=== PATIENT | female | born 1955 | race Two or more races ===

== ENCOUNTER 2024-02-08 07:48 | Inpatient (IN) | payer MEDICAID, SELFPAY ==
[2024-02-08] VITALS (13 sets, daily range): BP systolic 137–157; BP diastolic 61–99; PULSE 68–77; RESP 16–84; TEMP 36.1–37.1; O2SAT 87–100; BMI 24.7
--- NOTE | 2024-02-08 08:18 | EKG_ITS ---
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
--- NOTE | 2024-02-08 08:18 | XR_ITS ---
Examination: AP chest single view Technique one AP portable semiupright chest single view Exam date and time: February 08, 2024 0854 hrs. Comparison 11/06/2023 Indications: SOB chest pain beginning today Findings: Moderate CHF Mild enlargement cardiac contour Prominent vascular congestion Layered right pleural fluid Bilateral subsegmental atelectasis Suspicious for pneumonia left base retrocardiac Prominent osteopenia Impression: Moderate CHF Suspicious for pneumonia left base retrocardiac
--- NOTE | 2024-02-08 08:20 | PC.NURSE ---
Patient to er via ems from [facility] with c/o sob, retaining fluid for 1 week, gained 17 lbs in the last week, swelling to concepción. ankles, started lasix yest, currently patient resp. even and slightly labored at 25bpm, patient denies pain, patient slightly confused thinks she is at [facility], reoriented patient to person place and time, patient states she is breathing better after administration of medication en route by ems. Dr. Son at bedside, new orders received, call light within reach
--- NOTE | 2024-02-08 08:36 | PD.EDSOB ---
ED SOB =RME/HPI General Chief Complaint: Shortness of Breath/Dyspnea Stated Complaint: SOB Time Seen by Provider: 02/08/24 08:07 Arrival date/time: 02/08/24 07:48 RME / HPI RME / HPI Narrative: DR. SON MAIN ED EVALUATION: 68 year old female with past medical history significant for chronic kidney disease, diabetes, and oxygen dependent presents to the Emergency Department [facility] from [facility] with complaint of shortness of breath. Symptoms are moderate. Patient states that she has been retaining fluid and gained 17 pounds in the last week. She has swelling to bilateral ankles and started lasix yesterday. Related Data Home Medications ?Medication ?Instructions ?Recorded ?Confirmed gabapentin 600 mg tablet 600 mg PO TID #0 tabs 09/28/15 12/30/22 (Neurontin) glipizide 10 mg tablet 10 mg PO DAILY #0 tabs 09/28/15 12/30/22 atorvastatin 10 mg tablet 10 mg PO DAILY 08/21/21 12/30/22 sitagliptin phosphate 100 mg 100 mg PO DAILY 08/21/21 12/30/22 tablet (Januvia) Previous Rx's ?Medication ?Instructions ?Recorded albuterol sulfate 90 mcg/actuation 1 inh inhalation QID PRN shortness 12/30/22 aerosol inhaler of breath or wheezing #8.5 grams Allergies Allergy/AdvReac Type Severity Reaction Status Date / Time No Known Allergies Allergy Unverified 08/25/23 14:50 Review of Systems Review of Systems Systems Reviewed: All systems reviewed, normal except as documented Narrative Review of Systems: GEN: No fever, no chills, no weight loss EYES: No discharge, no visual changes, no pain HEENT: No ear pain, no congestion, no sore throat PULM: + shortness of breath, no cough, no congestion CV: No chest pain, no dyspnea on exertion, no palpitations GI: No nausea, no vomiting, no diarrhea, no pain, no constipation : No frequency, no urgency and no dysuria MUSC/SKEL: No joint pain, no back pain SKIN: No rash PSYCH: No hallucinations, no depression HEME/LYMPH: No easy bleeding or bruising tendencies NEURO: No weakness, no headache Past Medical History Past Medical History NEUROLOGIC: Negative Neurological Disorders CARDIAC: Positive Hypercholesterolemia and Hypertension; Negative Cardiac Disorders or Congestive Heart Failure RESPIRATORY: Negative Chronic Obstructive Pulmonary Disease (COPD) GENITOURINARY: Positive Genitourinary Disorders and Renal Disease REPRODUCTIVE: Negative Pelvic Inflammatory Disease MUSCULOSKELETAL: Positive Musculoskeletal Disorders ENDOCRINE: Positive Endocrine Disorders and Diabetes Mellitus Type 2; Negative Diabetes Mellitus Type 1 OTHER HISTORY: Negative Autoimmune Disease Family History FAMILY HISTORY: Positive Family Respiratory Disorders and Family Cancer; Negative Family Psychiatric Problems, Family Cardiac Disorders, Family Gastrointestinal Problems, Family Surgery or Family Anesthesia Reaction Surgical History SURGICAL: Positive Abdominal Surgery and Tubal Ligation Social History SMOKING STATUS: Never smoker ED Exam Narrative Physical exam: GENERAL APPEARANCE: alert and oriented x 4, well-developed, well-nourished VITALS: All vitals were reviewed and the pulse ox is 100% on 5 L/min via a nasal cannula. HEENT: Normocephalic, atraumatic; pupils equal, round, reactive to light; EOMI; mucous membranes pink, moist; oropharynx clear NECK: Supple LUNGS: CTABL; no wheezes, no rales, no rhonchi HEART: Regular rate, regular rhythm; normal S1, S2; no murmurs ABDOMEN: non distended; normal BS; soft, no tenderness, no guarding, no rebound; no masses, no organomegaly, no hernia BACK: no CVA tenderness EXTREMITIES: atraumatic; she has swelling to bilateral ankles NEUROLOGIC: awake; alert and oriented x4; cranial nerves II-XII grossly intact; no focal sensory or motor deficits PSYCHIATRIC: appropriate mood and affect SKIN: warm, dry, normal color; no rashes Course Quality Measures none Orders Category Date Time Status Admit to Inpatient Status Routine Admission 02/08/24 15:17 Active Patient Condition Routine Admission 02/08/24 15:17 Ordered Activity as Tolerated Routine Care 02/08/24 15:18 Ordered Bedside COVID-19 Antigen Test NOW Care 02/08/24 08:18 Active Bedside Influenza A&B Antigen Test NOW Care 02/08/24 08:18 Completed 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 NOW Care 02/08/24 08:18 Active 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 And 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 Q4H START 00 Care 02/08/24 08:19 Completed Continuous Pulse Oximetry NOW Care 02/08/24 15:17 Active EKG (ED ONLY) *Do not use* NOW Care 02/08/24 08:18 Completed Fluid restriction QDAY Care 02/08/24 15:17 Active Intake and Output QSHIFT Care 02/08/24 15:30 Ordered Notify provider NEEDED Care 02/08/24 15:17 Active Obtain weight daily Care 02/08/24 15:18 Active Occult Blood,Stool (Nursing) NOW Care 02/08/24 09:56 Active Sequential Compression Device QSHIFT Care 02/08/24 15:17 Active Strict Intake and Output Routine Care 02/08/24 15:18 Ordered Diet Cardiac Diet 02/08/[address] head/brain wo con Stat Exams 02/08/24 11:57 Completed EKG (ED Only) Stat Exams 02/08/24 08:18 Draft XR chest 1V portable Stat Exams 02/08/24 08:18 Completed B-Type Natriuretic Peptide Stat Lab 02/08/24 08:34 Completed Blood Culture (Lab) Stat Lab 02/08/24 08:34 Received CBC AM DRAW Lab 02/09/24 05:00 Ordered CBC AM DRAW Lab 02/10/24 05:00 Ordered CBC AM DRAW Lab 02/11/24 05:00 Ordered CBC Stat Lab 02/08/24 08:34 Completed Comprehensive Metabolic Panel AM DRAW Lab 02/09/24 05:00 Ordered Comprehensive Metabolic Panel AM DRAW Lab 02/10/24 05:00 Ordered Comprehensive Metabolic Panel AM DRAW Lab 02/11/24 05:00 Ordered Comprehensive Metabolic Panel Stat Lab 02/08/24 08:34 Completed Folate Stat Lab 02/08/24 08:34 Received Lactate (Lactic Acid) Stat Lab 02/08/24 08:34 Completed Lipase Stat Lab 02/08/24 08:34 Completed Magnesium AM DRAW Lab 02/09/24 05:00 Ordered Magnesium AM DRAW Lab 02/10/24 05:00 Ordered Magnesium AM DRAW Lab 02/11/24 05:00 Ordered Magnesium Stat Lab 02/08/24 08:34 Completed Occult Blood, Stool (LAB) Stat Lab 02/08/24 11:50 Completed Partial Thromboplastin Time Stat Lab 02/08/24 08:34 Completed Phosphorous AM DRAW Lab 02/09/24 05:00 Ordered Phosphorous AM DRAW Lab 02/10/24 05:00 Ordered Phosphorous AM DRAW Lab 02/11/24 05:00 Ordered Procalcitonin Stat Lab 02/08/24 08:34 Completed Prothrombin Time with INR Stat Lab 02/08/24 08:34 Completed Troponin I AM DRAW Lab 02/09/24 05:00 Ordered Troponin I Stat Lab 02/08/24 08:34 Completed Troponin I Stat Lab 02/08/24 11:54 Completed Urinalysis Stat Lab 02/08/24 09:37 Completed Urine Culture Stat Lab 02/08/24 09:37 Received Vitamin B12 Stat Lab 02/08/24 08:34 Received Acetaminophen Tab [Tylenol Tab] Med 02/08/24 15:17 Active 650 mg PO Q6H PRN Acetaminophen Tab [Tylenol Tab] Med 02/08/24 15:17 Active 650 mg PO Q6H PRN Calcium Gluconate 10% Inj Med 02/08/24 09:53 Discontinued 1 gm IV X1 ONE Furosemide Inj [Lasix Inj] Med 02/08/24 18:00 Active 40 mg IVP BIDD Furosemide [Lasix Inj] Med 02/08/24 12:09 Discontinued 20 mg IVP X1 ONE Ondansetron Inj [Zofran Inj] Med 02/08/24 15:17 Active 4 mg IV Q6H PRN cefTRIAXone [Rocephin] 1,000 mg Med 02/08/24 13:12 Discontinued Sodium Chloride 0.9% (P) [Ns 0.9% (P)] 50 ml IV X1 cefTRIAXone/D5w 1gm IV premix [Rocephin/D5w 1gm IV Med 02/09/24 09:00 Active premix] 50 ml IV QDAY Code Status Routine Oth 02/08/24 15:17 Ordered Oxygen Delivery DAILY RT 02/08/24 15:18 Active Oxygen Delivery NOW RT 02/08/24 08:19 Active Vital Signs Vital signs: Vital Signs Temperature 98.3 F 02/08/24 07:50 Pulse Rate 77 02/08/24 07:50 Respiratory Rate 17 02/08/24 07:50 Blood Pressure 143/77 H 02/08/24 07:50 Pulse Oximetry (%) 95 02/08/24 07:50 Oxygen Delivery Method Nasal Cannula 02/08/24 07:50 Oxygen Flow Rate 6 02/08/24 07:50 Shortness of Breath / Dyspnea MDM Narrative MDM Narrative:: Andree Zarate am scribing for and in the presence of Dr. Son. Patient data External records reviewed:: [facility] previous records (Reviewed last admission discharge dated 11/09/23, patient admitted for the following: Chest pain.) Clinical information provided by:: patient and EMS Social determinants that could affect healthcare access:: housing ([facility]) Patient has the following chronic illnesses:: chronic kidney disease, diabetes, and oxygen dependent How is presenting disease/condition affected by chronic disease/condition?: exacerbated by Evaluation data The following diagnostics were reviewed and interpreted by me:: lab results, radiology exam(s) and EKG tracing(s) (sinus rhythm, rate 72, QTc 423) Lab and/or radiology exams considered but not ordered:: none Interpretation Summary: Procedure(s): CT head/brain wo con Accession Number(s): [id number] cc: Keshia Daniels MD; Cm Brown MD; Andria Son MD~ Examination: CT brain head without contrast. 2-D sagittal coronal reconstructions Date and time of exam:February 08, 2024 1210 hrs. Indications: Onset altered mental status today CTDI: vol (mGy):49.2 DLP: (mGycm):961 Technique: Multiple CT axial sections of the brain have been obtained, 5 mm slice thickness. Contrast has not been administered. 2-D sagittal, coronal reconstructions have been obtained Low dose protocols were performed. One or more of the following dose reduction techniques were used; automated exposure control, adjustment of the mA and/or KV according to patient size, use of iterative reconstruction technique. Findings: No significant ventricular enlargement. Axial image 30 demonstrate subtle low density in the left brainstem, pontine level, 15 mm Intra-axial or extra-axial hemorrhage density is not seen. No mass effect or midline shift Basal cisterns are not remarkable. Fourth ventricle is midline. Cranial vault intact. Impression: Negative for acute hemorrhage, mass effect or midline shift Suspicious for nonhemorrhagic brainstem infarct, age indeterminate, axial image 30, clinical correlation advised Consider brain MRI follow-up, stroke protocol Dictated By: Cm Brown MD Procedure(s): XR chest 1V portable Accession Number(s): [id number] cc: Cm Brown MD; Andria Son MD~ Examination: AP chest single view Technique one AP portable semiupright chest single view Exam date and time: February 08, 2024 0854 hrs. Comparison 11/06/2023 Indications: SOB chest pain beginning today Findings: Moderate CHF Mild enlargement cardiac contour Prominent vascular congestion Layered right pleural fluid Bilateral subsegmental atelectasis Suspicious for pneumonia left base retrocardiac Prominent osteopenia Impression: Moderate CHF Suspicious for pneumonia left base retrocardiac Dictated By: Cm Brown MD Medications / Prescriptions Medications or Prescriptions considered but not ordered:: none Medication administrations:: Medication Administration History Acetaminophen (Acetaminophen 325 Mg Tablet) 650 mg PO Q6H PRN PRN Reason: Fever >101.5 Stop: 03/09/24 15:16 Acetaminophen (Acetaminophen 325 Mg Tablet) 650 mg PO Q6H PRN PRN Reason: PAIN SCALE 1-3 (mild Stop: 03/09/24 15:16 Furosemide (Furosemide Inj 10 Mg/Ml 4ml Vial) 40 mg IVP BIDD [facility] Stop: 03/09/24 17:59 Ceftriaxone Sodium/Dextrose (Rocephin/D5w 1gm Iv Premix) 50 mls @ 100 mls/hr IV QDAY [facility] Stop: 02/16/24 08:59 Ondansetron HCl (Ondansetron Inj 2 Mg/Ml Inj 2 Ml) 4 mg IV Q6H PRN; Protocol PRN Reason: NAUSEA OR VOMITING Stop: 03/09/24 15:16 Discontinued Medications Calcium Gluconate (Calcium Gluconate 10% Inj 1 Gm/10 Ml Vial) 1 gm IV X1 ONE Stop: 02/08/24 09:54 Last Admin: 02/08/24 10:50 Dose: 1 gm Documented By: MANUELITO Furosemide (Furosemide Inj 10 Mg/Ml Vial 2 Ml) 20 mg IVP X1 ONE Stop: 02/08/24 12:10 Last Admin: 02/08/24 13:18 Dose: 20 mg Documented By: MANUELITO Ceftriaxone Sodium 1,000 mg/ (Sodium Chloride) 50 mls @ 100 mls/hr IV X1 ONE Stop: 02/08/24 13:41 Last Infusion: 02/08/24 13:54 Dose: Infused Documented By: Admin: 02/08/24 13:18 Dose: 100 mls/hr Documented By: MANUELITO see above Consultations Consultation(s) initiated? (list below): Yes Consultation #1 (Physician, Specialty, Details): Discussed test HPI, PMHx, lab, radiology results and/or management with hospitalist. Will admit for further evaluation and management. Accepts patient for admission. Time: 15:00 Diagnosis Shortness of Breath Differential Diagnosis: congestive heart failure, community acquired pneumonia and pulmonary embolism Most likely diagnosis given after review of the tests above:: CHF exacerbation UTI Hypoxia AMS Anemia Admission Indicated Admission indicated?: indicated Admission Request Was there a request for admission?: Yes Admission Attestation Admission request attestation: Discussed case with [] from Hospitalist service regarding admission. Discussed patients ED course, exam findings, labs, and radiology results. The Hospitalist [agrees,declines] to accept the patient for admission. Disposition Plan Disposition Plan: Admit Discharge Plan Plan Patient Disposition: Admit Acute Care w/in Hospital Prescriptions/Referrals Prescriptions/Med Rec: No Action gabapentin [Neurontin] 600 MG tablet 600 mg PO TID Qty: 0 glipizide 10 MG tablet 10 mg PO DAILY Qty: 0 atorvastatin 10 mg tablet 10 mg PO DAILY Januvia 100 mg tablet 100 mg PO DAILY albuterol sulfate 90 mcg/actuation HFA aerosol inhaler 1 inh inhalation QID PRN (Reason: shortness of breath or wheezing) Qty: 8.5 0RF Referrals: Keshia Daniels MD [Primary Care Provider] - In 1 week Problem List Clinical Impression: CHF exacerbation, UTI (urinary tract infection), Hypoxia, Altered mental state, Anemia Patient/Caregiver Discharge Instructions Print Language: Luxembourgish Stand Alone Forms: [facility]a Award Info., Patient Portal Info Letter
[2024-02-08 08:43] LABS: Lactate (Lactic Acid) 0.3 mMol/L (0.4-2.0)
[2024-02-08 09:10] LABS: Basophils # (Auto) 0.1 Thou/mm3 (0.0-0.2); Basophils % (Auto) 1 % (0-2.5); Eosinophils # (Auto) 0.2 Thou/mm3 (0.0-0.5); Eosinophils % (Auto) 3 % (0-10); Hematocrit 24.1 % (36.0-46.0); Immature Granulocytes % (Auto) 2 % (0-0); Immature Granulocytes Auto 0.09 Thou/mm3 (0.00-0.00); Lymphocytes # (Auto) 1.2 Thou/mm3 (1.0-4.8); Lymphocytes % (Auto) 22 % (10-50); Mean Corpuscular HGB Conc 31.1 g/dl (31.0-37.0); Mean Corpuscular Hemoglobin 32.3 pg (25.0-35.0); Mean Corpuscular Volume 104 fL (80-100); Monocytes # (Auto) 0.5 Thou/mm3 (0.0-0.8); Monocytes % (Auto) 9 % (0-12); Neutrophils # (Auto) 3.3 Thou/mm3 (1.8-7.7); Neutrophils % (Auto) 63 % (37-80); Nucleated Red Blood Cell % 0 /100 WBC (0); Platelet Count 247 Thou/mm3 (140-440); RDW Standard Deviation 57.2 fL (36.4-46.3); Red Blood Count 2.32 Miln/mm3 (4.00-5.20); White Blood Count 5.2 Thou/mm3 (3.6-11.0)
[2024-02-08 09:11] LABS: B-Type Natriuretic Peptide 1715 pg/mL (0-100)
[2024-02-08 09:12] LABS: Hemoglobin 7.5 g/dL (12.0-16.0)
[2024-02-08 09:23] LABS: Alanine Aminotransferase 8 U/L (10-49); Albumin, Serum 3.3 gm/dL (3.4-4.8); Albumin/Globulin Ratio 0.9 (1.2-2.2); Alkaline Phosphatase 184 U/L (46-116); Anion Gap 6 (7-16); Aspartate Amino Transferase < 10 U/L (0-34); BUN/Creatinine Ratio 30 Ratio (12-20); Bilirubin,Total 0.3 mg/dL (0.3-1.2); Blood Urea Nitrogen 74 mg/dL (9-23); Calcium 8.3 mg/dL (8.3-10.6); Calcium (Corrected) 8.9 mg/dL (8.5-10.1); Carbon Dioxide 23.7 mMol/L (20.0-31.0); Chloride 106 mMol/L (98-107); Creatinine (Component) 2.5 mg/dL (0.6-1.3); Estimated Creatinine Clearance 18.8 mL/min (>60); Globulin 3.8 gm/dL (2.3-3.5); Glucose 95 mg/dL (74-106); Lipase 29 U/L (12-53); Osmolality,Calculated 293 (275-295); Potassium 5.8 mMol/L (3.4-5.1); Procalcitonin 0.19 ng/ml (0.0-0.49); Sodium 136 mMol/L (136-145); Total Protein 7.1 gm/dL (5.7-8.2); eGFR 21 See Note
[2024-02-08 09:24] LABS: Troponin I 0.062 ng/mL (0.0-0.045)
[2024-02-08 09:57] LABS: Collection Type, Urine Clean Catch
[2024-02-08 09:58] LABS: INR 1.1 (0.9-1.3); Partial Thromboplastin Time 32.2 Seconds (22.0-36.0); Prothrombin Time 12.2 Seconds (9.0-12.2)
[2024-02-08 10:17] LABS: Bacteria,Urine 4+; Bilirubin,Urine Negative (Negative); Blood,Urine Negative (Negative); Color,Urine Yellow (Lt Yel-Yel); Glucose, Urine Negative (Negative); Ketones,Urine Negative (Negative); Leukocyte Esterase,Urine Positive (Negative); Nitrite,Urine Negative (Negative); Protein,Urine 3+ (Neg - Trace); RBC,Urine 4 /hpf (0-3); Specific Gravity,Urine 1.016 (1.001-1.035); Squamous Epithelial Cell,Urine 1 /hpf (0-5); Urobilinogen,Urine Negative mg/dL (0.0-1.0); WBC,Urine 127 /hpf (0-5)
[2024-02-08 10:18] LABS: Clarity,Urine Hazy (Clear/Hazy)
[2024-02-08] MEDS: CALCIUM GLUCONATE 10% INJ 1 GM/10 ML VIAL IV (10:50)
--- NOTE | 2024-02-08 11:57 | XR_ITS ---
Examination: CT brain head without contrast. 2-D sagittal coronal reconstructions Date and time of exam:February 08, 2024 1210 hrs. Indications: Onset altered mental status today CTDI: vol (mGy):49.2 DLP: (mGycm):961 Technique: Multiple CT axial sections of the brain have been obtained, 5 mm slice thickness. Contrast has not been administered. 2-D sagittal, coronal reconstructions have been obtained Low dose protocols were performed. One or more of the following dose reduction techniques were used; automated exposure control, adjustment of the mA and/or KV according to patient size, use of iterative reconstruction technique. Findings: No significant ventricular enlargement. Axial image 30 demonstrate subtle low density in the left brainstem, pontine level, 15 mm Intra-axial or extra-axial hemorrhage density is not seen. No mass effect or midline shift Basal cisterns are not remarkable. Fourth ventricle is midline. Cranial vault intact. Impression: Negative for acute hemorrhage, mass effect or midline shift Suspicious for nonhemorrhagic brainstem infarct, age indeterminate, axial image 30, clinical correlation advised Consider brain MRI follow-up, stroke protocol
[2024-02-08 12:23] LABS: OBS Performed By vasqk2; OBS QC OK? Yes; Occult Blood, Stool Negative (Negative)
[2024-02-08 12:25] LABS: Troponin I 0.062 ng/mL (0.0-0.045)
[2024-02-08] MEDS: cefTRIAXone 1,000 MG in SODIUM CHLORIDE 0.9% (P) 50 ML 100 MG IV (13:18)
[2024-02-08] MEDS: FUROSEMIDE INJ 10 MG/ML VIAL 2 ML 20 MG IVP (13:18)
--- NOTE | 2024-02-08 13:43 | PC.NURSE ---
Patient c/o pain to her concepción. buttocks, patient turned to her left side in POC, call light within reach.
--- NOTE | 2024-02-08 15:24 | ESHP_ITS ---
<Statement entered by Cristi Lucia MD - 02/09/24 06:17> I attest that I was physically present for the evaluation, physical examination, lab and imaging review of the patient with the residents. I discussed the case with the residents and agree with the findings and plans of care as documented above. Patient is a 68 years old female with PMH of HFrEF 35-40% on 2L home O2, CKD, HTN, DM2, hypothyroidism who presents from SNF with complaints of increased shortness of breath, increased leg swelling, and dysuria. She was initially started on 6L oxygen via nasal cannula in the ED and received 20mg IV lasix. Also noted to have acute on chronic kidney injury, hyperkalemia and UTI. Patient will be admitted for management of acute on chronic respiratory failure secondary to CHF exacerbation. Started on diuretics, kayexalate, IV antibiotics, fluid and salt restriction, supplemental oxygen. Cristi Lucia MD <Statement entered by Patricia Cox MD - 02/08/24 16:41> I discussed with and supervised my co-resident involved in the care of this patient. I agree with most of the assessment and plan as documented above. Betty Oliveira is a 68 year female with PMH of HFrEF 35-40% (Oct 2023, on 2L home O2), CKD, HTN, DM2, hypothyroidism who presents from SNF for shortness of breath and increased leg swelling, and dysuria. Patient denies any headache, fever, chills, nausea, or vomiting, chest pain, no other acute complaints. She got lasix in the ER and oxygen requirements improved from 6L to 2L. Labs show hyperkalemia, troponin leak, IBRAHIMA, and elevated BNP. UA also suggestive of UTI. Will admit patient for acute hypoxic respiratory failure secondary to acute CHF exacerbation. Echo was done on previous admission, unclear if patient followed up with inorganic chemistry professor outpatient. Will give lasix, monitor I&O with fluid restriction, daily weights. Patient will likely need to start on GDMT. Will also give antibiotics for her UTI. Will recheck TSH levels as well as she had elevated TSH on previous admission. Patricia Cox MD PGY-3 Documentation for date of: 02/08/24 HPI History of Present Illness History of present illness: Patient is a 68-year-old female with past medical history of HFrEF 35 to 40%, CKD off dialysis since 06/30, HTN, DM, hypothyroidism presented to the emergency department from [facility] for altered mentation and increased oxygen requirements. Patient states that she feels that her feet are swollen and she is short of breath. Patient states that she has multiple admissions previously for similar symptoms to both [facility] and [facility]. Patient denies any recent fever, productive sputum, chest pain or chest pressure, sensorineural changes, falls or loss of conscious. Patient attest to mild burning on urination for the past couple days. Per ED provider patient appeared to be confused on initial presentation. Initial blood pressure, heart rate, respiratory rate were normal in the emergency department. Afebrile on presentation. Patient usually is on 2 L home oxygen, however per ED provider they needed to place her on 6 L nasal cannula to saturate at 99%. CT head obtained in the emergency department negative. CBC significant for hemoglobin of 7.5 from 9.7 in November 2023. Bedside Hemoccult negative. CMP significant for BUN 74, creatinine 2.5. Potassium of 5.8-given Kayexalate in ED. Troponin 0.062, BNP 17.5. Pro-Josue 0.19. EKG shows sinus rhythm. Chest x-ray shows prominent vascular congestion, moderate CHF, as well as suspicion for PNA left base, retrocardiac. Patient given 20 Lasix in the emergency department. Urinalysis shows 3+ protein, leukoesterase positive, urine WBC 127, urine bacteria 4+. Physical exam in emergency department significant for slightly diminished lung sounds bilaterally, left> right. 2+ edema noted on lower extremities bilaterally. Patient is alert and oriented x 4 at time of exam in the emergency department Patient will be admitted for acute hypoxic respiratory failure secondary to CHF exacerbation, acute on chronic kidney injury and urinary tract infection. Exam Vital Signs Temp Pulse Resp BP Pulse Ox O2 Del Method O2 Flow Rate 97.7 F 72 17 142/67 H 100 Nasal Cannula 5 02/08/24 14:02/08/24 14:02/08/24 14:02/08/24 14:02/08/24 14:02/08/24 14:02/08/24 14:00 Narrative Exam GENERAL: NAD, NC/AT, responsive/cooperative. 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 Eyes open, symmetrical, & clear CARDIO: No chest pain on palpation. Heart RRR, no obvious murmurs PULM: Significant for slightly diminished lung sounds bilaterally, left> right. GI: Abdomen soft, nondistended, no pain on palpation. BSx4 SKIN/MSK/EXT: No wounds/rashes/amputations, no pain on palpation. Pedal pulses present B/L 2+ pitting edema noticed on bilateral lower extremities Results: Labs 02/08/24 08:34 02/08/24 08:34 Labs: Short CBC 02/08/24 Range/Units 08:34 WBC 5.2 (3.6-11.0) Thou/mm3 Hgb 7.5 L (12.0-16.0) g/dL Hct 24.1 L (36.0-46.0) % Plt Count 247 (140-440) Thou/mm3 BMP 02/08/24 08:34 Sodium 136 Potassium 5.8 H Chloride 106 Carbon Dioxide 23.7 BUN 74 H Creatinine 2.5 H Glucose 95 Calcium 8.3 Cardiac Enzymes 02/08/24 02/08/24 Range/Units 08:34 11:54 Troponin I 0.062 H* 0.062 H* (0.0-0.045) ng/mL Liver Function 02/08/24 Range/Units 08:34 Total Bilirubin 0.3 (0.3-1.2) mg/dL AST < 10 (0-34) U/L ALT 8 L (10-49) U/L Alkaline Phosphatase 184 H (46-116) U/L Albumin 3.3 L (3.4-4.8) gm/dL Urine 02/08/24 Range/Units 09:37 Urine Color Yellow (Lt Yel-Yel) Urine Clarity Hazy (Clear/Hazy) Urine pH 6.0 (5.0-7.0) Ur Specific [place] 1.016 (1.001-1.035) Urine Protein 3+ A (Neg - Trace) Urine Glucose (UA) Negative (Negative) Quality Measures Quality Measures VTE prophylaxis Advance care planning discussed with:: patient Medications Home Medications and Allergies Home Medications ?Medication ?Instructions ?Recorded ?Confirmed ?Type gabapentin 600 mg tablet 600 mg PO TID #0 tabs 09/28/15 12/30/22 History (Neurontin) glipizide 10 mg tablet 10 mg PO DAILY #0 tabs 09/28/15 12/30/22 History atorvastatin 10 mg tablet 10 mg PO DAILY 08/21/21 12/30/22 History sitagliptin phosphate 100 mg 100 mg PO DAILY 08/21/21 12/30/22 History tablet (Januvia) Allergies Allergy/AdvReac Type Severity Reaction Status Date / Time No Known Allergies Allergy Unverified 08/25/23 14:50 Visit Medications Acetaminophen (Acetaminophen 325 Mg Tablet) 650 mg PO Q6H PRN PRN Reason: Fever >101.5 Stop: 03/09/24 15:16 Acetaminophen (Acetaminophen 325 Mg Tablet) 650 mg PO Q6H PRN PRN Reason: PAIN SCALE 1-3 (mild Stop: 03/09/24 15:16 Ondansetron HCl (Ondansetron Inj 2 Mg/Ml Inj 2 Ml) 4 mg IV Q6H PRN; Protocol PRN Reason: NAUSEA OR VOMITING Stop: 03/09/24 15:16 Discontinued Medications Calcium Gluconate (Calcium Gluconate 10% Inj 1 Gm/10 Ml Vial) 1 gm IV X1 ONE Stop: 02/08/24 09:54 Last Admin: 02/08/24 10:50 Dose: 1 gm Furosemide (Furosemide Inj 10 Mg/Ml Vial 2 Ml) 20 mg IVP X1 ONE Stop: 02/08/24 12:10 Last Admin: 02/08/24 13:18 Dose: 20 mg Ceftriaxone Sodium 1,000 mg/ (Sodium Chloride) 50 mls @ 100 mls/hr IV X1 ONE Stop: 02/08/24 13:41 Last Infusion: 02/08/24 13:54 Dose: Infused Assessment & Plan Plan Patient is a 68-year-old female with past medical history of HFrEF 35 to 40%, CKD off dialysis since 06/30, HTN, DM, hypothyroidism presented to the emergency department from [facility] for altered mentation and increased oxygen requirements. Admitted for acute hypoxic respiratory failure secondary to CHF exacerbation, IBRAHIMA, UTI. #Acute hypoxic respiratory failure secondary to CHF exacerbation # Heart failure with reduced ejection fraction Patient has a history of HFrEF with echo performed in 11/06/23 showing global hypokinesis with ejection fraction as needed 35 to 40%. Patient presented with shortness of breath and increased oxygen demand from her home 2 L nasal cannula. Troponin elevated at 0.062, EKG sinus rhythm. Patient denies any chest pain/chest pressure. BNP 1715 Chest x-ray shows pulmonary vascular congestion, moderate CHF -Oxygen therapy to achieve saturations above 92% -Lasix 40 twice daily -Fluid restrict 1500 mL/day -Cardiac diet, salt restriction #IBRAHIMA in the setting of CKD #Hyperkalemia Patient's baseline creatinine is to be 1.6 per previous records, upon presentation 2.5 GFR 29 on previous admissions, now 21 Patient was previously on dialysis however was taken off on 06/30 due to improvement in function. Potassium 5.8 on initial labs in emergency department -Kayexalate 15 given -Continue to monitor labs -Gentle diuresis #Urinary tract infection Patient attests to multiple days of burning on urination Urinalysis shows 3+ protein, leukoesterase positive, urine WBC 127, urine bacteria 4+. Rocephin given in the emergency department -Rocephin 1 g daily -Urine culture sent, pending # Low Hemoglobin Patient's hemoglobin is 7.5 on initial labs, from 9.7 on 11/30. Patient denies any tiredness/weakness. Bedside Hemoccult test is negative. MCV elevated -Continue to reassess CBC -Ordered folate and B12 levels, will reassess #Diabetes Patient has history of diabetes Patient does not appear to be insulin-dependent at home -Sliding scale insulin initiated, will adjust accordingly #HTN Patient has a history of hypertension -Holding home nifedipine in the setting of leg swelling. Will reassess after Lasix dose. # Hypothyroidism Patient has a history of hypothyroidism Restarting patient's home levothyroxine #AMS- resolved Per ED provider patient presented with altered mentation. On exam in the emergency department patient was alert and oriented x 4. Diet: Cardiac diet GI: Patient is on cardiac diet DVT: SCDs Jacobo: None Lines: Peripheral Dispo:Tele Med Rec: Pending Code:Full Hospitalization for observation, work-up, & management of acute hypoxic respiratory failure, IBRAHIMA, urinary tract infection Patient was seen, plan was discussed with attending Dr. Rea Mora, DO, PGY1
[2024-02-08 16:32] LABS: Folate > 24.00 ng/mL (>5.38); Vitamin B12 994 pg/mL (211-911)
--- NOTE | 2024-02-08 18:24 | PC.NURSE ---
1814 PATIENT WHINING AND STATES HER RT LEG IS VERY PAINFUL. DR CASTLE CALLED AND INFORMED OF HER COMPLAINT AND PAIN LEVEL. ONLY HAS TYLENOL FOR PAIN LEVEL OF 1-3. STATED WILL ORDER HER SOMETHING MORE
--- NOTE | 2024-02-08 18:28 | PC.NURSE ---
UNABLE TO COMPLETE ADMISSION QUESTIONS. PATIENT IS VERY DISTRAUT, WHINING. ASKED HER IF SHE COULD CALM DOWN AND ANSWER QUESTIONS. YELLED BACK IM IN PAIN. ASKED HER WHERE THE PAIN IS AND SHE ANSWERED YOU KNOW WHERE IT IS. INFORMED TRISTA I CAN NOT HELP HER IF SHE DOES NOT ANSWER MY QUESTION. BECAME QUIET AND REFUSED TO ANSWER ANY FURTHER QUESTIONS. STATED IM GOING HOME. A DAUGHTER WALKED IN BUT SHE IS NOT FAMILIAR WITH HER HEALTH HISTORY. INFORMED TRISTA I WOULD RETURN WITH PAIN MED.
[2024-02-08] MEDS: oxyCODONE/APAP 5/325 TABLET 1 TAB PO (18:35)
[2024-02-08] MEDS: FUROSEMIDE INJ 10 MG/ML 4ML VIAL 40 MG IVP (18:39)
[2024-02-08] MEDS: SOD POLYSTYRENE SULFON SUSP 15 GM/60 ML BTL PO (18:40)
[2024-02-08] MEDS: ATORVASTATIN CALCIUM 10 MG TABLET PO (20:35)
[2024-02-08] MEDS: GABAPENTIN 300 MG CAPSULE PO (20:59)
[2024-02-08 21:43] LABS: Basophils % (Auto) 1 % (0-2.5); Eosinophils # (Auto) 0.1 Thou/mm3 (0.0-0.5); Eosinophils % (Auto) 3 % (0-10); Hematocrit 25.3 % (36.0-46.0); Immature Granulocytes % (Auto) 2 % (0-0); Lymphocytes % (Auto) 20 % (10-50); Mean Corpuscular HGB Conc 31.2 g/dl (31.0-37.0); Mean Corpuscular Volume 102 fL (80-100); Monocytes # (Auto) 0.3 Thou/mm3 (0.0-0.8); Monocytes % (Auto) 7 % (0-12); Neutrophils # (Auto) 3.5 Thou/mm3 (1.8-7.7); Neutrophils % (Auto) 69 % (37-80); Nucleated Red Blood Cell % 0 /100 WBC (0); Platelet Count 264 Thou/mm3 (140-440); RDW Standard Deviation 56.9 fL (36.4-46.3); Red Blood Count 2.47 Miln/mm3 (4.00-5.20); White Blood Count 5.1 Thou/mm3 (3.6-11.0)
[2024-02-08 21:49] LABS: Hemoglobin 7.9 g/dL (12.0-16.0)
[2024-02-08 23:47] LABS: Alanine Aminotransferase < 7 U/L (10-49); Albumin, Serum 3.5 gm/dL (3.4-4.8); Albumin/Globulin Ratio 0.9 (1.2-2.2); Alkaline Phosphatase 203 U/L (46-116); Anion Gap 9 (7-16); Aspartate Amino Transferase 11 U/L (0-34); BUN/Creatinine Ratio 30 Ratio (12-20); Bilirubin,Total 0.3 mg/dL (0.3-1.2); Blood Urea Nitrogen 72 mg/dL (9-23); Calcium 8.9 mg/dL (8.3-10.6); Calcium (Corrected) 9.3 mg/dL (8.5-10.1); Carbon Dioxide 22.4 mMol/L (20.0-31.0); Chloride 105 mMol/L (98-107); Creatinine (Component) 2.4 mg/dL (0.6-1.3); Estimated Creatinine Clearance 19.6 mL/min (>60); Glucose 108 mg/dL (74-106); Osmolality,Calculated 294 (275-295); Potassium 5.4 mMol/L (3.4-5.1); Sodium 136 mMol/L (136-145); Total Protein 7.5 gm/dL (5.7-8.2); eGFR 22 See Note
[2024-02-09] VITALS (13 sets, daily range): BP systolic 125–162; BP diastolic 63–81; PULSE 63–79; RESP 10–20; TEMP 36.2–36.5; O2SAT 92–97
[2024-02-09] MEDS: LEVOTHYROXINE SODIUM 25 MCG TABLET 50 MCG PO (05:37)
[2024-02-09] MEDS: GABAPENTIN 300 MG CAPSULE PO ×3 (05:37→21:30)
[2024-02-09] MEDS: FUROSEMIDE INJ 10 MG/ML 4ML VIAL 40 MG IVP ×2 (05:37→17:09)
[2024-02-09 06:11] LABS: Basophils % (Auto) 1 % (0-2.5); Eosinophils # (Auto) 0.2 Thou/mm3 (0.0-0.5); Eosinophils % (Auto) 4 % (0-10); Hematocrit 24.3 % (36.0-46.0); Immature Granulocytes % (Auto) 2 % (0-0); Immature Granulocytes Auto 0.08 Thou/mm3 (0.00-0.00); Lymphocytes # (Auto) 1.4 Thou/mm3 (1.0-4.8); Lymphocytes % (Auto) 27 % (10-50); Mean Corpuscular HGB Conc 31.3 g/dl (31.0-37.0); Mean Corpuscular Hemoglobin 32.3 pg (25.0-35.0); Mean Corpuscular Volume 103 fL (80-100); Monocytes # (Auto) 0.5 Thou/mm3 (0.0-0.8); Monocytes % (Auto) 10 % (0-12); Neutrophils % (Auto) 58 % (37-80); Nucleated Red Blood Cell % 0 /100 WBC (0); Platelet Count 259 Thou/mm3 (140-440); RDW Standard Deviation 56.5 fL (36.4-46.3); Red Blood Count 2.35 Miln/mm3 (4.00-5.20); White Blood Count 5.2 Thou/mm3 (3.6-11.0)
[2024-02-09 06:29] LABS: Hemoglobin 7.6 g/dL (12.0-16.0)
[2024-02-09 07:01] LABS: Alanine Aminotransferase 8 U/L (10-49); Albumin/Globulin Ratio 0.8 (1.2-2.2); Alkaline Phosphatase 188 U/L (46-116); Anion Gap 7 (7-16); Aspartate Amino Transferase 13 U/L (0-34); BUN/Creatinine Ratio 30 Ratio (12-20); Bilirubin,Total 0.3 mg/dL (0.3-1.2); Blood Urea Nitrogen 73 mg/dL (9-23); Calcium 9.4 mg/dL (8.3-10.6); Calcium (Corrected) 10.2 mg/dL (8.5-10.1); Carbon Dioxide 25.8 mMol/L (20.0-31.0); Chloride 106 mMol/L (98-107); Creatinine (Component) 2.4 mg/dL (0.6-1.3); Estimated Creatinine Clearance 20.8 mL/min (>60); Globulin 3.7 gm/dL (2.3-3.5); Glucose 74 mg/dL (74-106); Magnesium 2.1 mg/dL (1.6-2.6); Osmolality,Calculated 298 (275-295); Potassium 5.2 mMol/L (3.4-5.1); Sodium 139 mMol/L (136-145); Thyroid Stimulating Hormone 9.98 uIU/mL (0.55-4.78); Total Protein 6.7 gm/dL (5.7-8.2); eGFR 22 See Note
[2024-02-09 07:19] LABS: Glucose Estimated Average 169 mg/dL (80-131); Hemoglobin A1C 7.5 % Hgb (4.8-6.0)
[2024-02-09 07:31] LABS: Troponin I 0.063 ng/mL (0.0-0.045)
[2024-02-09 08:11] LABS: Free T4 (Free Thyroxine) 1.02 ng/dL (0.89-1.76)
[2024-02-09] MEDS: hydrALAZINE HCL 25 MG TABLET PO ×3 (08:55→21:30)
[2024-02-09] MEDS: cefTRIAXone/D5w 1gm IV premix 50 ML IV (08:56)
--- NOTE | 2024-02-09 11:23 | XR_ITS ---
Examination:Right hip AP, lateral, AP pelvis 3 views Technique: Hip AP lateral, AP pelvis, 3 views Exam date and time:February 08, 1999 2539 hours INDICATIONS: Injury to the right hip today, right hip pain. FINDINGS: Severe osteopenia No right hip fracture or dislocation Left hip bones of the pelvis intact IMPRESSION: No acute right hip fracture If pain persists, recommend CT scan right hip pelvis without contrast follow-up.
--- NOTE | 2024-02-09 11:33 | PC.SS ---
Patient is alert/oriented. Sammarinese speaking only. Patient is a short term resident at [facility]. Patient's daughter, Cari, provided a brief history of patient. She states she is the main point of contact. She is also the contact at SNF. Patient recently discharged to facility on 01/16/24. Daughter confirmed that patient will return to facility once stable. Patient admitted for acute hypoxic resp failure. Patient will need gurney transport once ready for discharge.
--- NOTE | 2024-02-09 12:10 | ESPR_ITS ---
<Statement entered by Mars Ramey MD - 02/09/24 14:01> Patient seen and assessed at bedside this morning. Patient states breathing is much better, but reports that staff was rough when moving bed. Reports right hip pain, but x-ray shows no signs of fractures or dislocations. Nephrology consulted as patient continues to have decreased GFR and creatinine elevated. Patient does not recall name of hat conditioner she sees in [place], daughter in room does not recall hat conditioner name as well. Urine cultures show gram- negative rods, will continue with ceftriaxone for now. Case discussed with team. Mars Ramey MD PGY3 Documentation for date of: 02/09/24 Subjective Subjective Interval history: 02/08: No acute events overnight. Patient appears to be on home oxygen at 2 L. Prelim urine grows gram-negative rods. Patient's leg swelling appears to have gone down. Slightly hypertensive at 152/69 this a.m. Patient's phosphate and potassium appear to be increasing. Patient appears extremely sad on exam, crying. Patient states that yesterday while transporting from the ED to the floors she states that the staff were mean, and were rough with her when they moved her to the bed. Complains of right hip pain while tearful. Otherwise states that her shortness of breath has resolved. Mild pain on palpation of right hip. Obtained right hip x-ray which shows no acute fracture. Starting Coreg 6.25 BID towards guideline directed medical therapy. Holding FATIMAH/ARB, spironolactone given laboratory values and apparent IBRAHIMA. Patient does not remember her hat conditioner in [place]'s name, consulting nephrology Dr Mcclendon for further recommendations. Exam Vital Signs Temp Pulse Resp BP Pulse Ox O2 Del Method O2 Flow Rate 97.2 F 75 18 146/77 H 92 L Room Air 2 02/09/24 12:00 02/09/24 12:00 02/09/24 12:02/09/24 12:02/09/24 12:02/09/24 12:02/09/24 08:00 Narrative Exam GENERAL: NAD, NC/AT, responsive/cooperative. 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 Eyes open, symmetrical, & clear CARDIO: No chest pain on palpation. Heart RRR, no obvious murmurs PULM: CTAB, no R/R/R one xam GI: Abdomen soft, nondistended, no pain on palpation. BSx4 SKIN/MSK/EXT: No wounds/rashes/amputations, no pain on palpation. Pedal pulses present B/L. No pitting edema noted on exam Objective Labs 02/09/24 05:14 02/09/24 05:14 Labs: Laboratory Results - last 24 hr 02/08/24 02/08/24 02/08/24 08:34 11:50 11:54 WBC RBC Hgb Hct MCV MCH MCHC RDW Std Deviation Plt Count Neut % (Auto) Lymph % (Auto) Mason % (Auto) Eos % (Auto) Baso % (Auto) Neut # (Auto) Lymph # (Auto) Mason # (Auto) Eos # (Auto) Baso # (Auto) Immature Gran # (Auto) Absolute Nucleated RBC Immature Gran % Nucleated RBC % Sodium Potassium Chloride Carbon Dioxide Anion Gap BUN Creatinine Estim Creat Clear Calc eGFR BUN/Creatinine Ratio Glucose Estimated Ave Glu mg/dL Hemoglobin A1c Calculated Osmolality Calcium Corrected Calcium Phosphorus Magnesium Total Bilirubin AST ALT Alkaline Phosphatase Troponin I 0.062 H* Total Protein Albumin Globulin Albumin/Globulin Ratio Vitamin B12 994 H Folate > 24.00 TSH Free T4 Stool Occult Blood Negative 02/08/24 02/09/24 20:55 05:14 WBC 5.1 5.2 RBC 2.47 L 2.35 L Hgb 7.9 L 7.6 L Hct 25.3 L 24.3 L MCV 102 H 103 H MCH 32.0 32.3 MCHC 31.2 31.3 RDW Std Deviation 56.9 H 56.5 H Plt Count 264 259 Neut % (Auto) 69 58 Lymph % (Auto) 20 27 Mason % (Auto) 7 10 Eos % (Auto) 3 4 Baso % (Auto) 1 1 Neut # (Auto) 3.5 3.0 Lymph # (Auto) 1.0 1.4 Mason # (Auto) 0.3 0.5 Eos # (Auto) 0.1 0.2 Baso # (Auto) 0.0 0.0 Immature Gran # (Auto) 0.10 H 0.08 H Absolute Nucleated RBC 0.00 0.00 Immature Gran % 2 H 2 H Nucleated RBC % 0 0 Sodium 136 139 Potassium 5.4 H 5.2 H Chloride 105 106 Carbon Dioxide 22.4 25.8 Anion Gap 9 7 BUN 72 H 73 H Creatinine 2.4 H 2.4 H Estim Creat Clear Calc 19.6 L 20.8 L eGFR 22 L 22 L BUN/Creatinine Ratio 30 H 30 H Glucose [address] Glu mg/dL 169 H Hemoglobin A1c 7.5 H Calculated Osmolality 294 298 H Calcium 8.9 9.4 Corrected Calcium 9.3 10.2 H Phosphorus 7.0 H Magnesium 2.1 Total Bilirubin 0.3 0.3 AST 11 13 ALT < 7 L 8 L Alkaline Phosphatase 203 H 188 H Troponin I 0.063 H* Total Protein 7.5 6.7 Albumin 3.5 3.0 L D Globulin 4.0 H 3.7 H Albumin/Globulin Ratio 0.9 L 0.8 L Vitamin B12 Folate TSH 9.98 H Free T4 1.02 Stool Occult Blood Quality Measures Quality Measures VTE prophylaxis Advance care planning discussed with:: patient and child Assessment & Plan Assessment Current Active Medications: Generic Name Dose Route Start Last Admin Trade Name Freq PRN Reason Stop Dose Admin Acetaminophen 650 mg 02/08/24 15:17 Acetaminophen 325 Mg Tablet PO 03/09/24 15:16 Q6H PRN Fever >101.5 Acetaminophen 650 mg 02/08/24 15:17 Acetaminophen 325 Mg Tablet PO 03/09/24 15:16 Q6H PRN PAIN SCALE 1-3 (mild Aspirin 81 mg 02/10/24 09:00 Aspirin Ec 81 Mg Tabec PO 03/11/24 08:59 QDAY LUCI Atorvastatin Calcium 20 mg 02/09/24 21:00 Atorvastatin Calcium 10 Mg Tablet PO 03/10/24 20:59 HS [facility] Benzonatate 100 mg 02/09/24 09:43 Benzonatate 100 Mg Capsule PO 03/10/24 09:42 Q8HR PRN Cough Protocol Carvedilol 6.25 mg 02/09/24 21:00 Carvedilol 3.125 Mg Tablet PO 03/10/24 20:59 BID LUCI Dextrose 25 ml 02/08/24 16:17 Dextrose 50%-Water Inj 50 Ml Syringe IV 03/09/24 16:16 Q15MIN PRN BG 50-70 responsive npo pt Dextrose 50 ml 02/08/24 16:17 Dextrose 50%-Water Inj 50 Ml Syringe IV 03/09/24 16:16 Q15MIN PRN BG <50 OR BG <70 & pt unresponsive Furosemide 40 mg 02/08/24 18:00 02/09/24 05:37 Furosemide Inj 10 Mg/Ml 4ml Vial IVP 03/09/24 17:59 40 mg BIDD LUCI Administration Gabapentin 300 mg 02/08/24 22:00 02/09/24 05:37 Gabapentin 300 Mg Capsule PO 03/09/24 21:59 300 mg TID LUCI Administration Hydralazine HCl 25 mg 02/09/24 07:45 02/09/24 08:55 Hydralazine Hcl 25 Mg Tablet PO 03/10/24 07:44 25 mg TID LUCI Administration Ceftriaxone Sodium/Dextrose 50 mls @ 100 mls/hr 02/09/24 09:00 02/09/24 08:56 Rocephin/D5w 1gm Iv Premix IV 02/16/24 08:59 100 mls/hr QDAY LUCI Administration Insulin Human Lispro 0 unit 02/08/24 17:00 02/09/24 07:33 Insulin Lispro (Admelog) 1 Unit/0.01 Ml Unit SC 03/09/24 16:59 Not Given AC [facility] Protocol Levothyroxine Sodium 50 mcg 02/09/24 06:00 02/09/24 05:37 Levothyroxine Sodium 25 Mcg Tablet PO 03/10/24 05:59 50 mcg ACBR LUCI Administration Melatonin 3 mg 02/08/24 16:04 Melatonin 3 Mg Tablet PO 03/09/24 20:59 HS PRN insomnia Ondansetron HCl 4 mg 02/08/24 15:17 Ondansetron Inj 2 Mg/Ml Inj 2 Ml IV 03/09/24 15:16 Q6H PRN NAUSEA OR VOMITING Protocol Oxycodone/Acetaminophen 1 tab 02/08/24 18:25 02/08/24 18:35 Oxycodone/Apap 5/325 Tablet PO 02/13/24 18:24 1 tab Q6HR PRN Administration Pain 4-10 Sennosides 1 tab 02/08/24 16:04 Senna Tablet PO 03/10/24 08:59 QDAY PRN constipation Protocol Vitamin B Complex/Vit C/Folic Acid 1 tab 02/10/24 09:00 Vit B12/Vit C/Fa (Nephrovite) Tablet PO 03/11/24 08:59 QDAY LUCI Plan Patient is a 68-year-old female with past medical history of HFrEF 35 to 40%, CKD off dialysis since 06/30, HTN, DM, hypothyroidism presented [facility] for [facility] mentation and increased oxygen requirements. Admitted for acute hypoxic respiratory failure secondary to CHF exacerbation, IBRAHIMA, UTI. #IBRAHIMA in the setting of CKD #Hyperkalemia Patient's baseline creatinine is to be 1.6 per previous records, upon presentation 2.5 GFR 29 on previous admissions, now 21 Patient was previously on dialysis however was taken off on 06/30 due to improvement in function. Potassium 5.8 on initial labs in emergency department 12: potassium and phosphate persistently high -Consulted Dr. Mcclendon nephrology, appreciate recommendations -Continue to monitor labs -Gentle diuresis #Urinary tract infection Patient attests to multiple days of burning on urination Urinalysis shows 3+ protein, leukoesterase positive, urine WBC 127, urine bacteria 4+. Rocephin given in the emergency department Preliminiary urine culture grew gram negative rods -Rocephin 1 g daily -Urine culture sent, pending #Acute hypoxic respiratory failure secondary to CHF exacerbation # Heart failure with reduced ejection fraction Patient has a history of HFrEF with echo performed in 11/06/23 showing global hypokinesis with ejection fraction as needed 35 to 40%. Patient presented with shortness of breath and increased oxygen demand from her home 2 L nasal cannula. Troponin elevated at 0.062, EKG sinus rhythm. Patient denies any chest pain/chest pressure. BNP 1715 Chest x-ray shows pulmonary vascular congestion, moderate CHF 1/2: patient appears to be at her baseline Oxygen requirements, denies of any shortness of breath -Oxygen therapy to achieve saturations above 92% -Lasix 40 twice daily -Fluid restrict 1500 mL/day -Cardiac diet, salt restriction -Initiating Coreg 6.25 BID as tolerated. Will work towards GDMT as patient can tolerate. # Low Hemoglobin Patient's hemoglobin is 7.5 on initial labs, from 9.7 on 11/30. Patient denies any tiredness/weakness. Bedside Hemoccult test is negative. MCV elevated 1/2: Hgb appears stable on repeat labs -Continue to reassess CBC -Ordered folate and B12 levels, will reassess #Diabetes Patient has history of diabetes Patient does not appear to be insulin-dependent at home -Sliding scale insulin initiated, will adjust accordingly #HTN Patient has a history of hypertension -Holding home nifedipine in the setting of leg swelling. Will reassess after Lasix dose. # Hypothyroidism Patient has a history of hypothyroidism Restarting patient's home levothyroxine #AMS- resolved Per ED provider patient presented with altered mentation. On exam in the emergency department patient was alert and oriented x 4. Diet: Cardiac diet GI: Patient is on cardiac diet DVT: SCDs Jacobo: None Lines: Peripheral Dispo:Tele Med Rec: Pending Code:Full Hospitalization for observation, work-up, & management of acute hypoxic respiratory failure, IBRAHIMA, urinary tract infection Patient was seen, plan was discussed with attending Dr. Rea Mora DO, PGY1 Attending Provider Attestation/Addendum I attest that I was physically present for the evaluation, physical examination, lab and imaging review of the patient with the residents. I discussed the case with the residents and agree with the findings and plans of care as documented above. At bedside today, patient appears tearful complaining of pain around her right hip and right lower flank. Stated that she started having the pain while getting transferred yesterday. Obtained a hip x-ray, which is negative. Her potassium level has improved compared to yesterday but still slightly high at 5.2, BUN/creatinine is 2.4, also noted to have elevated phosphate of 7.0. Hemoglobin continues to be low at 7.6. Patient used to be on dialysis earlier which was discontinued because of improved kidney function. Given worsening of kidney function, electrolyte imbalance, hyperphosphatemia, chronic anemia we will obtain nephrology consult for further evaluation on need of dialysis. Patient currently on baseline oxygen of 2 L/min. Cristi Lucia MD
[2024-02-09] MEDS: INSULIN LISPRO (AdmeLOG) 1 UNIT/0.01 ML UNIT SC (17:09)
[2024-02-09] MEDS: oxyCODONE/APAP 5/325 TABLET 1 TAB PO (19:56)
--- NOTE | 2024-02-09 19:56 | PD.NEPHCONS ---
History of Present Illness Data of Consult Consult date: 02/09/24 Requesting Physician: Cristi Lucia MD Primary Care Provider: Keshia Daniels MD Consult Narrative Reason for consult: IBRAHIMA on CKD History of present illness: Ms. Oliveira is a 68-year-old female with past medical history of HFrEF 35 to 40%, CKD off dialysis since 06/30, anxiety, hypertension, diabetes, diabetic neuropathy hypothyroidism presented to the emergency department from [facility] for altered mentation and increased oxygen requirements. Her family is at the bedside. Patient stated that she had been having significant swelling in the legs and shortness of breath ongoing for the last few days. She had multiple admissions at [facility] and was seen by a import/export clerk there and had a short. Of dialysis and came off dialysis in June 2023. He does have some residual CKD. Do not recall the import/export clerk name. 02/09/2024 Patient currently seen in telemetry. Shortness of breath and swelling in the feet are much better after she was given Lasix in the emergency department. Patient denies any recent fever, productive sputum, chest pain or chest pressure, sensorineural changes, falls or loss of conscious. Complaining of significant pain in the right leg. In the emergency department--hemoglobin 7.5, Hemoccult negative. BUN 74, creatinine 2.5, potassium 5.8, troponin 0.062, Pro-Josue 0.16. EKG showed sinus rhythm. Chest x-ray showed fluid overload and questionable pneumonia. Urinalysis shows UTI. Patient admitted to Telemetry for acute hypoxic respiratory failure secondary to CHF exacerbation, acute on chronic kidney injury and urinary tract infection. Started on antibiotics, diuretics. Nephrology consultation requested for acute on chronic renal insufficiency. cc:: cc: Cristi Lucia MD Review of Systems Review of Systems Narrative Review of Systems: CONSTITUTIONAL: Patient denies any fever, chills. Complaining of fatigue HEENT: Denies any visual disturbances or hearing problems. CARDIOVASCULAR: Patient denies any chest pain complaining of complaining of shortness of breath, swelling in the lower extremities. PULMONARY: Patient shortness of breath GASTROINTESTINAL: Patient denies any abdominal pain, constipation, nausea, vomiting, diarrhea. GENITOURINARY: Did complain of dysuria on admission SKIN: Denies any rash. MUSCULOSKELETAL: Does have gait imbalance NEUROLOGICAL: Denies any neurological problems of strokes, seizures or confusion. Denies any memory problems. Has neuropathy from diabetes Admits anxiety Past Medical History Past Medical History NEUROLOGIC: Negative Neurological Disorders CARDIAC: Positive Hypercholesterolemia and Hypertension; Negative Cardiac Disorders or Congestive Heart Failure RESPIRATORY: Negative Chronic Obstructive Pulmonary Disease (COPD) GENITOURINARY: Positive Genitourinary Disorders and Renal Disease REPRODUCTIVE: Negative Pelvic Inflammatory Disease MUSCULOSKELETAL: Positive Musculoskeletal Disorders ENDOCRINE: Positive Endocrine Disorders and Diabetes Mellitus Type 2; Negative Diabetes Mellitus Type 1 OTHER HISTORY: Negative Autoimmune Disease Family History FAMILY HISTORY: Positive Family Respiratory Disorders and Family Cancer; Negative Family Psychiatric Problems, Family Cardiac Disorders, Family Gastrointestinal Problems, Family Surgery or Family Anesthesia Reaction Surgical History SURGICAL: Positive Abdominal Surgery and Tubal Ligation Social History SMOKING STATUS: Never smoker Meds Home Medications and Allergies Home Medications ?Medication ?Instructions ?Recorded ?Confirmed ?Type gabapentin 600 mg tablet 600 mg PO TID #0 tabs 09/28/15 02/09/24 History (Neurontin) atorvastatin 10 mg tablet 20 mg PO HS 08/21/21 02/09/24 History acetaminophen 500 mg tablet 500 mg PO Q6H PRN Pain (Scale 02/09/24 02/09/24 History Score 1-3) aspirin 81 mg tablet 81 mg PO QDAY 02/09/24 02/09/24 History benzonatate 200 mg capsule 100 mg PO Q8HR PRN Cough 02/09/24 02/09/24 History bisacodyl 10 mg rectal suppository 10 mg NJ PRN PRN Constipation 02/09/24 02/09/24 History (Dulcolax (bisacodyl)) buspirone 10 mg tablet 10 mg PO BID 02/09/24 02/09/24 History carvedilol 6.25 mg tablet 6.25 mg PO BID 02/09/24 02/09/24 History furosemide 20 mg tablet (Lasix) 20 mg PO QDAY 02/09/24 02/09/24 History hydralazine 25 mg tablet 25 mg PO TID 02/09/24 02/09/24 History ipratropium 0.5 mg-albuterol 3 mg 3 ml inhalation Q4H PRN Shortness 02/09/24 02/09/24 History (2.5 mg base)/3 mL nebulization Of Breath Or Wheezing soln isosorbide mononitrate 60 mg 60 mg PO DAILY 02/09/24 02/09/24 History tablet,extended release 24 hr linagliptin 5 mg tablet (Tradjenta) 5 mg PO QDAY 02/09/24 02/09/24 History lorazepam 0.5 mg tablet (Ativan) 0.5 mg PO Q6HR PRN Anxiety 02/09/24 02/09/24 History nitroglycerin 0.4 mg sublingual 0.4 mg buccal [id number] PRN Chest 02/09/24 02/09/24 History tablet Pain ondansetron 4 mg disintegrating 4 mg PO Q6H PRN Nausea And Vomiting 02/09/24 02/09/24 History tablet oxycodone 5 mg/5 mL oral solution 5 mg PO Q4H PRN Pain (Scale Score 02/09/24 02/09/24 History 7-10) pantoprazole 40 mg tablet,delayed 40 mg PO QDAY 02/09/24 02/09/24 History release (Protonix) sodium zirconium cyclosilicate 10 10 g PO QDAY 02/09/24 02/09/24 History gram oral powder packet (Lokelma) vitamin B complex-vitamin C-folic 1 tab PO QDAY 02/09/24 02/09/24 History acid 0.8 mg tablet (Nephro-Hema) Allergies Allergy/AdvReac Type Severity Reaction Status Date / Time No Known Allergies Allergy Unverified 08/25/23 14:50 Exam Vital Signs Temp Pulse Resp BP Pulse Ox O2 Del Method O2 Flow Rate 36.4 C 77 20 161/77 H 94 L Nasal Cannula 2 02/09/24 16:00 02/09/24 17:09 02/09/24 16:00 02/09/24 17:09 02/09/24 16:00 02/09/24 16:02/09/24 16:00 Narrative Exam GENERAL APPEARANCE: Patient seems to be comfortable, adequately hydrated and nourished. HEENT: EOMI, PERRLA NECK: Neck supple, no JVD or bruit CARDIOVASCULAR: Heart regular, no murmurs LUNGS/CHEST: Fine crackles at the bases ABDOMEN: Soft, nontender, nondistended. No masses. Normal bowel sounds. EXTREMITIES: Marked improvement in edema SKIN: Skin exam normal without any rashes MUSCULOSKELETAL: Complaining of pain in the right lower extremity NEUROLOGICAL : No neurological deficits Results Labs 02/10/24 04:23 02/10/24 04:23 Labs: Short CBC 02/08/24 02/09/24 Range/Units 20:55 05:14 WBC 5.1 5.2 (3.6-11.0) Thou/mm3 Hgb 7.9 L 7.6 L (12.0-16.0) g/dL Hct 25.3 L 24.3 L (36.0-46.0) % Plt Count 264 259 (140-440) Thou/mm3 BMP 02/08/24 02/09/24 20:55 05:14 Sodium 136 139 Potassium 5.4 H 5.2 H Chloride 105 106 Carbon Dioxide 22.4 25.8 BUN 72 H 73 H Creatinine 2.4 H 2.4 H Glucose 108 H 74 Calcium 8.9 9.4 Cardiac Enzymes 02/09/24 Range/Units 05:14 Troponin I 0.063 H* (0.0-0.045) ng/mL Liver Function 02/08/24 02/09/24 Range/Units 20:55 05:14 Total Bilirubin 0.3 0.3 (0.3-1.2) mg/dL AST 11 13 (0-34) U/L ALT < 7 L 8 L (10-49) U/L Alkaline Phosphatase 203 H 188 H (46-116) U/L Albumin 3.5 3.0 L D (3.4-4.8) gm/dL Assessment & Plan Assessment and plan (1) IBRAHIMA (acute kidney injury): Status: Acute Assessment and plan: Acute on chronic renal insufficiency secondary to prerenal azotemia. Patient presented with CHF exacerbation. Agree with the diuretics. Will monitor renal function closely. Suspect underlying CKD from diabetic nephropathy. Urinalysis shows 3+ protein. Check urine protein/creatinine, renal ultrasound. Noted potassium was high-Kayexalate was given. (2) CHF exacerbation: Status: Acute Assessment and plan: Continue with diuretics. Ejection fraction 35 to 40%. Under cardiology. (3) Pneumonia: Status: Acute Assessment and plan: On Zosyn (4) UTI (urinary tract infection): Status: Acute Assessment and plan: Urine cultures positive for E. coli. On Zosyn (5) Anemia: Status: Acute Assessment and plan: Add iron, Procrit. Suspect anemia from chronic renal insufficiency. (6) Hypertension: Status: Acute Assessment and plan: Continue with home blood pressure medications (7) Diabetes: Status: Acute Assessment and plan: Accu-Cheks, sliding scale, consistent carb low diet. Complicated with nephropathy, neuropathy. Patient has diabetes for more than 13 years. (8) Acute hyperkalemia: Status: Acute Assessment and plan: Did receive 1 dose of Kayexalate. Noted patient has been taking Lokelma at home. Additional Assessment & Plan Additional Plan: Thank you Terrell for allowing me to participate in the care of Mr. Oliveira.
[2024-02-09] MEDS: ATORVASTATIN CALCIUM 10 MG TABLET 20 MG PO (21:29)
[2024-02-09] MEDS: carVEDILOL 3.125 MG TABLET 6.25 MG PO (21:30)
[2024-02-09] MEDS: BusPIRone HCL 5 MG TABLET 10 MG PO (21:33)
[2024-02-09] MEDS: LORazepam 0.5 MG TABLET PO (21:33)
[2024-02-10] VITALS (11 sets, daily range): BP systolic 106–159; BP diastolic 57–91; PULSE 53–73; RESP 12–19; TEMP 36.1–36.7; O2SAT 95–99; BMI 25.8
[2024-02-10] MEDS: GABAPENTIN 300 MG CAPSULE PO ×2 (04:59→14:19)
[2024-02-10] MEDS: LEVOTHYROXINE SODIUM 25 MCG TABLET 50 MCG PO (05:00)
[2024-02-10] MEDS: FUROSEMIDE INJ 10 MG/ML 4ML VIAL 40 MG IVP (05:01)
[2024-02-10] MEDS: hydrALAZINE HCL 25 MG TABLET PO ×2 (05:02→14:19)
[2024-02-10 05:21] LABS: Basophils # (Auto) 0.1 Thou/mm3 (0.0-0.2); Basophils % (Auto) 1 % (0-2.5); Eosinophils # (Auto) 0.2 Thou/mm3 (0.0-0.5); Eosinophils % (Auto) 4 % (0-10); Hematocrit 24.3 % (36.0-46.0); Immature Granulocytes % (Auto) 1 % (0-0); Immature Granulocytes Auto 0.08 Thou/mm3 (0.00-0.00); Lymphocytes # (Auto) 1.2 Thou/mm3 (1.0-4.8); Lymphocytes % (Auto) 20 % (10-50); Mean Corpuscular HGB Conc 31.7 g/dl (31.0-37.0); Mean Corpuscular Hemoglobin 32.4 pg (25.0-35.0); Mean Corpuscular Volume 102 fL (80-100); Monocytes # (Auto) 0.5 Thou/mm3 (0.0-0.8); Monocytes % (Auto) 8 % (0-12); Neutrophils # (Auto) 3.7 Thou/mm3 (1.8-7.7); Neutrophils % (Auto) 66 % (37-80); Nucleated Red Blood Cell % 0 /100 WBC (0); Platelet Count 211 Thou/mm3 (140-440); Red Blood Count 2.38 Miln/mm3 (4.00-5.20); White Blood Count 5.7 Thou/mm3 (3.6-11.0)
[2024-02-10 05:25] LABS: Hemoglobin 7.7 g/dL (12.0-16.0)
[2024-02-10 06:14] LABS: Alanine Aminotransferase < 7 U/L (10-49); Albumin, Serum 3.2 gm/dL (3.4-4.8); Albumin/Globulin Ratio 0.8 (1.2-2.2); Alkaline Phosphatase 174 U/L (46-116); Anion Gap 7 (7-16); Aspartate Amino Transferase 12 U/L (0-34); BUN/Creatinine Ratio 30 Ratio (12-20); Bilirubin,Total 0.2 mg/dL (0.3-1.2); Blood Urea Nitrogen 66 mg/dL (9-23); Calcium 8.3 mg/dL (8.3-10.6); Calcium (Corrected) 8.9 mg/dL (8.5-10.1); Carbon Dioxide 25.7 mMol/L (20.0-31.0); Chloride 104 mMol/L (98-107); Creatinine (Component) 2.2 mg/dL (0.6-1.3); Estimated Creatinine Clearance 21.8 mL/min (>60); Globulin 3.9 gm/dL (2.3-3.5); Glucose 147 mg/dL (74-106); Magnesium 1.8 mg/dL (1.6-2.6); Osmolality,Calculated 295 (275-295); Phosphorous 6.9 mg/dL (2.4-5.1); Potassium 5.1 mMol/L (3.4-5.1); Sodium 137 mMol/L (136-145); Total Protein 7.1 gm/dL (5.7-8.2); eGFR 24 See Note
[2024-02-10 06:23] LABS: Troponin I 0.062 ng/mL (0.0-0.045)
[2024-02-10] MEDS: INSULIN LISPRO (AdmeLOG) 1 UNIT/0.01 ML UNIT SC ×2 (07:45→11:37)
[2024-02-10] MEDS: Magnesium Sulfate 1 gm Ivpb 1 GM/100 ML BAG IV (08:04)
[2024-02-10] MEDS: PIPER/TAZO 3.375 GM 50 ML IV (08:04)
--- NOTE | 2024-02-10 08:07 | XR_ITS ---
Examination: Retroperitoneal ultrasound, complete Technique: Multiple high resolution grayscale images of the retroperitoneum obtained, including kidneys and bladder. Exam date and time:February 10, 2024 0855 hours INDICATIONS: Acute renal insufficiency on laboratory examination today. FINDINGS: Right kidney 10.4 x 5.2 x 6.70 renal cortex 1.8 cm Left kidney 10.4 x 5.5 x 5.7 cm cortex 1.6 cm Upper pole 3 cm left renal cyst Mild bilateral renal parenchymal scar formation No hydronephrosis No bladder mass Bladder wall is thickened up to 11 mm Bladder prevoid volume 680 cc, unable to void IMPRESSION: Bilateral renal cortical thinning Mild bilateral renal parenchymal scar formation Urinary bladder wall is thickened up to 11 mm, differential would include cystitis
[2024-02-10] MEDS: SEVELAMER CARBONATE 800 MG TABLET PO ×2 (08:08→11:59)
[2024-02-10] MEDS: ASPIRIN EC 81 MG TABEC PO (08:08)
[2024-02-10] MEDS: carVEDILOL 3.125 MG TABLET 6.25 MG PO (08:08)
[2024-02-10] MEDS: VIT B12/Vit C/FA (Nephrovite) TABLET 1 TAB PO (08:08)
[2024-02-10] MEDS: BusPIRone HCL 5 MG TABLET 10 MG PO (08:08)
[2024-02-10] MEDS: hydrOXYzine HCL 25 MG TABLET PO (08:34)
[2024-02-10 08:54] LABS: Parathyroid Hormone Intact 98.1 pg/ml (18.5-88.0)
[2024-02-10 09:46] LABS: Cardiac Risk Estimate 1.6 RATIO (3.7-5.6); Cholesterol 105 mg/dL (132-200); HDL Cholesterol 66 mg/dL (40-60); LDL Cholesterol,Calculated 28 mg/dL (0-130); Triglycerides 54 mg/dL (30-150); Uric Acid 9.7 mg/dL (3.1-7.8)
[2024-02-10] MEDS: ferumoxytoL (NON-ESRD) 510 MG in SODIUM CHLORIDE 0.9% 100 ML 234 MG IV (10:09)
--- NOTE | 2024-02-10 10:38 | PC.SS ---
Addendum entered by Mariaa Presley 02/10/24 14:42: SS follow up note; SS was contacted by [facility] with new ETA for 1600. SS updated patients nurse Salvatore as well as Daughter Cari and Sheyla from [facility]. Addendum entered by Mariaa Presley 02/10/24 12:25: SS follow up note; SS contacted Estephania and updated her with ETA Addendum entered by Mariaa Presley 02/10/24 11:56: SS follow up note; SS set up transportation with [facility] for 3PM. SS updated patient's nurse. Addendum entered by Mariaa Presley 02/10/24 11:14: SS follow up note; SS set up transportation with [facility], Reference # [id number]. SS met with patient's daughter Cari and patient at bedside and informed them that patient will discharge back to [facility]. SS also updated patient's nurse Salvatore. Addendum entered by Mariaa Presley 02/10/24 11:00: SS follow up note; SS contacted Sheyla from [facility] in regards to patient's discharge orders. Sheyla requesting Clinicals to be sent. Sheyla reported her DON would like to review clinicals first and would like to review if patient is stable. SS send requested clinicals via [facility]. Original Note: SS followed up with Eloina Vizcaino and spoke to Will and she reported patient is able to discharge back to [facility] and does not need authorization to go back to [facility] since patient was on a bed hold. SS attempted to contact Estephania from [facility] however SS was unable to leave . SS contacted [facility] and they informed SS that Estephania was in a meeting. SS will follow up with Estephania again to inform her that patient has Discharge orders.
[2024-02-10] MEDS: EPOETIN ALFA-EPBX INJ 10,000 UNIT/ML VIAL (ESRD) 10000 UNIT SC (10:50)
--- NOTE | 2024-02-10 11:06 | PD.RESPRO ---
Documentation for date of: 02/10/24 Subjective Subjective Interval history: Betty Oliveira is a 68-year-old female with past medical history of CKD (off dialysis since 06/30), HFrEF (EF 35 to 40%), hypertension, diabetes, diabetic neuropathy, hypothyroidism, and anxiety who presented from [facility] for AMS and increased O2 requirements. Patient endorses significant swelling in lower extremities and shortness of breath for last few days. Noted to have multiple admissions at [facility] where she was seen by blankmaker there and had a short course of dialysis there but came off of dialysis in June 2023. Does have some residual CKD. Nephrology consulted for acute on chronic renal insufficiency. In ED, labs significant for hemoglobin 7.5, Hemoccult negative, BUN 74, creatinine 2.5, potassium 5.8, troponin 0.06, Pro-Josue 0.16. EKG showed NSR. CXR showed fluid overload and questionable pneumonia. Urinalysis positive for UTI. Patient admitted to telemetry for AHRF secondary to CHF exacerbation and acute on chronic kidney injury and UTI, for which nephrology was consulted. 02/08: Patient seen in telemetry. Shortness of breath and swelling in feet are improved compared to prior after she was given Lasix in ED. Denies fever, productive sputum, chest pain/pressure, sense of neurochanges, falls or loss of consciousness. Complains of significant pain in right leg. 02/09: Patient seen in telemetry with daughter at bedside. Lower extremity edema continued to be improved with IV Lasix. Denies fever, chills, chest discomfort, abdominal pain. However, still endorses pain in right lower extremity. Exam Vital Signs Temp Pulse Resp BP Pulse Ox O2 Del Method O2 Flow Rate 97.0 F 73 19 139/70 H 97 Nasal Cannula 2 02/10/24 08:00 02/10/24 08:08 02/10/24 08:00 02/10/24 08:08 02/10/24 08:00 02/10/24 08:00 02/10/24 08:00 Narrative Exam General: AOx3, no acute distress, able to speak full sentences HEENT: NC/AT, mucous membranes moist, bilateral sclera anicteric Cardiovascular: regular rate and rhythm, S1/S2 present, no murmurs appreciated Pulmonary: clear to auscultation bilaterally Abdominal: soft, non-tender, non-distended, no rebound/guarding, normal bowel sounds present Musculoskeletal: lower extremity edema improved Skin: warm and dry, intact, no rashes Neuro: CN II-XII intact, no focal deficits Objective Labs 02/10/24 04:23 02/10/24 04:23 Labs: Laboratory Results - last 24 hr 02/10/24 04:23 WBC 5.7 RBC 2.38 L Hgb 7.7 L Hct 24.3 L MCV 102 H MCH 32.4 MCHC 31.7 RDW Std Deviation 56.0 H Plt Count 211 D Neut % (Auto) 66 Lymph % (Auto) 20 Elbert % (Auto) 8 Eos % (Auto) 4 Baso % (Auto) 1 Neut # (Auto) 3.7 Lymph # (Auto) 1.2 Elbert # (Auto) 0.5 Eos # (Auto) 0.2 Baso # (Auto) 0.1 Immature Gran # (Auto) 0.08 H Absolute Nucleated RBC 0.00 Immature Gran % 1 H Nucleated RBC % 0 Sodium 137 Potassium 5.1 Chloride 104 Carbon Dioxide 25.7 Anion Gap 7 BUN 66 H Creatinine 2.2 H Estim Creat Clear Calc 21.8 L eGFR 24 L BUN/Creatinine Ratio 30 H Glucose 147 H D Calculated Osmolality 295 Uric Acid 9.7 H Calcium 8.3 Corrected Calcium 8.9 Phosphorus 6.9 H Magnesium 1.8 Total Bilirubin 0.2 L AST 12 ALT < 7 L Alkaline Phosphatase 174 H Troponin I 0.062 H* Total Protein 7.1 Albumin 3.2 L Globulin 3.9 H Albumin/Globulin Ratio 0.8 L Triglycerides 54 Cholesterol 105 L LDL Cholesterol, Calc 28 HDL Cholesterol 66 H Cholesterol/HDL Ratio 1.6 L PTH Intact 98.1 H Quality Measures Quality Measures VTE prophylaxis Advance care planning discussed with:: patient and child Assessment & Plan Assessment Current Active Medications: Generic Name Dose Route Start Last Admin Trade Name Freq PRN Reason Stop Dose Admin Acetaminophen 650 mg 02/08/24 15:17 Acetaminophen 325 Mg Tablet PO 03/09/24 15:16 Q6H PRN Fever >101.5 Acetaminophen 650 mg 02/08/24 15:17 Acetaminophen 325 Mg Tablet PO 03/09/24 15:16 Q6H PRN PAIN SCALE 1-3 (mild Aspirin 81 mg 02/10/24 09:00 02/10/24 08:08 Aspirin Ec 81 Mg Tabec PO 03/11/24 08:59 81 mg QDAY LUCI Administration Atorvastatin Calcium 20 mg 02/09/24 21:00 02/09/24 21:29 Atorvastatin Calcium 10 Mg Tablet PO 03/10/24 20:59 20 mg HS LUCI Administration Benzonatate 100 mg 02/09/24 09:43 Benzonatate 100 Mg Capsule PO 03/10/24 09:42 Q8HR PRN Cough Protocol Buspirone HCl 10 mg 02/09/24 21:15 02/10/24 08:08 Buspirone Hcl 5 Mg Tablet PO 03/10/24 21:14 10 mg BID LUCI Administration Carvedilol 6.25 mg 02/09/24 21:00 02/10/24 08:08 Carvedilol 3.125 Mg Tablet PO 03/10/24 20:59 6.25 mg BID LUCI Administration Cyclobenzaprine HCl 5 mg 02/10/24 08:05 Cyclobenzaprine 5 Mg Tablet PO 03/11/24 08:59 BID PRN leg pain Dextrose 25 ml 02/08/24 16:17 Dextrose 50%-Water Inj 50 Ml Syringe IV 03/09/24 16:16 Q15MIN PRN BG 50-70 responsive npo pt Dextrose 50 ml 02/08/24 16:17 Dextrose 50%-Water Inj 50 Ml Syringe IV 03/09/24 16:16 Q15MIN PRN BG <50 OR BG <70 & pt unresponsive Furosemide 40 mg 02/10/24 09:00 02/10/24 08:20 Furosemide Inj 10 Mg/Ml 4ml Vial IVP 03/11/24 08:59 Not Given DAILY LUCI Gabapentin 300 mg 02/08/24 22:00 02/10/24 04:59 Gabapentin 300 Mg Capsule PO 03/09/24 21:59 300 mg TID LUCI Administration Hydralazine HCl 25 mg 02/09/24 07:45 02/10/24 05:02 Hydralazine Hcl 25 Mg Tablet PO 03/10/24 07:44 25 mg TID LUCI Administration Piperacillin/Tazobactam/Dextrose 50 mls @ 12.5 mls/hr 02/10/24 07:19 02/10/24 08:04 Zosyn IV 02/17/24 07:18 12.5 mls/hr Q12HR LUCI Administration Insulin Human Lispro 0 unit 01/01/25 17:00 02/10/24 07:45 Insulin Lispro (Admelog) 1 Unit/0.01 Ml Unit SC 03/09/24 16:59 1 unit AC LUCI Administration Protocol Levothyroxine Sodium 50 mcg 02/09/24 06:00 02/10/24 05:00 Levothyroxine Sodium 25 Mcg Tablet PO 03/10/24 05:59 50 mcg ACBR LUCI Administration Melatonin 3 mg 02/08/24 16:04 Melatonin 3 Mg Tablet PO 03/09/24 20:59 HS PRN insomnia Nitroglycerin 0.4 mg 02/09/24 21:08 Nitroglycerin 0.4 Mg Subl Btl #25 SL 03/10/24 21:07 PRN PRN Chest Pain Nystatin 0 gm 02/10/24 09:00 02/10/24 10:15 Nystatin Cr 30 Gm Tube TOP 03/11/24 08:59 Not Given BID LUCI Ondansetron HCl 4 mg 02/08/24 15:17 Ondansetron Inj 2 Mg/Ml Inj 2 Ml IV 03/09/24 15:16 Q6H PRN NAUSEA OR VOMITING Protocol Oxycodone/Acetaminophen 1 tab 02/08/24 18:25 02/09/24 19:56 Oxycodone/Apap 5/325 Tablet PO 02/13/24 18:24 1 tab Q6HR PRN Administration Pain 4-10 Sennosides 1 tab 02/08/24 16:04 Senna Tablet PO 03/10/24 08:59 QDAY PRN constipation Protocol Sevelamer Carbonate 800 mg 02/10/24 08:00 02/10/24 08:08 Sevelamer Carbonate 800 Mg Tablet PO 03/11/24 07:59 800 mg TIDWM LUCI Administration Vitamin B Complex/Vit C/Folic Acid 1 tab 02/10/24 09:00 02/10/24 08:08 Vit B12/Vit C/Fa (Nephrovite) Tablet PO 03/11/24 08:59 1 tab QDAY LUCI Administration Plan Betty Oliveira is a 68-year-old female with past medical history of CKD (off dialysis since 06/30), HFrEF (EF 35 to 40%), hypertension, diabetes, diabetic neuropathy, hypothyroidism, and anxiety who presented from [place] for AMS and increased O2 requirements. Patient endorses significant swelling in lower extremities and shortness of breath for last few days. Noted to have multiple admissions at [facility] where she was seen by blankmaker there and had a short course of dialysis there but came off of dialysis in June 2023. Does have some residual CKD. Nephrology consulted for acute on chronic renal insufficiency. #Acute on chronic kidney injury Labs consistent with prerenal azotemia. Presented with CHF exacerbation, agree with diuretics. Suspect underlying CKD from diabetic nephropathy. Renal ultrasound shows bilateral renal cortical thinning and parenchymal scar formation ? Follow-up urine protein/creatinine ? Continue with diuretics #Macrocytic anemia Anemia likely secondary to chronic renal insufficiency ? Retacrit and Feraheme x 02/09 #Hyperkalemia Received 1 dose of Kayexalate, noted patient has home Lokelma #Hyperphosphatemia ? Continue sevelamer #Acute CHF exacerbation Under cardiology, EF 35 to 40% ? Continue diuretics as above #Pneumonia #Urinary tract infection #Hypertension #Diabetes ? Continue management per primary team ----- Plan discussed with attending physician Dr. Danelle Raymond MD PGY-1 Internal Medicine Attending Provider Attestation/Addendum Patient seen and examined with resident physician Dr. Izaguirre. Note reviewed, agree with findings and recommendations.
--- NOTE | 2024-02-10 15:34 | ESDS_ITS ---
<Statement entered by Cristi Lucia MD - 02/11/24 07:21> I attest that I was physically present for the evaluation, physical examination, lab and imaging review of the patient with the residents. I discussed the case with the residents and agree with the findings and plans of care as documented above. At bedside today, patient appears comfortable and does not have any complaints. Continues to be on 2 L/min oxygen which is her baseline at home. Kidney function started improving with diuretics, nephrology on board, recommended medical management with phosphate binder. Urine culture grew ESBL E. coli, added fosfomycin 3 g x 1. Patient deemed stable for discharge, recommended follow-up with PCP, cardiology and nephrology in 1 to 2 weeks following discharge. Advised to have a discussion with PCP regarding goal-directed medical therapy for CHF. Cristi Lucia MD <Statement entered by Russell Robertson MD - 02/10/24 16:00> I saw and examined the patient, and I agree with current management stated by Dr Harpreet MD,PGY1. Plan of care was discussed with the attending physician and resident physician. Disclaimer: Despite multiple revisions, due to the dictation software being used, the document bellow may not be free of grammatical errors including phonetic/typographic errors. However, this does not deter from our commitment to providing health care in the patient's best interest in mind. Dr. Nico MD, PGY 2 Planned Discharge Date 02/10/24 DS: Providers Provider Date of admission: 02/08/24 15:17 Primary care physician: Keshia Daniesl MD Admitting Provider: Cristino Mora Attending Provider on Admission: Cristi Lucia MD Consults: 02/09/24 10:52 Consult to Nephrology Urgent Comment: Hx of CKD off dialysis since 06/30 Consulting Provider: Lety Mcclendon 02/10/24 09:15 Referral Physical Therapy Stat Comment: Physician Instructions: Attending Provider on DC: Dr. Lucia Discharging Provider: Harpreet Mora D.O. DS: Diagnosis Problem List Completed Was Problem List Reviewed/Reconciled?: Yes Hospital Course Hospital Course Hospital course: Betty Oliveira is a 68-year-old female with past medical history of CKD (off dialysis since 06/30), HFrEF (EF 35 to 40%), hypertension, diabetes, diabetic neuropathy, hypothyroidism, and anxiety who presented from [facility] for AMS and increased O2 requirements. Patient endorses significant swelling in lower extremities and shortness of breath for last few days. Noted to have multiple admissions at [facility] where she was seen by precision structural metal fitter there and had a short course of dialysis there but came off of dialysis in June 2023. Does have some residual CKD. Nephrology consulted for acute on chronic renal insufficiency. In ED, labs significant for hemoglobin 7.5, Hemoccult negative, BUN 74, creatinine 2.5, potassium 5.8, troponin 0.06, Pro-Josue 0.16. EKG showed NSR. CXR showed fluid overload and questionable pneumonia. Urinalysis positive for UTI. Patient admitted to telemetry for AHRF secondary to CHF exacerbation and acute on chronic kidney injury and UTI, for which nephrology was consulted. Over the course of patient's hospital stay patient was treated appropriately with diuresis. Patient returned to her baseline O2 requirements. Patient complained of right hip pain which occurred during transport to inpatient, x-ray negative. Pain resolved over hospital course. Hyperkalemia noted on labs, treated with Kayexalate. Urine culture grew ESBL which was treated with 1 dose of fosfomycin. Hyperphosphatemia noted, treated with home sevelamer. Patient upon discharge is stable, denies any shortness of breath, chest pain, chest pressure, abdominal pain, recent fevers. Patient will be discharged back to [facility]. Patient is amenable to discharge. Patient advised to follow- up with primary care physician within 1 week upon discharge. Patient advised to follow-up with precision structural metal fitter for management of chronic kidney disease. Patient advised to follow-up with supervisor feed house for heart failure with reduced ejection fraction. Patient will likely need to work towards guideline directed medical therapy as her blood pressure and renal function allow. Can be followed outpatient. Status at Discharge Cognitive/behavioral status at discharge: Patient appears stable at time of discharge Time Spent with Patient Time attestation: Total time spent providing and/or coordinating discharge services: Exam Vital Signs Temp Pulse Resp BP Pulse Ox O2 Del Method O2 Flow Rate 97.0 F 62 15 109/61 99 Nasal Cannula 3 02/10/24 12:00 02/10/24 14:19 02/10/24 12:02/10/24 14:19 02/10/24 12:00 02/10/24 12:00 02/10/24 12:00 Narrative Exam General: AOx3, no acute distress, able to speak full sentences HEENT: NC/AT, mucous membranes moist, bilateral sclera anicteric Cardiovascular: regular rate and rhythm, S1/S2 present, no murmurs appreciated Pulmonary: clear to auscultation bilaterally Abdominal: soft, non-tender, non-distended, no rebound/guarding, normal bowel sounds present Musculoskeletal: lower extremity edema improved Skin: warm and dry, intact, no rashes Neuro: CN II-XII intact, no focal deficits Discharge Plan Plan Patient Disposition: Xfer [facility] Fac (SNF) Patient condition on transfer: Stable Care Plan Goals: Please continue your home medications Please take fosfomycin 3g one packet for your UTI Please take levothyroxine 50 mcg capsule Please continue to take your home lasix 20 mg PO Qday Please follow up with your Primary Care Provider within 1 week of discharge Please follow up with your precision structural metal fitter regarding your ongoing care for your chronic kidney disease If your symptoms worsen or persist, please return to the emergency department If you don't have a primary care physician, please follow up with the [facility]: [address] [address] Prescriptions/Referrals Prescriptions/Med Rec: New atorvastatin 10 mg Tablet 20 mg PO HS 30 Days Qty: 60 0RF levothyroxine 50 mcg capsule 50 mcg PO ACBR 30 Days Qty: 30 0RF fosfomycin tromethamine 3 gram packet 1 packet PO QDAY Qty: 1 0RF Continued gabapentin [Neurontin] 600 MG tablet 600 mg PO TID Qty: 0 ipratropium-albuterol 0.5 mg-3 mg(2.5 mg base)/3 mL Solution For Nebulization 3 ml INHALATION Q4H PRN (Reason: Shortness Of Breath Or Wheezing) benzonatate 200 mg Capsule 100 mg PO Q8HR PRN (Reason: Cough) hydralazine 25 mg Tablet 25 mg PO TID Rx Instructions: Hold for SBP<100 or HR<60 isosorbide mononitrate 60 mg Tablet Extended Release 24 Hr 60 mg PO DAILY pantoprazole [Protonix] 40 mg Tablet,Delayed Release (Dr/Ec) 40 mg PO QDAY nitroglycerin 0.4 mg Tablet, Sublingual 0.4 mg buccal [id number] PRN (Reason: Chest Pain) Nephro-Hema 0.8 mg Tablet 1 tab PO QDAY furosemide [Lasix] 20 mg Tablet 20 mg PO QDAY Tradjenta 5 mg Tablet 5 mg PO QDAY Lokelma 10 gram Powder In Packet 10 g PO QDAY carvedilol 6.25 mg Tablet 6.25 mg PO BID Rx Instructions: must administer with a meal/food; Hold for SBP<100 or HR<60 acetaminophen 500 mg Tablet 500 mg PO Q6H PRN (Reason: Pain (Scale Score 1-3)) lorazepam [Ativan] 0.5 mg Tablet 0.5 mg PO Q6HR PRN (Reason: Anxiety) bisacodyl [Dulcolax (bisacodyl)] 10 mg Suppository 10 mg [place] PRN PRN (Reason: Constipation) buspirone 10 mg Tablet 10 mg PO BID aspirin 81 mg Tablet 81 mg PO QDAY oxycodone 5 mg/5 mL Solution 5 mg PO Q4H PRN (Reason: Pain (Scale Score 7-10)) ondansetron 4 mg Tablet,Disintegrating 4 mg PO Q6H PRN (Reason: Nausea And Vomiting) Discontinued atorvastatin 10 mg tablet 20 mg PO HS Referrals: Keshia Daniels MD [Primary Care Provider] - Patient/Caregiver Discharge Instructions Education Materials: Urinary Tract Infections in Women, Kidney Disease Calcium Phosphorus, CKD Dc, Heart Failure Print Language: Azeri Stand Alone Forms: [facility]a Award Info., Patient Portal Info Letter Discharge Order Discharge Orders: Discharge (Routine); Ordered 02/10/24 Ordered By: Russell Robertson Quality Discharge Quality Measures VTE prophylaxis
== END 2024-02-10 15:56 | disposition skilled nursing facility (03) | DRG 194 ==
LOC: SERX 14:24 → SERHOLD 16:20 → S2NX 17:55
PROVIDERS: Internal Medicine; Student in an Organized Health Care Education/Training Program; Emergency Provider Emergency Medicine; PCP Hospitalist; Visit Provider Student in an Organized Health Care Education/Training Program
DX: I13.0 Hypertensive heart and chronic kidney disease with heart failure and stage 1 through stage 4 chronic kidney disease, or unspecified chronic kidney disease (principal); J96.21 Acute and chronic respiratory failure with hypoxia; I50.23 Acute on chronic systolic (congestive) heart failure; N18.9 Chronic kidney disease, unspecified; E11.22 Type 2 diabetes mellitus with diabetic chronic kidney disease; N17.9 Acute kidney failure, unspecified; N39.0 Urinary tract infection, site not specified; E87.5 Hyperkalemia; E03.9 Hypothyroidism, unspecified; B96.20 Unspecified Escherichia coli [E. coli] as the cause of diseases classified elsewhere; D53.9 Nutritional anemia, unspecified; E11.40 Type 2 diabetes mellitus with diabetic neuropathy, unspecified; E83.39 Other disorders of phosphorus metabolism; J18.9 Pneumonia, unspecified organism; E78.00 Pure hypercholesterolemia, unspecified; F41.9 Anxiety disorder, unspecified; M25.551 Pain in right hip; Z16.12 Extended spectrum beta lactamase (ESBL) resistance; Z99.81 Dependence on supplemental oxygen; Z79.899 Other long term (current) drug therapy; Z79.890 Hormone replacement therapy; Z79.82 Long term (current) use of aspirin; Z79.84 Long term (current) use of oral hypoglycemic drugs
CPT/HCPCS: 36415; 70450; 71045; 73502; 76770; 80053; 80061; 81001; 82270; 82570; 82607; 82746; 83036; 83605; 83690; 83735; 83880; 83970; 84100; 84145; 84156; 84439; 84443; 84484; 84550; 85025; 85610; 85730; 87040; 87077; 87081; 87086; 87186; 87400; 87811; 93005; 96365; 96375; 96376; 97162; 99285; J0612; J0696; J1815; J1940; J2543; J3475; J7050; Q0138; Q5105; A9270

== ENCOUNTER 2024-02-29 15:40 | Inpatient (IN) | payer MEDICAID, SELFPAY ==
[2024-02-29] VITALS (8 sets, daily range): BP systolic 148–165; BP diastolic 65–75; PULSE 63–67; RESP 16–25; TEMP 36.8–37.2; O2SAT 97–99; BMI 27.4
--- NOTE | 2024-02-29 16:06 | EKG_ITS ---
[facility] Test Date: 2024-02-29 Pat Name: MARK KIM Department: Room: - Gender: Female Discharge Coordinator: : 1955 Requested By: Clark Thomas (RASHMI) Order Number: [id number] Reading MD: Clark Thomas (BUTCHERETTE) Measurements Intervals [place] Rate: 62 P: 22 [place]: 161 QRS: -16 QRSD: 94 T: 0 QT: 204 QTc: 207 Interpretive Statements SINUS RHYTHM POSSIBLE ANTERIOR MYOCARDIAL INFARCTION , PROBABLY OLD [30 ms Q WAVE IN V3/V4, OR R < 0.2 mV IN V4] Compared to ECG 02/08/2024 08:37:27 Myocardial infarct finding now present T-wave abnormality no longer present /store/S0/[id number]/ecg/[id number].pdf
--- NOTE | 2024-02-29 16:06 | XR_ITS ---
Examination: PA lateral chest 2 views TECHNIQUE: Upright PA lateral chest 2 views Exam date and time: February 29, 2024 1648 hours Comparison February 08, 2024 INDICATIONS: Shortness of breath beginning 2 days ago FINDINGS: Significant heart failure Mild enlargement cardiac contour Prominent vascular congestion with perihilar basilar edema Large bilateral pleural effusions IMPRESSION: Significant heart failure Consider superimposed bilateral pneumonia
--- NOTE | 2024-02-29 16:07 | PD.EDRME ---
Rapid Medical Screening Exam RME Arrival date/time: 02/29/24 15:40 68-year-old female oxygen dependent presents emergency department today with complaints of shortness of breath and fluid retention Chief Complaint: Shortness of Breath/Dyspnea Time Seen by Provider: 02/29/24 16:01 Vital signs: Vital Signs Temperature 98.9 F 02/29/24 16:00 Pulse Rate 63 02/29/24 16:00 Respiratory Rate 24 H 02/29/24 16:00 Blood Pressure 160/65 H 02/29/24 16:00 Pulse Oximetry (%) 97 02/29/24 16:00 Oxygen Delivery Method Nasal Cannula 02/29/24 16:00 Oxygen Flow Rate 2.5 02/29/24 16:00
[2024-02-29 16:40] LABS: Basophils % (Auto) 1 % (0-2.5); Eosinophils # (Auto) 0.2 Thou/mm3 (0.0-0.5); Eosinophils % (Auto) 4 % (0-10); Immature Granulocytes % (Auto) 0 % (0-0); Immature Granulocytes Auto 0.02 Thou/mm3 (0.00-0.00); Lymphocytes # (Auto) 1.1 Thou/mm3 (1.0-4.8); Lymphocytes % (Auto) 19 % (10-50); Mean Corpuscular HGB Conc 31.2 g/dl (31.0-37.0); Mean Corpuscular Hemoglobin 32.5 pg (25.0-35.0); Mean Corpuscular Volume 104 fL (80-100); Monocytes # (Auto) 0.4 Thou/mm3 (0.0-0.8); Monocytes % (Auto) 6 % (0-12); Neutrophils # (Auto) 4.2 Thou/mm3 (1.8-7.7); Neutrophils % (Auto) 71 % (37-80); Nucleated Red Blood Cell % 0 /100 WBC (0); Platelet Count 166 Thou/mm3 (140-440); RDW Standard Deviation 64.9 fL (36.4-46.3); White Blood Count 5.9 Thou/mm3 (3.6-11.0)
[2024-02-29 16:54] LABS: INR 1.1 (0.9-1.3); Partial Thromboplastin Time 29.9 Seconds (22.0-36.0); Prothrombin Time 11.9 Seconds (9.0-12.2)
[2024-02-29 17:01] LABS: Hemoglobin 7.8 g/dL (12.0-16.0)
--- NOTE | 2024-02-29 17:03 | PD.EDSOB ---
ED SOB =RME/HPI General Chief Complaint: Shortness of Breath/Dyspnea Stated Complaint: sobx2, anasarca Time Seen by Provider: 02/29/24 16:01 Arrival date/time: 02/29/24 15:40 RME / HPI RME / HPI Narrative: 68-year-old female oxygen dependent presents emergency department today with complaints of shortness of breath and fluid retention. Patient was admitted in this hospital, 3 weeks ago, did not follow-up. Her appliance technician and was advised to come to the emergency room for possible IV diuresis. Patient told me that for the last 2 days she has been having worsening swelling to the bilateral lower extremity, upper extremity abdomen, and worsening shortness of breath. Usually uses oxygen 24/. Patient also complaining of dyspnea on exertion, orthopnea, and nonproductive cough. Denies any chest pain. Denies any abdominal pain. She is taking Lasix 20 mg daily. Related Data Home Medications ?Medication ?Instructions ?Recorded ?Confirmed gabapentin 600 mg tablet 600 mg PO TID #0 tabs 09/28/15 02/09/24 (Neurontin) acetaminophen 500 mg tablet 500 mg PO Q6H PRN Pain (Scale 02/09/24 02/09/24 Score 1-3) aspirin 81 mg tablet 81 mg PO QDAY 02/09/24 02/09/24 benzonatate 200 mg capsule 100 mg PO Q8HR PRN Cough 02/09/24 02/09/24 bisacodyl 10 mg rectal suppository 10 mg [place] PRN PRN Constipation 02/09/24 02/09/24 (Dulcolax (bisacodyl)) buspirone 10 mg tablet 10 mg PO BID 02/09/24 02/09/24 carvedilol 6.25 mg tablet 6.25 mg PO BID 02/09/24 02/09/24 furosemide 20 mg tablet (Lasix) 20 mg PO QDAY 02/09/24 02/09/24 hydralazine 25 mg tablet 25 mg PO TID 02/09/24 02/09/24 ipratropium 0.5 mg-albuterol 3 mg 3 ml inhalation Q4H PRN Shortness 02/09/24 02/09/24 (2.5 mg base)/3 mL nebulization Of Breath Or Wheezing soln isosorbide mononitrate 60 mg 60 mg PO DAILY 02/09/24 02/09/24 tablet,extended release 24 hr linagliptin 5 mg tablet (Tradjenta) 5 mg PO QDAY 02/09/24 02/09/24 lorazepam 0.5 mg tablet (Ativan) 0.5 mg PO Q6HR PRN Anxiety 02/09/24 02/09/24 nitroglycerin 0.4 mg sublingual 0.4 mg buccal [id number] PRN Chest 02/09/24 02/09/24 tablet Pain ondansetron 4 mg disintegrating 4 mg PO Q6H PRN Nausea And Vomiting 02/09/24 02/09/24 tablet oxycodone 5 mg/5 mL oral solution 5 mg PO Q4H PRN Pain (Scale Score 02/09/24 02/09/24 7-10) pantoprazole 40 mg tablet,delayed 40 mg PO QDAY 02/09/24 02/09/24 release (Protonix) sodium zirconium cyclosilicate 10 10 g PO QDAY 02/09/24 02/09/24 gram oral powder packet (Lokelma) vitamin B complex-vitamin C-folic 1 tab PO QDAY 02/09/24 02/09/24 acid 0.8 mg tablet (Nephro-Hema) Previous Rx's ?Medication ?Instructions ?Recorded atorvastatin 10 mg tablet 20 mg (2 x 10 mg) PO HS 30 days 02/10/24 #60 tabs fosfomycin tromethamine 3 gram 1 packet PO QDAY 1 dose #1 ea 02/10/24 oral packet levothyroxine 50 mcg capsule 50 mcg PO ACBR 30 days #30 caps 02/10/24 Allergies Allergy/AdvReac Type Severity Reaction Status Date / Time No Known Allergies Allergy Verified 02/29/24 15:43 Review of Systems Review of Systems Narrative Review of Systems: Review of system reviewed and within normal limits except mentioned in HPI ED Exam Narrative Physical exam: VITAL SIGNS: Reviewed. GENERAL APPEARANCE: Alert and interactive, follows commands, no acute distress, + anasarca HEAD AND FACE: Non-traumatic. Facial swelling ENT: PERRL, pink conjunctivitis, eyelid no trauma, Mucous membrane moist. NECK: Supple, nontender, no nuchal rigidity. CHEST: No tenderness, no crepitus, no paradoxical movement, no retractions. LUNGS: Clear, well ventilated, symmetric, no rales, no wheezing, no ronchi, no stridor, good breath sounds bilaterally. HEART: Regular rate, regular rhythm, no murmur, no gallops. ABDOMEN: Soft, positive bowel sounds, nondistended, no guarding, nontender, no rebound, no masses, edematous abdomen RECTAL: Deferred. GENITAL: Deferred. NEUROLOGICAL: Gross motor function intact sensory function intact, Appropriate for age. MUSCULOSKELETAL: low back nontender, full range of motion. EXTREMITIES: +2 bilateral lower extremity swelling, +2 upper extremity swelling nontender, full range of motion. SKIN: Color pink, dry, no rash, no lacerations, no abrasions, no contusions. LYMPHATICS: Deferred. Course Quality Measures none Orders Category Date Time Status Bedside COVID-19 Antigen Test NOW Care 02/29/24 18:29 Active COVID-19 Screening Questionnaire NOW Care 02/29/24 19:42 Active Photographic Process Screen Maker NOW Care 02/29/24 16:06 Active Decision to Admit X1 Care 02/29/24 19:42 Active EKG (ED ONLY) *Do not use* NOW Care 02/29/24 16:06 Completed Consult to Nephrology Stat Cons 02/29/24 17:09 Ordered EKG (ED Only) Stat Exams 02/29/24 16:06 Draft XR chest 2V Stat Exams 02/29/24 16:06 Completed B-Type Natriuretic Peptide Stat Lab 02/29/24 16:24 Completed CBC Stat Lab 02/29/24 16:24 Completed Comprehensive Metabolic Panel Stat Lab 02/29/24 16:24 Completed Drug Screen,Urine Stat Lab 02/29/24 16:06 Ordered LDH (Lactate Dehydrogenase) Stat Lab 02/29/24 16:24 Completed Lipase Stat Lab 02/29/24 16:24 Completed Magnesium Stat Lab 02/29/24 16:24 Completed Partial Thromboplastin Time Stat Lab 02/29/24 16:24 Completed Prothrombin Time with INR Stat Lab 02/29/24 16:24 Completed Troponin I Stat Lab 02/29/24 16:24 Completed Urinalysis Stat Lab 02/29/24 16:06 Ordered Bumetanide Inj [Bumex Inj] Med 02/29/24 17:09 Discontinued 2 mg IVP X1 ONE Furosemide Inj [Lasix Inj] Med 02/29/24 16:59 Discontinued 40 mg IVP X1 ONE Nitroglycerin Oint 2% [Nitro-paste Oint 2%] Med 02/29/24 16:59 Discontinued 1 inch TOP X1 ONE Vital Signs Vital signs: Vital Signs Temperature 98.9 F 02/29/24 16:00 Pulse Rate 63 02/29/24 16:00 Respiratory Rate 24 H 02/29/24 16:00 Blood Pressure 160/65 H 02/29/24 16:00 Pulse Oximetry (%) 97 02/29/24 16:00 Oxygen Delivery Method Nasal Cannula 02/29/24 16:00 Oxygen Flow Rate 2.5 02/29/24 16:00 Shortness of Breath / Dyspnea MDM Narrative MDM Narrative:: 68-year-old female oxygen dependent presents emergency department today with complaints of shortness of breath and fluid retention. Patient was admitted in this hospital, 3 weeks ago, did not follow-up. Her appliance technician and was advised to come to the emergency room for possible IV diuresis. Patient told me that for the last 2 days she has been having worsening swelling to the bilateral lower extremity, upper extremity abdomen, and worsening shortness of breath. Usually uses oxygen 24/. Patient also complaining of dyspnea on exertion, orthopnea, and nonproductive cough. Denies any chest pain. Denies any abdominal pain. She is taking Lasix 20 mg daily. Patient received IV Bumex 2 mg, and nitroglycerin paste. Patient BNP was noted to be worse than 2 weeks ago. Creatinine is slightly better than 2 weeks ago. Troponin is slightly elevated however slightly better also than 2 weeks ago. Spoke with Dr. Mcclendon , who advised me to asked the hospitalist to admit the patient for IV diuresis. Patient data External records reviewed:: None Clinical information provided by:: patient Social determinants that could affect healthcare access:: none Patient has the following chronic illnesses:: Congestive heart failure, hypertension chronic kidney disease How is presenting disease/condition affected by chronic disease/condition?: exacerbated by Evaluation data The following diagnostics were reviewed and interpreted by me:: lab results, radiology exam(s) and EKG tracing(s) Lab and/or radiology exams considered but not ordered:: None Interpretation Summary: Patient EKG showed sinus rhythm, ventricular rate of 62 bpm, no ST segment elevation or depression noted. Patient's BUN today was noted to be 2156, troponin 0.060 chest x-ray showed Significant heart failure Consider superimposed bilateral pneumonia Medications / Prescriptions Medications or Prescriptions considered but not ordered:: None Medication administrations:: Medication Administration History Discontinued Medications Bumetanide (Bumetanide Inj 0.25 Mg/Ml Vial 4 Ml) 2 mg IVP X1 ONE Stop: 02/29/24 17:10 Last Admin: 02/29/24 18:06 Dose: 2 mg Documented By: TM Furosemide (Furosemide Inj 10 Mg/Ml 4ml Vial) 40 mg IVP X1 ONE Stop: 02/29/24 17:00 Last Admin: 02/29/24 17:55 Dose: Not Given Documented By: TM Non-Admin Reason: Discontinued Nitroglycerin (Nitroglycerin Oint 2% 1 Inch Packet) 1 inch TOP X1 ONE Stop: 02/29/24 17:00 Last Admin: 02/29/24 18:07 Dose: 1 inch Documented By: TM IV Bumex and nitroglycerin paste Consultations Consultation(s) initiated? (list below): Yes Consultation #1 (Physician, Specialty, Details): Dr. Mcclendon , patient's appliance technician, thank you DrChris Diagnosis Shortness of Breath Differential Diagnosis: acute exacerbation of chronic obstructive airways disease, congestive heart failure and community acquired pneumonia Most likely diagnosis given after review of the tests above:: Anasarca, CKD, acute exacerbation congestive heart failure Admission Indicated Admission indicated?: indicated Explain why admission is indicated or not indicated:: Patient is to be admitted for further management Admission Request Was there a request for admission?: Yes Admission Attestation Admission request attestation: Discussed case with [Dr. Agrawal] from Hospitalist service regarding admission. Discussed patients ED course, exam findings, labs, and radiology results. The Hospitalist [agrees,] to accept the patient for admission. Disposition Plan Disposition Plan: Admit Discharge Plan Plan Patient Disposition: Admit Acute Care w/in Hospital Disposition Comment: Stable Prescriptions/Referrals Prescriptions/Med Rec: No Action gabapentin [Neurontin] 600 MG tablet 600 mg PO TID Qty: 0 ipratropium-albuterol 0.5 mg-3 mg(2.5 mg base)/3 mL Solution For Nebulization 3 ml INHALATION Q4H PRN (Reason: Shortness Of Breath Or Wheezing) benzonatate 200 mg Capsule 100 mg PO Q8HR PRN (Reason: Cough) hydralazine 25 mg Tablet 25 mg PO TID Rx Instructions: Hold for SBP<100 or HR<60 isosorbide mononitrate 60 mg Tablet Extended Release 24 Hr 60 mg PO DAILY pantoprazole [Protonix] 40 mg Tablet,Delayed Release (Dr/Ec) 40 mg PO QDAY nitroglycerin 0.4 mg Tablet, Sublingual 0.4 mg buccal [id number] PRN (Reason: Chest Pain) Nephro-Hema 0.8 mg Tablet 1 tab PO QDAY furosemide [Lasix] 20 mg Tablet 20 mg PO QDAY Tradjenta 5 mg Tablet 5 mg PO QDAY Lokelma 10 gram Powder In Packet 10 g PO QDAY carvedilol 6.25 mg Tablet 6.25 mg PO BID Rx Instructions: must administer with a meal/food; Hold for SBP<100 or HR<60 acetaminophen 500 mg Tablet 500 mg PO Q6H PRN (Reason: Pain (Scale Score 1-3)) lorazepam [Ativan] 0.5 mg Tablet 0.5 mg PO Q6HR PRN (Reason: Anxiety) bisacodyl [Dulcolax (bisacodyl)] 10 mg Suppository 10 mg [place] PRN PRN (Reason: Constipation) buspirone 10 mg Tablet 10 mg PO BID aspirin 81 mg Tablet 81 mg PO QDAY oxycodone 5 mg/5 mL Solution 5 mg PO Q4H PRN (Reason: Pain (Scale Score 7-10)) ondansetron 4 mg Tablet,Disintegrating 4 mg PO Q6H PRN (Reason: Nausea And Vomiting) atorvastatin 10 mg Tablet 20 mg PO HS 30 Days Qty: 60 0RF levothyroxine 50 mcg capsule 50 mcg PO ACBR 30 Days Qty: 30 0RF fosfomycin tromethamine 3 gram packet 1 packet PO QDAY Qty: 1 0RF Referrals: Jennifer Bagley PA-C [Primary Care Provider] - In 1 week Problem List Clinical Impression: Anasarca, Acute exacerbation of CHF (congestive heart failure) Patient/Caregiver Discharge Instructions Print Language: Upper Sorbian Stand Alone Forms: [facility]a Award Info., Patient Portal Info Letter
[2024-02-29 17:37] LABS: B-Type Natriuretic Peptide 2156 pg/mL (0-100)
[2024-02-29 17:38] LABS: Alanine Aminotransferase < 7 U/L (10-49); Albumin, Serum 3.1 gm/dL (3.4-4.8); Albumin/Globulin Ratio 0.9 (1.2-2.2); Alkaline Phosphatase 106 U/L (46-116); Anion Gap 6 (7-16); Aspartate Amino Transferase 12 U/L (0-34); BUN/Creatinine Ratio 28 Ratio (12-20); Bilirubin,Total 0.4 mg/dL (0.3-1.2); Blood Urea Nitrogen 45 mg/dL (9-23); Calcium 7.7 mg/dL (8.3-10.6); Calcium (Corrected) 8.4 mg/dL (8.5-10.1); Carbon Dioxide 29.5 mMol/L (20.0-31.0); Chloride 104 mMol/L (98-107); Creatinine (Component) 1.6 mg/dL (0.6-1.3); Estimated Creatinine Clearance 30.9 mL/min (>60); Globulin 3.6 gm/dL (2.3-3.5); Glucose 152 mg/dL (74-106); LDH (Lactate Dehydrogenase) 188 U/L (120-246); Lipase 36 U/L (12-53); Magnesium 1.8 mg/dL (1.6-2.6); Osmolality,Calculated 292 (275-295); Sodium 139 mMol/L (136-145); Total Protein 6.7 gm/dL (5.7-8.2); eGFR 35 See Note
[2024-02-29] MEDS: BUMETANIDE INJ 0.25 MG/ML VIAL 4 ML 2 MG IVP (18:06)
[2024-02-29] MEDS: NITROGLYCERIN OINT 2% 1 INCH PACKET TOP (18:07)
--- NOTE | 2024-02-29 20:54 | PD.RESHP ---
Documentation for date of: 02/29/24 [facility] History of Present Illness Chief complaint: anasarca History of present illness: Patient is [place]an-speaking and poor historian 68-year-old female with past medical history of hypertension, diabetes mellitus, hyperlipidemia, Hypothyroidism, chronic kidney disease off dialysis since 06/30, history of HFrEF, 35 to 45%, history of liver abscess s/p drainage presented to the hospital with chief complaints of generalized swelling since 2 days. Patient reported that she went to Dr. Mcclendon's office for a routine follow-up visit on the day of admission and was referred to the hospital in view of generalized swelling by Dr. Mcclendon. Patient endorsed that she is having generalized swelling and shortness of breath only since 2 days. Endorsed that she is compliant with medications and unsure of the name of the medications. Denies fever, chest pain, cough, palpitations, burning micturition, diarrhea, nausea, vomitings. ED Course: -Initial vitals were Blood pressure of 160/65 mmHg, pulse rate 63/min, respiratory rate 24/min, temperature 98.9 ?F, SpO2 97% with 2.5 L oxygen -Labs significant for Hb 7.8, INR 1.1, BUN 45, creatinine 1.6, troponin 0.06, BNP 2156. EKG showed sinus rhythm. Chest x-ray showed bilateral vascular congestion and bilateral pleural effusion, more on the left side. -In the ED, patient was given 40 Mg of IV Lasix and 2 Mg of IV Bumex. -Patient was admitted for severe anasarca secondary to acute decompensated heart failure, chronic kidney disease likely secondary to cardiorenal syndrome. Past medical history: Hypertension, diabetes mellitus, hyperlipidemia, hypothyroidism, CKD, HFrEF Past surgical history: Patient had a large right subcostal surgical scar, patient unsure of the surgery she underwent-likely cholecystectomy in view of location of the scar Social history: Denies smoking, alcohol, marijuana, other illicit drug abuse. Review of Systems Review of Systems Narrative Review of Systems: Constitutional: No Weight Change, No Fever, No Chills, No Night Sweats, No Fatigue, No Malaise ENT/Mouth: No Hearing Changes, No Ear Pain, No Nasal Congestion, No Sinus Pain, No Hoarseness, No sore throat, No Rhinorrhea, No Swallowing Difficulty Eyes: No Eye Pain, No Swelling, No Redness, No Foreign Body, No Discharge, No Vision Changes Cardiovascular: No Chest Pain, SOB, PND, Dyspnea on Exertion, Orthopnea, Edema, No Palpitations Respiratory: No Cough, No Sputum, No Wheezing, Dyspnea Gastrointestinal: No Nausea, No Vomiting, No Diarrhea, No Constipation, No Pain, No Heartburn, No Anorexia, No Dysphagia, No Hematochezia, No Melena, No Flatulence, No Jaundice Genitourinary: No Dysuria, No Urinary Frequency, No Hematuria, No Urinary Incontinence, No Urgency, No Flank Pain, No Urinary Flow Changes, No Hesitancy Musculoskeletal: No Arthralgias, No Myalgias, No Joint Swelling, No Joint Stiffness, No Back Pain, No Neck Pain, No Injury History Skin: No Skin Lesions, No Pruritis Neuro: No Weakness, No Numbness, No Paresthesias, No Loss of Consciousness, No Syncope, No Dizziness, No Headache, No Coordination Changes, No Recent Falls Past Medical History Past Medical History CARDIAC: Positive Hypercholesterolemia, Congestive Heart Failure, Edema and Hypertension GENITOURINARY: Positive Chronic Kidney Disease Exam Vital Signs Temp Pulse Resp BP Pulse Ox O2 Del Method O2 Flow Rate 98.2 F 64 20 157/65 H 97 Nasal Cannula 3 02/29/24 20:00 02/29/24 20:00 02/29/24 20:00 02/29/24 20:00 02/29/24 20:00 02/29/24 20:00 02/29/24 20:00 Narrative Exam General: Awake. HEENT: Normocephalic, atraumatic, mucous membranes dry and appears pale. Heart: Regular rate and rhythm, no murmurs. Lungs: Bilateral posterior basal fine inspiratory crackles heard. Bilateral decreased breath sounds noted on inframammary and infra axillary area Abdomen: Soft, nondistended, nontender, positive bowel sounds. ?No guarding or rebound tenderness. Neurologic: Alert and oriented x3, no gross neurological deficit, and patient able to move all 4 extremities. Extremities: Bilateral 4+ pitting pedal edema extending up to the abdomen Skin: No rash . Ecchymotic patch noted on left cubital fossa Results: Labs 02/29/24 21:06 02/29/24 16:24 Labs: Short CBC 02/29/24 Range/Units 16:24 WBC 5.9 (3.6-11.0) Thou/mm3 Hgb 7.8 L (12.0-16.0) g/dL Hct 25.0 L (36.0-46.0) % Plt Count 166 D (140-440) Thou/mm3 BMP 02/29/24 16:24 Sodium 139 Potassium 4.0 Chloride 104 Carbon Dioxide 29.5 BUN 45 H Creatinine 1.6 H Glucose 152 H Calcium 7.7 L Cardiac Enzymes 02/29/24 Range/Units 16:24 Troponin I 0.060 H* (0.0-0.045) ng/mL Liver Function 02/29/24 Range/Units 16:24 Total Bilirubin 0.4 (0.3-1.2) mg/dL AST 12 (0-34) U/L ALT < 7 L (10-49) U/L Alkaline Phosphatase 106 (46-116) U/L Albumin 3.1 L (3.4-4.8) gm/dL Quality Measures Quality Measures none Advance care planning discussed with:: patient Medications Home Medications and Allergies Home Medications ?Medication ?Instructions ?Recorded ?Confirmed ?Type gabapentin 600 mg tablet 600 mg PO TID #0 tabs 09/28/15 02/09/24 History (Neurontin) acetaminophen 500 mg tablet 500 mg PO Q6H PRN Pain (Scale 02/09/24 02/09/24 History Score 1-3) aspirin 81 mg tablet 81 mg PO QDAY 02/09/24 02/09/24 History benzonatate 200 mg capsule 100 mg PO Q8HR PRN Cough 02/09/24 02/09/24 History bisacodyl 10 mg rectal suppository 10 mg OH PRN PRN Constipation 02/09/24 02/09/24 History (Dulcolax (bisacodyl)) buspirone 10 mg tablet 10 mg PO BID 02/09/24 02/09/24 History carvedilol 6.25 mg tablet 6.25 mg PO BID 02/09/24 02/09/24 History furosemide 20 mg tablet (Lasix) 20 mg PO QDAY 02/09/24 02/09/24 History hydralazine 25 mg tablet 25 mg PO TID 02/09/24 02/09/24 History ipratropium 0.5 mg-albuterol 3 mg 3 ml inhalation Q4H PRN Shortness 02/09/24 02/09/24 History (2.5 mg base)/3 mL nebulization Of Breath Or Wheezing soln isosorbide mononitrate 60 mg 60 mg PO DAILY 02/09/24 02/09/24 History tablet,extended release 24 hr linagliptin 5 mg tablet (Tradjenta) 5 mg PO QDAY 02/09/24 02/09/24 History lorazepam 0.5 mg tablet (Ativan) 0.5 mg PO Q6HR PRN Anxiety 02/09/24 02/09/24 History nitroglycerin 0.4 mg sublingual 0.4 mg buccal [id number] PRN Chest 02/09/24 02/09/24 History tablet Pain ondansetron 4 mg disintegrating 4 mg PO Q6H PRN Nausea And Vomiting 02/09/24 02/09/24 History tablet oxycodone 5 mg/5 mL oral solution 5 mg PO Q4H PRN Pain (Scale Score 02/09/24 02/09/24 History 7-10) pantoprazole 40 mg tablet,delayed 40 mg PO QDAY 02/09/24 02/09/24 History release (Protonix) sodium zirconium cyclosilicate 10 10 g PO QDAY 02/09/24 02/09/24 History gram oral powder packet (Lokelma) vitamin B complex-vitamin C-folic 1 tab PO QDAY 02/09/24 02/09/24 History acid 0.8 mg tablet (Nephro-Hema) Allergies Allergy/AdvReac Type Severity Reaction Status Date / Time No Known Allergies Allergy Verified 02/29/24 15:43 Visit Medications Acetaminophen (Acetaminophen 325 Mg Tablet) 650 mg PO Q6H PRN PRN Reason: Fever >101.5 Stop: 03/30/24 20:27 Albuterol/Ipratropium (Albuterol/Ipratropium (Duoneb) Rt [place] 3 Ml Nebu) 3 ml INH Q6HRRT PRN PRN Reason: sob or wheeze Stop: 03/31/24 00:59 Heparin Sodium (Porcine) (Heparin Sod Inj 5000 Unit/Ml Vial) 5,000 unit SC Q8HR LUCI Stop: 03/14/24 21:59 Bumetanide 20 mg/ IV (Miscellaneous Supplies) 80 mls @ 4 mls/hr IV .Q20H LUCI Stop: 03/01/24 16:39 Magnesium Hydroxide (Milk Of Magnesia Susp 30 Ml Udc) 30 ml PO QDAY PRN; Protocol PRN Reason: CONSTIPATION Stop: 03/30/24 20:33 Ondansetron HCl (Ondansetron Inj 2 Mg/Ml Inj 2 Ml) 4 mg IV Q6H PRN; Protocol PRN Reason: NAUSEA OR VOMITING Stop: 03/30/24 20:33 Discontinued Medications Bumetanide (Bumetanide Inj 0.25 Mg/Ml Vial 4 Ml) 2 mg IVP X1 ONE Stop: 02/29/24 17:10 Last Admin: 02/29/24 18:06 Dose: 2 mg Furosemide (Furosemide Inj 10 Mg/Ml 4ml Vial) 40 mg IVP X1 ONE Stop: 02/29/24 17:00 Last Admin: 02/29/24 17:55 Dose: Not Given Nitroglycerin (Nitroglycerin Oint 2% 1 Inch Packet) 1 inch TOP X1 ONE Stop: 02/29/24 17:00 Last Admin: 02/29/24 18:07 Dose: 1 inch Assessment & Plan Plan 68-year-old female with past medical history of hypertension, diabetes mellitus, hyperlipidemia, Hypothyroidism, chronic kidney disease off dialysis since 06/30, history of HFrEF, 35 to 45%, history of liver abscess s/p drainage presented to the hospital with chief complaints of generalized swelling since 2 days and admitted for anasarca secondary to acute decompensated heart failure and CKD, likely cardiorenal syndrome # Severe anasarca # Acute decompensated heart failure # CKD, off dialysis since 06/2023 # Underlying anemia -Patient went to see Dr. Mcclendon on the day of admission for regular follow-up visit and found to have severe anasarca following which she was referred to our hospital for further care. -Patient is a poor historian and endorsed that she is having shortness of breath and generalized swelling only since 2 days -Denies any other associated symptoms like fever, cough, chest pain, palpitations, burning micturition, change in urine output -Vitals at the time of admission are blood pressure 160/60 mmHg, pulse rate 63/min, respiratory rate 24/min, temperature 98.9 ?F, SpO2 97% with 2.5 L oxygen -On examination, patient is found to have bilateral 4+ pedal edema extending up to abdomen -Labs showed Hb 7.8, BUN 45, Creatinine 1.6 -EKG showed normal sinus rhythm, chest x-ray showed bilateral vascular congestion with bilateral pleural effusions, more on left side -Received 40 Mg of IV Lasix and 2 mg of Bumex in the ED Plan -Fluid restriction to 1500 mL -Strict input and output -Pure wick catheter is ordered to monitor urine output -Low-sodium diet -Started on Bumex drip at 1 Mg per hour for 20 hours -Dr. Mcclendon is consulted and planning for dialysis -N.p.o. since midnight for dialysis catheter placement -Patient did not have any signs or symptoms of infection, so did not start any antibiotic # HFrEF, EF 35 to 40% -Echo done on 10/2023 showed Normal LV size, wall thicknessW ITH GLOBAL HYPOKINESIS Estimated LV EF 35-40 %. RV is normal in size. RV systolic function is moderately decreased. -Patient is using Lasix 20 Mg p.o. daily and carvedilol 6.25 Mg p.o. twice daily at home -Started on Bumex drip -Planning for hemodialysis in view of anasarca -Recommended to follow-up with frame carver spindle on patient basis for goal-directed management of heart failure # Chronic kidney disease, stage IV # Multifactorial - diabetes, hypertension, cardiorenal syndrome -Patient had history of dialysis and off dialysis since 06/2023 -Patient denies changes in urine output or color -Renal ultrasound on 02/10/2024 showed mild renal cortical thinning Plan -Strict input and output -Started on Bumex drip at 1 Mg per hour, monitor renal functions -Total urine protein random and urine creatinine is ordered # Anemia multifactorial, # Combined nutritional and anemia of chronic kidney disease -Hemoglobin at the time of admission is 7.8, MCV 104 -Iron panel and ferritin is ordered, follow-up with results and replete if needed -B12 is within normal limits on 02/2024 -Resume Nephro-Hema once medication reconciliation is done # Diabetes mellitus -A1c is 7.5 on 02/09/2024 -Patient is using Tradjenta at home -Placed on insulin sliding scale and add Lantus if needed # Hypertension -Blood pressure at the time of admission is 160/65 mmHg -Patient is on furosemide, carvedilol, hydralazine at home -Patient is started on Bumex drip for the anasarca, monitor blood pressures and add medications if needed # Hyperlipidemia -Patient is on atorvastatin 20 Mg p.o. at bedtime at home -Resume medication once medication reconciliation done # Hypothyroidism -TSH is 9.9 and free T4 is within normal limits on 02/09/2024 -Patient is using levothyroxine 50 mcg and resumed the home dose Hospital Maintenance: Dispo: Tele DVT ppx: held in view of catheter placement tomorrow GI ppx: not needed Diet: n.p.o since midnight IV lines: Peripheral Code status: Full code Patient plan of care was discussed with the attending physician, Dr. Isaiah Hollis, PGY1 Attending Provider Attestation/Addendum I have discussed and was present for the essential components of the history, physical examination, diagnosis, and treatment plan with the resident. I agree with the patient's care as documented by the resident and amended herein by me. Eitan Colon DO. Patient seen and evaluated in the ED prior to surgery. In short 62-year-old female with significant past medical history of hypertension, type 2 diabetes hyperlipidemia, hypothyroidism, CKD, HFrEF with a EF of 35% presented to the ED at the request of Dr. Mcclendon for anasarca and subsequent diuresis. In the ED, vital signs stable, patient afebrile, CBC largely unremarkable, BMP significant for creatinine 1.6 which appears to be the patient's baseline or slightly better. Troponins were initially increased however had down trended to 0.060, BNP 2156, chest x-ray demonstrating heart failure pattern and possible bilateral pneumonia, EKG NSR. Patient had recent admission earlier in the month treated for ESBL E. coli at that time. Last echo was in October 2023, EF of 35% with global hypokinesis noted. At this time we will admit the patient for acute decompensated heart failure and fluid overload, patient started on Bumex drip, nephrology consulted, per nephrology, a dialysis catheter was ordered and hemodialysis will need to be established for the patient. Will reconcile and restart home meds as appropriate. Although this document has been carefully reviewed, there may still be some phonetic and other typographical errors. These errors are purely grammatical due to imperfections in the software program and should not be construed in any way to compromise the substance of the patient's medical care during this visit.
[2024-02-29 21:27] LABS: Basophils % (Auto) 0 % (0-2.5); Eosinophils # (Auto) 0.3 Thou/mm3 (0.0-0.5); Eosinophils % (Auto) 5 % (0-10); Hematocrit 25.9 % (36.0-46.0); Immature Granulocytes % (Auto) 0 % (0-0); Immature Granulocytes Auto 0.02 Thou/mm3 (0.00-0.00); Lymphocytes # (Auto) 1.1 Thou/mm3 (1.0-4.8); Lymphocytes % (Auto) 19 % (10-50); Mean Corpuscular HGB Conc 30.5 g/dl (31.0-37.0); Mean Corpuscular Volume 105 fL (80-100); Monocytes # (Auto) 0.4 Thou/mm3 (0.0-0.8); Monocytes % (Auto) 7 % (0-12); Neutrophils # (Auto) 3.8 Thou/mm3 (1.8-7.7); Neutrophils % (Auto) 68 % (37-80); Nucleated Red Blood Cell % 0 /100 WBC (0); Platelet Count 152 Thou/mm3 (140-440); RDW Standard Deviation 64.4 fL (36.4-46.3); Red Blood Count 2.47 Miln/mm3 (4.00-5.20); White Blood Count 5.6 Thou/mm3 (3.6-11.0)
[2024-02-29 21:28] LABS: Hemoglobin 7.9 g/dL (12.0-16.0)
[2024-02-29] MEDS: BUMETANIDE INJ 20 MG in CONTAINER,EMPTY 50 ML 1 BAG 4 MG IV (21:31)
[2024-03-01] VITALS (19 sets, daily range): BP systolic 130–182; BP diastolic 56–73; PULSE 52–66; RESP 14–20; TEMP 36.3–36.8; O2SAT 94–100
[2024-03-01] MEDS: ACETAMINOPHEN 325 MG TABLET 650 MG PO (00:10)
[2024-03-01 00:33] LABS: Hepatitis A Antibody IgM Non Reactive (Non React); Hepatitis B Core Antibody IgM Non Reactive (Non React); Hepatitis B Surface Antigen Non Reactive (Non React); Hepatitis C Antibody Non Reactive (Non React)
--- NOTE | 2024-03-01 01:44 | PC.NURSE ---
Spoke with admitting resident via phone, reported that pt is c/o 8/10 R sided hip pain. She was given the PRN tylenol that is ordered but does not have any other pain med orders. Dr. Machado states she will look at chart and add some pain relief.
[2024-03-01] MEDS: traMADol HCL 50 MG TABLET PO ×2 (02:02→21:00)
[2024-03-01] MEDS: hydrALAZINE HCL 25 MG TABLET PO (05:40)
[2024-03-01] MEDS: LEVOTHYROXINE SODIUM 25 MCG TABLET 50 MCG PO ×2 (05:40)
[2024-03-01 05:58] LABS: Alanine Aminotransferase < 7 U/L (10-49); Albumin, Serum 3.2 gm/dL (3.4-4.8); Albumin/Globulin Ratio 0.9 (1.2-2.2); Alkaline Phosphatase 102 U/L (46-116); Anion Gap 4 (7-16); Aspartate Amino Transferase 12 U/L (0-34); BUN/Creatinine Ratio 26 Ratio (12-20); Bilirubin,Total 0.4 mg/dL (0.3-1.2); Blood Urea Nitrogen 45 mg/dL (9-23); Calcium (Corrected) 8.6 mg/dL (8.5-10.1); Carbon Dioxide 33.8 mMol/L (20.0-31.0); Chloride 104 mMol/L (98-107); Creatinine (Component) 1.7 mg/dL (0.6-1.3); Globulin 3.7 gm/dL (2.3-3.5); Glucose 142 mg/dL (74-106); Magnesium 1.8 mg/dL (1.6-2.6); Osmolality,Calculated 296 (275-295); Potassium 3.9 mMol/L (3.4-5.1); Sodium 142 mMol/L (136-145); Total Protein 6.9 gm/dL (5.7-8.2); eGFR 33 See Note
[2024-03-01 06:08] LABS: Ferritin 261 ng/mL (7.3-270.7); Total Iron Binding Capacity 225 mcg/dL (250-425)
[2024-03-01 06:18] LABS: Iron 56 mcg/dL (50-170); Percent Iron Saturation 24 % (20-55); Unsaturated Iron Binding 169 (225-295)
[2024-03-01 06:26] LABS: Collection Type, Urine Clean Catch
[2024-03-01 07:17] LABS: Amphetamine/Methamp Scrn,U Negative (Negative); Barbiturate Screen,Urine Negative (Negative); Benzodiazepines Screen,Urine Negative (Negative); Benzoylecgonine Screen, Ur Negative (Negative); Fentanyl Screen,Urine Negative (Negative); Opiate Screen,Urine Negative (Negative); THC Screen,Urine Negative (Negative)
[2024-03-01 07:35] LABS: Bacteria,Urine Rare; Bilirubin,Urine Negative (Negative); Blood,Urine Trace (Negative); Clarity,Urine Turbid (Clear/Hazy); Color,Urine Lt-Yellow (Lt Yel-Yel); Glucose, Urine Negative (Negative); Hyaline Casts,Urine < 1 /hpf (0-1); Ketones,Urine Negative (Negative); Leukocyte Esterase,Urine Positive (Negative); Nitrite,Urine Positive (Negative); Protein,Urine 2+ (Neg - Trace); RBC,Urine 12 /hpf (0-3); Squamous Epithelial Cell,Urine 3 /hpf (0-5); Urobilinogen,Urine Negative mg/dL (0.0-1.0); WBC,Urine 139 /hpf (0-5)
[2024-03-01 07:44] LABS: Creatinine,Random Urine 18 mg/dL (30-125); Protein Total, Random Urine 151 mg/dL (1-14)
[2024-03-01] MEDS: carVEDILOL 3.125 MG TABLET 6.25 MG PO ×2 (08:24→20:44)
--- NOTE | 2024-03-01 08:25 | PC.NURSE ---
Pt. here from home to room 5, Nery FATIMA here to take pt. for dialysis cath and pt. states she does not want it, pt. crying stating she does not want dialysis, pt. states they told her they were just going to remove the extra water. Pt. has +1 pitting edema to lower extremities bilateral, Pt. laying in bed with 2L NC O2, pt. tolerating well.
--- NOTE | 2024-03-01 08:35 | PC.NURSE ---
Nery FATIMA here stating she called Dr. Mcclendon to inform her that pt. does not want dialysis cath or dialysis. Nery FATIMA states Dr. Mcclendon has been informed.
--- NOTE | 2024-03-01 08:39 | PC.NURSE ---
[id number] Report received from Ele FATIMA, went to ER to last picker patient for IR tunneled hemodialyis catheter insertion, patient refused procedure at this time, Dr. Mcclendon made aware, procedure cancelled at this time
--- NOTE | 2024-03-01 08:41 | PC.NURSE ---
Pt. has a purple bruise to left lower arm just below elbow.
--- NOTE | 2024-03-01 09:20 | ESCONSULT_ITS ---
HPI Data of Consult Consult date: 03/01/24 Requesting Physician: Ramana Colon DO Admitting Provider: Ramana Colon DO Attending Provider: Ramana Colon DO Primary Care Provider: Jennifer Bagley PA-C Consult Narrative Reason for consult: Juli History of present illness: Informant daughter. Ms. Oliveira is a 68-year-old female patient with past medical history of CKD was previously on dialysis( 2023-came off dialysis), nephrotic syndrome//diabetic nephropathy, hypertension, HFrEF EF of 35 to 45% on October 2023, diabetes mellitus, hyperlipidemia, hypothyroidism, liver abscess status post drainage was referred to the hospital from the computer installation engineer office Dr. Mcclendon when the patient was noticed to be fluid overloaded. Patient was taking 40 of Lasix twice daily at the rehab facility. Patient mentioned that she became swollen recently and has been wheelchair-bound. On questioning patient reported that she believes the main reason is because she was drinking alcohol at that time. Patient reported compliance of her home medications and she expressed her wishes that she does not want dialysis at this time. Upon taking history patient was emotional and she started crying indicating that she does not want dialysis. I spoke with one of her daughters who lives in [facility] and we discussed the other options for the patient to help relieve the symptoms as the patient was noticed to have large pleural effusion bilaterally. She was wondering if he can continue diuresing the patient for the next day to see if there is any improvement and then will consider discussing with the patient the need for dialysis. Initial evaluation blood pressure was 160/65, KS of 63, respiratory rate of 24, temperature of 98.9, saturating 97% on 2 L of oxygen. Her labs showed hemoglobin of 7.8, BUN of 45, creatinine 1.6, BNP increased from her last visit to 2156 from 1700. Her urine analysis showed significant proteinuria and WBCs. Chest x-ray showed significant bilateral pneumonia. cc:: cc: Ramana Colon DO Review of Systems Review of Systems Systems Reviewed: All systems reviewed, normal except as documented Past Medical History Past Medical History NEUROLOGIC: Negative Neurological Disorders CARDIAC: Positive Hypercholesterolemia, Congestive Heart Failure, Edema and Hypertension; Negative Cardiac Disorders RESPIRATORY: Negative Chronic Obstructive Pulmonary Disease (COPD) GENITOURINARY: Positive Genitourinary Disorders, Chronic Kidney Disease and Renal Disease REPRODUCTIVE: Negative Pelvic Inflammatory Disease MUSCULOSKELETAL: Positive Musculoskeletal Disorders ENDOCRINE: Positive Endocrine Disorders and Diabetes Mellitus Type 2; Negative Diabetes Mellitus Type 1 OTHER HISTORY: Negative Autoimmune Disease Family History FAMILY HISTORY: Positive Family Respiratory Disorders and Family Cancer; Negative Family Psychiatric Problems, Family Cardiac Disorders, Family Gastrointestinal Problems, Family Surgery or Family Anesthesia Reaction Surgical History SURGICAL: Positive Abdominal Surgery and Tubal Ligation Social History SMOKING STATUS: Never smoker Exam Vital Signs Temp Pulse Resp BP Pulse Ox O2 Del Method O2 Flow Rate 97.7 F 61 18 151/67 H 96 Nasal Cannula 2 03/01/24 08:25 03/01/24 08:41 03/01/24 08:41 03/01/24 08:25 03/01/24 08:41 03/01/24 08:25 03/01/24 08:41 Narrative Exam GEN: AOx3, able to speak full sentences, teary eyes, lying in bed comfortably on 2 L of oxygen nasal cannula HEENT: NC/AC, oral mucosa moist, neck supple CVS: RRR, S1-S2 present, no murmurs appreciated RESP: Decreased air entry bilaterally basally, no added sounds GI: soft,non distended, non tender, NBS MSK: able to move all 4 limbs, +4 lower extremity edema, +1 upper extremity edema SKIN: warm and dry PULP GRINDER AND BLENDER: CN II-XII and Sensation grossly intact. Results Labs 02/29/24 21:06 03/01/24 04:30 Labs: Short CBC 02/29/24 02/29/24 Range/Units 16:24 21:06 WBC 5.9 5.6 (3.6-11.0) Thou/mm3 Hgb 7.8 L 7.9 L (12.0-16.0) g/dL Hct 25.0 L 25.9 L (36.0-46.0) % Plt Count 166 D 152 (140-440) Thou/mm3 BMP 02/29/24 03/01/24 16:24 04:30 Sodium 139 142 Potassium 4.0 3.9 Chloride 104 104 Carbon Dioxide 29.5 33.8 H BUN 45 H 45 H Creatinine 1.6 H 1.7 H Glucose 152 H 142 H Calcium 7.7 L 8.0 L Cardiac Enzymes 02/29/24 Range/Units 16:24 Troponin I 0.060 H* (0.0-0.045) ng/mL Liver Function 02/29/24 03/01/24 Range/Units 16:24 04:30 Total Bilirubin 0.4 0.4 (0.3-1.2) mg/dL AST 12 12 (0-34) U/L ALT < 7 L < 7 L (10-49) U/L Alkaline Phosphatase 106 102 (46-116) U/L Albumin 3.1 L 3.2 L (3.4-4.8) gm/dL Urine 02/29/24 Range/Units 05:50 Urine Color Lt-Yellow (Lt Yel-Yel) Urine Clarity Turbid A (Clear/Hazy) Urine pH 6.0 (5.0-7.0) Ur Specific [place] 1.010 (1.001-1.035) Urine Protein 2+ A (Neg - Trace) Urine Glucose (UA) Negative (Negative) Quality Measures Quality Measures none Advance care planning discussed with:: patient Medications Home Medications and Allergies Home Medications ?Medication ?Instructions ?Recorded ?Confirmed ?Type gabapentin 600 mg tablet 600 mg PO TID #0 tabs 09/28/15 02/09/24 History (Neurontin) acetaminophen 500 mg tablet 500 mg PO Q6H PRN Pain (Scale 02/09/24 02/09/24 History Score 1-3) aspirin 81 mg tablet 81 mg PO QDAY 02/09/24 02/09/24 History benzonatate 200 mg capsule 100 mg PO Q8HR PRN Cough 02/09/24 02/09/24 History bisacodyl 10 mg rectal suppository 10 mg KS PRN PRN Constipation 02/09/24 02/09/24 History (Dulcolax (bisacodyl)) buspirone 10 mg tablet 10 mg PO BID 02/09/24 02/09/24 History carvedilol 6.25 mg tablet 6.25 mg PO BID 02/09/24 02/09/24 History furosemide 20 mg tablet (Lasix) 20 mg PO QDAY 02/09/24 02/09/24 History hydralazine 25 mg tablet 25 mg PO TID 02/09/24 02/09/24 History ipratropium 0.5 mg-albuterol 3 mg 3 ml inhalation Q4H PRN Shortness 02/09/24 02/09/24 History (2.5 mg base)/3 mL nebulization Of Breath Or Wheezing soln isosorbide mononitrate 60 mg 60 mg PO DAILY 02/09/24 02/09/24 History tablet,extended release 24 hr linagliptin 5 mg tablet (Tradjenta) 5 mg PO QDAY 02/09/24 02/09/24 History lorazepam 0.5 mg tablet (Ativan) 0.5 mg PO Q6HR PRN Anxiety 02/09/24 02/09/24 History nitroglycerin 0.4 mg sublingual 0.4 mg buccal [id number] PRN Chest 02/09/24 02/09/24 History tablet Pain ondansetron 4 mg disintegrating 4 mg PO Q6H PRN Nausea And Vomiting 02/09/24 02/09/24 History tablet oxycodone 5 mg/5 mL oral solution 5 mg PO Q4H PRN Pain (Scale Score 02/09/24 02/09/24 History 7-10) pantoprazole 40 mg tablet,delayed 40 mg PO QDAY 02/09/24 02/09/24 History release (Protonix) sodium zirconium cyclosilicate 10 10 g PO QDAY 02/09/24 02/09/24 History gram oral powder packet (Lokelma) vitamin B complex-vitamin C-folic 1 tab PO QDAY 02/09/24 02/09/24 History acid 0.8 mg tablet (Nephro-Hema) Allergies Allergy/AdvReac Type Severity Reaction Status Date / Time No Known Allergies Allergy Verified 02/29/24 15:43 Visit Medications Acetaminophen (Acetaminophen 325 Mg Tablet) 650 mg PO Q6H PRN PRN Reason: Fever >101.5 Stop: 03/30/24 20:27 Last Admin: 03/01/24 00:10 Dose: 650 mg Albuterol/Ipratropium (Albuterol/Ipratropium (Duoneb) Rt Katrin 3 Ml Nebu) 3 ml INH Q6HRRT PRN PRN Reason: sob or wheeze Stop: 03/31/24 00:59 Carvedilol (Carvedilol 3.125 Mg Tablet) 6.25 mg PO BIDWM LUCI Stop: 03/31/24 07:59 Last Admin: 03/01/24 08:24 Dose: 6.25 mg Dextrose (Dextrose 50%-Water Inj 50 Ml Syringe) 25 ml IV Q15MIN PRN PRN Reason: BG 50-70 responsive npo pt Stop: 03/30/24 22:13 Dextrose (Dextrose 50%-Water Inj 50 Ml Syringe) 50 ml IV Q15MIN PRN PRN Reason: BG <50 OR BG <70 & pt unresponsive Stop: 03/30/24 22:13 Glucagon (Glucagon Inj 1 Mg Vial) 1 mg IM Q15MIN PRN PRN Reason: BG <70, and no IV access Hydralazine HCl (Hydralazine Hcl 25 Mg Tablet) 25 mg PO TID [facility] Stop: 03/31/24 05:59 Last Admin: 03/01/24 05:40 Dose: 25 mg Bumetanide 20 mg/ IV (Miscellaneous Supplies) 80 mls @ 4 mls/hr IV .Q20H [facility] Stop: 03/01/24 16:39 Last Admin: 02/29/24 21:31 Dose: 1 mg/hr, 4 mls/hr Insulin Human Lispro (Insulin Lispro (Admelog) 1 Unit/0.01 Ml Unit) 0 unit SC [facility]; Protocol Stop: 03/31/24 07:29 Last Admin: 03/01/24 08:20 Dose: Not Given Levothyroxine Sodium (Levothyroxine Sodium 25 Mcg Tablet) 50 mcg PO ACBR [facility] Stop: 03/31/24 05:59 Last Admin: 03/01/24 05:40 Dose: 50 mcg Magnesium Hydroxide (Milk Of Magnesia Susp 30 Ml Udc) 30 ml PO QDAY PRN; Protocol PRN Reason: CONSTIPATION Stop: 03/30/24 20:33 Ondansetron HCl (Ondansetron Inj 2 Mg/Ml Inj 2 Ml) 4 mg IV Q6H PRN; Protocol PRN Reason: NAUSEA OR VOMITING Stop: 03/30/24 20:33 Discontinued Medications Bumetanide (Bumetanide Inj 0.25 Mg/Ml Vial 4 Ml) 2 mg IVP X1 ONE Stop: 02/29/24 17:10 Last Admin: 02/29/24 18:06 Dose: 2 mg Furosemide (Furosemide Inj 10 Mg/Ml 4ml Vial) 40 mg IVP X1 ONE Stop: 02/29/24 17:00 Last Admin: 02/29/24 17:55 Dose: Not Given Heparin Sodium (Porcine) (Heparin Sod Inj 5000 Unit/Ml Vial) 5,000 unit SC Q8HR LUCI Stop: 03/14/24 21:59 Last Admin: 02/29/24 23:18 Dose: Not Given Nitroglycerin (Nitroglycerin Oint 2% 1 Inch Packet) 1 inch TOP X1 ONE Stop: 02/29/24 17:00 Last Admin: 02/29/24 18:07 Dose: 1 inch Tramadol HCl (Tramadol Hcl 50 Mg Tablet) 50 mg PO X1 ONE Stop: 03/01/24 01:46 Last Admin: 03/01/24 02:02 Dose: 50 mg Tuberculin PPD (Tuberculin Ppd Inj 5 Unit/0.1 Ml Dose) 5 unit ID X1 ONE Stop: 03/01/24 09:01 Assessment & Plan Plan Summary:A 68-year-old female patient with past medical history of CKD was previously on dialysis, nephrotic syndrome, hypertension, HFrEF EF of 35 to 45% on October 2023, diabetes mellitus, hyperlipidemia, hypothyroidism, liver abscess status post drainage was referred to the hospital from the computer installation engineer office Dr. Mcclendon when the patient was noticed to be fluid overloaded. Patient was admitted secondary to anasarca. Assessment and plan #Anasarca most likely multifactorial secondary to nephrotic syndrome, HFrEF, CKD #Nephrotic syndrome #CKD stage IIIb #Pleural effusion Patient with past medical history of CKD was previously on dialysis, nephrotic syndrome, and HFrEF, presented to the fluid overload saturating 97% on 2 L of oxygen. Her labs showed hemoglobin of 7.8, BUN of 45, creatinine 1.6, BNP increased from her last visit to 2156 from 1700. Her urine analysis showed significant proteinuria and WBCs. Chest x-ray showed significant bilateral pneumonia. Plan ? Patient refused dialysis even though we expect it will be temporary, for that reason we will continue that with the Bumex drip at this time ? Will switch her hydralazine scheduled tablets to valsartan 80 mg p.o. daily ? Strict in and out every hours ? Follow-up with the cardiology recommendations regarding optimizing heart function ? Avoid nephrotoxic medications ? Fluid restriction to 1.5 L/day ? Low-salt diet ? VTE prophylaxis Thank you for the consultation, please do not hesitate to reach out if you have any question or concerns - Patient's plan and care discussed with my attending, Dr. Danelle Segura MD Internal Medicine PGY-2 Attending Provider Attestation/Addendum Patient seen and examined with resident physician Dr. Sheikh. Note reviewed, agree with findings and recommendations with few changes made. Patient with nephrotic syndrome secondary to diabetic nephropathy and significant anasarca-diuretic dependent/resistant. Gained 20 pounds. Saw her in the office and sent her to the hospital. Recurrent hospitalizations at [facility] and [facility]. Had a long conversation with the daughter yesterday regarding sequential ultrafiltration to avoid frequent hospitalizations and they did agree. However today patient seems to be refusing dialysis. Will continue with Bumex drip for now and respect her decision. However she agreed if no improvement in azotemia or anasarca despite IV diuretics she will consider short-term dialysis. In the interim we will treat her for anemia, osteodystrophy. Check phosphorus, PTH, uric acid, vitamin D levels. Iron, Procrit ordered. Thank you Dr. Patino for allowing me to participate in the care of Mr. Oliveira
--- NOTE | 2024-03-01 11:24 | ECHO_ITS ---
Transthoracic Echo Report Ht (in): 62 Wt (lb): 150 Exam Location: Portable Status: Inpatient Poultry Vaccinator: Berta Rader Indications: Procedure Performed: BP: 141 / 57 HR: 53 Rhythm: Bradycardia Technical Quality: Fair MEASUREMENTS (Male / Female) Normal Values 2D ECHO LV Diastolic Diameter PLAX 4.2 cm 4.2 - 5.9 / 3.9 - 5.3 cm LV Systolic Diameter PLAX 2.9 cm IVS Diastolic Thickness 1.3 cm 0.6 - 1.0 / 0.6 - 0.9 cm LVPW Diastolic Thickness 1.2 cm 0.6 - 1.0 / 0.6 - 0.9 cm LV Relative Wall Thickness 0.6 LVOT Diameter 2.0 cm LA Volume Index 27.9 cm?/m? 16 - 28 cm?/m? Ascending Aorta Diameter 2.9 cm M-MODE Aortic Root Diameter MM 3.4 cm LA Systolic Diameter MM 4.6 cm LA Ao Ratio MM 1.4 AV Cusp Separation MM 2.0 cm DOPPLER AV Peak Velocity 146.0 cm/s AV Peak Gradient 8.5 mmHg AV Mean Gradient 4.0 mmHg AV Velocity Time Integral 34.5 cm AI Peak Velocity 387.5 cm/s AI Peak Gradient 60.1 mmHg AI Pressure Half Time 588.0 ms LVOT Peak Velocity 133.0 cm/s LVOT Peak Gradient 7.1 mmHg LVOT Velocity Time Integral 30.6 cm LVOT Cardiac Index 2921.0 cm?/min?m? AV Area Cont Eq vti 2.8 cm? AV Area Cont Eq pk 2.9 cm? MV Peak Velocity 143.0 cm/s MV Peak Gradient 8.2 mmHg MV Mean Velocity 84.5 cm/s MV Mean Gradient 3.0 mmHg MV Area PHT 2.2 cm? MR Peak Velocity 465.0 cm/s MR Peak Gradient 86.5 mmHg Mitral E Point Velocity 127.0 cm/s Mitral A Point Velocity 96.0 cm/s Mitral E to A Ratio 1.3 LV E' Lateral Velocity 5.2 cm/s Mitral E to LV E' Lateral Ratio 24.3 LV E' Septal Velocity 5.0 cm/s Mitral E to LV E' Septal Ratio 25.4 TR Peak Velocity 230.7 cm/s TR Peak Gradient 21.3 mmHg FINDINGS Left Ventricle Normal left ventricular size, systolic function with no obvious regional wall motion abnormalities. Mild LVH. The ejection fraction is visually estimated at 50-55%. Right Ventricle The right ventricle is mildly dilated. Midl systolic dysfunction. The estimated right ventricular sy stolic pressure, 44mmHg. RAP 10 Left Atrium The left atrium is normal by two-dimensional, color flow and Doppler imaging with no structural abnormalities, no thrombus formation present. Right Atrium The right atrium is normal by two-dimensional imaging, color flow and Doppler imaging with no struct ural abnormalities, no thrombus formation present. Atrial Septum The interatrial septum appears normal with no evidence of a shunt. Aorta The aorta is normal by two-dimensional, color flow and Doppler interrogation. Mitral Valve The mitral valve is mildly MAC. There is moderate mitral valve regurgitation. Aortic Valve The aortic valve is trileaflet and normal by two-dimensional, color flow and Doppler interrogation. There is mild aortic valve regurgitation. Tricuspid Valve The tricuspid valve is normal by two-dimensional, color flow and Doppler interrogation. There is mil d tricuspid valve regurgitation. Pulmonic Valve There is mild pulmonic valve regurgitation. Vessels The pulmonary artery appears normal. The inferior vena cava pulmonary and hepatic veins appear gemini l. Pericardium The pericardium is normal by two-dimensional imaging. There is no significant pericardial effusion. Other Findings Pleural effusion present. CONCLUSIONS Normal LV size and function. Mild LVH. Estimated EF 50-55% Mild RV dilatation. Mild RV dysfunction. Estimated RVSP 44mmHg. Mild MAC with Moderate MR. Mild TR. Pleural effusion present. Sharonda Seo (Electronically Signed) Final Date: 01 March 2024 13:01
[2024-03-01] MEDS: PANTOPRAZOLE 40 MG TABLET PO (12:35)
--- NOTE | 2024-03-01 12:54 | PD.RESPRO ---
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 Patient admitted to the hospital started on Bumex drip per nephrology recommendations. #Anasarca?noted on Bumex drip 1 Mg per hour, ordered strict I&O's, but patient has refused a Espinoza's catheter, reportedly urine output is adequate, noted improvement in swelling after aggressive IV diuresis. Nephrology offered ultrafiltration, but patient refused dialysis even as temporary measure. Will respect patient's wishes and continue with IV Bumex, appreciate nephrology recommendations. #CKD stage III #Anemia #Acute decompensated CHF?BNP elevated, but unreliable marker due to CKD, repeat echocardiogram was ordered surprisingly EF reported as improved to 55%, likely HFpEF. #Hypothyroidism Patient evaluated and examined at the bedside, plan of care discussed with rest of the team including my attending physician, except as noted. Quresh PGY2 Subjective Subjective Interval history: Patient seen today in the ED found awake, alert, oriented x 3. States no active complaints at this time states some swelling in the bilateral lower extremities. Explained to the patient plan of having dialysis catheter placed on hemodialysis as per nephrology recommendations however patient refused hemodialysis at this time. Will continue with IV diuresis with Bumex drip. Echocardiogram was ordered. Cardiology Dr. Yoon was consulted appreciate recommendations. Exam Vital Signs Temp Pulse Resp BP Pulse Ox O2 Del Method O2 Flow Rate 97.6 F 56 L 16 170/73 H 96 Nasal Cannula 2 03/01/24 12:08 03/01/24 12:08 03/01/24 12:08 03/01/24 12:08 03/01/24 12:08 03/01/24 12:08 03/01/24 12:08 Narrative Exam Physical Exam GENERAL: NAD, AAOx3 HEENT: Moist mucosa. Eyes open, symmetrical, & clear CARDIO: Heart RRR, no obvious murmurs PULM: No noted coughing/dyspnea, decreased bilateral breath sounds GI: Abdomen soft, nondistended, no pain on palpation. BSx4 SKIN/MSK/EXT: +3 bilateral lower extremity edema up to the thighs, no pain on palpation. Pedal pulses present B/L NEURO: AAOx3, no focal neuro deficits, able to move all 4 extremities Objective Labs 03/02/24 05:44 03/02/24 05:44 Labs: Laboratory Results - last 24 hr 02/29/24 02/29/24 02/29/24 05:50 16:24 21:06 WBC 5.9 5.6 RBC 2.40 L 2.47 L Hgb 7.8 L 7.9 L Hct 25.0 L 25.9 L MCV 104 H 105 H MCH 32.5 32.0 MCHC 31.2 30.5 L RDW Std Deviation 64.9 H 64.4 H Plt Count 166 D 152 Neut % (Auto) 71 68 Lymph % (Auto) 19 19 Weber % (Auto) 6 7 Eos % (Auto) 4 5 Baso % (Auto) 1 0 Neut # (Auto) 4.2 3.8 Lymph # (Auto) 1.1 1.1 Weber # (Auto) 0.4 0.4 Eos # (Auto) 0.2 0.3 Baso # (Auto) 0.0 0.0 Immature Gran # (Auto) 0.02 H 0.02 H Absolute Nucleated RBC 0.00 0.00 Immature Gran % 0 0 Nucleated RBC % 0 0 PT 11.9 INR 1.1 APTT 29.9 Sodium 139 Potassium 4.0 Chloride 104 Carbon Dioxide 29.5 Anion Gap 6 L BUN 45 H Creatinine 1.6 H Estim Creat Clear Calc 30.9 L eGFR 35 L BUN/Creatinine Ratio 28 H Glucose 152 H Calculated Osmolality 292 Calcium 7.7 L Corrected Calcium 8.4 L Magnesium 1.8 Iron TIBC Iron Saturation Unsat Iron Binding Ferritin Total Bilirubin 0.4 AST 12 ALT < 7 L Alkaline Phosphatase 106 Lactate Dehydrogenase 188 Troponin I 0.060 H* B-Natriuretic Peptide 2156 H* Total Protein 6.7 Albumin 3.1 L Globulin 3.6 H Albumin/Globulin Ratio 0.9 L Lipase 36 Ur Collection Type Clean Catch Urine Color Lt-Yellow Urine Clarity Turbid A Urine pH 6.0 Ur Specific [place] 1.010 Urine Protein 2+ A Urine Glucose (UA) Negative Urine Ketones Negative Urine Blood Trace Urine Nitrite Positive Urine Bilirubin Negative Urine Urobilinogen (Auto) Negative Ur Leukocyte Esterase Positive Urine RBC 12 H Urine WBC 139 H Ur Squamous Epith Cells 3 Urine Bacteria Rare Hyaline Casts < 1 Ur Random Creatinine 18 L U Random Total Protein 151 H Urine Opiates Screen Negative Urine Fentanyl Screen Negative Ur Barbiturates Screen Negative U Amphetamin/Meth Scrn Negative U Benzodiazepines Scrn Negative U Cocaine Metab Screen Negative U Marijuana (THC) Screen Negative Hepatitis A IgM Ab Non Reactive Hep Bs Antigen Non Reactive Hep B Core IgM Ab Non Reactive Hepatitis C Antibody Non Reactive 03/01/24 04:30 WBC RBC Hgb Hct MCV MCH MCHC RDW Std Deviation Plt Count Neut % (Auto) Lymph % (Auto) Weber % (Auto) Eos % (Auto) Baso % (Auto) Neut # (Auto) Lymph # (Auto) Weber # (Auto) Eos # (Auto) Baso # (Auto) Immature Gran # (Auto) Absolute Nucleated RBC Immature Gran % Nucleated RBC % PT INR APTT Sodium 142 Potassium 3.9 Chloride 104 Carbon Dioxide 33.8 H Anion Gap 4 L BUN 45 H Creatinine 1.7 H Estim Creat Clear Calc 29.0 L eGFR 33 L BUN/Creatinine Ratio 26 H Glucose 142 H Calculated Osmolality 296 H Calcium 8.0 L Corrected Calcium 8.6 Magnesium 1.8 Iron 56 TIBC 225 L Iron Saturation 24 Unsat Iron Binding 169 L Ferritin 261 Total Bilirubin 0.4 AST 12 ALT < 7 L Alkaline Phosphatase 102 Lactate Dehydrogenase Troponin I B-Natriuretic Peptide Total Protein 6.9 Albumin 3.2 L Globulin 3.7 H Albumin/Globulin Ratio 0.9 L Lipase Ur Collection Type Urine Color Urine Clarity Urine pH Ur Specific [place] Urine Protein Urine Glucose (UA) Urine Ketones Urine Blood Urine Nitrite Urine Bilirubin Urine Urobilinogen (Auto) Ur Leukocyte Esterase Urine RBC Urine WBC Ur Squamous Epith Cells Urine Bacteria Hyaline Casts Ur Random Creatinine U Random Total Protein Urine Opiates Screen Urine Fentanyl Screen Ur Barbiturates Screen U Amphetamin/Meth Scrn U Benzodiazepines Scrn U Cocaine Metab Screen U Marijuana (THC) Screen Hepatitis A IgM Ab Hep Bs Antigen Hep B Core IgM Ab Hepatitis C Antibody Quality Measures Quality Measures none Advance care planning discussed with:: patient Assessment & Plan Assessment Current Active Medications: Generic Name Dose Route Start Last Admin Trade Name Freq PRN Reason Stop Dose Admin Acetaminophen 650 mg 02/29/24 20:28 03/01/24 00:10 Acetaminophen 325 Mg Tablet PO 03/30/24 20:27 650 mg Q6H PRN Administration Fever >101.5 Albuterol/Ipratropium 3 ml 02/29/24 20:28 Albuterol/Ipratropium (Duoneb) Rt Katrin 3 Ml Nebu INH 03/31/24 00:59 Q6HRRT PRN sob or wheeze Carvedilol 6.25 mg 03/01/24 08:00 03/01/24 08:24 Carvedilol 3.125 Mg Tablet PO 03/31/24 07:59 6.25 mg BIDWM LUCI Administration Dextrose 25 ml 02/29/24 22:14 Dextrose 50%-Water Inj 50 Ml Syringe IV 03/30/24 22:13 Q15MIN PRN BG 50-70 responsive npo pt Dextrose 50 ml 02/29/24 22:14 Dextrose 50%-Water Inj 50 Ml Syringe IV 03/30/24 22:13 Q15MIN PRN BG <50 OR BG <70 & pt unresponsive Glucagon 1 mg 02/29/24 22:14 Glucagon Inj 1 Mg Vial IM Q15MIN PRN BG <70, and no IV access Bumetanide 20 mg/ IV 80 mls @ 4 mls/hr 02/29/24 20:40 02/29/24 21:31 Miscellaneous Supplies IV 03/01/24 16:39 1 mg/hr .Q20H LUCI 4 mls/hr Administration 1 MG/HR Insulin Human Lispro 0 unit 03/01/24 07:30 03/01/24 12:28 Insulin Lispro (Admelog) 1 Unit/0.01 Ml Unit SC 03/31/24 07:29 Not Given ACHS LUCI Protocol Levothyroxine Sodium 50 mcg 03/01/24 06:00 03/01/24 05:40 Levothyroxine Sodium 25 Mcg Tablet PO 03/31/24 05:59 50 mcg ACBR LUCI Administration Magnesium Hydroxide 30 ml 02/29/24 20:34 Milk Of Magnesia Susp 30 Ml Udc PO 03/30/24 20:33 QDAY PRN CONSTIPATION Protocol Ondansetron HCl 4 mg 02/29/24 20:34 Ondansetron Inj 2 Mg/Ml Inj 2 Ml IV 03/30/24 20:33 Q6H PRN NAUSEA OR VOMITING Protocol Pantoprazole Sodium 40 mg 03/01/24 12:00 03/01/24 12:35 Pantoprazole 40 Mg Tablet PO 03/31/24 11:59 40 mg QDAY LUCI Administration Valsartan 80 mg 03/01/24 13:00 Valsartan 80 Mg Tablet PO 03/31/24 12:59 QDAY LUCI Plan 68-year-old female with past medical history of hypertension, diabetes mellitus, hyperlipidemia, Hypothyroidism, chronic kidney disease off dialysis since 06/30, history of HFrEF, 35 to 45%, history of liver abscess s/p drainage presented to the hospital with chief complaints of generalized swelling since 2 days and admitted for anasarca secondary to acute decompensated heart failure and CKD, likely cardiorenal syndrome # Severe anasarca # Acute decompensated heart failure # CKD, off dialysis since 06/2023 # Underlying anemia Patient went to see Dr. Mcclendon on the day of admission for regular follow-up visit and found to have severe anasarca following which she was referred to our hospital for further care. Vitals at the time of admission are blood pressure 160/60 mmHg, pulse rate 63/min, respiratory rate 24/min, temperature 98.9 ?F, SpO2 97% with 2.5 L oxygen On examination, patient is found to have bilateral 4+ pedal edema extending up to abdomen Labs showed Hb 7.8, BUN 45, Creatinine 1.6 EKG showed normal sinus rhythm, chest x-ray showed bilateral vascular congestion with bilateral pleural effusions, more on left side Received 40 Mg of IV Lasix and 2 mg of Bumex in the ED Patient was planned to have dialysis catheter placed and start hemodialysis however patient refuses procedure. -Fluid restriction to 1500 mL -Strict input and output -Started on Bumex drip 1mg -Dr. Mcclendon is consulted and planning for dialysis -Patient did not have any signs or symptoms of infection, so did not start any antibiotic # HFrEF, EF 35 to 40% Echo done on 10/2023 showed Normal LV size, wall thicknessW ITH GLOBAL HYPOKINESIS Estimated LV EF 35-40 %. RV is normal in size. RV systolic function is moderately decreased. Patient is using Lasix 20 Mg p.o. daily and carvedilol 6.25 Mg p.o. twice daily at home -Started on Bumex drip -Echo ordered -Cardiology Dr. 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 at bedtime at home -Resumed atorvastatin as taken at home # Hypothyroidism TSH is 9.9 and free T4 is within normal limits on 02/09/2024 -Resume levothyroxine as taken at home Case discussed with my senior Dr. Gibbons PGY-[address] Caery Felipe MD PGY-1 Disposition: Telemetry Fluids: None Feeding: Renal diet Thrombo prophylaxis: Heparin Gastric Ulcer prophylaxis: Pantoprazole CODE STATUS: Full code Attending Provider Attestation/Addendum Marely Zarate, , attest that I was physically present for the tariq portions of the service and evaluated the patient with the resident and I reviewed and discussed the case with the resident and agree with the resident's findings and plans of care as documented above Patient seen and evaluated in the ED. Patient is somnolent, but easily arousable and has no acute complaints. She denies any shortness of breath. She is noted to have 2+ pitting edema in b/l LE. Case discussed with nephrology, patient has refused dialysis. Will place espinoza catheter and monitor In's and outs. Repeat echocardiogram. Will hold off beta cuca as patient is bradycardic in the 50s. OK to start patient on ARB per nephro. Continue with Bumex drip at this time.
--- NOTE | 2024-03-01 14:22 | ESCONSULT_ITS ---
<Statement entered by Kelly Yoon MD - 03/04/24 13:17> I examined the patient personally assessed and evaluated the patient PGY 2 Dr. Ramey I evaluated and agree with the treatment plan recommendation patient appears to have HFpEF ejection fraction is preserved now volume overload with CKD agree with the treatment plan recommendation as documented by Dr. Ramey PGY2 HPI Data of Consult Requesting Physician: Marely Patino DO Admitting Provider: Ramana Colon DO Attending Provider: Marely Patino DO Primary Care Provider: Jennifer Bagley PA-C Consult Narrative History of present illness: 68-year-old female with past medical history of hypertension, diabetes mellitus, hyperlipidemia, Hypothyroidism, chronic kidney disease off dialysis since 06/30, history of HFrEF, 35 to 45%, history of liver abscess s/p drainage presented to the hospital with chief complaints of generalized swelling since 2 days. Cardiology consulted as patient was recently in the hospital with acute CHF exacerbation and now has returned with CHF exacerbation again. Patient seen in ED. Patient hemodynamically stable. Patient complaining of right hip pain but eventually forgot about pain during conversation. Patient denying any chest pain or palpitations at this time. cc:: cc: Marely Patino DO Exam Vital Signs Temp Pulse Resp BP Pulse Ox O2 Del Method O2 Flow Rate 98.1 F 52 L 18 135/59 H 100 Nasal Cannula 2 03/01/24 14:14 03/01/24 14:14 03/01/24 14:14 03/01/24 14:14 03/01/24 14:14 03/01/24 14:14 03/01/24 14:14 Narrative Exam GENERAL: Patient in acute distress, crying stating she has pain of right lower extremity, AAOx3 CARDIO: Heart RRR, no obvious murmurs. PULM: No noted coughing/dyspnea, decreased bilateral breath sounds GI: Abdomen soft, nondistended, no pain on palpation. BSx4 SKIN/MSK/EXT: +2 bilateral lower extremity edema up to the thighs, no pain on palpation. Results Labs 02/29/24 21:06 03/01/24 04:30 Labs: Short CBC 02/29/24 02/29/24 Range/Units 16:24 21:06 WBC 5.9 5.6 (3.6-11.0) Thou/mm3 Hgb 7.8 L 7.9 L (12.0-16.0) g/dL Hct 25.0 L 25.9 L (36.0-46.0) % Plt Count 166 D 152 (140-440) Thou/mm3 BMP 02/29/24 03/01/24 16:24 04:30 Sodium 139 142 Potassium 4.0 3.9 Chloride 104 104 Carbon Dioxide 29.5 33.8 H BUN 45 H 45 H Creatinine 1.6 H 1.7 H Glucose 152 H 142 H Calcium 7.7 L 8.0 L Cardiac Enzymes 02/29/24 Range/Units 16:24 Troponin I 0.060 H* (0.0-0.045) ng/mL Liver Function 02/29/24 03/01/24 Range/Units 16:24 04:30 Total Bilirubin 0.4 0.4 (0.3-1.2) mg/dL AST 12 12 (0-34) U/L ALT < 7 L < 7 L (10-49) U/L Alkaline Phosphatase 106 102 (46-116) U/L Albumin 3.1 L 3.2 L (3.4-4.8) gm/dL Urine 02/29/24 Range/Units 05:50 Urine Color Lt-Yellow (Lt Yel-Yel) Urine Clarity Turbid A (Clear/Hazy) Urine pH 6.0 (5.0-7.0) Ur Specific [place] 1.010 (1.001-1.035) Urine Protein 2+ A (Neg - Trace) Urine Glucose (UA) Negative (Negative) Quality Measures Quality Measures none Advance care planning discussed with:: patient Medications Home Medications and Allergies Home Medications ?Medication ?Instructions ?Recorded ?Confirmed ?Type gabapentin 600 mg tablet 600 mg PO TID #0 tabs 09/28/15 02/09/24 History (Neurontin) acetaminophen 500 mg tablet 500 mg PO Q6H PRN Pain (Scale 02/09/24 02/09/24 History Score 1-3) aspirin 81 mg tablet 81 mg PO QDAY 02/09/24 02/09/24 History benzonatate 200 mg capsule 100 mg PO Q8HR PRN Cough 02/09/24 02/09/24 History bisacodyl 10 mg rectal suppository 10 mg FL PRN PRN Constipation 02/09/24 02/09/24 History (Dulcolax (bisacodyl)) buspirone 10 mg tablet 10 mg PO BID 02/09/24 02/09/24 History carvedilol 6.25 mg tablet 6.25 mg PO BID 02/09/24 02/09/24 History furosemide 20 mg tablet (Lasix) 20 mg PO QDAY 02/09/24 02/09/24 History hydralazine 25 mg tablet 25 mg PO TID 02/09/24 02/09/24 History ipratropium 0.5 mg-albuterol 3 mg 3 ml inhalation Q4H PRN Shortness 02/09/24 02/09/24 History (2.5 mg base)/3 mL nebulization Of Breath Or Wheezing soln isosorbide mononitrate 60 mg 60 mg PO DAILY 02/09/24 02/09/24 History tablet,extended release 24 hr linagliptin 5 mg tablet (Tradjenta) 5 mg PO QDAY 02/09/24 02/09/24 History lorazepam 0.5 mg tablet (Ativan) 0.5 mg PO Q6HR PRN Anxiety 02/09/24 02/09/24 History nitroglycerin 0.4 mg sublingual 0.4 mg buccal [id number] PRN Chest 02/09/24 02/09/24 History tablet Pain ondansetron 4 mg disintegrating 4 mg PO Q6H PRN Nausea And Vomiting 02/09/24 02/09/24 History tablet oxycodone 5 mg/5 mL oral solution 5 mg PO Q4H PRN Pain (Scale Score 02/09/24 02/09/24 History 7-10) pantoprazole 40 mg tablet,delayed 40 mg PO QDAY 02/09/24 02/09/24 History release (Protonix) sodium zirconium cyclosilicate 10 10 g PO QDAY 02/09/24 02/09/24 History gram oral powder packet (Lokelma) vitamin B complex-vitamin C-folic 1 tab PO QDAY 02/09/24 02/09/24 History acid 0.8 mg tablet (Nephro-Hema) Allergies Allergy/AdvReac Type Severity Reaction Status Date / Time No Known Allergies Allergy Verified 02/29/24 15:43 Visit Medications Acetaminophen (Acetaminophen 325 Mg Tablet) 650 mg PO Q6H PRN PRN Reason: Fever >101.5 Stop: 03/30/24 20:27 Last Admin: 03/01/24 00:10 Dose: 650 mg Albuterol/Ipratropium (Albuterol/Ipratropium (Duoneb) Rt Katrin 3 Ml Nebu) 3 ml INH Q6HRRT PRN PRN Reason: sob or wheeze Stop: 03/31/24 00:59 Atorvastatin Calcium (Atorvastatin Calcium 20 Mg Tablet) 20 mg PO HS [facility] Stop: 03/31/24 20:59 Carvedilol (Carvedilol 3.125 Mg Tablet) 6.25 mg PO BIDWM [facility] Stop: 03/31/24 07:59 Last Admin: 03/01/24 08:24 Dose: 6.25 mg Dextrose (Dextrose 50%-Water Inj 50 Ml Syringe) 25 ml IV Q15MIN PRN PRN Reason: BG 50-70 responsive npo pt Stop: 03/30/24 22:13 Dextrose (Dextrose 50%-Water Inj 50 Ml Syringe) 50 ml IV Q15MIN PRN PRN Reason: BG <50 OR BG <70 & pt unresponsive Stop: 03/30/24 22:13 Glucagon (Glucagon Inj 1 Mg Vial) 1 mg IM Q15MIN PRN PRN Reason: BG <70, and no IV access Bumetanide 20 mg/ IV (Miscellaneous Supplies) 80 mls @ 4 mls/hr IV .Q20H [facility] Stop: 03/01/24 16:39 Last Admin: 02/29/24 21:31 Dose: 1 mg/hr, 4 mls/hr Insulin Human Lispro (Insulin Lispro (Admelog) 1 Unit/0.01 Ml Unit) 0 unit SC [facility]; Protocol Stop: 03/31/24 07:29 Last Admin: 03/01/24 12:28 Dose: Not Given Levothyroxine Sodium (Levothyroxine Sodium 25 Mcg Tablet) 50 mcg PO ACBR [facility] Stop: 03/31/24 05:59 Last Admin: 03/01/24 05:40 Dose: 50 mcg Magnesium Hydroxide (Milk Of Magnesia Susp 30 Ml Udc) 30 ml PO QDAY PRN; Protocol PRN Reason: CONSTIPATION Stop: 03/30/24 20:33 Ondansetron HCl (Ondansetron Inj 2 Mg/Ml Inj 2 Ml) 4 mg IV Q6H PRN; Protocol PRN Reason: NAUSEA OR VOMITING Stop: 03/30/24 20:33 Pantoprazole Sodium (Pantoprazole 40 Mg Tablet) 40 mg PO QDAY [facility] Stop: 03/31/24 11:59 Last Admin: 03/01/24 12:35 Dose: 40 mg Valsartan (Valsartan 80 Mg Tablet) 80 mg PO QDAY [facility] Stop: 03/31/24 12:59 Discontinued Medications Bumetanide (Bumetanide Inj 0.25 Mg/Ml Vial 4 Ml) 2 mg IVP X1 ONE Stop: 02/29/24 17:10 Last Admin: 02/29/24 18:06 Dose: 2 mg Furosemide (Furosemide Inj 10 Mg/Ml 4ml Vial) 40 mg IVP X1 ONE Stop: 02/29/24 17:00 Last Admin: 02/29/24 17:55 Dose: Not Given Heparin Sodium (Porcine) (Heparin Sod Inj 5000 Unit/Ml Vial) 5,000 unit SC Q8HR [facility] Stop: 03/14/24 21:59 Last Admin: 02/29/24 23:18 Dose: Not Given Hydralazine HCl (Hydralazine Hcl 25 Mg Tablet) 25 mg PO TID [facility] Stop: 03/31/24 05:59 Last Admin: 03/01/24 05:40 Dose: 25 mg Nitroglycerin (Nitroglycerin Oint 2% 1 Inch Packet) 1 inch TOP X1 ONE Stop: 02/29/24 17:00 Last Admin: 02/29/24 18:07 Dose: 1 inch Tramadol HCl (Tramadol Hcl 50 Mg Tablet) 50 mg PO X1 ONE Stop: 03/01/24 01:46 Last Admin: 03/01/24 02:02 Dose: 50 mg Tuberculin PPD (Tuberculin Ppd Inj 5 Unit/0.1 Ml Dose) 5 unit ID X1 ONE Stop: 03/01/24 09:01 Assessment & Plan Plan 68-year-old female with past medical history of hypertension, diabetes mellitus, hyperlipidemia, Hypothyroidism, chronic kidney disease off dialysis since 06/30, history of HFrEF, 35 to 45%, history of liver abscess s/p drainage presented to the hospital with chief complaints of generalized swelling since 2 days and admitted for anasarca secondary to acute decompensated heart failure and CKD, likely cardiorenal syndrome # Severe anasarca # Acute decompensated heart failure EKG showed normal sinus rhythm Chest x-ray showed bilateral vascular congestion with bilateral pleural effusions. Fluid restriction to 1500 mL Strict input and output Patient on Bumex drip Patient on Coreg and valsartan Repeat cardiac echo shows: Normal LV size and function. Mild LVH. Estimated EF 50-55% Mild RV dilatation. Mild RV dysfunction. Estimated RVSP 44mmHg. Mild MAC with Moderate MR. Mild TR. Pleural effusion present. 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 Car Ramey MD PGY3
[2024-03-01] MEDS: VALSARTAN 80 MG TABLET PO (14:37)
--- NOTE | 2024-03-01 14:48 | PC.NURSE ---
Pt. resting with her eyes closed, pt. hard to wake up, pt. responding but lethargic. BS checked, [id number]. Pt. drank some juice.
--- NOTE | 2024-03-01 17:12 | PC.NURSE ---
cleaned pt., pt. has redness and excoriation to braxton folds and lower abdomen folds.
[2024-03-01] MEDS: TUBERCULIN PPD INJ 5 UNIT/0.1 ML DOSE ID (20:02)
[2024-03-01] MEDS: Milk Of Magnesia Susp 30 ML UDC PO (20:45)
[2024-03-01] MEDS: INSULIN LISPRO (AdmeLOG) 1 UNIT/0.01 ML UNIT SC (20:45)
[2024-03-01] MEDS: ATORVASTATIN CALCIUM 20 MG TABLET PO (20:45)
[2024-03-01] MEDS: BUMETANIDE INJ 20 MG in CONTAINER,EMPTY 50 ML 1 BAG 4 MG IV (20:46)
[2024-03-02] VITALS (15 sets, daily range): BP systolic 138–167; BP diastolic 64–77; PULSE 53–74; RESP 12–23; TEMP 36.2–36.7; O2SAT 92–97; BMI 27.4
[2024-03-02] MEDS: LEVOTHYROXINE SODIUM 25 MCG TABLET 50 MCG PO (05:23)
[2024-03-02 06:01] LABS: Basophils % (Auto) 1 % (0-2.5); Eosinophils # (Auto) 0.3 Thou/mm3 (0.0-0.5); Eosinophils % (Auto) 5 % (0-10); Hematocrit 28.2 % (36.0-46.0); Immature Granulocytes % (Auto) 0 % (0-0); Immature Granulocytes Auto 0.01 Thou/mm3 (0.00-0.00); Lymphocytes # (Auto) 0.9 Thou/mm3 (1.0-4.8); Lymphocytes % (Auto) 17 % (10-50); Mean Corpuscular HGB Conc 30.5 g/dl (31.0-37.0); Mean Corpuscular Hemoglobin 32.2 pg (25.0-35.0); Mean Corpuscular Volume 106 fL (80-100); Monocytes # (Auto) 0.3 Thou/mm3 (0.0-0.8); Monocytes % (Auto) 6 % (0-12); Neutrophils % (Auto) 72 % (37-80); Nucleated Red Blood Cell % 0 /100 WBC (0); Platelet Count 156 Thou/mm3 (140-440); Red Blood Count 2.67 Miln/mm3 (4.00-5.20); White Blood Count 5.6 Thou/mm3 (3.6-11.0)
[2024-03-02 06:19] LABS: Hemoglobin 8.6 g/dL (12.0-16.0)
[2024-03-02 06:50] LABS: Alanine Aminotransferase 7 U/L (10-49); Albumin, Serum 3.1 gm/dL (3.4-4.8); Albumin/Globulin Ratio 0.8 (1.2-2.2); Alkaline Phosphatase 102 U/L (46-116); Anion Gap 7 (7-16); Aspartate Amino Transferase 14 U/L (0-34); BUN/Creatinine Ratio 26 Ratio (12-20); Bilirubin,Total 0.4 mg/dL (0.3-1.2); Blood Urea Nitrogen 42 mg/dL (9-23); Calcium (Corrected) 8.7 mg/dL (8.5-10.1); Carbon Dioxide 31.9 mMol/L (20.0-31.0); Chloride 101 mMol/L (98-107); Creatinine (Component) 1.6 mg/dL (0.6-1.3); Estimated Creatinine Clearance 30.9 mL/min (>60); Globulin 3.7 gm/dL (2.3-3.5); Glucose 95 mg/dL (74-106); Magnesium 1.8 mg/dL (1.6-2.6); Osmolality,Calculated 289 (275-295); Phosphorous 4.8 mg/dL (2.4-5.1); Potassium 4.1 mMol/L (3.4-5.1); Sodium 140 mMol/L (136-145); Thyroid Stimulating Hormone 49.88 uIU/mL (0.55-4.78); Total Protein 6.8 gm/dL (5.7-8.2); Uric Acid 9.6 mg/dL (3.1-7.8); eGFR 35 See Note
[2024-03-02] MEDS: VALSARTAN 80 MG TABLET PO (08:25)
[2024-03-02] MEDS: carVEDILOL 3.125 MG TABLET 6.25 MG PO (08:25)
[2024-03-02] MEDS: PANTOPRAZOLE 40 MG TABLET PO (08:25)
[2024-03-02 08:42] LABS: Free T4 (Free Thyroxine) 0.66 ng/dL (0.89-1.76)
--- NOTE | 2024-03-02 08:51 | PC.SS ---
Follow up note: Dr. Mcclendon recommendations pending. On IV bumix drip.
[2024-03-02] MEDS: ferumoxytoL (NON-ESRD) 510 MG in SODIUM CHLORIDE 0.9% 100 ML 234 MG IV (09:41)
[2024-03-02] MEDS: EPOETIN ALFA-EPBX INJ 10,000 UNIT/ML VIAL (ESRD) 10000 UNIT SC (09:41)
[2024-03-02] MEDS: ACETAzolaMIDE SOD 500 MG in SODIUM CHLORIDE 0.9% 50 ML 100 MG IV (09:41)
--- NOTE | 2024-03-02 11:20 | CHAP ---
Patient was visited by the Spiritual Care Volunteer who prayed for them. (Volunteer was in the hospital from 10:10-11:20).
--- NOTE | 2024-03-02 11:43 | ESPR_ITS ---
Documentation for date of: 03/02/24 Subjective Subjective Interval history: Ms. Oliveira is a 68-year-old female patient with past medical history of CKD was previously on dialysis( 2023-came off dialysis), nephrotic syndrome//diabetic nephropathy, hypertension, HFrEF EF of 35 to 45% on October 2023, diabetes mellitus, hyperlipidemia, hypothyroidism, liver abscess status post drainage was referred to the hospital from the plastic sewer office Dr. Mcclendon when the patient was noticed to be fluid overloaded. Patient was taking 40 of Lasix twice daily at the rehab facility. Patient mentioned that she became swollen recently and has been wheelchair-bound. On questioning patient reported that she believes the main reason is because she was drinking alcohol at that time. Patient reported compliance of her home medications and she expressed her wishes that she does not want dialysis at this time. Upon taking history patient was emotional and she started crying indicating that she does not want dialysis. I spoke with one of her daughters who lives in [facility] and we discussed the other options for the patient to help relieve the symptoms as the patient was noticed to have large pleural effusion bilaterally. She was wondering if he can continue diuresing the patient for the next day to see if there is any improvement and then will consider discussing with the patient the need for dialysis. Initial evaluation blood pressure was 160/65, OH of 63, respiratory rate of 24, temperature of 98.9, saturating 97% on 2 L of oxygen. Her labs showed hemoglobin of 7.8, BUN of 45, creatinine 1.6, BNP increased from her last visit to 2156 from 1700. Her urine analysis showed significant proteinuria and WBCs. Chest x-ray showed significant bilateral pneumonia. 03/02: Patient seen and examined at bedside, resting comfortably in bed. States that she does not have increased shortness of breath, chest discomfort, and overall feels better compared to yesterday. Has only had 600 cc urine output during hospital stay while on IV bumex drip, but cannot get accurate I/O as she does not have a Jacobo. Given patient's improvement will switch to 2 mg IV BID. Hgb imprved from 7.9 to 8.6, plt wnl. Na and K wnl. BUN mildly improved from 45 to 42 and Cr mildly improved from 1.6 to 1.7. TSH noted to be elevated at 50 and free T4 low at 0.66. PTH also elevated at 145. Echo showed EF 50-55% with RSVP of 44 mmHg. Mild MAC, moderate MR, mild TR. Exam Vital Signs Temp Pulse Resp BP Pulse Ox O2 Del Method O2 Flow Rate 97.1 F 59 L 20 138/64 H 93 L Nasal Cannula 2 03/02/24 08:00 03/02/24 09:03 03/02/24 09:03 03/02/24 08:25 03/02/24 09:03 03/02/24 08:00 03/02/24 09:03 Narrative Exam General: AOx3, no acute distress, able to speak full sentences HEENT: NC/AT, mucous membranes moist, bilateral sclera anicteric Cardiovascular: regular rate and rhythm, S1/S2 present, no murmurs appreciated Pulmonary: clear to auscultation bilaterally, no rales/rhonchi/wheezes Abdominal: soft, non-tender, non-distended, no rebound/guarding, normal bowel sounds present Musculoskeletal: normal ROM, 2+ bilateral lower extremity edema Skin: warm and dry, intact, no rashes Objective Labs 03/03/24 05:40 03/03/24 05:40 Labs: Laboratory Results - last 24 hr 03/02/24 03/02/24 05:00 05:44 WBC 5.6 RBC 2.67 L Hgb 8.6 L Hct 28.2 L MCV 106 H MCH 32.2 MCHC 30.5 L RDW Std Deviation 64.0 H Plt Count 156 Neut % (Auto) 72 Lymph % (Auto) 17 Moffat % (Auto) 6 Eos % (Auto) 5 Baso % (Auto) 1 Neut # (Auto) 4.0 Lymph # (Auto) 0.9 L Moffat # (Auto) 0.3 Eos # (Auto) 0.3 Baso # (Auto) 0.0 Immature Gran # (Auto) 0.01 H Absolute Nucleated RBC 0.00 Immature Gran % 0 Nucleated RBC % 0 Sodium 140 Potassium 4.1 Chloride 101 Carbon Dioxide 31.9 H Anion Gap 7 BUN 42 H Creatinine 1.6 H Estim Creat Clear Calc 30.9 L eGFR 35 L BUN/Creatinine Ratio 26 H Glucose 95 Calculated Osmolality 289 Uric Acid 9.6 H Calcium 8.0 L Corrected Calcium 8.7 Phosphorus 4.8 Magnesium 1.8 Total Bilirubin 0.4 AST 14 ALT 7 L Alkaline Phosphatase 102 Total Protein 6.8 Albumin 3.1 L Globulin 3.7 H Albumin/Globulin Ratio 0.8 L TSH 49.88 H D Free T4 0.66 L PTH Intact 145.0 H Quality Measures Quality Measures none Advance care planning discussed with:: patient Assessment & Plan Assessment Current Active Medications: Generic Name Dose Route Start Last Admin Trade Name Freq PRN Reason Stop Dose Admin Acetaminophen 650 mg 02/29/24 20:28 03/01/24 00:10 Acetaminophen 325 Mg Tablet PO 03/30/24 20:27 650 mg Q6H PRN Administration Fever >101.5 Albuterol/Ipratropium 3 ml 02/29/24 20:28 Albuterol/Ipratropium (Duoneb) Rt Katrin 3 Ml Nebu INH 03/31/24 00:59 Q6HRRT PRN sob or wheeze Atorvastatin Calcium 20 mg 03/01/24 21:00 03/01/24 20:45 Atorvastatin Calcium 20 Mg Tablet PO 03/31/24 20:59 20 mg HS LUCI Administration Carvedilol 6.25 mg 03/01/24 08:00 03/02/24 08:25 Carvedilol 3.125 Mg Tablet PO 03/31/24 07:59 6.25 mg BIDWM LUCI Administration Dextrose 25 ml 02/29/24 22:14 Dextrose 50%-Water Inj 50 Ml Syringe IV 03/30/24 22:13 Q15MIN PRN BG 50-70 responsive npo pt Dextrose 50 ml 02/29/24 22:14 Dextrose 50%-Water Inj 50 Ml Syringe IV 03/30/24 22:13 Q15MIN PRN BG <50 OR BG <70 & pt unresponsive Glucagon 1 mg 02/29/24 22:14 Glucagon Inj 1 Mg Vial IM Q15MIN PRN BG <70, and no IV access Hydralazine HCl 25 mg 03/02/24 14:00 Hydralazine Hcl 25 Mg Tablet PO 04/01/24 13:59 TID LUCI Bumetanide 20 mg/ IV 80 mls @ 4 mls/hr 03/01/24 19:31 03/01/24 20:46 Miscellaneous Supplies IV 03/02/24 15:30 1 mg/hr .Q20H LUCI 4 mls/hr Administration 1 MG/HR Insulin Human Lispro 0 unit 03/01/24 07:30 03/02/24 08:00 Insulin Lispro (Admelog) 1 Unit/0.01 Ml Unit SC 03/31/24 07:29 Not Given ACHS LUCI Protocol Levothyroxine Sodium 50 mcg 03/01/24 06:00 03/02/24 05:23 Levothyroxine Sodium 25 Mcg Tablet PO 03/31/24 05:59 50 mcg ACBR LUCI Administration Magnesium Hydroxide 30 ml 02/29/24 20:34 03/01/24 20:45 Milk Of Magnesia Susp 30 Ml Udc PO 03/30/24 20:33 30 ml QDAY PRN Administration CONSTIPATION Protocol Ondansetron HCl 4 mg 02/29/24 20:34 Ondansetron Inj 2 Mg/Ml Inj 2 Ml IV 03/30/24 20:33 Q6H PRN NAUSEA OR VOMITING Protocol Pantoprazole Sodium 40 mg 03/01/24 12:00 03/02/24 08:25 Pantoprazole 40 Mg Tablet PO 03/31/24 11:59 40 mg QDAY LUCI Administration Valsartan 80 mg 03/01/24 13:00 03/02/24 08:25 Valsartan 80 Mg Tablet PO 03/31/24 12:59 80 mg QDAY LUCI Administration Plan Betty Oliveira is a 68-year-old female patient with past medical history of CKD was previously on dialysis, nephrotic syndrome, hypertension, HFrEF EF of 35 to 45% on October 2023, diabetes mellitus, hyperlipidemia, hypothyroidism, liver abscess status post drainage was referred to the hospital from the plastic sewer office Dr. Mcclendon when the patient was noticed to be fluid overloaded. Patient was admitted secondary to anasarca. #Anasarca most likely multifactorial secondary to nephrotic syndrome, HFrEF, CKD #Nephrotic syndrome #CKD stage IIIb #Pleural effusion Patient with past medical history of CKD was previously on dialysis, nephrotic syndrome, and HFrEF, presented to the fluid overload saturating 97% on 2 L of oxygen. Her labs showed hemoglobin of 7.8, BUN of 45, creatinine 1.6, BNP increased from her last visit to 2156 from 1700. Her urine analysis showed significant proteinuria and WBCs. Chest x-ray showed significant bilateral pneumonia. ? Patient refused dialysis even though we expect it will be temporary ? Switch bumex drip to bumex 2 mg IV BID ? Will switch her hydralazine scheduled tablets to valsartan 80 mg p.o. daily ? Strict in and out every hours ? Follow-up with the cardiology recommendations regarding optimizing heart function ? Avoid nephrotoxic medications ? Fluid restriction to 1.5 L/day ? Low-salt diet ? VTE prophylaxis ----- Plan discussed with attending physician Dr. Danelle Raymond MD PGY-1 Internal Medicine Attending Provider Attestation/Addendum Patient seen and examined with resident physician Dr. Izaguirre. Note reviewed, agree with findings and recommendations with few changes made. Patient with nephrotic syndrome secondary to diabetic nephropathy and significant anasarca-diuretic dependent/resistant. Gained 20 pounds. Saw her in the office and sent her to the hospital. Recurrent hospitalizations at [facility]. Had a long conversation with the daughter yesterday regarding sequential ultrafiltration to avoid frequent hospitalizations and they did agree. However today patient seems to be refusing dialysis. Will continue with Bumex drip for now and respect her decision. However she agreed if no improvement in azotemia or anasarca despite IV diuretics she will consider short-term dialysis. In the interim we will treat her for anemia, osteodystrophy. Check phosphorus, PTH, uric acid, vitamin D levels. Iron, Procrit ordered. 03/02/2024 patient currently seen in telemetry. Her BUN and creatinine tad elevated. Responded very well to Bumex drip. Will switch to IV Bumex. Patient very happy with her the response. Encouraged physical therapy and out of bed to chair.
[2024-03-02] MEDS: INSULIN LISPRO (AdmeLOG) 1 UNIT/0.01 ML UNIT SC ×3 (12:08→20:43)
--- NOTE | 2024-03-02 12:23 | PC.SS ---
SS met with patient regarding her d/c plan. SS also spoke to patient's daughters on phone, Josh. Pt is alert/oriented. Pt was admitted for Anasarca. Pt & dtrTrish confirmed patient's address is: [address] in [facility] [address]. Patient's contact information is correct on her facesheet. SS called Niki from patient registration to update patient's facesheet with correct address provided. Pt states her family (daughters and nephew) will be staying with her. Pt ambulates using a 4 wheel with seat, rollator walker. Pt requires assistance with all ADLs. Pt utilizes O2 at home and family is aware to bring small O2 tank for transportation. DtrTrish states pt was followed by [facility] and her request is to continue with them. Pt and dtrs are open to [facility]. SS has faxed referral to [facility]. Pt named her daughter, Trish Oliveira medical decision maker if she is unable. Patient?s choice is to return home upon d/c. Daughters state pt was at [facility] and recently returned home due to refusing to participate in PT. Pt is aware of the importance of working with PT. SS called and spoke to Anitra from [facility] in [place] to schedule pt with follow up appointment with Dr. Santos Tompkins for Mar 22, 2024 at 9am. has provided Trish patterson with appointment time and date. Dtr states she was informed to call daily for an earlier appointment. D/C plan: Return home Home Health: [facility] [address] Next of Kin: Trish Oliveira, daughter, phone# [phone] PCP: Dr. Santos Tompkins from [facility] (Pt last followed up with Karen Chakraborty, nurse practitioner) Next follow up appointment: Mar 22, 2024 at 9am Address: [address] [facility] [address]
--- NOTE | 2024-03-02 14:06 | ESPR_ITS ---
<Statement entered by Margarito Negron MD - 03/10/24 13:38> I reviewed above note and agree with findings and plans. I have also personally examined the patient with medicine team and went over assessment and plan with medical team including buying intern and resident physician. Documentation for date of: 03/02/24 Senior resident attestation: 68-year-old female with a past medical history of hypertension, diabetes mellitus, CKD, hypothyroidism, hyperlipidemia, history of HFrEF EF 35%, history of liver abscess s/p drainage, was seen at her reproduction artist office who directed her to ER due to anasarca. Patient admitted to the hospital started on Bumex drip per nephrology recommendations. #Anasarca?noted on Bumex drip 1 Mg per hour, ordered strict I&O's, but patient has refused a Jacobo's catheter, reportedly urine output is adequate, noted improvement in swelling after aggressive IV diuresis. Nephrology offered ultrafiltration, but patient refused dialysis even as temporary measure. Will respect patient's wishes and continue with IV Bumex, appreciate nephrology recommendations. Currenlty on Bumex 2mg iv bid, as adequte diuresis achieved, #CKD stage III #Anemia #Acute decompensated CHF?BNP elevated, but unreliable marker due to CKD, repeat echocardiogram was ordered surprisingly EF reported as improved to 55%, likely HFpEF. #Hypothyroidism Patient evaluated and examined at the bedside, plan of care discussed with rest of the team including my attending physician, except as noted. Quresh PGY2 Subjective Subjective Interval history: Patient seen today at the bedside found awake, alert, oriented x 3. No overnight events reported. Coreg was held in view of bradycardia, hydralazine 25 mg 3 times daily started for better blood pressure control. On examination bilateral lower extremity edema improving. At this time we will continue with diuresis with Bumex 1 mg drip. As patient continues to refuse dialysis. Exam Vital Signs Temp Pulse Resp BP Pulse Ox O2 Del Method O2 Flow Rate 97.1 F 74 20 138/64 H 93 L Nasal Cannula 2 03/02/24 08:00 03/02/24 12:00 03/02/24 09:03 03/02/24 08:25 03/02/24 09:03 03/02/24 08:00 03/02/24 09:03 Narrative Exam Physical Exam GENERAL: NAD, AAOx3 HEENT: Moist mucosa. Eyes open, symmetrical, & clear CARDIO: Heart RRR, no obvious murmurs PULM: No noted coughing/dyspnea, decreased bilateral breath sounds GI: Abdomen soft, nondistended, no pain on palpation. BSx4 SKIN/MSK/EXT: +2 bilateral lower extremity edema up to the thighs-improving, no pain on palpation. Pedal pulses present B/L NEURO: AAOx3, no focal neuro deficits, able to move all 4 extremities Objective Labs 03/02/24 05:44 03/02/24 05:44 Labs: Laboratory Results - last 24 hr 03/02/24 03/02/24 05:00 05:44 WBC 5.6 RBC 2.67 L Hgb 8.6 L Hct 28.2 L MCV 106 H MCH 32.2 MCHC 30.5 L RDW Std Deviation 64.0 H Plt Count 156 Neut % (Auto) 72 Lymph % (Auto) 17 Towner % (Auto) 6 Eos % (Auto) 5 Baso % (Auto) 1 Neut # (Auto) 4.0 Lymph # (Auto) 0.9 L Towner # (Auto) 0.3 Eos # (Auto) 0.3 Baso # (Auto) 0.0 Immature Gran # (Auto) 0.01 H Absolute Nucleated RBC 0.00 Immature Gran % 0 Nucleated RBC % 0 Sodium 140 Potassium 4.1 Chloride 101 Carbon Dioxide 31.9 H Anion Gap 7 BUN 42 H Creatinine 1.6 H Estim Creat Clear Calc 30.9 L eGFR 35 L BUN/Creatinine Ratio 26 H Glucose 95 Calculated Osmolality 289 Uric Acid 9.6 H Calcium 8.0 L Corrected Calcium 8.7 Phosphorus 4.8 Magnesium 1.8 Total Bilirubin 0.4 AST 14 ALT 7 L Alkaline Phosphatase 102 Total Protein 6.8 Albumin 3.1 L Globulin 3.7 H Albumin/Globulin Ratio 0.8 L TSH 49.88 H D Free T4 0.66 L PTH Intact 145.0 H Quality Measures Quality Measures none Advance care planning discussed with:: patient Assessment & Plan Assessment Current Active Medications: Generic Name Dose Route Start Last Admin Trade Name Freq PRN Reason Stop Dose Admin Acetaminophen 650 mg 02/29/24 20:28 03/01/24 00:10 Acetaminophen 325 Mg Tablet PO 03/30/24 20:27 650 mg Q6H PRN Administration Fever >101.5 Albuterol/Ipratropium 3 ml 02/29/24 20:28 Albuterol/Ipratropium (Duoneb) Rt Katrin 3 Ml Nebu INH 03/31/24 00:59 Q6HRRT PRN sob or wheeze Atorvastatin Calcium 20 mg 03/01/24 21:00 03/01/24 20:45 Atorvastatin Calcium 20 Mg Tablet PO 03/31/24 20:59 20 mg HS LUCI Administration Carvedilol 6.25 mg 03/01/24 08:00 03/02/24 08:25 Carvedilol 3.125 Mg Tablet PO 03/31/24 07:59 6.25 mg BIDWM LUCI Administration Dextrose 25 ml 02/29/24 22:14 Dextrose 50%-Water Inj 50 Ml Syringe IV 03/30/24 22:13 Q15MIN PRN BG 50-70 responsive npo pt Dextrose 50 ml 02/29/24 22:14 Dextrose 50%-Water Inj 50 Ml Syringe IV 03/30/24 22:13 Q15MIN PRN BG <50 OR BG <70 & pt unresponsive Glucagon 1 mg 02/29/24 22:14 Glucagon Inj 1 Mg Vial IM Q15MIN PRN BG <70, and no IV access Hydralazine HCl 25 mg 03/02/24 14:00 Hydralazine Hcl 25 Mg Tablet PO 04/01/24 13:59 TID LUCI Bumetanide 20 mg/ IV 80 mls @ 4 mls/hr 03/01/24 19:31 03/01/24 20:46 Miscellaneous Supplies IV 03/02/24 15:30 1 mg/hr .Q20H LUCI 4 mls/hr Administration 1 MG/HR Insulin Human Lispro 0 unit 03/01/24 07:30 03/02/24 12:08 Insulin Lispro (Admelog) 1 Unit/0.01 Ml Unit SC 03/31/24 07:29 2 unit ACHS LUCI Administration Protocol Levothyroxine Sodium 50 mcg 03/01/24 06:00 03/02/24 05:23 Levothyroxine Sodium 25 Mcg Tablet PO 03/31/24 05:59 50 mcg ACBR LUCI Administration Magnesium Hydroxide 30 ml 02/29/24 20:34 03/01/24 20:45 Milk Of Magnesia Susp 30 Ml Udc PO 03/30/24 20:33 30 ml QDAY PRN Administration CONSTIPATION Protocol Ondansetron HCl 4 mg 02/29/24 20:34 Ondansetron Inj 2 Mg/Ml Inj 2 Ml IV 03/30/24 20:33 Q6H PRN NAUSEA OR VOMITING Protocol Pantoprazole Sodium 40 mg 03/01/24 12:00 03/02/24 08:25 Pantoprazole 40 Mg Tablet PO 03/31/24 11:59 40 mg QDAY LUCI Administration Valsartan 80 mg 03/01/24 13:00 03/02/24 08:25 Valsartan 80 Mg Tablet PO 03/31/24 12:59 80 mg QDAY LUCI Administration Plan 68-year-old female with past medical history of hypertension, diabetes mellitus, hyperlipidemia, Hypothyroidism, chronic kidney disease off dialysis since 06/30, history of HFrEF, 35 to 45%, history of liver abscess s/p drainage presented to the hospital with chief complaints of generalized swelling since 2 days and admitted for anasarca secondary to acute decompensated heart failure and CKD, likely cardiorenal syndrome # Severe anasarca # Acute decompensated heart failure # CKD, off dialysis since 06/2023 # Underlying anemia Patient went to see Dr. Mcclendon on the day of admission for regular follow-up visit and found to have severe anasarca following which she was referred to our hospital for further care. Vitals at the time of admission are blood pressure 160/60 mmHg, pulse rate 63/min, respiratory rate 24/min, temperature 98.9 ?F, SpO2 97% with 2.5 L oxygen On examination, patient is found to have bilateral 4+ pedal edema extending up to abdomen Labs showed Hb 7.8, BUN 45, Creatinine 1.6 EKG showed normal sinus rhythm, chest x-ray showed bilateral vascular congestion with bilateral pleural effusions, more on left side Received 40 Mg of IV Lasix and 2 mg of Bumex in the ED Patient was planned to have dialysis catheter placed and start hemodialysis however patient refuses procedure. -Fluid restriction to 1500 mL -Strict input and output -Started on Bumex drip 1mg -Dr. Mcclendon is consulted and planning for dialysis -Patient did not have any signs or symptoms of infection, so did not start any antibiotic # HFrEF, EF 35 to 40% Echo done on 10/2023 showed Normal LV size, wall thicknessW ITH GLOBAL HYPOKINESIS Estimated LV EF 35-40 %. RV is normal in size. RV systolic function is moderately decreased. Patient is using Lasix 20 Mg p.o. daily and carvedilol 6.25 Mg p.o. twice daily at home Echo showed Normal LV size and function. Mild LVH. Estimated EF 50-55% Mild RV dilatation. Mild RV dysfunction. Estimated RVSP 44mmHg. Mild MAC with Moderate MR.Mild TR. Pleural effusion present. -on Bumex drip -Cardiology Dr. 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 at bedtime at home -Resumed atorvastatin as taken at home # Hypothyroidism TSH is 9.9 and free T4 is within normal limits on 02/09/2024 -Resume levothyroxine as taken at home Case discussed with my senior Dr. Gibbons PGY-[address] Jamil Felipe MD PGY-1 Disposition: Telemetry Fluids: None Feeding: Renal diet Thrombo prophylaxis: Heparin Gastric Ulcer prophylaxis: Pantoprazole CODE STATUS: Full code
--- NOTE | 2024-03-02 14:38 | ESPR_ITS ---
<Statement entered by Kelly Yoon MD - 03/04/24 13:19> I evaluated the patient with resident team Dr. Mars Ramey patient appears to be clinically doing better but is no changes congestive heart failure well compensated agree with the treatment plan recommendation as documented Dr. Adrien Ramey PGY2 Documentation for date of: 03/02/24 Subjective Subjective Interval history: Patient seen and assessed at bedside. Patient states to be feeling much better. Patient denies any active chest pain or palpitations at this time. Patient still does not want dialysis, but she is urinating well and swelling has decreased. Exam Vital Signs Temp Pulse Resp BP Pulse Ox O2 Del Method O2 Flow Rate 97.1 F 74 20 138/64 H 93 L Nasal Cannula 2 03/02/24 08:00 03/02/24 12:00 03/02/24 09:03 03/02/24 08:25 03/02/24 09:03 03/02/24 08:00 03/02/24 09:03 Narrative Exam GENERAL: NAD. Patient resting comfortably in bed., AAOx3 CARDIO: Heart RRR, no obvious murmurs. PULM: Chest clear to auscultation bilaterally. GI: Abdomen soft, nondistended, no pain on palpation. BSx4 SKIN/MSK/EXT: +1 bilateral lower extremity edema. no pain on palpation. Objective Labs 03/02/24 05:44 03/02/24 05:44 Labs: Laboratory Results - last 24 hr 03/02/24 03/02/24 05:00 05:44 WBC 5.6 RBC 2.67 L Hgb 8.6 L Hct 28.2 L MCV 106 H MCH 32.2 MCHC 30.5 L RDW Std Deviation 64.0 H Plt Count 156 Neut % (Auto) 72 Lymph % (Auto) 17 [place] % (Auto) 6 Eos % (Auto) 5 Baso % (Auto) 1 Neut # (Auto) 4.0 Lymph # (Auto) 0.9 L [place] # (Auto) 0.3 Eos # (Auto) 0.3 Baso # (Auto) 0.0 Immature Gran # (Auto) 0.01 H Absolute Nucleated RBC 0.00 Immature Gran % 0 Nucleated RBC % 0 Sodium 140 Potassium 4.1 Chloride 101 Carbon Dioxide 31.9 H Anion Gap 7 BUN 42 H Creatinine 1.6 H Estim Creat Clear Calc 30.9 L eGFR 35 L BUN/Creatinine Ratio 26 H Glucose 95 Calculated Osmolality 289 Uric Acid 9.6 H Calcium 8.0 L Corrected Calcium 8.7 Phosphorus 4.8 Magnesium 1.8 Total Bilirubin 0.4 AST 14 ALT 7 L Alkaline Phosphatase 102 Total Protein 6.8 Albumin 3.1 L Globulin 3.7 H Albumin/Globulin Ratio 0.8 L TSH 49.88 H D Free T4 0.66 L PTH Intact 145.0 H Quality Measures Quality Measures none Advance care planning discussed with:: patient and child Assessment & Plan Assessment Current Active Medications: Generic Name Dose Route Start Last Admin Trade Name Freq PRN Reason Stop Dose Admin Acetaminophen 650 mg 02/29/24 20:28 03/01/24 00:10 Acetaminophen 325 Mg Tablet PO 03/30/24 20:27 650 mg Q6H PRN Administration Fever >101.5 Albuterol/Ipratropium 3 ml 02/29/24 20:28 Albuterol/Ipratropium (Duoneb) Rt Katrin 3 Ml Nebu INH 03/31/24 00:59 Q6HRRT PRN sob or wheeze Atorvastatin Calcium 20 mg 03/01/24 21:00 03/01/24 20:45 Atorvastatin Calcium 20 Mg Tablet PO 03/31/24 20:59 20 mg HS LUCI Administration Carvedilol 6.25 mg 03/01/24 08:00 03/02/24 08:25 Carvedilol 3.125 Mg Tablet PO 03/31/24 07:59 6.25 mg BIDWM LUCI Administration Dextrose 25 ml 02/29/24 22:14 Dextrose 50%-Water Inj 50 Ml Syringe IV 03/30/24 22:13 Q15MIN PRN BG 50-70 responsive npo pt Dextrose 50 ml 02/29/24 22:14 Dextrose 50%-Water Inj 50 Ml Syringe IV 03/30/24 22:13 Q15MIN PRN BG <50 OR BG <70 & pt unresponsive Glucagon 1 mg 02/29/24 22:14 Glucagon Inj 1 Mg Vial IM Q15MIN PRN BG <70, and no IV access Hydralazine HCl 25 mg 03/02/24 14:00 Hydralazine Hcl 25 Mg Tablet PO 04/01/24 13:59 TID LUCI Bumetanide 20 mg/ IV 80 mls @ 4 mls/hr 03/01/24 19:31 03/01/24 20:46 Miscellaneous Supplies IV 03/02/24 15:30 1 mg/hr .Q20H LUCI 4 mls/hr Administration 1 MG/HR Insulin Human Lispro 0 unit 03/01/24 07:30 03/02/24 12:08 Insulin Lispro (Admelog) 1 Unit/0.01 Ml Unit SC 03/31/24 07:29 2 unit ACHS LUCI Administration Protocol Levothyroxine Sodium 50 mcg 03/01/24 06:00 03/02/24 05:23 Levothyroxine Sodium 25 Mcg Tablet PO 03/31/24 05:59 50 mcg ACBR LUCI Administration Magnesium Hydroxide 30 ml 02/29/24 20:34 03/01/24 20:45 Milk Of Magnesia Susp 30 Ml Udc PO 03/30/24 20:33 30 ml QDAY PRN Administration CONSTIPATION Protocol Ondansetron HCl 4 mg 02/29/24 20:34 Ondansetron Inj 2 Mg/Ml Inj 2 Ml IV 03/30/24 20:33 Q6H PRN NAUSEA OR VOMITING Protocol Pantoprazole Sodium 40 mg 03/01/24 12:00 03/02/24 08:25 Pantoprazole 40 Mg Tablet PO 03/31/24 11:59 40 mg QDAY LUCI Administration Valsartan 80 mg 03/01/24 13:00 03/02/24 08:25 Valsartan 80 Mg Tablet PO 03/31/24 12:59 80 mg QDAY LUCI Administration Plan 68-year-old female with past medical history of hypertension, diabetes mellitus, hyperlipidemia, Hypothyroidism, chronic kidney disease off dialysis since 06/30, history of HFrEF, 35 to 45%, history of liver abscess s/p drainage presented to the hospital with chief complaints of generalized swelling since 2 days and admitted for anasarca secondary to acute decompensated heart failure and CKD, likely cardiorenal syndrome # Severe anasarca?improving # Acute decompensated heart failure #HFpEF EF 50 to 55% EKG showed normal sinus rhythm Chest x-ray showed bilateral vascular congestion with bilateral pleural effusions. Fluid restriction to 1500 mL Strict input and output Continue diuresing patient as she is refusing dialysis. Patient on Coreg and valsartan Repeat cardiac echo shows: Normal LV size and function. Mild LVH. Estimated EF 50-55% Mild RV dilatation. Mild RV dysfunction. Estimated RVSP 44mmHg. Mild MAC with Moderate MR. Mild TR. Pleural effusion present. 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 Car Ramey MD PGY3
[2024-03-02] MEDS: hydrALAZINE HCL 25 MG TABLET PO ×2 (14:46→20:59)
[2024-03-02] MEDS: ATORVASTATIN CALCIUM 20 MG TABLET PO (20:30)
[2024-03-02] MEDS: BUMETANIDE INJ 0.25 MG/ML VIAL 4 ML 2 MG IVP (20:30)
[2024-03-02] MEDS: ACETAMINOPHEN 325 MG TABLET 650 MG PO (20:38)
[2024-03-02] MEDS: hydrOXYzine HCL 25 MG TABLET 12.5 MG PO (20:58)
--- NOTE | 2024-03-02 22:09 | PC.NURSE ---
Addendum entered by Kendal Joshi RN 03/03/24 03:28: Spoke to Celia and she was not able to provide home meds. She states she will try and bring them in today. Dr. Segura made aware. 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 She states she does not know the names but that she will contact another daughter (Celia) who can possibly provide information regarding home meds.
[2024-03-03] VITALS (14 sets, daily range): BP systolic 107–181; BP diastolic 68–84; PULSE 56–70; RESP 12–27; TEMP 36.1–36.4; O2SAT 93–99; BMI 27.6
[2024-03-03] MEDS: ALBUTEROL/IPRATROPIUM (Duoneb) RT SOL 3 ML NEBU INH (02:04)
[2024-03-03] MEDS: LEVOTHYROXINE SODIUM 25 MCG TABLET 50 MCG PO (05:27)
[2024-03-03] MEDS: hydrALAZINE HCL 25 MG TABLET PO ×2 (05:27→09:06)
[2024-03-03 06:10] LABS: Basophils % (Auto) 1 % (0-2.5); Eosinophils # (Auto) 0.3 Thou/mm3 (0.0-0.5); Eosinophils % (Auto) 4 % (0-10); Hematocrit 26.9 % (36.0-46.0); Immature Granulocytes % (Auto) 0 % (0-0); Immature Granulocytes Auto 0.02 Thou/mm3 (0.00-0.00); Lymphocytes # (Auto) 1.6 Thou/mm3 (1.0-4.8); Lymphocytes % (Auto) 25 % (10-50); Mean Corpuscular HGB Conc 30.5 g/dl (31.0-37.0); Mean Corpuscular Hemoglobin 32.4 pg (25.0-35.0); Mean Corpuscular Volume 106 fL (80-100); Monocytes # (Auto) 0.5 Thou/mm3 (0.0-0.8); Monocytes % (Auto) 8 % (0-12); Neutrophils # (Auto) 3.8 Thou/mm3 (1.8-7.7); Neutrophils % (Auto) 62 % (37-80); Nucleated Red Blood Cell % 0 /100 WBC (0); Platelet Count 153 Thou/mm3 (140-440); RDW Standard Deviation 64.3 fL (36.4-46.3); Red Blood Count 2.53 Miln/mm3 (4.00-5.20); White Blood Count 6.1 Thou/mm3 (3.6-11.0)
[2024-03-03 06:20] LABS: Hemoglobin 8.2 g/dL (12.0-16.0)
[2024-03-03 06:57] LABS: Alanine Aminotransferase < 7 U/L (10-49); Albumin, Serum 3.1 gm/dL (3.4-4.8); Albumin/Globulin Ratio 0.9 (1.2-2.2); Alkaline Phosphatase 101 U/L (46-116); Anion Gap 4 (7-16); Aspartate Amino Transferase 10 U/L (0-34); BUN/Creatinine Ratio 26 Ratio (12-20); Bilirubin,Total 0.4 mg/dL (0.3-1.2); Blood Urea Nitrogen 42 mg/dL (9-23); Calcium 8.3 mg/dL (8.3-10.6); Carbon Dioxide 34.5 mMol/L (20.0-31.0); Chloride 100 mMol/L (98-107); Creatinine (Component) 1.6 mg/dL (0.6-1.3); Estimated Creatinine Clearance 30.1 mL/min (>60); Globulin 3.6 gm/dL (2.3-3.5); Glucose 92 mg/dL (74-106); Magnesium 1.7 mg/dL (1.6-2.6); Osmolality,Calculated 286 (275-295); Phosphorous 3.8 mg/dL (2.4-5.1); Potassium 3.7 mMol/L (3.4-5.1); Sodium 138 mMol/L (136-145); Total Protein 6.7 gm/dL (5.7-8.2); eGFR 35 See Note
--- NOTE | 2024-03-03 07:35 | XR_ITS ---
Examination: AP chest single view TECHNIQUE: AP portable upright chest single view Exam date and time: March 03, 2024 0753 hours Comparison February 29, 2024 1648 hours INDICATION: Shortness of breath this week FINDINGS: Prominent heart failure Enlarged cardiac contour with prominent vascular congestion and perihilar edema Significant bilateral layered pleural fluid Prominent osteopenia IMPRESSION: Prominent heart failure. Consider bilateral ultrasound hemithoraces follow-up
[2024-03-03] MEDS: VALSARTAN 80 MG TABLET PO (09:05)
[2024-03-03] MEDS: oxyCODONE HCL 5 MG IR TAB PO (09:06)
[2024-03-03] MEDS: PANTOPRAZOLE 40 MG TABLET PO (09:06)
[2024-03-03] MEDS: INSULIN GLARGINE (Lantus) 5 UNIT/0.05 ML (PER 5 UNITS) SC (09:06)
[2024-03-03] MEDS: GABAPENTIN 300 MG CAPSULE 600 MG PO ×2 (09:06→13:21)
[2024-03-03] MEDS: BUMETANIDE INJ 0.25 MG/ML VIAL 4 ML 2 MG IVP (09:07)
--- NOTE | 2024-03-03 09:38 | PD.NEPHPROG ---
Documentation for date of: 03/03/24 Subjective Subjective Interval history: Ms. Oliveira is a 68-year-old female patient with past medical history of CKD was previously on dialysis( 2023-came off dialysis), nephrotic syndrome//diabetic nephropathy, hypertension, HFrEF EF of 35 to 45% on October 2023, diabetes mellitus, hyperlipidemia, hypothyroidism, liver abscess status post drainage was referred to the hospital from the ordnance truck installation supervisor office Dr. Mcclendon when the patient was noticed to be fluid overloaded. Patient was taking 40 of Lasix twice daily at the rehab facility. Patient mentioned that she became swollen recently and has been wheelchair-bound. On questioning patient reported that she believes the main reason is because she was drinking alcohol at that time. Patient reported compliance of her home medications and she expressed her wishes that she does not want dialysis at this time. Upon taking history patient was emotional and she started crying indicating that she does not want dialysis. I spoke with one of her daughters who lives in [facility] and we discussed the other options for the patient to help relieve the symptoms as the patient was noticed to have large pleural effusion bilaterally. She was wondering if he can continue diuresing the patient for the next day to see if there is any improvement and then will consider discussing with the patient the need for dialysis. Initial evaluation blood pressure was 160/65, AR of 63, respiratory rate of 24, temperature of 98.9, saturating 97% on 2 L of oxygen. Her labs showed hemoglobin of 7.8, BUN of 45, creatinine 1.6, BNP increased from her last visit to 2156 from 1700. Her urine analysis showed significant proteinuria and WBCs. Chest x-ray showed significant bilateral pneumonia. 03/02: Patient seen and examined at bedside, resting comfortably in bed. States that she does not have increased shortness of breath, chest discomfort, and overall feels better compared to yesterday. Has only had 600 cc urine output during hospital stay while on IV bumex drip, but cannot get accurate I/O as she does not have a Jacobo. Given patient's improvement will switch to 2 mg IV BID. Hgb imprved from 7.9 to 8.6, plt wnl. Na and K wnl. BUN mildly improved from 45 to 42 and Cr mildly improved from 1.6 to 1.7. TSH noted to be elevated at 50 and free T4 low at 0.66. PTH also elevated at 145. Echo showed EF 50-55% with RSVP of 44 mmHg. Mild MAC, moderate MR, mild TR. 03/03/2024 patient comfortable. Edema better with diuretics. Suggested to follow-up with me in 1 to 2 weeks on p.o. diuretics. Creatinine stable. Review of Systems Review of Systems Narrative Review of Systems: CONSTITUTIONAL: Patient denies any fever, chills. Complaining of fatigue HEENT: Denies any visual disturbances or hearing problems. CARDIOVASCULAR: Patient denies any chest pain- complaining of complaining of shortness of breath, swelling in the lower extremities.-Better PULMONARY: Patient shortness of breath GASTROINTESTINAL: Patient denies any abdominal pain, constipation, nausea, vomiting, diarrhea. GENITOURINARY: Denies any urinary symptoms of burning or frequency. Does have foam in the urine SKIN: Denies any rash. MUSCULOSKELETAL: Does have gait imbalance NEUROLOGICAL: Denies any neurological problems of strokes, seizures or confusion. Denies any memory problems. Has neuropathy from diabetes Admits anxiety Exam Vital Signs Temp Pulse Resp BP Pulse Ox O2 Del Method O2 Flow Rate 36.2 C 70 13 157/72 H 98 Nasal Cannula 2 03/03/24 08:00 03/03/24 09:07 03/03/24 08:00 03/03/24 09:07 03/03/24 08:00 03/03/24 08:00 03/03/24 08:00 Narrative Exam General: AOx3, no acute distress, able to speak full sentences HEENT: NC/AT, mucous membranes moist, bilateral sclera anicteric Cardiovascular: regular rate and rhythm, S1/S2 present, no murmurs appreciated Pulmonary: clear to auscultation bilaterally, no rales/rhonchi/wheezes Abdominal: soft, non-tender, non-distended, no rebound/guarding, normal bowel sounds present Musculoskeletal: normal ROM, 2+ bilateral lower extremity edema Skin: warm and dry, intact, no rashes Objective Labs 03/03/24 05:40 03/03/24 05:40 Labs: Laboratory Results - last 24 hr 03/03/24 05:40 WBC 6.1 RBC 2.53 L Hgb 8.2 L Hct 26.9 L MCV 106 H MCH 32.4 MCHC 30.5 L RDW Std Deviation 64.3 H Plt Count 153 Neut % (Auto) 62 Lymph % (Auto) 25 [place] % (Auto) 8 Eos % (Auto) 4 Baso % (Auto) 1 Neut # (Auto) 3.8 Lymph # (Auto) 1.6 [place] # (Auto) 0.5 Eos # (Auto) 0.3 Baso # (Auto) 0.0 Immature Gran # (Auto) 0.02 H Absolute Nucleated RBC 0.00 Immature Gran % 0 Nucleated RBC % 0 Sodium 138 Potassium 3.7 Chloride 100 Carbon Dioxide 34.5 H Anion Gap 4 L BUN 42 H Creatinine 1.6 H Estim Creat Clear Calc 30.1 L eGFR 35 L BUN/Creatinine Ratio 26 H Glucose 92 Calculated Osmolality 286 Calcium 8.3 Corrected Calcium 9.0 Phosphorus 3.8 Magnesium 1.7 Total Bilirubin 0.4 AST 10 ALT < 7 L Alkaline Phosphatase 101 Total Protein 6.7 Albumin 3.1 L Globulin 3.6 H Albumin/Globulin Ratio 0.9 L Assessment & Plan Additional Assessment & Plan Additional Plan: Betty Oliveira is a 68-year-old female patient with past medical history of CKD was previously on dialysis, nephrotic syndrome, hypertension, HFrEF EF of 35 to 45% on October 2023, diabetes mellitus, hyperlipidemia, hypothyroidism, liver abscess status post drainage was referred to the hospital from the ordnance truck installation supervisor office Dr. Mcclendon when the patient was noticed to be fluid overloaded. Patient was admitted secondary to anasarca. #Anasarca most likely multifactorial secondary to nephrotic syndrome, HFrEF, CKD #Nephrotic syndrome #CKD stage IIIb #Pleural effusion Patient with past medical history of CKD was previously on dialysis, nephrotic syndrome, and HFrEF, presented to the fluid overload saturating 97% on 2 L of oxygen. Her labs showed hemoglobin of 7.8, BUN of 45, creatinine 1.6, BNP increased from her last visit to 2156 from 1700. Her urine analysis showed significant proteinuria and WBCs. Chest x-ray showed significant bilateral pneumonia. ? Patient refused dialysis even though we expect it will be temporary ? Switch to p.o. Bumex. ? Will switch her hydralazine scheduled tablets to valsartan 80 mg p.o. daily ? Strict in and out every hours ? Follow-up with the cardiology recommendations regarding optimizing heart function ? Avoid nephrotoxic medications ? Fluid restriction to 1.5 L/day ? Low-salt diet ? VTE prophylaxis
--- NOTE | 2024-03-03 09:51 | XR_ITS ---
Examination: Duplex scan of the lower extremity, unilateral right complete Date and time of exam: March 03, 2024 10:17 AM Indications: Right leg edema this week Technique: Duplex scan of the extremity veins using B-mode/grayscale imaging and Doppler spectral analysis and color flow Attention is directed to internal echogenicity, compression and augmentation involving these veins, color flow assessment, spectral analysis Findings: Major deep venous structures in the extremity demonstrate normal course and caliber. There is no evidence of deep vein thrombosis. Normal color flow and spectral analysis Impression: Negative for DVT..
--- NOTE | 2024-03-03 09:51 | XR_ITS ---
Examination: Right femur 2 views Technique one AP lateral right femur 2 views Exam date and time: March 03, 2024 at 1017 hrs. Indications: Injury to the right leg today, femur pain Findings: No hip fracture or hip dislocation Shaft of the femur intact Impression: No acute fracture Repeat this study short-term as clinically warranted
--- NOTE | 2024-03-03 10:37 | ESDS_ITS ---
<Statement entered by Margarito Negron MD - 03/10/24 13:39> I reviewed above note and agree with findings and plans. I have also personally examined the patient with medicine team and went over assessment and plan with medical team including diversity intern and resident physician. Planned Discharge Date 03/03/24 DS: Providers Provider Date of admission: 02/29/24 20:28 Primary care physician: Jennifer Bagley PA-C Admitting Provider: Ramana Colon DO Attending Provider on Admission: Marely Patino DO Consults: 02/29/24 17:09 Consult to Nephrology Stat Comment: Anasarca CKD Consulting Provider: Lety Mccelndon 03/01/24 07:00 Consult to Cardiology Routine Comment: Anasarca and Heart failure Consulting Provider: Kelly Yoon 03/01/24 08:00 Referral Discharge Planning Stat Comment: op dialysis at dialysis 03/02/24 14:50 Referral Physical Therapy Routine Comment: Physician Instructions: Attending Provider on DC: Margarito Negron MD Discharging Provider: Ralph Felipe MD Anticipated date of discharge: 03/03/24 DS: Diagnosis Problem List Completed Was Problem List Reviewed/Reconciled?: Yes Hospital Course Hospital Course Hospital course: 68-year-old female with past medical history of hypertension, diabetes mellitus, hyperlipidemia, Hypothyroidism, chronic kidney disease off dialysis since 06/30, history of HFrEF, 35 to 45%, history of liver abscess s/p drainage presented to the hospital with chief complaints of generalized swelling since 2 days. Admitted for anasarca secondary to acute decompensated heart failure and CKD, likely cardiorenal syndrome. During hospital stay patient was recommended by nephrology to undergo hemodialysis however patient refused. After which patient was started on Bumex drip for diuresis of the patient's severe anasarca likely in the setting of decompensated heart failure and CKD. Patient was also placed on fluid restriction, intake and outputs were charted and monitored. Hypertension and heart failure with reduced ejection fraction was managed with valsartan 80 mg, rest of patient's medications were not able to resume due to concern for the patient's heart rate. hyperlipidemia was managed by resuming patient's atorvastatin as taken at home. Hypothyroidism was managed with by resume patient's levothyroxine as taken at home. Diabetes was managed with insulin sliding scale and hypoglycemia protocol. At this time patient is medically stable for discharge. Appointment at [facility] with Dr. Santos Tompkins at 9am Mar 22, 2024. Patient is recommended to reconcile with primary care physician Dr. Betancourt. Patient also recommended to reconcile with nephrology Dr. Mcclendon within 1 to 2 weeks. Patient is also recommended to follow-up with cardiology for further cardiac care needs. Patient will be sent home on Bumex for management of HFpEF and peripheral edema. Patient will be sent home on a Dralzine 50 mg to be taken 3 times daily and her previous medication Coreg (carvedilol) is being held due to her heart rate being close to 60. 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 Jamil Felipe MD PGY-1 Status at Discharge Functional status at discharge: independent ambulation Overall status at discharge: patient is back to baseline Time Spent with Patient Time attestation: Total time spent providing and/or coordinating discharge services: Time spent: Greater than 30 minutes Home Health Home Health Referral Orders: 03/03/24 10:37 Home Health Referral Routine Reason For Exam: PT Home-Bound The patient must either because of illness or injury, need the aid of supportive devices such as crutches, canes, wheelchairs, and walkers; the use of special transportation; or the assistance of another person in order to leave their place of residence; OR have a condition such that leaving his or her home is medically contraindicated. In addition, the patient also meets the following criteria: patient is normally unable to leave the home and leaving home requires considerable taxing effort. Addendum to Home Health Certification Practitioner's Certification: I certify that the patient has been under my care in the hospital and the care of attending physician (see below). We had a [id number] encounter on (see date below). My clinical findings indicate that the patient is home bound per the above criteria and the Home Health Services noted in these orders are medically necessary. The primary reason for the [id number]-[id number] encounter is related to the fact that the patient requires home health services. Date Certifying [id number] Physician Encounter: 02/29/24 Physician's Name who will Assume Oversight for Services: Jennifer Bagley Physician's Phone No.who will Assume Oversight for Service: DIRECTOR OF DANCE - Community Resources: No PT to Evaluate: Yes PT to evaluate and provide a treatmnet plan to increase patient's mobility and strength. Wound Care: No IV Therapy: No RN Safety Evaluation: Yes RN to evaluate and create a plan of care that will produce positive outcomes. Palliative Treatment: No Palliative treatment and evaluate the need for hospice. Home Health Aide - Personal Care: No Home Health Aide to assist with any ADL's. Exam Vital Signs Temp Pulse Resp BP Pulse Ox O2 Del Method O2 Flow Rate 97.2 F 56 L 13 157/72 H 96 Nasal Cannula 2 03/03/24 08:00 03/03/24 09:58 03/03/24 09:58 03/03/24 09:07 03/03/24 09:58 03/03/24 08:00 03/03/24 09:58 Narrative Exam Physical Exam GENERAL: NAD, AAOx3 HEENT: Moist mucosa. Eyes open, symmetrical, & clear CARDIO: Heart RRR, no obvious murmurs PULM: No noted coughing/dyspnea, decreased bilateral breath sounds GI: Abdomen soft, nondistended, no pain on palpation. BSx4 SKIN/MSK/EXT: +2 bilateral lower extremity edema up to the thighs-improving, no pain on palpation. Pedal pulses present B/L NEURO: AAOx3, no focal neuro deficits, able to move all 4 extremities Discharge Plan Plan Patient Disposition: Home w/HOME HEALTH Disposition Comment: Stable Care Plan Goals: Appointment at [facility] with Dr. Santos Tompkins at 9am Mar 22, 2024 Patient is recommended to reconcile with primary care physician Dr. Betancourt Patient also recommended to reconcile with nephrology Dr. Dickerson within 1 to 2 weeks Patient is also recommended to follow-up with cardiology for further cardiac care needs Patient will be sent home on Bumex for management of HFpEF and peripheral edema Patient will be sent home on a Dralzine 50 mg to be taken 3 times daily and her previous medication Coreg (carvedilol) is being held due to her heart rate being close to 60 Patient will also be sent home on a new medication valsartan 80 mg once daily and is recommended to follow-up with nephrology in regards to continuation of that medication due to CKD stage V Prescriptions/Referrals Prescriptions/Med Rec: New atorvastatin 20 mg Tablet 20 mg PO HS 30 Days Qty: 30 0RF valsartan 80 mg Tablet 80 mg PO QDAY 30 Days Qty: 30 0RF hydralazine 25 mg Tablet 50 mg PO TID 30 Days Qty: 180 0RF bumetanide 1 mg tablet 1 mg PO QDAY Qty: 30 0RF Continued gabapentin [Neurontin] 600 MG tablet 600 mg PO TID Qty: 0 ipratropium-albuterol 0.5 mg-3 mg(2.5 mg base)/3 mL Solution For Nebulization 3 ml INHALATION Q4H PRN (Reason: Shortness Of Breath Or Wheezing) benzonatate 200 mg Capsule 100 mg PO Q8HR PRN (Reason: Cough) isosorbide mononitrate 60 mg Tablet Extended Release 24 Hr 60 mg PO DAILY pantoprazole [Protonix] 40 mg Tablet,Delayed Release (Dr/Ec) 40 mg PO QDAY nitroglycerin 0.4 mg Tablet, Sublingual 0.4 mg buccal [id number] PRN (Reason: Chest Pain) Nephro-Hema 0.8 mg Tablet 1 tab PO QDAY furosemide [Lasix] 20 mg Tablet 20 mg PO QDAY Tradjenta 5 mg Tablet 5 mg PO QDAY Lokelma 10 gram Powder In Packet 10 g PO QDAY acetaminophen 500 mg Tablet 500 mg PO Q6H PRN (Reason: Pain (Scale Score 1-3)) lorazepam [Ativan] 0.5 mg Tablet 0.5 mg PO Q6HR PRN (Reason: Anxiety) bisacodyl [Dulcolax (bisacodyl)] 10 mg Suppository 10 mg VA PRN PRN (Reason: Constipation) buspirone 10 mg Tablet 10 mg PO BID aspirin 81 mg Tablet 81 mg PO QDAY oxycodone 5 mg/5 mL Solution 5 mg PO Q4H PRN (Reason: Pain (Scale Score 7-10)) ondansetron 4 mg Tablet,Disintegrating 4 mg PO Q6H PRN (Reason: Nausea And Vomiting) levothyroxine 50 mcg capsule 50 mcg PO ACBR 30 Days Qty: 30 0RF Discontinued hydralazine 25 mg Tablet 25 mg PO TID Rx Instructions: Hold for SBP<100 or HR<60 carvedilol 6.25 mg Tablet 6.25 mg PO BID Hold Instructions: Resume on 03/10/24. Recommend to follow-up with cardiology and nephrology in regards to continuation of this medication. Patient's heart rate remains close to 60 bpm. Hydralazine was added for hypertension Rx Instructions: must administer with a meal/food; Hold for SBP<100 or HR<60 atorvastatin 10 mg Tablet 20 mg PO HS 30 Days Qty: 60 0RF fosfomycin tromethamine 3 gram packet 1 packet PO QDAY Qty: 1 0RF Referrals: Jennifer Bagley PA-C [Primary Care Provider] - Patient/Caregiver Discharge Instructions Print Language: Argentine Stand Alone Forms: [facility] Award Info., Patient Portal Info Letter Discharge Order Discharge Orders: Discharge (Routine); Ordered 03/03/24 Ordered By: Ralph Felipe Quality Discharge Quality Measures VTE prophylaxis
--- NOTE | 2024-03-03 11:32 | PC.CM ---
Addendum entered by Samra Valenzuela 03/03/24 13:01: [id number] Samra VEGA Booked Home health with [facility] pending SOC. Original Note: [id number] Samra VEGA submitted referral for Home Health via [facility]. The PT note is pending ASW attempted to make contact with PT but was unsuccessful.
[2024-03-03] MEDS: hydrALAZINE HCL 25 MG TABLET 50 MG PO (13:21)
--- NOTE | 2024-03-03 14:56 | PC.CM ---
Addendum entered by Marianne Cormier RN 03/03/24 14:57: pending start of care date with [facility] and need to send dc orders and dc summary upon dc. Original Note: initial HH referral sent by SS. [facility] accepted and it was booked by Samra COLON
--- NOTE | 2024-03-03 15:15 | PC.NURSE ---
Rechecked patients blood pressure s/p 1400 dose of hydralazine- blood pressure 166/78.
--- NOTE | 2024-03-03 22:35 | PC.NURSE ---
1946. pt discharged, accompanied with family members, pt alert, awake, follows commands, taken down in wheelchair with pt home O2.
--- NOTE | 2024-03-06 11:35 | PC.CM ---
[facility] STARTED DATE 03/06/24
--- NOTE | 2024-03-08 10:51 | PC.CC ---
dc summry and dc orders sent to [facility]. Start of care date is 03/07/24.
== END 2024-03-03 19:47 | disposition home health service (06) | DRG 194 ==
LOC: SERX 19:43 → SERHOLD 20:53 → S2NX 03-02 01:22
PROVIDERS: Internal Medicine; Nurse Practitioner Primary Care; Student in an Organized Health Care Education/Training Program; Admitting Provider Student in an Organized Health Care Education/Training Program; Emergency Provider Emergency Medicine; PCP Specialist; Visit Provider Internal Medicine
DX: I13.0 Hypertensive heart and chronic kidney disease with heart failure and stage 1 through stage 4 chronic kidney disease, or unspecified chronic kidney disease (principal); I50.23 Acute on chronic systolic (congestive) heart failure; N18.4 Chronic kidney disease, stage 4 (severe); E11.22 Type 2 diabetes mellitus with diabetic chronic kidney disease; D63.1 Anemia in chronic kidney disease; E78.5 Hyperlipidemia, unspecified; E03.9 Hypothyroidism, unspecified; R00.1 Bradycardia, unspecified; Z99.81 Dependence on supplemental oxygen; Z53.20 Procedure and treatment not carried out because of patient's decision for unspecified reasons; Z79.82 Long term (current) use of aspirin; Z79.84 Long term (current) use of oral hypoglycemic drugs; Z79.890 Hormone replacement therapy; Z79.899 Other long term (current) drug therapy
CPT/HCPCS: 36415; 71045; 71046; 73552; 80053; 80074; 80307; 81001; 82570; 82728; 83540; 83550; 83615; 83690; 83735; 83880; 83970; 84100; 84156; 84439; 84443; 84484; 84550; 85025; 85610; 85730; 87081; 87811; 93005; 93306; 93971; 94640; 96372; 96374; 99285; A9270; J1120; J1815; J3490; J7050; Q0138; Q5105

== ENCOUNTER 2024-03-20 12:31 | Emergency (ER) | payer MEDICAID, SELFPAY ==
[2024-03-20 12:34] VITALS: BP 161/69; PULSE 71; RESP 18; TEMP 36.8; O2SAT 98
--- NOTE | 2024-03-20 13:16 | XR_ITS ---
Examination: AP chest single view TECHNIQUE: AP portable upright chest single view Exam date and time: March 20, 2024 1359 hours Comparison March 03, 2024 INDICATION: Shortness of breath today. FINDINGS: Extensive bilateral lung opacity Possible significant left pleural fluid Enlarged cardiac contour with prominent vascular congestion IMPRESSION: Extensive bilateral pneumonia Recommend ultrasound left hemithorax to exclude significant left pleural fluid Mild heart failure
--- NOTE | 2024-03-20 13:18 | XR_ITS ---
Examination: Right hip AP, lateral, AP pelvis 3 views Technique: Hip AP lateral, AP pelvis, 3 views Exam date and time:March 20, 2024 at 1418 hours INDICATIONS: Patient fell today with injury to the right hip, right hip pain. FINDINGS: Severe osteopenia No acute right hip fracture Left hip bones of the pelvis intact IMPRESSION: No acute right hip fracture If pain persists, recommend 1-2 day follow-up AP pelvis
--- NOTE | 2024-03-20 13:21 | PD.EDSOB ---
ED SOB =RME/HPI General Chief Complaint: Shortness of Breath/Dyspnea Stated Complaint: SOB Time Seen by Provider: 03/20/24 13:13 Arrival date/time: 03/20/24 12:31 68 year old female with past medical history of CHF, ESBL, DM, HTN, Anemia, CKD, Pleural Effusion , liver lesion present to emergency room via EMS with c/o of sob for 1 week. pt report had a GLF injury her right hip, report unable to ambulated but normally does. Per EMS report patient need refill for her medication. Pt is wolof speaker and family is coming in. LCOATION: Hip/abd/chest SEVERITY: Symptoms are described as being severe with limitations on activities of daily living CONTEXT: The patient is unable to identify any inciting events. DURATION/TIMING: The symptoms started approximately 7 day ago and have been constant since and have been progressive getting worse. ASSOCIATED SYMPTOMS: The patient is unable to identify any other associated symptoms. MODIFYING FACTORS: The patient is unable to identify any alleviating or aggravating symptoms. PERTINENT ROS: no fevers, no cough, no pleuritic pain, no ripping or tearing sensations, denies any lower extremity edema and no unilateral swelling, no nausea,vomiting, diarrhea, no dizziness/headache no rash no loc/syncope episode no abd/back pain no dsyuria,urgency,frequency REVIEW OF SYSTEMS: See History of Present Illness - with the exception of those mentioned in the history of present illness, all other systems reviewed and reported as negative GENERAL: In general the patient is awake, interactive, in an emergency department gurney. HEAD/EYES/EARS/NOSE/THROAT: normo-cephalic, atraumatic, mucus membranes are moist, anicteric, palpebral conjunctiva is pink, trachea is midline. CARDIOVASCULAR: regular rate and regular rhythm, no murmurs, heart sounds are not distant, strong pulses in all four extremities that are equal and symmetric bilateral upper and lower extremities, normal capillary refill. CHEST/PULMONARY: normal chest rise and fall, good air movement, clear to auscultation bilaterally, normal inspiratory to expiratory ratios without evidence of respiratory distress. NECK: No midline/Paraspinal tenderness, no step off ROM/Strenght intact No Kernig and bruzinski sign. No trauma ABDOMEN: soft, abdominal distention + right hip tenderness. no masses appreciated BACK: normal range of motion without pain. NEUROLOGICAL: cranio-facial features are symmetric, moves all four extremities equally without obvious limitations or weakness. EXTREMITY: no tenderness to palpation over the long bones or large joints of the bilateral upper and lower extremities, no joint swelling, no joint erythema, no signs of trauma, no unilateral leg swelling and no peripheral edema. SKIN: warm, dry, well-perfused, no jaundice, no rash, no telangiectasias or petechia. PSYCH: calm, cooperative, no evidence of psychosis or agitation Related Data Home Medications ?Medication ?Instructions ?Recorded ?Confirmed gabapentin 600 mg tablet 600 mg PO TID #0 tabs 09/28/15 03/20/24 (Neurontin) acetaminophen 500 mg tablet 500 mg PO Q6H PRN Pain (Scale 02/09/24 02/09/24 Score 1-3) ipratropium 0.5 mg-albuterol 3 mg 3 ml inhalation Q4H PRN Shortness 02/09/24 02/09/24 (2.5 mg base)/3 mL nebulization Of Breath Or Wheezing soln lorazepam 0.5 mg tablet (Ativan) 0.5 mg PO Q6HR PRN Anxiety 02/09/24 02/09/24 nitroglycerin 0.4 mg sublingual 0.4 mg buccal [id number] PRN Chest 02/09/24 02/09/24 tablet Pain sodium zirconium cyclosilicate 10 10 g PO QDAY 02/09/24 03/20/24 gram oral powder packet (Lokelma) vitamin B complex-vitamin C-folic 1 tab PO QDAY 02/09/24 02/09/24 acid 0.8 mg tablet (Nephro-Hema) acetazolamide 250 mg tablet 250 mg PO QDAY 03/20/24 03/20/24 sitagliptin phosphate 50 mg tablet 50 mg PO QDAY 03/20/24 03/20/24 (Januvia) Previous Rx's ?Medication ?Instructions ?Recorded atorvastatin 20 mg tablet 20 mg PO HS 30 days #30 tabs 03/03/24 bumetanide 1 mg tablet 1 mg PO QDAY #30 tabs 03/03/24 hydralazine 25 mg tablet 50 mg (2 x 25 mg) PO TID 30 days 03/03/24 #180 tabs valsartan 80 mg tablet 80 mg PO QDAY 30 days #30 tabs 03/03/24 acetazolamide 250 mg tablet 250 mg PO QDAY #30 tabs 03/20/24 amoxicillin 875 mg-potassium 1 tab PO Q12H #14 tabs 03/20/24 clavulanate 125 mg tablet doxycycline hyclate 100 mg capsule 100 mg PO BID #14 caps 03/20/24 gabapentin 600 mg tablet 600 mg PO TID #60 tabs 03/20/24 ipratropium 0.5 mg-albuterol 3 mg 3 ml inhalation Q4H PRN shortness 03/20/24 (2.5 mg base)/3 mL nebulization of breath #90 mL soln lorazepam 0.5 mg tablet (Ativan) 0.5 mg PO QDAY PRN anxiety #20 tabs 03/20/24 sitagliptin phosphate 50 mg tablet 50 mg PO QDAY #30 tabs 03/20/24 (Januvia) sodium zirconium cyclosilicate 10 10 g PO QDAY #30 ea 03/20/24 gram oral powder packet (Lokelma) Allergies Allergy/AdvReac Type Severity Reaction Status Date / Time No Known Allergies Allergy Verified 02/29/24 15:43 Course Course Course Narrative: spoke with family, report patient did not fall and the pain is due to a previous visit in the hospital pt decline admission and would like to go home with oral antibiotics. pt will find out if she can get diaylsis next week. Quality Measures none Orders Category Date Time Status Bedside Influenza A&B Antigen Test NOW Care 03/20/24 13:18 Completed Pipe Layer Q4H START 00 Care 03/20/24 13:16 Active EKG (ED ONLY) *Do not use* NOW Care 03/20/24 13:[address] chest abdomen pelvis wo Stat Exams 03/20/24 15:29 Completed EKG (ED Only) Stat Exams 03/20/24 13:16 Ordered XR chest 1V portable Stat Exams 03/20/24 13:16 Completed XR hip RT w pelvis 2-3V Stat Exams 03/20/24 13:18 Completed BNP [B-Type Natriuretic Peptide] Stat Lab 03/20/24 13:28 Completed CBC Stat Lab 03/20/24 13:28 Completed CK [Creatine Kinase] Stat Lab 03/20/24 14:54 Completed CMP [Comprehensive Metabolic Panel] Stat Lab 03/20/24 13:28 Completed Lipase Stat Lab 03/20/24 13:28 Completed Mag [Magnesium] Stat Lab 03/20/24 14:54 Completed Troponin I Stat Lab 03/20/24 13:28 Completed Amoxicillin/Pot Clav 875 [Augmentin 875] Med 03/20/24 16:36 Discontinued 1 tab PO X1 ONE Doxycycline [Vibramycin] Med 03/20/24 16:36 Discontinued 100 mg PO X1 ONE Furosemide Inj [Lasix Inj] Med 03/20/24 14:12 Discontinued 40 mg IVP X1 ONE Oxygen Delivery NOW RT 03/20/24 13:16 Active Reevaluation(s) Reevaluation #1: pt is feeling better and like to go home. Vital Signs Vital signs: Vital Signs Temperature 98.2 F 03/20/24 12:34 Pulse Rate 71 03/20/24 12:34 Respiratory Rate 18 03/20/24 12:34 Blood Pressure 161/69 H 03/20/24 12:34 Pulse Oximetry (%) 98 03/20/24 12:34 Oxygen Delivery Method Nasal Cannula 03/20/24 12:34 Oxygen Flow Rate 3 03/20/24 12:34 Shortness of Breath / Dyspnea Patient data External records reviewed:: [facility] previous records Clinical information provided by:: patient and EMS Social determinants that could affect healthcare access:: none Patient has the following chronic illnesses:: as stated in chart How is presenting disease/condition affected by chronic disease/condition?: exacerbated by Evaluation data The following diagnostics were reviewed and interpreted by me:: lab results, radiology exam(s) and EKG tracing(s) Lab and/or radiology exams considered but not ordered:: none Interpretation Summary: [id number] cbc: similar or improvement from previous cmp: .083 trop, 54/2.0 creat/bun cxrExtensive bilateral lung opacity Possible significant left pleural fluid Enlarged cardiac contour with prominent vascular congestion IMPRESSION: Extensive bilateral pneumonia Recommend ultrasound left hemithorax to exclude significant left pleural fluid Mild heart failure Medications / Prescriptions Medications or Prescriptions considered but not ordered:: n/a Medication administrations:: Medication Administration History Discontinued Medications Amoxicillin/Clavulanate Potassium (Amoxicillin/Pot Clav 875 Tablet) 1 tab PO X1 ONE Stop: 03/20/24 16:37 Last Admin: 03/20/24 16:50 Dose: 1 tab Documented By: TM Doxycycline Hyclate (Doxycycline 100 Mg Tablet) 100 mg PO X1 ONE Stop: 03/20/24 16:37 Last Admin: 03/20/24 16:50 Dose: 100 mg Documented By: TM Furosemide (Furosemide Inj 10 Mg/Ml 4ml Vial) 40 mg IVP X1 ONE Stop: 03/20/24 14:13 Last Admin: 03/20/24 14:50 Dose: 40 mg Documented By: LF as stated above Consultations Consultation(s) initiated? (list below): No Diagnosis Shortness of Breath Differential Diagnosis: acute exacerbation of chronic obstructive airways disease, congestive heart failure, community acquired pneumonia, asthma with exacerbation and other (Pleural effusion, flu, dehydration nstemi/mi, hip fracture , dehydration ) Most likely diagnosis given after review of the tests above:: PNA, CKD, CHF Admission Indicated Admission indicated?: not indicated Admission Request Was there a request for admission?: No Disposition Plan Disposition Plan: Discharge Discharge Attestation Discharge Attestation: The patient and all family members were given an opportunity to ask questions and understood the discharge instructions. Discharge instructions specifically effects, indications for sooner follow up or return to the emergency department, and the expected course of current diagnosis. Patient condition: Stable Discharge Plan Plan Patient Disposition: HOME (Self Care) Health Concerns: Follow up with PCP as directed Return to Ed if symptoms worsen Prescriptions/Referrals Prescriptions/Med Rec: New doxycycline hyclate 100 mg capsule 100 mg PO BID Qty: 14 0RF amoxicillin-pot clavulanate 875-125 mg tablet 1 tab PO Q12H Qty: 14 0RF acetazolamide 250 mg tablet 250 mg PO QDAY Qty: 30 0RF gabapentin 600 mg tablet 600 mg PO TID Qty: 60 0RF Januvia 50 mg tablet 50 mg PO QDAY Qty: 30 0RF Lokelma 10 gram powder in packet 10 g PO QDAY Qty: 30 0RF ipratropium-albuterol 0.5 mg-3 mg(2.5 mg base)/3 mL solution for nebulization 3 ml inhalation Q4H PRN (Reason: shortness of breath) Qty: 90 0RF lorazepam [Ativan] 0.5 mg tablet 0.5 mg PO QDAY PRN (Reason: anxiety) Qty: 20 0RF Discontinued aspirin 81 mg Tablet 81 mg PO QDAY No Action gabapentin [Neurontin] 600 MG tablet 600 mg PO TID Qty: 0 atorvastatin 20 mg Tablet 20 mg PO HS 30 Days Qty: 30 0RF valsartan 80 mg Tablet 80 mg PO QDAY 30 Days Qty: 30 0RF hydralazine 25 mg Tablet 50 mg PO TID 30 Days Qty: 180 0RF bumetanide 1 mg tablet 1 mg PO QDAY Qty: 30 0RF ipratropium-albuterol 0.5 mg-3 mg(2.5 mg base)/3 mL Solution For Nebulization 3 ml INHALATION Q4H PRN (Reason: Shortness Of Breath Or Wheezing) nitroglycerin 0.4 mg Tablet, Sublingual 0.4 mg buccal [id number] PRN (Reason: Chest Pain) Nephro-Hema 0.8 mg Tablet 1 tab PO QDAY Lokelma 10 gram Powder In Packet 10 g PO QDAY acetaminophen 500 mg Tablet 500 mg PO Q6H PRN (Reason: Pain (Scale Score 1-3)) lorazepam [Ativan] 0.5 mg Tablet 0.5 mg PO Q6HR PRN (Reason: Anxiety) Januvia 50 mg tablet 50 mg PO QDAY acetazolamide 250 mg tablet 250 mg PO QDAY Problem List Clinical Impression: Pneumonia, Chronic kidney disease, Pleural effusion, CHF exacerbation Patient/Caregiver Discharge Instructions Education Materials: CKD Dc, ED Pleural Effusion, ED Pneumonia (Adult) Print Language: Slovak Stand Alone Forms: [facility] Award Info., Patient Portal Info Letter
[2024-03-20 13:24] VITALS: O2SAT 92; BMI 25.4
[2024-03-20 13:39] LABS: Basophils # (Auto) 0.1 Thou/mm3 (0.0-0.2); Basophils % (Auto) 1 % (0-2.5); Eosinophils # (Auto) 0.2 Thou/mm3 (0.0-0.5); Eosinophils % (Auto) 4 % (0-10); Hematocrit 31.6 % (36.0-46.0); Hemoglobin 9.7 g/dL (12.0-16.0); Immature Granulocytes % (Auto) 0 % (0-0); Immature Granulocytes Auto 0.01 Thou/mm3 (0.00-0.00); Lymphocytes # (Auto) 1.1 Thou/mm3 (1.0-4.8); Lymphocytes % (Auto) 20 % (10-50); Mean Corpuscular HGB Conc 30.7 g/dl (31.0-37.0); Mean Corpuscular Hemoglobin 32.8 pg (25.0-35.0); Mean Corpuscular Volume 107 fL (80-100); Monocytes # (Auto) 0.3 Thou/mm3 (0.0-0.8); Monocytes % (Auto) 6 % (0-12); Neutrophils # (Auto) 3.9 Thou/mm3 (1.8-7.7); Neutrophils % (Auto) 69 % (37-80); Nucleated Red Blood Cell % 0 /100 WBC (0); Platelet Count 154 Thou/mm3 (140-440); RDW Standard Deviation 60.1 fL (36.4-46.3); Red Blood Count 2.96 Miln/mm3 (4.00-5.20); White Blood Count 5.5 Thou/mm3 (3.6-11.0)
[2024-03-20 14:06] LABS: Alanine Aminotransferase 13 U/L (10-49); Albumin, Serum 3.4 gm/dL (3.4-4.8); Albumin/Globulin Ratio 0.9 (1.2-2.2); Alkaline Phosphatase 190 U/L (46-116); Anion Gap 5 (7-16); Aspartate Amino Transferase 19 U/L (0-34); B-Type Natriuretic Peptide 1238 pg/mL (0-100); BUN/Creatinine Ratio 27 Ratio (12-20); Bilirubin,Total 0.3 mg/dL (0.3-1.2); Blood Urea Nitrogen 54 mg/dL (9-23); Calcium 8.2 mg/dL (8.3-10.6); Calcium (Corrected) 8.7 mg/dL (8.5-10.1); Carbon Dioxide 28.3 mMol/L (20.0-31.0); Chloride 105 mMol/L (98-107); Estimated Creatinine Clearance 21.9 mL/min (>60); Glucose 211 mg/dL (74-106); Lipase 54 U/L (12-53); Osmolality,Calculated 296 (275-295); Potassium 3.5 mMol/L (3.4-5.1); Sodium 138 mMol/L (136-145); Total Protein 7.4 gm/dL (5.7-8.2); eGFR 27 See Note
[2024-03-20 14:14] LABS: Troponin I 0.083 ng/mL (0.0-0.045)
[2024-03-20 14:15] VITALS: BP 158/71; PULSE 76; RESP 21; O2SAT 96
[2024-03-20 14:50] VITALS: BP 155/95; PULSE 76
[2024-03-20] MEDS: FUROSEMIDE INJ 10 MG/ML 4ML VIAL 40 MG IVP (14:50)
--- NOTE | 2024-03-20 15:29 | XR_ITS ---
Examination: CT chest, without intravenous contrast. CT abdomen, without intravenous contrast. CT pelvis, without intravenous contrast. 2-D sagittal and coronal reconstructions. 3-D reconstructions. Date and time of exam: March 20 2024 1543 hours INDICATIONS: Bilateral pleural effusions shortness of breath bilateral hip pain today CTDI vol (mgy) 8.42 DLP (MGycm)592 Technique: Multiple CT images, 3.0 mm slice thickness, obtained chest, abdomen, pelvis, with the high-resolution 64 slice scanner.. Sagittal and coronal 2-D reconstructions are obtained. 3-D reconstructions Low dose protocols were performed. One or more of the following dose reduction techniques were used; automated exposure control, adjustment of the mA and/or KV according to patient size, use of iterative reconstruction technique. Findings: No thoracic aortic aneurysm dilatation Pulmonary artery segments are not enlarged Mild to moderate enlargement cardiac contour Prominent vascular congestion Bilateral pneumonia, significant left base with moderate to large left pleural effusion Liver is irregular in contour Calcified cystic mass contiguous with the posterior margin of the liver 10 cm Probable biliary catheters Anasarca Mild ascites No hydronephrosis No bowel obstruction Moderate stool in the colon Atrophic uterus Distended urinary bladder Severe osteopenia No hip or pelvic fracture IMPRESSION: Mild heart failure Bilateral pneumonia, significant left base with moderate to large left pleural effusion Cirrhosis Calcified cystic mass posterior margin of the liver 10 cm Anasarca Mild ascites No hydronephrosis No obstruction
[2024-03-20 15:32] LABS: Creatine Kinase 60 U/L (34-171); Magnesium 1.8 mg/dL (1.6-2.6)
[2024-03-20 16:32] VITALS: BP 170/76; PULSE 74; RESP 19; TEMP 36.9; O2SAT 98
[2024-03-20] MEDS: DOXYCYCLINE 100 MG TABLET PO (16:50)
[2024-03-20] MEDS: AMOXICILLIN/POT CLAV 875 TABLET 1 TAB PO (16:50)
--- NOTE | 2024-03-20 17:02 | PC.NURSE ---
Pt incont of urine, incont care provided, brief changed.
[2024-03-20 17:26] VITALS: BP 175/78; PULSE 75; RESP 20; O2SAT 98
--- NOTE | 2024-03-20 17:58 | PC.NURSE ---
called Cari calles [facility] at pts request as she is supposed to come get the pt, no answer at this time and no voicemail set up.
== END 2024-03-20 17:29 | disposition home or self-care (01) ==
LOC: SERX 16:55
PROVIDERS: Physician Assistant; Emergency Provider Emergency Medicine; PCP Family Medicine
DX: I13.0 Hypertensive heart and chronic kidney disease with heart failure and stage 1 through stage 4 chronic kidney disease, or unspecified chronic kidney disease (principal); I50.9 Heart failure, unspecified; E11.22 Type 2 diabetes mellitus with diabetic chronic kidney disease; N18.9 Chronic kidney disease, unspecified; J18.9 Pneumonia, unspecified organism; S79.911A Unspecified injury of right hip, initial encounter; X58.XXXA Exposure to other specified factors, initial encounter; R94.31 Abnormal electrocardiogram [ECG] [EKG]; Z79.84 Long term (current) use of oral hypoglycemic drugs
CPT/HCPCS: 36415; 71045; 71250; 73502; 74176; 80053; 82550; 83690; 83735; 83880; 84484; 85025; 87400; 93005; 96374; 99284; J1940; A9270

== ENCOUNTER 2024-03-25 13:27 | Inpatient (IN) | payer MEDICAID, SELFPAY ==
[2024-03-25] VITALS (7 sets, daily range): BP systolic 117–148; BP diastolic 55–84; PULSE 60–72; RESP 14–93; TEMP 36.3–37.4; O2SAT 98–100
--- NOTE | 2024-03-25 13:33 | EKG_ITS ---
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
--- NOTE | 2024-03-25 13:33 | XR_ITS ---
Examination: AP chest single view Technique one AP portable semiupright chest single view Exam date and time: March 25, 2024 1411 hrs. Comparison March 20, 2024 Indications: Difficulty breathing this week Findings: Moderate heart failure Mild to moderate enlargement cardiac contour Prominent vascular congestion including central vascular engorgement Bilateral perihilar edema Possible small to moderate left pleural effusion Impression: Moderate heart failure
--- NOTE | 2024-03-25 13:35 | PD.EDADULT ---
ED General RME/HPI General Chief complaint: Altered Mental Status Stated complaint: ALTERED Time Seen by Provider: 03/25/24 13:30 Arrival date/time: 03/25/24 13:27 CC: Altered mental status HPI ongoing for the past 2 days. EMS reports stable vital signs including a heart rate of 40, the patient is responding all questions with Betty. Currently patient denies pain. Review the medical record show the patient was discharged from this facility on March 09, 2024 for fluid overload after going off dialysis in 2023 with a history of an EF of 35 to 45% with liver abscesses and a history of alcohol abuse. Related Data Home Medications ?Medication ?Instructions ?Recorded ?Confirmed gabapentin 600 mg tablet 600 mg PO TID #0 tabs 09/28/15 03/20/24 (Neurontin) acetaminophen 500 mg tablet 500 mg PO Q6H PRN Pain (Scale 02/09/24 02/09/24 Score 1-3) ipratropium 0.5 mg-albuterol 3 mg 3 ml inhalation Q4H PRN Shortness 02/09/24 02/09/24 (2.5 mg base)/3 mL nebulization Of Breath Or Wheezing soln lorazepam 0.5 mg tablet (Ativan) 0.5 mg PO Q6HR PRN Anxiety 02/09/24 02/09/24 nitroglycerin 0.4 mg sublingual 0.4 mg buccal [id number] PRN Chest 02/09/24 02/09/24 tablet Pain sodium zirconium cyclosilicate 10 10 g PO QDAY 02/09/24 03/20/24 gram oral powder packet (Lokelma) vitamin B complex-vitamin C-folic 1 tab PO QDAY 02/09/24 02/09/24 acid 0.8 mg tablet (Nephro-Hema) acetazolamide 250 mg tablet 250 mg PO QDAY 03/20/24 03/20/24 sitagliptin phosphate 50 mg tablet 50 mg PO QDAY 03/20/24 03/20/24 (Januvia) Previous Rx's ?Medication ?Instructions ?Recorded atorvastatin 20 mg tablet 20 mg PO HS 30 days #30 tabs 03/03/24 bumetanide 1 mg tablet 1 mg PO QDAY #30 tabs 03/03/24 hydralazine 25 mg tablet 50 mg (2 x 25 mg) PO TID 30 days 03/03/24 #180 tabs valsartan 80 mg tablet 80 mg PO QDAY 30 days #30 tabs 03/03/24 acetazolamide 250 mg tablet 250 mg PO QDAY #30 tabs 03/20/24 amoxicillin 875 mg-potassium 1 tab PO Q12H #14 tabs 03/20/24 clavulanate 125 mg tablet doxycycline hyclate 100 mg capsule 100 mg PO BID #14 caps 03/20/24 gabapentin 600 mg tablet 600 mg PO TID #60 tabs 03/20/24 ipratropium 0.5 mg-albuterol 3 mg 3 ml inhalation Q4H PRN shortness 03/20/24 (2.5 mg base)/3 mL nebulization of breath #90 mL soln lorazepam 0.5 mg tablet (Ativan) 0.5 mg PO QDAY PRN anxiety #20 tabs 03/20/24 sitagliptin phosphate 50 mg tablet 50 mg PO QDAY #30 tabs 03/20/24 (Januvia) sodium zirconium cyclosilicate 10 10 g PO QDAY #30 ea 03/20/24 gram oral powder packet (Lokelma) Allergies Allergy/AdvReac Type Severity Reaction Status Date / Time No Known Allergies Allergy Verified 02/29/24 15:43 Review of Systems Review of Systems ROS Unobtainable: unobtainable due to mental status Past Medical History Past Medical History NEUROLOGIC: Negative Neurological Disorders CARDIAC: Positive Hypercholesterolemia, Congestive Heart Failure, Edema and Hypertension; Negative Cardiac Disorders RESPIRATORY: Negative Chronic Obstructive Pulmonary Disease (COPD) GENITOURINARY: Positive Genitourinary Disorders and Renal Disease REPRODUCTIVE: Negative Pelvic Inflammatory Disease MUSCULOSKELETAL: Positive Musculoskeletal Disorders ENDOCRINE: Positive Endocrine Disorders, Diabetes Mellitus Type 2 and Hypothyroidism; Negative Diabetes Mellitus Type 1 PSYCHO/SOCIAL: Positive Anxiety OTHER HISTORY: Negative Autoimmune Disease Family History FAMILY HISTORY: Positive Family Respiratory Disorders and Family Cancer; Negative Family Psychiatric Problems, Family Cardiac Disorders, Family Gastrointestinal Problems, Family Surgery or Family Anesthesia Reaction Surgical History SURGICAL: Positive Abdominal Surgery and Tubal Ligation Social History SMOKING STATUS: Unknown if ever smoked ED Exam Narrative Physical exam: [General: Cachectic, ill kempt, but not in any acute distress Head normocephalic HEENT: Sclera is icteric, eyes pupils are PERRLA EOMs intact, mouth pink dry membranes swallow symmetrical all other subsystems of HEENT are within acceptable limits Neck is supple nontender, no JVD Chest equal chest rise nontender to palpation Respiratory: Clear to auscultation no wheezes crackles or rubs CV: Rate rhythm is regular no murmurs rubs or clicks Abdomen is soft nontender no masses positive bowel sounds all 4 quadrants Back: No CVA tenderness no spinous process tenderness from cervical spine thoracic and lumbar spine Skin: Intact no petechiae rash induration ulceration or crepitus Extremities: Moving all extremity against resistance cap refill less than 2 seconds neurosensory intact Neuro: Awake alert oriented x1, self, Glascow coma 14, no focal deficits] Course Quality Measures none Orders Category Date Time Status EKG (ED ONLY) *Do not use* NOW Care 03/25/24 13:[address] head/brain wo con Stat Exams 03/25/24 13:51 Completed EKG (ED Only) Stat Exams 03/25/24 13:33 Ordered XR chest 1V Stat Exams 03/25/24 13:33 Completed Ammonia Stat Lab 03/25/24 13:50 Completed B-Type Natriuretic Peptide Stat Lab 03/25/24 13:50 Completed CBC Stat Lab 03/25/24 13:50 Completed Comprehensive Metabolic Panel Stat Lab 03/25/24 13:50 Completed Drug Screen,Urine Stat Lab 03/25/24 14:17 Completed LDH (Lactate Dehydrogenase) Stat Lab 03/25/24 13:50 Completed Magnesium Stat Lab 03/25/24 13:50 Completed Partial Thromboplastin Time Stat Lab 03/25/24 13:50 Completed Prothrombin Time with INR Stat Lab 03/25/24 13:50 Completed Troponin I Stat Lab 03/25/24 13:50 Completed Urinalysis Stat Lab 03/25/24 14:17 Completed Calcium Gluconate 10% Inj Med 03/25/24 14:49 Discontinued 1 gm IV X1 ONE Vital Signs Vital signs: Vital Signs Temperature 99.4 F 03/25/24 14:45 Pulse Rate 72 03/25/24 14:45 Respiratory Rate 17 03/25/24 14:45 Blood Pressure 148/73 H 03/25/24 14:45 Pulse Oximetry (%) 100 03/25/24 14:45 Oxygen Delivery Method Nasal Cannula 03/25/24 14:45 [facility] Patient data External records reviewed:: [place] previous records and EMS form Clinical information provided by:: patient and EMS Social determinants that could affect healthcare access:: alcohol use Patient has the following chronic illnesses:: ESRD formerly on dialysis How is presenting disease/condition affected by chronic disease/condition?: uneffected by Evaluation data The following diagnostics were reviewed and interpreted by me:: lab results, radiology exam(s) and EKG tracing(s) Lab and/or radiology exams considered but not ordered:: EKG performed at 1350 shows a ventricular rate of 65 DC interval 164 QRS of 109 QTc of 457 this is sinus rhythm. CBC shows a WBCs of 5.4 H&H of 8.5 and 27.4 platelets at 172 Coags show PT of 13.3 INR 1.2 PTT of 32.6 CMP shows a sodium 139 potassium 3.9 chloride of 102 is CO2 of 24.4 gap of 13 BUN of 89 a creatinine of 4.1 this is significantly elevated calcium of 6.8. Total bilirubin of 0.2 alk phos of 134 Troponin of 0.399 BNP of 611 Interpretation Summary: The patient has altered mental status with a head CT that shows possible early cerebellar infarcts the patient also has elevated troponin elevated BNP low calcium Patient's case and conditions discussed with Dr. Matt Hector, resident, for Dr. Colon who agrees to accept the patient for admission. Discussed with Dr. Janine Hector with the fact there is no neurology on-call other than teleneurology however Dr. Youngblood will be on-call tomorrow. Medications Medications considered but not ordered:: None Medication administrations:: Medication Administration History Discontinued Medications Calcium Gluconate (Calcium Gluconate 10% Inj 1 Gm/10 Ml Vial) 1 gm IV X1 ONE Stop: 03/25/24 14:50 Last Admin: 03/25/24 15:06 Dose: 1 gm Documented By: LF None Consultations Consultation(s) initiated? (list below): No Diagnosis Differential Diagnosis ED Complaint MDM: Hypocalcemia IBRAHIMA renal failure elevated troponin altered mental status cere Most likely diagnosis given after review of the tests above:: Hypocalcemia ESRD elevated troponin altered mental status cerebellar infarct Admission Indicated Admission indicated?: indicated Explain why admission is indicated or not indicated:: Requires further medical management Admission Request Was there a request for admission?: No Disposition Plan Disposition Plan: Admit Medical Decision Making Differential Diagnosis Differential Diagnosis: Hypocalcemia IBRAHIMA renal failure elevated troponin altered mental status cere Lab Data 03/25/24 13:50 03/25/24 13:50 Labs: Lab Results 03/25/24 03/25/24 Range/Units 13:50 14:17 WBC 5.4 (3.6-11.0) Thou/mm3 RBC 2.63 L (4.00-5.20) Miln/mm3 Hgb 8.5 L (12.0-16.0) g/dL Hct 27.4 L (36.0-46.0) % MCV 104 H (80-100) fL MCH 32.3 (25.0-35.0) pg MCHC 31.0 (31.0-37.0) g/dl RDW Std Deviation 59.7 H (36.4-46.3) fL Plt Count 172 (140-440) Thou/mm3 Neut % (Auto) 77 (37-80) % Lymph % (Auto) 15 (10-50) % [place] % (Auto) 6 (0-12) % Eos % (Auto) 2 (0-10) % Baso % (Auto) 1 (0-2.5) % Neut # (Auto) 4.1 (1.8-7.7) Thou/mm3 Lymph # (Auto) 0.8 L (1.0-4.8) Thou/mm3 [place] # (Auto) 0.3 (0.0-0.8) Thou/mm3 Eos # (Auto) 0.1 (0.0-0.5) Thou/mm3 Baso # (Auto) 0.0 (0.0-0.2) Thou/mm3 Immature Gran # (Auto) 0.02 H (0.00-0.00) Thou/mm3 Absolute Nucleated RBC 0.02 H (0.00-0.00) Thou/mm3 Immature Gran % 0 (0-0) % Nucleated RBC % 0 (0) /100 WBC PT 13.3 H (9.0-12.2) Seconds INR 1.2 (0.9-1.3) APTT 32.6 (22.0-36.0) Seconds Sodium 139 (136-145) mMol/L Potassium 3.9 (3.4-5.1) mMol/L Chloride 102 (98-107) mMol/L Carbon Dioxide 24.4 (20.0-31.0) mMol/L Anion Gap 13 (7-16) BUN 89 H (9-23) mg/dL Creatinine 4.1 H* D (0.6-1.3) mg/dL Estim Creat Clear Calc Not Performed. eGFR 11 L* (60 - ) See Note BUN/Creatinine Ratio 22 H (12-20) Ratio Glucose 79 (74-106) mg/dL Calculated Osmolality 303 H (275-295) Calcium 6.8 L* (8.3-10.6) mg/dL Corrected Calcium 7.5 L (8.5-10.1) mg/dL Magnesium 2.0 (1.6-2.6) mg/dL Total Bilirubin 0.2 L (0.3-1.2) mg/dL AST 15 (0-34) U/L ALT 10 (10-49) U/L Alkaline Phosphatase 134 H (46-116) U/L Ammonia 22 (11-32) uMol/L Lactate Dehydrogenase 184 (120-246) U/L Troponin I 0.399 H* (0.0-0.045) ng/mL B-Natriuretic Peptide 611 H* (0-100) pg/mL Total Protein 6.7 (5.7-8.2) gm/dL Albumin 3.1 L (3.4-4.8) gm/dL Globulin 3.6 H (2.3-3.5) gm/dL Albumin/Globulin Ratio 0.9 L (1.2-2.2) Ur Collection Type Clean Catch Urine Color Yellow (Lt Yel-Yel) Urine Clarity Clear (Clear/Hazy) Urine pH 5.5 (5.0-7.0) Ur Specific [place] 1.014 (1.001-1.035) Urine Protein 2+ A (Neg - Trace) Urine Glucose (UA) Negative (Negative) Urine Ketones Negative (Negative) Urine Blood Negative (Negative) Urine Nitrite Negative (Negative) Urine Bilirubin Negative (Negative) Urine Urobilinogen (Auto) Negative (0.0-1.0) mg/dL Ur Leukocyte Esterase Positive (Negative) Urine RBC < 1 (0-3) /hpf Urine WBC 2 (0-5) /hpf Ur Squamous Epith Cells 1 (0-5) /hpf Urine Bacteria None (None) Hyaline Casts < 1 (0-1) /hpf Urine Opiates Screen Negative (Negative) Urine Fentanyl Screen Negative (Negative) Ur Barbiturates Screen Negative (Negative) U Amphetamin/Meth Scrn Negative (Negative) U Benzodiazepines Scrn Negative (Negative) U Cocaine Metab Screen Negative (Negative) U Marijuana (THC) Screen Negative (Negative) Discharge Plan Plan Patient Disposition: Other Care w/in Hosp ([facility]) Patient condition on transfer: Stable Prescriptions/Referrals Prescriptions/Med Rec: No Action gabapentin [Neurontin] 600 MG tablet 600 mg PO TID Qty: 0 atorvastatin 20 mg Tablet 20 mg PO HS 30 Days Qty: 30 0RF valsartan 80 mg Tablet 80 mg PO QDAY 30 Days Qty: 30 0RF hydralazine 25 mg Tablet 50 mg PO TID 30 Days Qty: 180 0RF bumetanide 1 mg tablet 1 mg PO QDAY Qty: 30 0RF ipratropium-albuterol 0.5 mg-3 mg(2.5 mg base)/3 mL Solution For Nebulization 3 ml INHALATION Q4H PRN (Reason: Shortness Of Breath Or Wheezing) nitroglycerin 0.4 mg Tablet, Sublingual 0.4 mg buccal [id number] PRN (Reason: Chest Pain) Nephro-Hema 0.8 mg Tablet 1 tab PO QDAY Lokelma 10 gram Powder In Packet 10 g PO QDAY acetaminophen 500 mg Tablet 500 mg PO Q6H PRN (Reason: Pain (Scale Score 1-3)) lorazepam [Ativan] 0.5 mg Tablet 0.5 mg PO Q6HR PRN (Reason: Anxiety) Januvia 50 mg tablet 50 mg PO QDAY acetazolamide 250 mg tablet 250 mg PO QDAY doxycycline hyclate 100 mg capsule 100 mg PO BID Qty: 14 0RF amoxicillin-pot clavulanate 875-125 mg tablet 1 tab PO Q12H Qty: 14 0RF acetazolamide 250 mg tablet 250 mg PO QDAY Qty: 30 0RF gabapentin 600 mg tablet 600 mg PO TID Qty: 60 0RF Januvia 50 mg tablet 50 mg PO QDAY Qty: 30 0RF Lokelma 10 gram powder in packet 10 g PO QDAY Qty: 30 0RF ipratropium-albuterol 0.5 mg-3 mg(2.5 mg base)/3 mL solution for nebulization 3 ml inhalation Q4H PRN (Reason: shortness of breath) Qty: 90 0RF lorazepam [Ativan] 0.5 mg tablet 0.5 mg PO QDAY PRN (Reason: anxiety) Qty: 20 0RF Problem List Clinical Impression: Altered mental status, Cerebellar infarct, End-stage renal disease (ESRD), Elevated troponin Patient/Caregiver Discharge Instructions Print Language: Belarusian Stand Alone Forms: [place] Award Info., Patient Portal Info Letter PA/BODY ROLLING MACHINE TENDER 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
--- NOTE | 2024-03-25 13:51 | XR_ITS ---
Examination: CT brain head without contrast. 2-D sagittal coronal reconstructions Date and time of exam:March 25, 2024 1445 hrs. Indications: Onset altered mental status today CTDI: vol (mGy):48.5 DLP: (mGycm):1006 Technique: Multiple CT axial sections of the brain have been obtained, 5 mm slice thickness. Contrast has not been administered. 2-D sagittal, coronal reconstructions have been obtained Low dose protocols were performed. One or more of the following dose reduction techniques were used; automated exposure control, adjustment of the mA and/or KV according to patient size, use of iterative reconstruction technique. Findings: No significant ventricular enlargement. Small low-density areas in both cerebellar hemispheres, not seen on the February 08, 2024 exam Intra-axial or extra-axial hemorrhage density is not seen. No mass effect or midline shift Basal cisterns are not remarkable. Fourth ventricle is midline. Cranial vault intact. Impression: Negative for acute hemorrhage, mass effect or midline shift Suspicious for early acute infarcts in both cerebellar hemispheres Recommend brain MRI follow-up stroke protocol
[2024-03-25 14:06] LABS: Basophils % (Auto) 1 % (0-2.5); Eosinophils # (Auto) 0.1 Thou/mm3 (0.0-0.5); Eosinophils % (Auto) 2 % (0-10); Hematocrit 27.4 % (36.0-46.0); Immature Granulocytes % (Auto) 0 % (0-0); Immature Granulocytes Auto 0.02 Thou/mm3 (0.00-0.00); Lymphocytes # (Auto) 0.8 Thou/mm3 (1.0-4.8); Lymphocytes % (Auto) 15 % (10-50); Mean Corpuscular Hemoglobin 32.3 pg (25.0-35.0); Mean Corpuscular Volume 104 fL (80-100); Monocytes # (Auto) 0.3 Thou/mm3 (0.0-0.8); Monocytes % (Auto) 6 % (0-12); Neutrophils # (Auto) 4.1 Thou/mm3 (1.8-7.7); Neutrophils % (Auto) 77 % (37-80); Nucleated Red Blood Cell # 0.02 Thou/mm3 (0.00-0.00); Nucleated Red Blood Cell % 0 /100 WBC (0); Platelet Count 172 Thou/mm3 (140-440); RDW Standard Deviation 59.7 fL (36.4-46.3); Red Blood Count 2.63 Miln/mm3 (4.00-5.20); White Blood Count 5.4 Thou/mm3 (3.6-11.0)
[2024-03-25 14:08] LABS: Hemoglobin 8.5 g/dL (12.0-16.0)
[2024-03-25 14:16] LABS: INR 1.2 (0.9-1.3); Partial Thromboplastin Time 32.6 Seconds (22.0-36.0); Prothrombin Time 13.3 Seconds (9.0-12.2)
[2024-03-25 14:20] LABS: Ammonia 22 uMol/L (11-32)
[2024-03-25 14:21] LABS: B-Type Natriuretic Peptide 611 pg/mL (0-100)
[2024-03-25 14:26] LABS: Albumin, Serum 3.1 gm/dL (3.4-4.8); Albumin/Globulin Ratio 0.9 (1.2-2.2); Alkaline Phosphatase 134 U/L (46-116); Anion Gap 13 (7-16); Aspartate Amino Transferase 15 U/L (0-34); BUN/Creatinine Ratio 22 Ratio (12-20); Bilirubin,Total 0.2 mg/dL (0.3-1.2); Blood Urea Nitrogen 89 mg/dL (9-23); Calcium (Corrected) 7.5 mg/dL (8.5-10.1); Carbon Dioxide 24.4 mMol/L (20.0-31.0); Chloride 102 mMol/L (98-107); Creatinine (Component) 4.1 mg/dL (0.6-1.3); Globulin 3.6 gm/dL (2.3-3.5); Glucose 79 mg/dL (74-106); LDH (Lactate Dehydrogenase) 184 U/L (120-246); Osmolality,Calculated 303 (275-295); Potassium 3.9 mMol/L (3.4-5.1); Sodium 139 mMol/L (136-145); Total Protein 6.7 gm/dL (5.7-8.2); eGFR 11 See Note
[2024-03-25 14:27] LABS: Calcium 6.8 mg/dL (8.3-10.6); Troponin I 0.399 ng/mL (0.0-0.045)
[2024-03-25 14:30] LABS: Alanine Aminotransferase 10 U/L (10-49)
[2024-03-25 14:48] LABS: Collection Type, Urine Clean Catch
[2024-03-25 14:52] LABS: Bilirubin,Urine Negative (Negative); Blood,Urine Negative (Negative); Clarity,Urine Clear (Clear/Hazy); Color,Urine Yellow (Lt Yel-Yel); Glucose, Urine Negative (Negative); Hyaline Casts,Urine < 1 /hpf (0-1); Ketones,Urine Negative (Negative); Leukocyte Esterase,Urine Positive (Negative); Nitrite,Urine Negative (Negative); PH,Urine 5.5 (5.0-7.0); Protein,Urine 2+ (Neg - Trace); RBC,Urine < 1 /hpf (0-3); Specific Gravity,Urine 1.014 (1.001-1.035); Squamous Epithelial Cell,Urine 1 /hpf (0-5); Urobilinogen,Urine Negative mg/dL (0.0-1.0); WBC,Urine 2 /hpf (0-5)
[2024-03-25 14:59] LABS: Amphetamine/Methamp Scrn,U Negative (Negative); Barbiturate Screen,Urine Negative (Negative); Benzodiazepines Screen,Urine Negative (Negative); Benzoylecgonine Screen, Ur Negative (Negative); Fentanyl Screen,Urine Negative (Negative); Opiate Screen,Urine Negative (Negative); THC Screen,Urine Negative (Negative)
[2024-03-25] MEDS: CALCIUM GLUCONATE 10% INJ 1 GM/10 ML VIAL IV (15:06)
--- NOTE | 2024-03-25 16:57 | ESHP_ITS ---
<Statement entered by Patricia Cox MD - 03/25/24 17:54> I discussed with and supervised my co-resident involved in the care of this patient. I agree with the assessment and plan as documented above. Patient is a 68 year old female with PMH of CKD4, DM2, HFpEF, HTN, HLD, liver abscess s/p drainage who was BIBA from home for AMS x 2 days. At bedside GCS 9, patient encephalopathic. Vitals otherwise stable. Labs significant for IBRAHIMA on CKD with Cr 4.1 and hypocalcemia at 7.[address] imaging showed bilateral cerebellar infarct, which was not seen on previous head CT. Last well known was 2 days ago. Patient admitted for acute metabolic encephalopathy, differential etiology includes stroke and uremia. Patient refused HD in the past. Will consult Dr. Mcclendon regarding patient's IBRAHIMA on CKD. Will get strict I&O and track if patient makes urine. We will also do stroke protocol workup for the patient and consult neurology. Patricia Cox MD PGY-3 Documentation for date of: 03/25/24 HPI History of Present Illness Chief complaint: altered mental status History of present illness: 68-year-old female with past medical history of CKD stage IV previously on hemodialysis (), DM2, HFpEF (50 to 55% on 02/2024), hypertension, hyperlipidemia, hypothyroidism, anemia, and liver abscess status post drainage was admitted to the hospital on 03/25/2024 after coming to the ED via EMS with altered mental status. Given patient was very somnolent and altered during assessment most of the history was taken per chart review and through patient's medical decision-maker Cari, patient's daughter, whom was contacted via phone. As per the patient's daughter the patient had been unresponsive today, but yesterday and even the day before she was not as responsive and was not taking her pills and was not being communicative with family members. She stated that she had been unable to walk for around 1 month and that she was only complaining of pain with moaning. As per the patient's daughter she recently saw the incinerator operator, but the patient refused hemodialysis at this time. Patient's daughter stated that she will like full treatment for now this includes patient being full code and hemodialysis with all other medical management. Off note, patient has had multiple hospital admissions and ER visits in the past 2-4 months due to other heart failure exacerbation or altered mental status as well. ED course: Initially came in afebrile and mildly hypertensive. Initial labs were relevant for low hemoglobin (8.5), azotemia (BUN 89 and creatinine 4.1), hypocalcemia (7.5 corrected), troponinemia (0.399), elevated BNP (611), hypoalbuminemia (3.1), and UA was positive for leukocytes esterase. Initial imaging included chest x-ray which showed heart failure pattern and head CT which did not show suspicion for early acute infarcts in both cerebellar hemispheres. EKG on the chart was reviewed and did not show any ST changes. Stroke alert was not called in the ED today, but we have placed an order for teleneurology consult at this time. PMH: As above Surgical Hx: Liver abscess drainage Social Hx: Denies any smoking, alcohol, or illicit drugs as per chart review Review of Systems Review of Systems ROS Unobtainable: unobtainable due to mental status Past Medical History Past Medical History NEUROLOGIC: Negative Neurological Disorders CARDIAC: Positive Hypercholesterolemia, Congestive Heart Failure, Edema and Hypertension; Negative Cardiac Disorders RESPIRATORY: Negative Chronic Obstructive Pulmonary Disease (COPD) GENITOURINARY: Positive Genitourinary Disorders and Renal Disease REPRODUCTIVE: Negative Pelvic Inflammatory Disease MUSCULOSKELETAL: Positive Musculoskeletal Disorders ENDOCRINE: Positive Endocrine Disorders, Diabetes Mellitus Type 2 and Hypothyroidism; Negative Diabetes Mellitus Type 1 PSYCHO/SOCIAL: Positive Anxiety OTHER HISTORY: Negative Autoimmune Disease Family History FAMILY HISTORY: Positive Family Respiratory Disorders and Family Cancer; Negative Family Psychiatric Problems, Family Cardiac Disorders, Family Gastrointestinal Problems, Family Surgery or Family Anesthesia Reaction Surgical History SURGICAL: Positive Abdominal Surgery and Tubal Ligation Social History SMOKING STATUS: Unknown if ever smoked Exam Vital Signs Temp Pulse Resp BP Pulse Ox O2 Del Method 97.7 F 60 19 124/57 L 100 Room Air 03/25/24 16:05 03/25/24 16:05 03/25/24 16:05 03/25/24 16:05 03/25/24 16:05 03/25/24 16:05 Narrative Exam Physical exam extremely limited due to patient's mental status General: Somnolent and only responsive with eye-opening to sternal rub Eyes: PER pupils were reactive to light, eye-opening upon loud verbal command and sternal rub Ears: No visible ear discharge Nose: No visible nasal discharge. Mouth/Throat: Dry mucous membranes, poor dentition, no redness, no lesions. Neck: Neck supple,no cervical lymphadenopathy. Lungs: Coarse crackles bilateral, No accessory muscle use. Cardio: Normal S1/S2, regular rhythm, no murmurs, no JVD Abdomen: Soft, but distended, no palpable masses, peristalsis present, well- healed scar on the right side abdomen Extremities: Symmetrical, no significant deformities, 1+ peripheral edema, peripheral pulses presents. Skin: No rashes, no lesions, warm to touch. Neuro: Patient unable to follow commands, only able to open eyes on loud verbal command and sternal rub. Unable to answer any questions and nonverbal. GCS of 9 Results: Labs 03/25/24 13:50 03/25/24 13:50 Labs: Short CBC 03/25/24 Range/Units 13:50 WBC 5.4 (3.6-11.0) Thou/mm3 Hgb 8.5 L (12.0-16.0) g/dL Hct 27.4 L (36.0-46.0) % Plt Count 172 (140-440) Thou/mm3 BMP 03/25/24 13:50 Sodium 139 Potassium 3.9 Chloride 102 Carbon Dioxide 24.4 BUN 89 H Creatinine 4.1 H* D Glucose 79 Calcium 6.8 L* Cardiac Enzymes 03/25/24 Range/Units 13:50 Troponin I 0.399 H* (0.0-0.045) ng/mL Liver Function 03/25/24 Range/Units 13:50 Total Bilirubin 0.2 L (0.3-1.2) mg/dL AST 15 (0-34) U/L ALT 10 (10-49) U/L Alkaline Phosphatase 134 H (46-116) U/L Albumin 3.1 L (3.4-4.8) gm/dL Urine 03/25/24 Range/Units 14:17 Urine Color Yellow (Lt Yel-Yel) Urine Clarity Clear (Clear/Hazy) Urine pH 5.5 (5.0-7.0) Ur Specific [place] 1.014 (1.001-1.035) Urine Protein 2+ A (Neg - Trace) Urine Glucose (UA) Negative (Negative) Quality Measures Quality Measures none Advance care planning discussed with:: child Medications Home Medications and Allergies Home Medications ?Medication ?Instructions ?Recorded ?Confirmed ?Type gabapentin 600 mg tablet 600 mg PO TID #0 tabs 03/20/24 History (Neurontin) acetaminophen 500 mg tablet 500 mg PO Q6H PRN Pain (Sc kate 02/09/24 02/09/24 History Score 1-3) ipratropium 0.5 mg-albuterol 3 mg 3 ml inhalation Q4H PRN Shortness 02/09/24 02/09/24 History (2.5 mg base)/3 mL nebulization Of Breath Or Wheezing soln lorazepam 0.5 mg tablet (Ativan) 0.5 mg PO Q6HR PRN An xiety 02/09/24 02/09/24 History nitroglycerin 0.4 mg sublingual 0.4 mg buccal [id number] PRN Chest 02/09/24 02/09/24 History tablet Pain sodium zirconium cyclosilicate 10 10 g PO QDAY 5 03/20/24 History gram oral powder packet (Lokelma) vitamin B complex-vitamin C-folic 1 tab PO QDAY 02/09/24 History acid 0.8 mg tablet (Nephro-Hema) acetazolamide 250 mg tablet 250 mg PO QDAY 03/20/24 History sitagliptin phosphate 50 mg tablet 50 mg PO QDAY 03/2003/20/24 History (Januvia) Allergies Allergy/AdvReac Type Severity Reaction Status Date / Time No Known Allergies Allergy Verified 02/29/24 15:43 Visit Medications Acetaminophen (Acetaminophen Supp 650 Mg Supp) 650 mg SD Q6HR PRN PRN Reason: pain and Fever > 100.4 Stop: 04/24/24 16:45 Dextrose (Dextrose 50%-Water Inj 50 Ml Syringe) 25 ml IV Q15MIN PRN PRN Reason: BG 50-70 responsive npo pt Stop: 04/24/24 16:45 Dextrose (Dextrose 50%-Water Inj 50 Ml Syringe) 50 ml IV Q15MIN PRN PRN Reason: BG <50 OR BG <70 & pt unresponsive Stop: 04/24/24 16:45 Furosemide (Furosemide Inj 10 Mg/Ml 4ml Vial) 40 mg IVP BIDD LUCI Stop: 04/24/24 17:59 Glucagon (Glucagon Inj 1 Mg Vial) 1 mg IM Q15MIN PRN PRN Reason: BG <70, and no IV access Insulin Human Lispro (Insulin Lispro (Admelog) 1 Unit/0.01 Ml Unit) 0 unit SC AC LUCI; Protocol Stop: 04/24/24 16:59 Ondansetron HCl (Ondansetron Inj 2 Mg/Ml Inj 2 Ml) 4 mg IV Q6H PRN; Protocol PRN Reason: NAUSEA OR VOMITING Stop: 04/24/24 16:45 Discontinued Medications Aspirin (Aspirin 300 Mg Supp) 300 mg SD X1 ONE Stop: 03/25/24 16:53 Calcium Gluconate (Calcium Gluconate 10% Inj 1 Gm/10 Ml Vial) 1 gm IV X1 ONE Stop: 03/25/24 14:50 Last Admin: 03/25/24 15:06 Dose: 1 gm Assessment & Plan Plan 68-year-old female with past medical history of CKD stage IV previously on hemodialysis (), DM2, HFpEF (50 to 55% on 02/2024), hypertension, hyperlipidemia, hypothyroidism, anemia of chronic disease, and liver abscess status post drainage was admitted to the hospital on 03/25/2024 due to acute encephalopathy likely secondary to uremia in the setting of renal failure versus acute ischemic stroke. #Acute encephalopathy #Acute ischemic stroke #Uremia #IBRAHIMA on CKD ?Patient came in altered for the past 2 days with decreased communication with her family and not following instructions. ? Patient refused hemodialysis on the of last month as per daughter. ? DDx altered mental status secondary to uremia in the setting of renal failure versus acute ischemic stroke. ? GCS of 9 on assessment ? BUN 89 and creatinine 4.1 today, baseline is creatinine of 1.6-1.7 and BUN in the 40s ? Head CT showed early acute infarcts in both cerebellar hemispheres ?Stroke alert was not initiated in the ED Plan: ? Aspirin 300 mg per rectal ?Holding off on atorvastatin for now as patient is n.p.o. given her mental status. ? Neurochecks every 4 ? Seizure precautions ? Jacobo inserted ?Aspiration precautions - Referred to speech and physical therapy ? Teleneurology consulted, appreciate recommendations ? Neurology consulted, appreciate commendations - Nephrology Consulted, Appreciate recs #Acute decompensated heart failure exacerbation #HFpEF (50 to 55% on 02/2024) ?Patient has 1+ pitting edema ? BNP 611 ? Last echo on 02/2024 showed an EF of 50 to 55% ? Patient was recently seen in the ER on 03/20/2024 due to heart failure exacerbation Plan: ? Lasix 40 twice daily ? Strict MERRY's ? Daily weights ? Fluid restrictions ? Will continue monitor - Likely Hemodialysis #NSTEMI, likely type II demand ischemia ? Troponins 0.399 ? EKG did not show any ST changes ?Likely in the setting of possible CHF exacerbation and renal failure ## Plan: ? Will trend troponins ? Will continue to monitor #Hypocalcemia ? Patient's calcium 7.5 corrected today Plan: ? Calcium gluconate x 1 in the ED ? Will continue to monitor #Anemia of chronic disease ? Patient hemoglobin 8.5 today and a baseline is around 8-9. ? On last admission vitamin B12 levels were normal, iron and ferritin were normal ? Most likely in the setting of chronic kidney disease and heart failure Plan: ? Will transfuse hemoglobin less than 7 ? Will continue to monitor #Hypoalbuminemia ?Patient's albumin 3.1 Plan: ? Will monitor for now #DM2 ? A1c on 02/2024 was 7.8 Plan: ? Blood glucose every 6 hours ? ISS ? Hypoglycemia protocol ordered #Hypothyroidism ? TSH ordered ? Will hold off on levothyroxine for now as patient is n.p.o. given her mental status #Hx of hypertension #Hx of hyperlipidemia ? Blood pressure has been stable therefore we will hold off on antihypertensive medication for now ? Patient's mental status does not allow us to give p.o. atorvastatin at this time. Disposition: Patient admitted to telemetry for acute encephalopathy 2/2 uremia vs stroke. Diet: NPO GI prophylaxis: not indicated DVT prophylaxis: SCDs Code:Full code Case disclosed with Attending Dr. Colon and My senior Dr. Cox PGY3. Domenico Ferro PGY1 Attending Provider Attestation/Addendum I have discussed and was present for the essential components of the history, physical examination, diagnosis, and treatment plan with the resident. I agree with the patient's care as documented by the resident and amended herein by me. Eitan Colon, DO. Although this document has been carefully reviewed, there may still be some phonetic and other typographical errors. These errors are purely grammatical due to imperfections in the software program and should not be construed in any way to compromise the substance of the patient's medical care during this visit.
[2024-03-25 17:11] LABS: Protein Total, Random Urine 246 mg/dL (1-14); Sodium,Urine Random 64.5 mMol/L (20.0-110.0)
--- NOTE | 2024-03-25 17:45 | PC.NURSE ---
Tele-neuro cart placed at bedside.
[2024-03-25] MEDS: FUROSEMIDE INJ 10 MG/ML 4ML VIAL 40 MG IVP (18:00)
[2024-03-25] MEDS: ASPIRIN 300 MG SUPP PR (18:01)
[2024-03-25 18:04] LABS: Troponin I 0.338 ng/mL (0.0-0.045)
--- NOTE | 2024-03-25 19:49 | ESCONSULT_ITS ---
Tele Neuro Consultation Consultation Date 03/25/24 Most Recent Vital Signs Last Vital Signs Temp 97.5 F 03/25/24 18:58 Pulse 60 03/25/24 19:32 Resp 18 03/25/24 19:32 BP 137/63 H 03/25/24 18:58 Pulse Ox 100 03/25/24 19:32 O2 Del Method Nasal Cannula 03/25/24 18:58 O2 Flow Rate 2 03/25/24 19:32 Laboratory-Coagulation Panel PT 13.3 Seconds (9.0-12.2) H 03/25/24 13:50 INR 1.2 (0.9-1.3) 03/25/24 13:50 APTT 32.6 Seconds (22.0-36.0) 03/25/24 13:50 Consultation Narrative [facility] TeleNeurology Consult Services Stat Consult Patient Name: Betty Oliveira Date of : 1955 Identification Number: Date of Service: 03/25/2024 17:57:57 Diagnosis: ? G93.41 - Encephalopathy Metabolic ? 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 Presentation is consistent with encephalopathy likely due to acute on chronic renal failure; CT head shows bilateral 'early acute' cerebellar strokes, timeline of stroke onset likely obscured by encephalopathy, but possibly within last 48 hrs. CTA not feasible due to uremia. Basilar artery thrombosis is possible and brainstem herniation a concern. Strongly suggest transfer to ICU with higher level of care for emergent MRI brain and MRA head and neck, with possibly of thrombectomy if basliar artery thrombosis found, and close neurological monitoring, preferably with neurosurgery in house in the event of brainstem herniation. If this is not possible, manage as per acute stroke protocol - continue ASA, permissive blood pressure control, cardiac telemetry, fasting lipids (consider initiating statin or switching to high intensity statin eg atorvastatin or rosuvastatin), hemoglobin A1c, echocardiogram, MRI wo/MRA head and neck. Address all stroke risk factors including diet, exercise, smoking, blood pressure and glycemic control and appropriately addressing abnormalities identified in the stroke evaluation. If cardiac telemetry does not identify atrial fibrillation, consider 30-day event monitor upon discharge. Patient should be followed closely by Neurology - primary team to please place formal consultation to be seen tomorrow. Please reconsult [facility] immediately for any abnormal results or concerns/questions. Recommendations: Our recommendations are outlined below. Antithrombotic Medication : Permissive hypertension, Antihypertensives with prn for first 24-48 hrs post stroke onset. If BP greater than 220/120 give Labetalol IV or Vasotec IV Nursing Recommendations : IV Fluids, avoid dextrose containing fluids, Maintain euglycemia Neuro checks q4 hrs x 24 hrs and then per shift Head of bed 30 degrees Continue with Telemetry Consultations : Recommend Speech therapy if failed dysphagia screen Physical therapy/Occupational therapy -------- Metrics: Dispatch Time: 03/25/2024 17:57:57 Callback Response Time: 03/25/2024 18:00:08 Primary Provider Notified of Diagnostic Impression and Management Plan on: 03/25/2024 19:44:35 CT HEAD: Reviewed CT head is reported as showing bilateral early acute cerebellar infarcs. --------- Chief Complaint: lethargy, confusion History of Present Illness: Patient is a 68 year old Female. 68-year-old woman with a complex background medical history of CKD stage IV previously on hemodialysis, diabetes, CHF, hypertension, hyperlipidemia, hypothyroidism, anemia, liver abscess who was admitted today with altered mental status, somnolence. I spoke with her daughter Cari, and another daughter in attendance. The patient does not provide history. My understanding is that she has been lethargic and confused since Tuesday, and today was brought to the hospital as she was poorly communicative and did not want to take her medications. CT shows early acute infarcts in both cerebellar hemispheres, reviewed by self. Stroke alert was not called earlier. Past Medical History: ? Hypertension ? Diabetes Mellitus ? Hyperlipidemia Medications: No Anticoagulant use Antiplatelet use: Yes ASA Reviewed EMR for current medications Allergies: Reviewed Social History: Smoking: No Family History: There is no family history of premature cerebrovascular disease pertinent to this consultation ROS : 14 Points Review of Systems was performed and was negative except mentioned in HPI. Past Surgical History: There Is No Surgical History Contributory To Today?s Visit Examination: BP(154/65), Pulse(66), 1A: Level of Consciousness - Requires repeated stimulation to arouse + 2 1B: Ask Month and Age - Could Not Answer Either Question Correctly + 2 1C: Blink Eyes & Squeeze Hands - Performs Both Tasks + 0 2: Test Horizontal Extraocular Movements - Normal + 0 3: Test Visual [place] - No Visual Loss + 0 4: Test Facial Palsy (Use Grimace if Obtunded) - Normal symmetry + 0 5A: Test Left Arm Motor Drift - Drift, hits bed + 2 5B: Test Right Arm Motor Drift - Drift, hits bed + 2 6A: Test Left Leg Motor Drift - Some Effort Against [place] + 2 6B: Test Right Leg Motor Drift - Some Effort Against [place] + 2 7: Test Limb Ataxia (FNF/Heel-Salas) - No Ataxia + 0 8: Test Sensation - Normal; No sensory loss + 0 9: Test Language/Aphasia - Normal; No aphasia + 0 10: Test Dysarthria - Severe Dysarthria: Unintelligble Slurring or Out of Proportion to Aphasia + 2 11: Test Extinction/Inattention - No abnormality + 0 NIHSS Score: 14 NIHSS Free Text : Appears encephalopathic. Asterixis of both upper limbs: Able to elevate arms but drops them. Unable to do finger to nose on the left. Lifts both legs fleetingly, then drops to the bed. Spoke with : Dr. Brock Macdonald This consult was conducted in real time using interactive audio and video technology. Patient was informed of the technology being used for this visit and agreed to proceed. Patient located in hospital and provider located at home/office setting. Patient is being evaluated for possible acute neurologic impairment and high probability of imminent or life - threatening deterioration.I spent total of 35 minutes providing care to this patient, including time for face to face visit via telemedicine, review of medical records, imaging studies and discussion of findings with providers, the patient and / or family. Dr Johann Paredes [facility] For Inpatient follow-up with [facility] physician please call [facility] at . As we are not an outpatient service for any post hospital discharge needs please contact the hospital for assistance. If you have any questions for the [facility] physicians or need to reconsu lt for clinical or diagnostic changes please contact us via [facility] at .
--- NOTE | 2024-03-25 20:17 | XR_ITS ---
Examination: CTA carotids with intravenous contrast CTA brain, head with intravenous contrast. 2-D sagittal, coronal reconstructions. 3-D reconstructions. Exam date and time: March 25, 20242053 hrs. Indications: Altered mental status today, early infarcts both cerebellar hemispheres on CT brain scan today CTDI: vol (mGy) 40.50 DLP: (mGycm) 520 Technique: Multiple CTA axial brain, head carotid images post intravenous contrast injection 75 cc, [id number]. 2-D sagittal, coronal reconstructions. 3-D reconstructions, 3-D post processing including vascular maximum intensity projection images. Low dose protocols were performed. One or more of the following dose reduction techniques were used; automated exposure control, adjustment of the mA and/or KV according to patient size, use of iterative reconstruction technique. Findings: No significant common carotid carotid bifurcation or internal carotid artery stenoses Dominant left vertebral artery with no critical stenoses No cerebral large vessel arterial occlusions thrombus dissection or cerebral aneurysm Impression: No significant neck arterial stenoses No cerebral large vessel arterial occlusions or thrombus Recommend brain MRI MRA without contrast, stroke protocol, follow-up
--- NOTE | 2024-03-25 20:18 | PD.RESEVENT ---
Documentation for date of: 03/25/24 Event Note Event Note: Night team spoke with teleneuro and recommended CTA given possible ischemic cerebellar stroke on CT head. Neurology is also recommending close monitoring given possible chance of herniation should ischemic stroke worsen. Spoke with Dr. Mcclendon solar energy system installer who agrees to perform dialysis tomorrow given patient is encephalopathic today likely secondary to acute renal failure. Spoke with daughter Cari Palm who agreed with getting CTA of head to assess for any blockage that might require thrombectomy. Given that altered mental status has been greater than 48 hours patient candidate for tPA/tenecteplase. CTA ordered we will follow-up on results, if needed will start transfer process for thrombectomy. Case discussed with attending Dr. Derrick Ramey MD PGY3.
[2024-03-25 21:32] LABS: Hepatitis A Antibody IgM Non Reactive (Non React); Hepatitis B Core Antibody IgM Non Reactive (Non React); Hepatitis B Surface Antigen Non Reactive (Non React); Hepatitis C Antibody Non Reactive (Non React)
--- NOTE | 2024-03-25 21:59 | EVENTNT_ITS ---
Documentation for date of: 03/25/24 Event Note Event Note: I spoke to tele-neuro [phone] again. No cerebral large vessel arterial occlusions or thrombus. Patient will stay here.
--- NOTE | 2024-03-25 21:59 | PD.EVENT ---
Documentation for date of: 03/25/24 Event Note Event Note: I spoke to tele-neuro [phone] again. No cerebral large vessel arterial occlusions or thrombus. Patient will stay here.
[2024-03-26] VITALS (13 sets, daily range): BP systolic 107–130; BP diastolic 53–69; PULSE 58–71; RESP 13–24; TEMP 36.1–36.7; O2SAT 97–100; BMI 12.0
--- NOTE | 2024-03-26 | XR_ITS ---
Examinations: MRI Brain without intravenous contrast. MRA brain without intravenous contrast. MRA carotids without intravenous contrast 3-D vascular reconstructions Date and time of exam: March 26, 2024 0935 hrs. Indications: Altered mental status beginning 2 days ago Technique: Multiple axial and sagittal images of the brain have been obtained MRA brain carotid images without contrast obtained, including 3-D postprocessing, vascular maximum intensity projection images Findings: [place] is not enlarged. The optic chiasm and infundibular stalk are not remarkable. Prepontine and interpeduncular cisterns are not enlarged. No localized enlargement of the medulla or anjali. Fourth ventricle and cerebellar tonsils normal in position. Subacute hemorrhage is not seen. Fourth ventricle is midline. Mass in the cerebellopontine angle region is not evident. 7th and 8th nerve complexes exhibits symmetry. Globes are symmetrical with no retro-orbital mass. Increased white matter signal mild Diffusion-weighted images demonstrate 7 mm focus restricted diffusion right parietal white matter with possible signal deficit on the ADC map Mass-effect upon the ventricular system is not identified. MRA carotid images degraded by patient motion. MRA brain images no large vessel occlusion Impression: Suspicious for 7 mm acute infarct right parietal lobe
[2024-03-26 00:10] LABS: Troponin I 0.292 ng/mL (0.0-0.045)
[2024-03-26] MEDS: DEXTROSE 50%-WATER INJ 50 ML SYRINGE 25 ML IV (05:26)
[2024-03-26] MEDS: FUROSEMIDE INJ 10 MG/ML 4ML VIAL 40 MG IVP ×2 (05:43→17:23)
[2024-03-26 05:50] LABS: Basophils # (Auto) 0.1 Thou/mm3 (0.0-0.2); Basophils % (Auto) 1 % (0-2.5); Eosinophils # (Auto) 0.1 Thou/mm3 (0.0-0.5); Eosinophils % (Auto) 2 % (0-10); Hematocrit 28.5 % (36.0-46.0); Immature Granulocytes % (Auto) 0 % (0-0); Immature Granulocytes Auto 0.02 Thou/mm3 (0.00-0.00); Lymphocytes # (Auto) 1.2 Thou/mm3 (1.0-4.8); Lymphocytes % (Auto) 24 % (10-50); Mean Corpuscular HGB Conc 30.2 g/dl (31.0-37.0); Mean Corpuscular Hemoglobin 32.2 pg (25.0-35.0); Mean Corpuscular Volume 107 fL (80-100); Monocytes # (Auto) 0.4 Thou/mm3 (0.0-0.8); Monocytes % (Auto) 8 % (0-12); Neutrophils # (Auto) 3.4 Thou/mm3 (1.8-7.7); Neutrophils % (Auto) 66 % (37-80); Nucleated Red Blood Cell % 0 /100 WBC (0); Platelet Count 185 Thou/mm3 (140-440); RDW Standard Deviation 61.5 fL (36.4-46.3); Red Blood Count 2.67 Miln/mm3 (4.00-5.20); White Blood Count 5.1 Thou/mm3 (3.6-11.0)
[2024-03-26 06:07] LABS: Hemoglobin 8.6 g/dL (12.0-16.0)
[2024-03-26 06:40] LABS: Alanine Aminotransferase 9 U/L (10-49); Albumin, Serum 2.9 gm/dL (3.4-4.8); Albumin/Globulin Ratio 0.8 (1.2-2.2); Alkaline Phosphatase 128 U/L (46-116); Anion Gap 12 (7-16); Aspartate Amino Transferase 13 U/L (0-34); BUN/Creatinine Ratio 23 Ratio (12-20); Bilirubin,Total 0.2 mg/dL (0.3-1.2); Blood Urea Nitrogen 90 mg/dL (9-23); Calcium (Corrected) 7.9 mg/dL (8.5-10.1); Carbon Dioxide 24.2 mMol/L (20.0-31.0); Cardiac Risk Estimate 2.2 RATIO (3.7-5.6); Chloride 103 mMol/L (98-107); Cholesterol 118 mg/dL (132-200); Creatinine (Component) 3.9 mg/dL (0.6-1.3); Globulin 3.5 gm/dL (2.3-3.5); Glucose 60 mg/dL (74-106); HDL Cholesterol 53 mg/dL (40-60); LDL Cholesterol,Calculated 40 mg/dL (0-130); Magnesium 2.1 mg/dL (1.6-2.6); Osmolality,Calculated 303 (275-295); Potassium 3.9 mMol/L (3.4-5.1); Sodium 139 mMol/L (136-145); Thyroid Stimulating Hormone 65.52 uIU/mL (0.55-4.78); Total Protein 6.4 gm/dL (5.7-8.2); Triglycerides 125 mg/dL (30-150); eGFR 12 See Note
[2024-03-26 06:55] LABS: Phosphorous 9.2 mg/dL (2.4-5.1)
[2024-03-26 07:45] LABS: Free T4 (Free Thyroxine) 0.55 ng/dL (0.89-1.76)
[2024-03-26 08:12] LABS: INR 1.2 (0.9-1.3)
--- NOTE | 2024-03-26 08:59 | PCS.ST ---
Swallow Evaluation completed. See report for details. Recommend puree diet until able to sustain alertness without stimulation.
--- NOTE | 2024-03-26 09:20 | PC.NURSE ---
Patient transported to MRI via una Tucker CNA. Patient awake and alert with no signs of acute distress.
--- NOTE | 2024-03-26 09:49 | PD.NEPHCONS ---
History of Present Illness Data of Consult Consult date: 03/26/24 Requesting Physician: Ramana Colon DO Primary Care Provider: Physician No Primary/Family Consult Narrative Reason for consult: Acute renal failure History of present illness: Ms. Oliveira is a 68-year-old lady with past medical history of CKD stage IV , IBRAHIMA due to significant anasarca previously on hemodialysis (-came off dialysis), DM2, HFpEF (50 to 55% on 02/2024), hypertension, hyperlipidemia, hypothyroidism, anemia, and liver abscess status post drainage was recently admitted to the hospital for anasarca and responded to Bumex drip and discharged back to [facility]. She was again admitted to the hospital yesterday with altered mental status. Patient was unresponsive and unable to walk. In the emergency department stroke alert was called due to her altered mental status and weakness. Initial CT showed question early infarct in the cerebellar hemispheres. Due to azotemia renal consultation was requested and primary team requested to do CTA brain to rule out stroke. Apparently patient's daughter stated patient was inclining to do dialysis if needed. In the previous admission patient declined dialysis. Patient did get a CTA brain last night with contrast. Was negative for acute stroke. MRI brain showed a 7 mm right parietal stroke. Patient currently seen in telemetry. No family around. 03/26/2024 patient currently seen in telemetry. Very altered. Labs showed TSH 65.5, lipids normal, albumin 2.9, troponin 0.2, magnesium 2.1, phosphorus 9.2, calcium 7.9, BUN 90, creatinine 3.9, sodium 139, potassium 3.9, bicarbonate 24, hemoglobin 8.6. Patient was supposed to get dialysis-IR closed today due to holiday. Will initiate dialysis tomorrow. cc:: cc: Ramana Colon DO Review of Systems Review of Systems ROS Unobtainable: unobtainable due to mental status Past Medical History Past Medical History NEUROLOGIC: Negative Neurological Disorders CARDIAC: Positive Hypercholesterolemia, Congestive Heart Failure, Edema and Hypertension; Negative Cardiac Disorders RESPIRATORY: Positive Respiratory Disorders; Negative Chronic Obstructive Pulmonary Disease (COPD) or Asthma GENITOURINARY: Positive Genitourinary Disorders and Renal Disease REPRODUCTIVE: Negative Pelvic Inflammatory Disease MUSCULOSKELETAL: Positive Musculoskeletal Disorders ENDOCRINE: Positive Endocrine Disorders, Diabetes Mellitus Type 2 and Hypothyroidism; Negative Diabetes Mellitus Type 1 HEMATOLOGIC: Negative Sickle Cell Disease PSYCHO/SOCIAL: Positive Anxiety OTHER HISTORY: Negative Autoimmune Disease Family History FAMILY HISTORY: Positive Family Respiratory Disorders and Family Cancer; Negative Family Psychiatric Problems, Family Cardiac Disorders, Family Gastrointestinal Problems, Family Surgery or Family Anesthesia Reaction Surgical History SURGICAL: Positive Abdominal Surgery and Tubal Ligation Social History SMOKING STATUS: Never smoker Meds Home Medications and Allergies Home Medications ?Medication ?Instructions ?Recorded ?Confirmed ?Type gabapentin 600 mg tablet 600 mg PO TID #0 tabs 09/28/15 03/20/24 History (Neurontin) acetaminophen 500 mg tablet 500 mg PO Q6H PRN Pain (Scale 02/09/24 02/09/24 History Score 1-3) ipratropium 0.5 mg-albuterol 3 mg 3 ml inhalation Q4H PRN Shortness 02/09/24 02/09/24 History (2.5 mg base)/3 mL nebulization Of Breath Or Wheezing soln lorazepam 0.5 mg tablet (Ativan) 0.5 mg PO Q6HR PRN Anxiety 02/09/24 02/09/24 History nitroglycerin 0.4 mg sublingual 0.4 mg buccal [id number] PRN Chest 02/09/24 02/09/24 History tablet Pain sodium zirconium cyclosilicate 10 10 g PO QDAY 02/09/24 03/20/24 History gram oral powder packet (Lokelma) vitamin B complex-vitamin C-folic 1 tab PO QDAY 02/09/24 02/09/24 History acid 0.8 mg tablet (Nephro-Hema) acetazolamide 250 mg tablet 250 mg PO QDAY 03/20/24 03/26/24 History sitagliptin phosphate 50 mg tablet 50 mg PO QDAY 03/20/24 03/26/24 History (Januvia) aspirin 81 mg tablet,delayed 81 mg PO QDAY 03/26/24 03/26/24 History release (Ecotrin Low Strength) carvedilol 3.125 mg tablet 3.125 mg PO BID 03/26/24 03/26/24 History escitalopram oxalate 20 mg tablet 20 mg PO QDAY 03/26/24 03/26/24 History hydrocodone 5 mg-acetaminophen 325 1 tab PO Q8H PRN pain 03/26/24 03/26/24 History mg tablet hydroxyzine HCl 25 mg tablet 25 mg PO QDAY PRN anxiety 03/26/24 03/26/24 History levothyroxine 100 mcg tablet 100 mcg PO QDAY 03/26/24 03/26/24 History nifedipine 30 mg tablet,extended 30 mg PO QDAY 03/26/24 03/26/24 History release pantoprazole 40 mg tablet,delayed 40 mg PO QDAY 03/26/24 03/26/24 History release (Protonix) Allergies Allergy/AdvReac Type Severity Reaction Status Date / Time No Known Allergies Allergy Verified 02/29/24 15:43 Exam Vital Signs Temp Pulse Resp BP Pulse Ox O2 Del Method O2 Flow Rate 36.4 C 63 18 123/53 L 99 Nasal Cannula 2 03/26/24 04:00 03/26/24 05:43 03/26/24 04:00 03/26/24 05:43 03/26/24 04:00 03/26/24 04:00 03/26/24 04:00 Narrative Exam GENERAL APPEARANCE: Patient currently seen in telemetry. Resting comfortably dry mucosa NECK: Neck supple, no JVD or bruit CARDIOVASCULAR: Heart regular, no murmurs LUNGS/CHEST: Chest clear to auscultation. No rales, rhonchi, wheezing ABDOMEN: Soft, nontender, nondistended. No masses. Normal bowel sounds. EXTREMITIES: No edema, clubbing or cyanosis. SKIN: Skin exam normal without any rashes MUSCULOSKELETAL: In bed NEUROLOGICAL : Completely altered barely arousable Results Labs 03/26/24 05:05 03/26/24 05:05 Labs: Short CBC 03/25/24 03/26/24 Range/Units 13:50 05:05 WBC 5.4 5.1 (3.6-11.0) Thou/mm3 Hgb 8.5 L 8.6 L (12.0-16.0) g/dL Hct 27.4 L 28.5 L (36.0-46.0) % Plt Count 172 185 (140-440) Thou/mm3 BMP 03/25/24 03/26/24 13:50 05:05 Sodium 139 139 Potassium 3.9 3.9 Chloride 102 103 Carbon Dioxide 24.4 24.2 BUN 89 H 90 H Creatinine 4.1 H* D 3.9 H Glucose 79 60 L Calcium 6.8 L* 7.0 L Cardiac Enzymes 03/25/24 03/25/24 03/25/24 Range/Units 13:50 17:19 23:00 Troponin I 0.399 H* 0.338 H* 0.292 H* (0.0-0.045) ng/mL Liver Function 03/25/24 03/26/24 Range/Units 13:50 05:05 Total Bilirubin 0.2 L 0.2 L (0.3-1.2) mg/dL AST 15 13 (0-34) U/L ALT 10 9 L (10-49) U/L Alkaline Phosphatase 134 H 128 H (46-116) U/L Albumin 3.1 L 2.9 L (3.4-4.8) gm/dL Urine 03/25/24 Range/Units 14:17 Urine Color Yellow (Lt Yel-Yel) Urine Clarity Clear (Clear/Hazy) Urine pH 5.5 (5.0-7.0) Ur Specific [place] 1.014 (1.001-1.035) Urine Protein 2+ A (Neg - Trace) Urine Glucose (UA) Negative (Negative) Assessment & Plan Additional Assessment & Plan Additional Plan: Betty Oliveira is a 68-year-old female patient with past medical history of CKD was previously on dialysis, nephrotic syndrome secondary to diabetic nephropathy, hypertension, HFrEF EF of 35 to 45% on October 2023, diabetes mellitus, hyperlipidemia, hypothyroidism, liver abscess status post drainage presented to the hospital with altered mental status and noted to be in acute renal failure. Well-known to me from previous admissions and CKD clinic. Patient has progressed to diabetic nephropathy and was supposed to initiate dialysis last month-patient declined. Apparently last night family requested dialysis and all aggressive measures. CODE STATUS full code. Was referred to the hospital from the plant health manager office Dr. Mcclendon when the patient was noticed to be fluid overloaded. Patient was admitted secondary to anasarca. # Acute renal failure secondary to progressive diabetic nephropathy superimposed on advanced CKD anasarca most likely multifactorial secondary to nephrotic syndrome, HFrEF, CKD #Nephrotic syndrome #CKD stage IV--leading towards ESRD # Altered mental status-probably related to small stroke versus metabolic encephalopathy. Decided to proceed with dialysis. Will plan for catheter placement and dialysis in a.m. Hepatitis, PPD ordered. Will give Epogen with dialysis. Neurology on the case. Thank you Eitan for allowing me to participate in the care of Mr. Oliveira
[2024-03-26] MEDS: LIOTHYRONINE 10 MCG/ML IV (10:28)
[2024-03-26] MEDS: LEVOTHYROXINE INJ 100 mCg VIAL 75 MCG IV (10:28)
[2024-03-26] MEDS: PANTOPRAZOLE INJ 40 MG VIAL IV (10:30)
[2024-03-26] MEDS: ASPIRIN EC 81 MG TABEC PO (10:30)
[2024-03-26] MEDS: CALCIUM CARBONATE 600 MG TABLET PO (10:30)
[2024-03-26] MEDS: ALBUTEROL/IPRATROPIUM (Duoneb) RT SOL 3 ML NEBU INH ×4 (10:48→22:30)
[2024-03-26] MEDS: TUBERCULIN PPD INJ 5 UNIT/0.1 ML DOSE ID (11:35)
--- NOTE | 2024-03-26 11:36 | ESPR_ITS ---
<Statement entered by Patricia Cox MD - 03/26/24 13:01> I discussed with and supervised my co-resident involved in the care of this patient. I agree with the assessment and plan as documented above. Patient seen at bedside this morning. She is still somnolent but more awake than yesterday. She can answer questions, AAO x name, place. Complaining of back pain. Labs remarkable for IBRAHIMA, improving, hypocalcemia, and severe hypothyroidism. Will give IV levothyroxine for severe hypothyroidism and follow up T4 tomorrow. Regarding her stroke, will get MRI and EEG and follow up with neurology. Plan for HD catheter placement tomorrow as IR unavailable today. Patricia Cox MD PGY-3 Documentation for date of: 03/26/24 Subjective Subjective Interval history: Patient was seen at bedside this morning. No overnight events. Teleneurology saw the patient last night and spoke with the night attending. Teleneurology requested CTA to be done which was unremarkable. MRI per stroke protocol was ordered as well as echo. There were plans for patient to get hemodialysis today, but there is no IR nor [employer] today and nephrology stated we could hold off on hemodialysis today. Patient did have some wheezing therefore started DuoNebs every 4. Patient's TSH came back at 65.52 and free T4 came back at 0.55. 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 Will order EEG. Patient was a lot more alert and awake today and she was able to who she is and what the year is. She was also able to follow some simple commands to some extent, but her strength was 2 out of 5 in bilateral upper and lower extremities. Exam Vital Signs Temp Pulse Resp BP Pulse Ox O2 Del Method O2 Flow Rate 98.0 F 61 24 H 107/57 L 99 Nasal Cannula 2.5 03/26/24 08:00 03/26/24 10:54 03/26/24 10:54 03/26/24 08:00 03/26/24 10:54 03/26/24 08:00 03/26/24 10:54 Narrative Exam Physical exam extremely limited due to patient's mental status General: Somnolent and AO x 2 (not to place) Eyes: ENRIQUE pupils were reactive to light, able to trace Ears: No visible ear discharge, hearing intact Nose: No visible nasal discharge. Mouth/Throat: Dry mucous membranes, poor dentition, no redness, no lesions. Neck: Neck supple,no cervical lymphadenopathy. Lungs: Coarse crackles bilateral with wheezing, No accessory muscle use. Cardio: Normal S1/S2, regular rhythm, no murmurs, no JVD Abdomen: Soft, but distended, no palpable masses, peristalsis present, well- healed scar on the right side abdomen Extremities: Symmetrical, no significant deformities, 1+ peripheral edema, peripheral pulses presents. Skin: No rashes, no lesions, warm to touch. Neuro: Patient able to tell us who she is and what the year is, but unable to tell us where she is at this time. She was able to follow some simple commands to some extent, but strength throughout upper and lower extremities was 2 out of 5 mostly against gravity. She was still very somnolent, But improved from yesterday. Objective Labs 03/26/24 05:05 03/26/24 05:05 Labs: Laboratory Results - last 24 hr 03/25/24 03/25/24 03/25/24 13:50 14:04 14:17 WBC 5.4 RBC 2.63 L Hgb 8.5 L Hct 27.4 L MCV 104 H MCH 32.3 MCHC 31.0 RDW Std Deviation 59.7 H Plt Count 172 Neut % (Auto) 77 Lymph % (Auto) 15 Waldo % (Auto) 6 Eos % (Auto) 2 Baso % (Auto) 1 Neut # (Auto) 4.1 Lymph # (Auto) 0.8 L Waldo # (Auto) 0.3 Eos # (Auto) 0.1 Baso # (Auto) 0.0 Immature Gran # (Auto) 0.02 H Absolute Nucleated RBC 0.02 H Immature Gran % 0 Nucleated RBC % 0 PT 13.3 H INR 1.2 APTT 32.6 Sodium 139 Potassium 3.9 Chloride 102 Carbon Dioxide 24.4 Anion Gap 13 BUN 89 H Creatinine 4.1 H* D Estim Creat Clear Calc Not Performed. eGFR 11 L* BUN/Creatinine Ratio 22 H Glucose 79 Calculated Osmolality 303 H Calcium 6.8 L* Corrected Calcium 7.5 L Phosphorus Magnesium 2.0 Total Bilirubin 0.2 L AST 15 ALT 10 Alkaline Phosphatase 134 H Ammonia 22 Lactate Dehydrogenase 184 Troponin I 0.399 H* B-Natriuretic Peptide 611 H* Total Protein 6.7 Albumin 3.1 L Globulin 3.6 H Albumin/Globulin Ratio 0.9 L Triglycerides Cholesterol LDL Cholesterol, Calc HDL Cholesterol Cholesterol/HDL Ratio TSH Free T4 Ur Collection Type Clean Catch Urine Color Yellow Urine Clarity Clear Urine pH 5.5 Ur Specific [place] 1.014 Urine Protein 2+ A Urine Glucose (UA) Negative Urine Ketones Negative Urine Blood Negative Urine Nitrite Negative Urine Bilirubin Negative Urine Urobilinogen (Auto) Negative Ur Leukocyte Esterase Positive Urine RBC < 1 Urine WBC 2 Ur Squamous Epith Cells 1 Urine Bacteria None Hyaline Casts < 1 U Random Total Protein 246 H Ur Random Sodium 64.5 Ur Random Urea Nitrogn 326.0 L Urine Opiates Screen Negative Urine Fentanyl Screen Negative Ur Barbiturates Screen Negative U Amphetamin/Meth Scrn Negative U Benzodiazepines Scrn Negative U Cocaine Metab Screen Negative U Marijuana (THC) Screen Negative Hepatitis A IgM Ab Non Reactive Hep Bs Antigen Non Reactive Hep B Core IgM Ab Non Reactive Hepatitis C Antibody Non Reactive 03/25/24 03/25/24 03/26/24 17:19 23:00 05:05 WBC 5.1 RBC 2.67 L Hgb 8.6 L Hct 28.5 L MCV 107 H MCH 32.2 MCHC 30.2 L RDW Std Deviation 61.5 H Plt Count 185 Neut % (Auto) 66 Lymph % (Auto) 24 Waldo % (Auto) 8 Eos % (Auto) 2 Baso % (Auto) 1 Neut # (Auto) 3.4 Lymph # (Auto) 1.2 Waldo # (Auto) 0.4 Eos # (Auto) 0.1 Baso # (Auto) 0.1 Immature Gran # (Auto) 0.02 H Absolute Nucleated RBC 0.00 Immature Gran % 0 Nucleated RBC % 0 PT 13.0 H INR 1.2 APTT Sodium 139 Potassium 3.9 Chloride 103 Carbon Dioxide 24.2 Anion Gap 12 BUN 90 H Creatinine 3.9 H Estim Creat Clear Calc Not Performed. eGFR 12 L* BUN/Creatinine Ratio 23 H Glucose 60 L Calculated Osmolality 303 H Calcium 7.0 L Corrected Calcium 7.9 L Phosphorus 9.2 H Magnesium 2.1 Total Bilirubin 0.2 L AST 13 ALT 9 L Alkaline Phosphatase 128 H Ammonia Lactate Dehydrogenase Troponin I 0.338 H* 0.292 H* B-Natriuretic Peptide Total Protein 6.4 Albumin 2.9 L Globulin 3.5 Albumin/Globulin Ratio 0.8 L Triglycerides 125 Cholesterol 118 L LDL Cholesterol, Calc 40 HDL Cholesterol 53 Cholesterol/HDL Ratio 2.2 L TSH 65.52 H* D Free T4 0.55 L Ur Collection Type Urine Color Urine Clarity Urine pH Ur Specific [place] Urine Protein Urine Glucose (UA) Urine Ketones Urine Blood Urine Nitrite Urine Bilirubin Urine Urobilinogen (Auto) Ur Leukocyte Esterase Urine RBC Urine WBC Ur Squamous Epith Cells Urine Bacteria Hyaline Casts U Random Total Protein Ur Random Sodium Ur Random Urea Nitrogn Urine Opiates Screen Urine Fentanyl Screen Ur Barbiturates Screen U Amphetamin/Meth Scrn U Benzodiazepines Scrn U Cocaine Metab Screen U Marijuana (THC) Screen Hepatitis A IgM Ab Hep Bs Antigen Hep B Core IgM Ab Hepatitis C Antibody Quality Measures Quality Measures none Advance care planning discussed with:: patient Assessment & Plan Assessment Current Active Medications: Generic Name Dose Route Start Last Admin Trade Name Freq PRN Reason Stop Dose Admin Acetaminophen 650 mg 03/25/24 16:46 Acetaminophen Supp 650 Mg Supp MI 04/24/24 16:45 Q6HR PRN pain and Fever > 100.4 Albuterol/Ipratropium 3 ml 03/26/24 11:00 03/26/24 10:48 Albuterol/Ipratropium (Duoneb) Rt Katrin 3 Ml Nebu INH 04/25/24 10:59 3 ml Q4HRRT LUCI Administration Aspirin 81 mg 03/26/24 09:30 03/26/24 10:30 Aspirin Ec 81 Mg Tabec PO 04/25/24 09:29 81 mg QDAY LUCI Administration Atorvastatin Calcium 40 mg 03/26/24 21:00 Atorvastatin Calcium 20 Mg Tablet PO 04/25/24 20:59 HS LUCI Dextrose 25 ml 03/25/24 16:46 03/26/24 05:26 Dextrose 50%-Water Inj 50 Ml Syringe IV 04/24/24 16:45 25 ml Q15MIN PRN Administration BG 50-70 responsive npo pt Dextrose 50 ml 03/25/24 16:46 Dextrose 50%-Water Inj 50 Ml Syringe IV 04/24/24 16:45 Q15MIN PRN BG <50 OR BG <70 & pt unresponsive Furosemide 40 mg 03/25/24 18:00 03/26/24 05:43 Furosemide Inj 10 Mg/Ml 4ml Vial IVP 04/24/24 17:59 40 mg BIDD LUCI Administration Glucagon 1 mg 03/25/24 16:46 Glucagon Inj 1 Mg Vial IM Q15MIN PRN BG <70, and no IV access Insulin Human Lispro 0 unit 03/26/24 00:00 03/26/24 11:35 Insulin Lispro (Admelog) 1 Unit/0.01 Ml Unit SC 04/25/24 00:00 Not Given Q6HR LUCI Protocol Levothyroxine Sodium 75 mcg 03/26/24 09:00 03/26/24 10:28 Levothyroxine Inj 100 Mcg Vial IV 04/25/24 08:59 75 mcg ACBR LUCI Administration Liothyronine Sodium 5 mcg 03/26/24 21:00 Liothyronine Inj 10 Mcg /Ml Vial (Non-Formulary) IV 04/25/24 20:59 BID LUCI Ondansetron HCl 4 mg 03/25/24 16:46 Ondansetron Inj 2 Mg/Ml Inj 2 Ml IV 04/24/24 16:45 Q6H PRN NAUSEA OR VOMITING Protocol Pantoprazole Sodium 40 mg 03/26/24 09:00 03/26/24 10:30 Pantoprazole Inj 40 Mg Vial IV 04/25/24 08:59 40 mg QDAY LUCI Administration Sevelamer Carbonate 800 mg 03/26/24 12:00 Sevelamer Carbonate 800 Mg Tablet PO 04/25/24 11:59 TIDWM LUCI Plan 68-year-old female with past medical history of CKD stage IV previously on hemodialysis (), DM2, HFpEF (50 to 55% on 02/2024), hypertension, hyperlipidemia, hypothyroidism, anemia of chronic disease, and liver abscess status post drainage was admitted to the hospital on 03/25/2024 due to acute encephalopathy likely secondary to uremia in the setting of renal failure versus acute ischemic stroke. #Acute encephalopathy #Acute ischemic stroke #Uremia #IBRAHIMA on CKD ?Patient came in altered for the past 2 days with decreased communication with her family and not following instructions. ? Patient refused hemodialysis on the of last month as per daughter. ? DDx altered mental status secondary to uremia in the setting of renal failure versus acute ischemic stroke. ? GCS of 9 on assessment ? BUN 89 and creatinine 4.1 on admission, baseline is creatinine of 1.6-1.7 and BUN in the 40s ? Head CT showed early acute infarcts in both cerebellar hemispheres ?Chest CTA was unremarkable ?Stroke alert was not initiated in the ED Plan: ? Aspirin 81 qday and atorvastatin 40 HS ? EEG ordered _MRI stroke ordered as well as echo ? Neurochecks every 4 ?Hemodialysis tomorrow most likely ? Seizure precautions ? Jacobo inserted ?Aspiration precautions - Referred to speech and physical therapy ? Teleneurology consulted, appreciate recommendations ? Neurology consulted, appreciate commendations - Nephrology Consulted, Appreciate recs #Acute decompensated heart failure exacerbation #HFpEF (50 to 55% on 02/2024) ?Patient had 1+ pitting edema initially ? BNP 611 ? Last echo on 02/2024 showed an EF of 50 to 55% ? Patient was recently seen in the ER on 03/20/2024 due to heart failure exacerbation Plan: ? Lasix 40 twice daily -echo pending ? Strict MERRY's ? Daily weights ? Fluid restrictions ? Will continue monitor - Likely Hemodialysis #NSTEMI, likely type II demand ischemia ? Troponins 0.399 and downtrended ? EKG did not show any ST changes ?Likely in the setting of possible CHF exacerbation and renal failure Plan: ? Will continue to monitor #Hypocalcemia ? Patient's calcium 7.9 corrected today Plan: ? Calcium 650 mg x 1 ? Will continue to monitor #Anemia of chronic disease ? Patient hemoglobin 8.6 today and a baseline is around 8-9. ? On last admission vitamin B12 levels were normal, iron and ferritin were normal ? Most likely in the setting of chronic kidney disease and heart failure Plan: ? Will transfuse hemoglobin less than 7 ? Will continue to monitor #Hypoalbuminemia ?Patient's albumin 2.9 today Plan: ? Will monitor for now #DM2 ? A1c on 02/2024 was 7.8 Plan: ? Blood glucose every 6 hours ? ISS ? Hypoglycemia protocol ordered #Hypothyroidism #Myxedema coma? ? TSH 65.52 and free T4 0.55 ?Patient has been hypoglycemic and her heart rate has been in the 60s to high 50s as well as her altered mental status this raises high suspicion for myxedema coma as her TSH was extremely high with very low T4. Plan: ? IV levothyroxine 25 mcg daily ? IV liothyronine bolus of 10 mcg x 1 followed with 5 mcg IV twice daily. 0Hydrocortisone 100mg IV x1 ?Will continue to monitor #Hx of hypertension #Hx of hyperlipidemia ? Blood pressure has been stable therefore we will hold off on antihypertensive medication for now as allowing permissive HTN ? Will start atorvastatin Disposition: Patient pending EEG and HD cath insertion, continue IV levothyroxine and liothyrin Diet: Renal/Carb cons/Cardiac/dysphagia 1 GI prophylaxis: not indicated DVT prophylaxis: SCDs Code:Full code Case disclosed with Attending Dr. Colon and My senior Dr. Cox PGY3. Domenico Ferro PGY1 Attending Provider Attestation/Addendum I have discussed and was present for the essential components of the history, physical examination, diagnosis, and treatment plan with the resident. I agree with the patient's care as documented by the resident and amended herein by me. Eitan Colon, DO. Patient seen and evaluated this AM. Vital signs stable, patient afebrile overnight, I's and O's 650/650, mentation is improved today, patient ANO x 2, more awake and alert. Tropes have downtrended, CBC significant for a hemoglobin of 8.6, BUN 90, creatinine 3.9. TSH 65, FT4 0.55, CTA head and neck unremarkable, previous CT head demonstrating possible cerebellar infarct. MRI brain taken which was suspicious for a 7 mm acute infarct in the right parietal lobe. Nephrology consulted, patient will need hemodialysis however we cannot get the TDC placed today as there is no interventional radiology. Will get that line placed tomorrow, hemodialysis will be scheduled for tomorrow, Dr Mcclendon onboard. We did place the patient on IV levothyroxine and liothyronine as there was a suspicion of myxedema however the patient can be transition back to oral levothyroxine tomorrow. Neurology was also consulted, appreciate recommendations, patient started on aspirin 81 mg daily, atorvastatin, is presently on Lasix 40 mg IV twice daily, levothyroxine 75 mcg IV. Will continue monitor closely. Although this document has been carefully reviewed, there may still be some phonetic and other typographical errors. These errors are purely grammatical due to imperfections in the software program and should not be construed in any way to compromise the substance of the patient's medical care during this visit.
[2024-03-26] MEDS: SEVELAMER CARBONATE 800 MG TABLET PO ×2 (11:59→17:23)
[2024-03-26] MEDS: HYDROCORTISONE SOD SUCC INJ 100 MG VIAL IV (12:00)
[2024-03-26] MEDS: LIDOCAINE 5% 1 PATCH TOP (12:01)
--- NOTE | 2024-03-26 15:57 | PC.SS ---
Rounding: Pt will be a new HD pt of Dr. Mcclendon, SS infoirmed team of all labs and PPD needed
--- NOTE | 2024-03-26 20:29 | PC.NURSE ---
went into patient room, upon assessing patient was not responding and lethargic compared to 30 minutes before where patient was following commands, asking for food and to be repositioned while family at bedside, checked a blood sugar which came back to 111. vital signs stable. Dr Fox was on the floor during the time and assessed the patient, patient still lethargic and not responding. patient was moved/shaked and slowly started responding, then became alert and oriented asking to be repositioned. no new orders were given.
[2024-03-26] MEDS: ATORVASTATIN CALCIUM 20 MG TABLET 40 MG PO (21:26)
[2024-03-26] MEDS: HEPARIN SOD INJ 5000 UNIT/ML VIAL SC (21:26)
--- NOTE | 2024-03-26 22:48 | ECHO_ITS ---
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 LV Ejection Fraction MOD 4C 63.3 % LV Cardiac Index MOD 4C 2742.3 cm?/min?m? LV Ejection Fraction 4C AL 65.6 % LV Cardiac Index 4C AL 2998.1 cm?/min?m? LV Ejection Fraction MOD 2C 70.7 % LV Cardiac Index MOD 2C 3393.7 cm?/min?m? LV Ejection Fraction 2C AL 72.0 % LV Cardiac Index 2C AL 3559.8 cm?/min?m? LA Volume Index 49.1 cm?/m? 16 - 28 cm?/m? Ascending Aorta Diameter 3.4 cm DOPPLER AV Peak Velocity 159.0 cm/s AV Peak Gradient 10.1 mmHg AV Mean Gradient 4.0 mmHg AV Velocity Time Integral 31.5 cm AI Peak Velocity 373.5 cm/s AI Peak Gradient 55.8 mmHg AI Pressure Half Time 421.0 ms LVOT Peak Velocity 108.0 cm/s LVOT Peak Gradient 4.7 mmHg LVOT Velocity Time Integral 31.2 cm LVOT Cardiac Index 3823.5 cm?/min?m? AV Area Cont Eq vti 3.1 cm? AV Area Cont Eq pk 2.1 cm? MV Area PHT 2.2 cm? MR Peak Velocity 395.0 cm/s MR Peak Gradient 62.4 mmHg Mitral E Point Velocity 114.0 cm/s Mitral A Point Velocity 96.0 cm/s Mitral E to A Ratio 1.2 LV E' Lateral Velocity 6.2 cm/s Mitral E to LV E' Lateral Ratio 18.4 LV E' Septal Velocity 5.9 cm/s Mitral E to LV E' Septal Ratio 19.4 TR Peak Velocity 309.0 cm/s TR Peak Gradient 38.2 mmHg PV Peak Velocity 125.0 cm/s PV Peak Gradient 6.3 mmHg RVOT Peak Velocity 65.0 cm/s FINDINGS Left Ventricle Normal left ventricular size, wall thickness, systolic function with no obvious regional wall motion abnormalities. There is grade II diastolic dysfunction of the left ventricle (pseudonormal filling pattern). The left ventricular ejection fraction is normal, estimated at 60-65%. Right Ventricle The right ventricle is normal in size and systolic function. Estimated right ventricular systolic pressure is moderately elevated, 45 mmHg. Left Atrium The left atrial cavity size is mildly increased. Right Atrium The right atrial cavity size is mildly increased. Atrial Septum The interatrial septum is normal to color flow Doppler and agitated saline imaging. Aorta The aorta is normal by two-dimensional, color flow and Doppler interrogation. Mitral Valve Moderate mitral regurgitation. Mitral annular calcification. Aortic Valve Aortic valve sclerosis. Mild aortic valve regurgitation. Tricuspid Valve There is moderate tricuspid regurgitation. Pulmonic Valve Mild pulmonic valve regurgitation. Vessels The pulmonary artery appears normal. The inferior vena cava pulmonary and hepatic veins appear normal. Pericardium The pericardium is normal by two-dimensional imaging. There is no significant pericardial effusion. CONCLUSIONS indication: stroke; bubble study LV appears normal with EF of 55-60%. Diastolic syafunction II RV appears normal with elevated RVSP of 45 mmHg LA is mildly increased in size IAS is normal to color flow Doppler and agitated saline imaging. negative bubble study Mitral valve thickened with mild mitral regurgitation Mild aortic egurgitation Mild tp moderate TR Sharonda Seo (Electronically Signed) Final Date: 30 March 2024 10:02
[2024-03-27] VITALS (32 sets, daily range): BP systolic 105–134; BP diastolic 48–65; PULSE 57–94; RESP 12–25; TEMP 35.9–36.7; O2SAT 92–100; BMI 30.2
--- NOTE | 2024-03-27 | XR_ITS ---
Ultrasound-guided needle placement left Permanent tunneled dialysis catheter insertion, percutaneous Fluoroscopy AP chest, portable, March 27, 2024 1003 hours INDICATIONS: Renal failure, need for stat and long-term dialysis Date and time of procedure: March 27, 2024 1003 hours Informed consent provided Technique: A timeout was completed verifying correct patient, procedure, site, positioning, and special equipment if applicable. The patient was placed in a dependent position appropriate for dialysis catheter placement based on the vein to be cannulated. The patient'sleft neck was prepped and draped in sterile fashion. Maximum Sterile Barrier Technique used including cap, mask, sterile gown, sterile gloves, and sterile full body drape. If ultrasound technique used: sterile gel and sterile probe covers. Hand Hygiene performed using proper scrub, soap and water, or alcohol-based hand rub. 1% lidocaine was used to anesthetize the surrounding skin area The [employer] portable ultrasound apparatus utilized to confirm patency of the left internal jugular vein Utilizing ultrasonographic guidance successful 21-gauge needle puncture into the left internal jugular vein Ultrasound images were recorded and stored. Vessel micropuncture was performed with 21-gauge needle. 0.18 wire guide is introduced into the vein. 0.18 wire is introduced into the vena cava under fluoroscopy. Subcutaneous tunnel formed in the upper chest. Permanent tunneled dialysis catheter placed in the subcutaneous tunnel. Dilators were introduced over the J-wire guide. Tunneled dialysis catheter is introduced through a dilator with venous sheath into the superior vena cava under fluoroscopic guidance. The catheter is sutured in place to the skin and a sterile dressing applied. Perfusion to the extremity distal to the point of catheter insertion is checked and found to be adequate Attending radiologist was present for the entire procedure Estimated blood loss2 cc. The patient tolerated the procedure well and there were no complications Impression: Successful ultrasound-guided needle placement left internal jugular vein Successful permanent tunneled dialysis catheter insertion, percutaneous Fluoroscopy 1.0 minute radiation dose 8.04 milligray 1 spot fluoroscopic chest film. AP chest performed at completion procedure demonstrates satisfactory position dialysis catheter. May use dialysis catheter.
--- NOTE | 2024-03-27 00:01 | PD.NEUROPROG ---
Documentation for date of: 03/27/24 Subjective Subjective Interval history: Patient was seen in telemetry today. She is intermittently confused, but able to answer questions. Exam - Neurology Vital Signs Temp Pulse Resp BP Pulse Ox O2 Del Method O2 Flow Rate 97.7 F 71 13 123/56 L 97 Nasal Cannula 2.5 03/26/24 20:00 03/26/24 20:00 03/26/24 20:00 03/26/24 20:00 03/26/24 20:00 03/26/24 20:00 03/26/24 20:00 Narrative Exam GENERAL APPEARANCE: Well hydrated, well-nourished in no acute distress. HEENT: Normocephalic, atraumatic, extraocular movements intact. Pupils: Equal reacting to light and accommodation NECK: Supple, no JVD or bruits. CARDIOVASULAR: Heart: S1, S2 heard, regular without S3-S4 or murmur no rubs or gallops. LUNGS/CHEST: Clear to auscultation bilaterally. No rails, rhonchi, or wheezing. Normal inspection. ABDOMEN: Soft, nontender, with normal bowel sounds. No pulsatile masses. No rebound, rigidity, or guarding. Normal inspection and palpation. EXTREMITIES: Normal inspection and palpation. No edema, clubbing or cyanosis. SKIN: Warm and dry without rashes. Normal inspection. MUSCULOSKELETAL: No cervical, thoracic, lumbar or midline bony tenderness. Normal inspection. NEURO: Alert, awake and oriented x2. Cranial nerves: II through XII grossly intact. Speech and language: Normal with no dysarthria or dysphasia. Motor system: Tone and bulk: Normal: Strength: moves all 4 extremities; No pronator drift noted. Deep tendon reflexes: 1+ bilaterally symmetrical. Plantar reflex: Downgoing bilaterally. Sensory system: Intact to pinprick sensation bilaterally. Coordination: Intact to [id number]-[id number] and ipeq-[id number]-mqqo test bilaterally. She has significant asterixis, intention tremors in both upper extremities. Gait: Cannot be tested. No signs of meningeal irritation noted. PSYCHIATRIC: Normal mood and affect. Objective Labs 03/29/24 05:52 03/29/24 05:52 Labs: Laboratory Results - last 24 hr 03/25/24 03/26/24 23:00 05:05 WBC 5.1 RBC 2.67 L Hgb 8.6 L Hct 28.5 L MCV 107 H MCH 32.2 MCHC 30.2 L RDW Std Deviation 61.5 H Plt Count 185 Neut % (Auto) 66 Lymph % (Auto) 24 [place]ff[place] % (Auto) 8 Eos % (Auto) 2 Baso % (Auto) 1 Neut # (Auto) 3.4 Lymph # (Auto) 1.2 [place]ffie # (Auto) 0.4 Eos # (Auto) 0.1 Baso # (Auto) 0.1 Immature Gran # (Auto) 0.02 H Absolute Nucleated RBC 0.00 Immature Gran % 0 Nucleated RBC % 0 PT 13.0 H INR 1.2 Sodium 139 Potassium 3.9 Chloride 103 Carbon Dioxide 24.2 Anion Gap 12 BUN 90 H Creatinine 3.9 H Estim Creat Clear Calc Not Performed. eGFR 12 L* BUN/Creatinine Ratio 23 H Glucose 60 L Calculated Osmolality 303 H Calcium 7.0 L Corrected Calcium 7.9 L Phosphorus 9.2 H Magnesium 2.1 Total Bilirubin 0.2 L AST 13 ALT 9 L Alkaline Phosphatase 128 H Troponin I 0.292 H* Total Protein 6.4 Albumin 2.9 L Globulin 3.5 Albumin/Globulin Ratio 0.8 L Triglycerides 125 Cholesterol 118 L LDL Cholesterol, Calc 40 HDL Cholesterol 53 Cholesterol/HDL Ratio 2.2 L TSH 65.52 H* D Free T4 0.55 L Assessment & Plan Assessment and plan (1) Altered mental state: Status: Acute Assessment and plan: Improving, close to baseline, answering questions appropriately. (2) Acute CVA (cerebrovascular accident): Status: Acute Assessment and plan: MRI brain showed tiny infarct in the right parietal lobe with a possible positive ADC map, I do not think it is causing any symptoms in her. I have lowered the dose of the gabapentin to 300 mg twice a day to see if the myoclonic jerks get better. Continue with aspirin and statin and keep the blood pressure and diabetes under control. (3) End-stage renal disease (ESRD): Status: Chronic Assessment and plan: On dialysis (4) Diabetes: Status: Chronic Assessment and plan: Checking fingerstick glucose and follow sliding scale insulin per protocol
[2024-03-27] MEDS: ALBUTEROL/IPRATROPIUM (Duoneb) RT SOL 3 ML NEBU INH ×4 (02:40→22:30)
[2024-03-27 05:26] LABS: Basophils % (Auto) 0 % (0-2.5); Eosinophils % (Auto) 0 % (0-10); Hematocrit 27.7 % (36.0-46.0); Immature Granulocytes % (Auto) 1 % (0-0); Immature Granulocytes Auto 0.03 Thou/mm3 (0.00-0.00); Lymphocytes # (Auto) 0.7 Thou/mm3 (1.0-4.8); Lymphocytes % (Auto) 17 % (10-50); Mean Corpuscular Hemoglobin 33.3 pg (25.0-35.0); Mean Corpuscular Volume 107 fL (80-100); Monocytes # (Auto) 0.3 Thou/mm3 (0.0-0.8); Monocytes % (Auto) 6 % (0-12); Neutrophils # (Auto) 3.2 Thou/mm3 (1.8-7.7); Neutrophils % (Auto) 76 % (37-80); Nucleated Red Blood Cell # 0.02 Thou/mm3 (0.00-0.00); Nucleated Red Blood Cell % 1 /100 WBC (0); Platelet Count 157 Thou/mm3 (140-440); RDW Standard Deviation 60.4 fL (36.4-46.3); Red Blood Count 2.58 Miln/mm3 (4.00-5.20); White Blood Count 4.2 Thou/mm3 (3.6-11.0)
[2024-03-27 05:41] LABS: Hemoglobin 8.6 g/dL (12.0-16.0)
[2024-03-27 05:42] LABS: INR 1.2 (0.9-1.3)
[2024-03-27] MEDS: HEPARIN SOD INJ 5000 UNIT/ML VIAL SC ×3 (05:44→21:37)
[2024-03-27] MEDS: LEVOTHYROXINE INJ 100 mCg VIAL 75 MCG IV (05:44)
[2024-03-27 06:01] LABS: Alanine Aminotransferase < 7 U/L (10-49); Albumin/Globulin Ratio 0.8 (1.2-2.2); Alkaline Phosphatase 127 U/L (46-116); Anion Gap 13 (7-16); Aspartate Amino Transferase 11 U/L (0-34); BUN/Creatinine Ratio 22 Ratio (12-20); Bilirubin,Total 0.2 mg/dL (0.3-1.2); Blood Urea Nitrogen 94 mg/dL (9-23); Calcium 7.3 mg/dL (8.3-10.6); Calcium (Corrected) 8.1 mg/dL (8.5-10.1); Carbon Dioxide 24.8 mMol/L (20.0-31.0); Chloride 102 mMol/L (98-107); Creatinine (Component) 4.2 mg/dL (0.6-1.3); Globulin 3.6 gm/dL (2.3-3.5); Glucose 94 mg/dL (74-106); Magnesium 2.1 mg/dL (1.6-2.6); Osmolality,Calculated 308 (275-295); Potassium 4.2 mMol/L (3.4-5.1); Sodium 140 mMol/L (136-145); Total Protein 6.6 gm/dL (5.7-8.2); eGFR 11 See Note
[2024-03-27 06:10] LABS: Phosphorous 10.4 mg/dL (2.4-5.1)
[2024-03-27] MEDS: GABAPENTIN 300 MG CAPSULE PO ×2 (08:48→21:37)
[2024-03-27] MEDS: SEVELAMER CARBONATE 800 MG TABLET PO ×3 (08:48→17:24)
[2024-03-27] MEDS: ASPIRIN EC 81 MG TABEC PO (08:48)
[2024-03-27] MEDS: PANTOPRAZOLE INJ 40 MG VIAL IV (08:49)
--- NOTE | 2024-03-27 09:29 | PC.NURSE ---
Patient transported to [facility] via una Tucker CNA.
[2024-03-27] MEDS: HEPARIN SOD LOCK SYR 100 UNIT/ML 500 UNIT STFIELD (10:45)
--- NOTE | 2024-03-27 10:53 | ESPR_ITS ---
<Statement entered by Patricia Cox MD - 03/27/24 15:48> I discussed with and supervised my co-resident involved in the care of this patient. I agree with the assessment and plan as documented above. Patient seen at bedside this morning. She is more awake, alert, complaining of pain on her legs and back. Mentation dutton, patient improving. Neurology saw patient and decreased her gabapentin to half. MRI showed a 7mm stroke in the right parietal lobe. Will continue her on aspirin and statin. Regarding her IBRAHIMA on CKD, patient to have tunneled catheter placed today and to have her first dialysis session today. Patient will need 3 inpatient dialysis sessions. Will touch base with case management on preparing patient for outpatient dialysis. PPD and hepatitis panel have been ordered. Nephrology following. Regarding her severe hypothyroidism, will check T4 tomorrow for appropriate improvement. Plan to transition patient from IV levothyroxine to oral prior to discharge. Patricia Cox MD PGY-3 Documentation for date of: 03/27/24 Subjective Subjective Interval history: Patient was seen at bedside this morning. No overnight events. Patient's MRI did come back as showing acute infarct in right parietal lobe. Patient was AO x 3 today and there was significant improvement in the patient's mental status and physical activity. Neurology saw the patient and started the patient on gabapentin 300 twice daily which is of lower dose and when she gets at home. Patient will get hemodialysis catheter today as well to start hemodialysis in the hospital. No other complaints at this time. Exam Vital Signs Temp Pulse Resp BP Pulse Ox O2 Del Method O2 Flow Rate 98.0 F 65 18 105/56 L 95 Room Air 1 03/27/24 09:38 03/27/24 08:00 03/27/24 09:38 03/27/24 09:38 03/27/24 09:38 03/27/24 09:38 03/27/24 08:00 Narrative Exam General: More awake and alert, A/O x 3 today. Eyes: ENRIQUE pupils were reactive to light, able to trace, vision intact Ears: No visible ear discharge, hearing intact Nose: No visible nasal discharge. Mouth/Throat: Dry mucous membranes, poor dentition, no redness, no lesions. Neck: Neck supple,no cervical lymphadenopathy. Lungs: Clear ENRIQUE, No accessory muscle use. Cardio: Normal S1/S2, regular rhythm, no murmurs, no JVD Abdomen: Soft, but distended, no palpable masses, peristalsis present, well- healed scar on the right side abdomen Extremities: Symmetrical, no significant deformities, 1+ peripheral edema, peripheral pulses presents. Skin: No rashes, no lesions, warm to touch. Neuro: Strength ENRIQUE UE and LE 3/5, able to follow commands, A/O x3. Objective Labs 03/28/24 04:30 03/28/24 04:30 Labs: Laboratory Results - last 24 hr 03/27/24 04:28 WBC 4.2 RBC 2.58 L Hgb 8.6 L Hct 27.7 L MCV 107 H MCH 33.3 MCHC 31.0 RDW Std Deviation 60.4 H Plt Count 157 Neut % (Auto) 76 Lymph % (Auto) 17 [place] % (Auto) 6 Eos % (Auto) 0 Baso % (Auto) 0 Neut # (Auto) 3.2 Lymph # (Auto) 0.7 L [place] # (Auto) 0.3 Eos # (Auto) 0.0 Baso # (Auto) 0.0 Immature Gran # (Auto) 0.03 H Absolute Nucleated RBC 0.02 H Immature Gran % 1 H Nucleated RBC % 1 H PT 13.0 H INR 1.2 Sodium 140 Potassium 4.2 Chloride 102 Carbon Dioxide 24.8 Anion Gap 13 BUN 94 H Creatinine 4.2 H* Estim Creat Clear Calc Not Performed. eGFR 11 L* BUN/Creatinine Ratio 22 H Glucose 94 D Calculated Osmolality 308 H Calcium 7.3 L Corrected Calcium 8.1 L Phosphorus 10.4 H Magnesium 2.1 Total Bilirubin 0.2 L AST 11 ALT < 7 L Alkaline Phosphatase 127 H Total Protein 6.6 Albumin 3.0 L Globulin 3.6 H Albumin/Globulin Ratio 0.8 L Quality Measures Quality Measures none Advance care planning discussed with:: patient Assessment & Plan Assessment Current Active Medications: Generic Name Dose Route Start Last Admin Trade Name Freq PRN Reason Stop Dose Admin Acetaminophen 650 mg 03/25/24 16:46 Acetaminophen Supp 650 Mg Supp ID 04/24/24 16:45 Q6HR PRN pain and Fever > 100.4 Albuterol/Ipratropium 3 ml 03/26/24 11:00 03/27/24 08:19 Albuterol/Ipratropium (Duoneb) Rt Katrin 3 Ml Nebu INH 04/25/24 10:59 Not Given Q4HRRT LUCI Aspirin 81 mg 03/26/24 09:30 03/27/24 08:48 Aspirin Ec 81 Mg Tabec PO 04/25/24 09:29 81 mg QDAY LUCI Administration Atorvastatin Calcium 40 mg 03/26/24 21:00 03/26/24 21:26 Atorvastatin Calcium 20 Mg Tablet PO 04/25/24 20:59 40 mg HS LUCI Administration Dextrose 25 ml 03/25/24 16:46 03/26/24 05:26 Dextrose 50%-Water Inj 50 Ml Syringe IV 04/24/24 16:45 25 ml Q15MIN PRN Administration BG 50-70 responsive npo pt Dextrose 50 ml 03/25/24 16:46 Dextrose 50%-Water Inj 50 Ml Syringe IV 04/24/24 16:45 Q15MIN PRN BG <50 OR BG <70 & pt unresponsive Epoetin Vamsi 10,000 unit 03/27/24 11:00 Epoetin Vamsi-Epbx Inj 10,000 Unit/Ml Vial (Non-Esrd) SC 03/27/24 11:01 X1 ONE Furosemide 40 mg 03/25/24 18:00 03/27/24 05:37 Furosemide Inj 10 Mg/Ml 4ml Vial IVP 04/24/24 17:59 Not Given BIDD LUCI Gabapentin 300 mg 03/27/24 09:00 03/27/24 08:48 Gabapentin 300 Mg Capsule PO 04/26/24 08:59 300 mg BID LUCI Administration Glucagon 1 mg 03/25/24 16:46 Glucagon Inj 1 Mg Vial IM Q15MIN PRN BG <70, and no IV access Heparin Sodium (Porcine) 5,000 unit 03/26/24 22:00 03/27/24 05:44 Heparin Sod Inj 5000 Unit/Ml Vial SC 04/09/24 21:59 5,000 unit Q8HR LUCI Administration Insulin Human Lispro 0 unit 03/26/24 17:00 03/27/24 07:12 Insulin Lispro (Admelog) 1 Unit/0.01 Ml Unit SC 04/25/24 16:59 Not Given ACHS [facility] Protocol Levothyroxine Sodium 75 mcg 03/26/24 09:00 03/27/24 05:44 Levothyroxine Inj 100 Mcg Vial IV 04/25/24 08:59 75 mcg ACBR LUCI Administration Ondansetron HCl 4 mg 03/25/24 16:46 Ondansetron Inj 2 Mg/Ml Inj 2 Ml IV 04/24/24 16:45 Q6H PRN NAUSEA OR VOMITING Protocol Pantoprazole Sodium 40 mg 03/26/24 09:00 03/27/24 08:49 Pantoprazole Inj 40 Mg Vial IV 04/25/24 08:59 40 mg QDAY LUCI Administration Sevelamer Carbonate 800 mg 03/26/24 12:00 03/27/24 08:48 Sevelamer Carbonate 800 Mg Tablet PO 04/25/24 11:59 800 mg TIDWM LUCI Administration Plan 68-year-old female with past medical history of CKD stage IV previously on hemodialysis (), DM2, HFpEF (50 to 55% on 02/2024), hypertension, hyperlipidemia, hypothyroidism, anemia of chronic disease, and liver abscess status post drainage was admitted to the hospital on 03/25/2024 due to acute encephalopathy likely secondary to uremia in the setting of renal failure versus acute ischemic stroke. #Acute encephalopathy #Acute ischemic stroke, R parietal #Uremia #IBRAHIMA on CKD ?Patient came in altered for the past 2 days with decreased communication with her family and not following instructions. ? Patient refused hemodialysis on the of last month as per daughter. ? DDx altered mental status secondary to uremia in the setting of renal failure versus acute ischemic stroke. ? GCS of 9 on assessment ? BUN 89 and creatinine 4.1 on admission, baseline is creatinine of 1.6-1.7 and BUN in the 40s ? Head CT showed early acute infarcts in both cerebellar hemispheres ?Chest CTA was unremarkable ?Stroke alert was not initiated in the ED - MRI showed acute infarct of R parietal lobe Plan: ? Aspirin 81 qday and atorvastatin 40 HS -Gabapentin 300mg BID ? EEG ordered ? Neurochecks every 4 ? Hemodialysis cath placement today and possible HD today ? Seizure precautions ? Jacobo inserted ?Aspiration precautions - Referred to speech and physical therapy ? Teleneurology consulted, appreciate recommendations ? Neurology consulted, appreciate commendations - Nephrology Consulted, Appreciate recs #Acute decompensated heart failure exacerbation #HFpEF (50 to 55% on 02/2024) ?Patient had 1+ pitting edema initially ? BNP 611 ? Last echo on 02/2024 showed an EF of 50 to 55% ? Patient was recently seen in the ER on 03/20/2024 due to heart failure exacerbation Plan: ? Lasix 40 twice daily - echo pending ? Strict MERRY's ? Daily weights ? Fluid restrictions ? Will continue monitor - Likely Hemodialysis #NSTEMI, likely type II demand ischemia ? Troponins 0.399 and downtrended ? EKG did not show any ST changes ?Likely in the setting of possible CHF exacerbation and renal failure Plan: ? Will continue to monitor #Hypocalcemia ? Patient's calcium 8.1 corrected today Plan: ? Will continue to monitor #Anemia of chronic disease ? Patient hemoglobin 8.6 today and a baseline is around 8-9. ? On last admission vitamin B12 levels were normal, iron and ferritin were normal ? Most likely in the setting of chronic kidney disease and heart failure Plan: ? Will transfuse hemoglobin less than 7 ? Will continue to monitor #Hypoalbuminemia ?Patient's albumin 3 today Plan: ? Will monitor for now #DM2 ? A1c on 02/2024 was 7.8 Plan: ? Blood glucose every 6 hours ? ISS ? Hypoglycemia protocol ordered #Hypothyroidism #Myxedema coma? ? TSH 65.52 and free T4 0.55 ?Patient has been hypoglycemic and her heart rate has been in the 60s to high 50s as well as her altered mental status this raises high suspicion for myxedema coma as her TSH was extremely high with very low T4. Plan: ? IV levothyroxine 25 mcg daily ? IV liothyronine bolus of 10 mcg x 1 followed with 5 mcg IV twice daily. - T4 for am labs ?Will continue to monitor #Hx of hypertension #Hx of hyperlipidemia ? Blood pressure has been stable therefore we will hold off on antihypertensive medication for now as allowing permissive HTN ? Will continue atorvastatin Disposition: Patient pending EEG and HD, continue IV levothyroxine and liothyrin Diet: Renal/Carb cons/Cardiac/dysphagia 1 GI prophylaxis: protonix DVT prophylaxis: SCDs Code:Full code Case disclosed with Attending Dr. Salgado and My senior Dr. Cox PGY3. Domenico Ferro PGY1 Attending Provider Attestation/Addendum I reviewed labs, imaging, EKG, home medications and prior available records. Face to face evaluation was performed by me. I have personally examined the patient and discussed assessment and plan with the IM team. I reviewed the resident note and agree with the plan with exceptions as below. Acute encephalopathy Right parietal acute CVA History of CVA Uremia ESRD Hemodialysis status Uncontrolled hypothyroidism Chronic HFpEF EF 50 to 55% Her acute encephalopathy is likely multifactorial in the setting of uncontrolled hypothyroidism, uremia, and CVA Follow-up EEG Continue IV levothyroxine. Repeat thyroid function tests Hemodialysis line by IR on 01/24. Dialysis to follow Nephrology consulted and following
[2024-03-27] MEDS: fentaNYL CIT INJ 50 mCg/ML AMP 2ML 25 MCG IVP (11:01)
[2024-03-27] MEDS: LIDOCAINE INJ PF 1% 5 ML VIAL 10 ML INFL (11:02)
--- NOTE | 2024-03-27 11:08 | PC.SS ---
Betty Oliveira is a 68-year-old female admitted to [facility] for Acute Encephalopathy. SS attempted to meet with pt at bedside, pt was out in [employer]. SS in attempt to complete initial spoke to pt dtr, Fermín Oliveira. Role and reason explained to Celia. Demographic information verified with Celia. Surrogate decision maker was identified as pts other daughter Cari Plam [phone]. Celia stated pt requires max assist at home right now, she currently lives with her grandson and her granddaughter has been staying with her to help her with ADLs. DC options discussed and family wishes for pt to get short-term rehab, especially with pt starting HD. Dr. Mcclendon is her travel consultant. PCP is Dr. Santos Tompkins. Preference for SNF is [facility]. Chair time is pending. SS will remain available for any additional needs. DC plan: SNF DM: Cari Rodrigues
--- NOTE | 2024-03-27 11:21 | PC.SS ---
SNF referral submitted via [facility],#1 choice is [facility].
--- NOTE | 2024-03-27 12:00 | PC.NURSE ---
Patient returned from [facility]- Dialysis catheter placed in left IJ by Dr. Bradley.
[2024-03-27] MEDS: CALCIUM CARBONATE 600 MG TABLET PO (12:03)
[2024-03-27] MEDS: HEPARIN SOD INJ 1000 UNIT/ML VIAL 3500 UNIT INDWELLCAT (12:24)
--- NOTE | 2024-03-27 12:27 | PC.SS ---
Addendum entered by Mariaa Presley 03/27/24 16:20: SS follow up note; SS contacted patient's daughter Cari and informed her that most SNF facilities are declining patient, however [facility] and [facility] are considering. SS informed her that [facility] was pending a Female bed and Hussein from [facility] informed SS that she would contact SS if Female bed becomes available. SS will stand by for further needs. Original Note: SS follow up note; SS sent Clinicals to [facility] in [place]. SS contacted Fifi to update her. SS will stand by for further needs.
--- NOTE | 2024-03-27 12:42 | PC.LAC ---
Patient being transported to dialysis.
[2024-03-27] MEDS: EPOETIN ALFA-EPBX INJ 10,000 UNIT/ML VIAL (NON-ESRD) 10000 UNIT SC (14:11)
[2024-03-27 15:08] LABS: Hepatitis B Core Antibody IgM Non Reactive (Non React); Hepatitis B Surface Ab NonReact(Not Immune) (Immune); Hepatitis B Surface Antigen Non Reactive (Non React)
--- NOTE | 2024-03-27 15:28 | PC.NURSE ---
Patient returned from dialysis- 1L removed.
[2024-03-27] MEDS: HEPARIN SOD INJ 1000 UNIT/ML VIAL 10 ML 3500 UNIT INDWELLCAT (15:31)
--- NOTE | 2024-03-27 16:30 | ESPR_ITS ---
Documentation for date of: 03/27/24 Subjective Subjective Interval history: Ms. Oliveira is a 68-year-old lady with past medical history of CKD stage IV , IBRAHIMA due to significant anasarca previously on hemodialysis (-came off dialysis), DM2, HFpEF (50 to 55% on 02/2024), hypertension, hyperlipidemia, hypothyroidism, anemia, and liver abscess status post drainage was recently admitted to the hospital for anasarca and responded to Bumex drip and discharged back to [facility]. She was again admitted to the hospital yesterday with altered mental status. Patient was unresponsive and unable to walk. In the emergency department stroke alert was called due to her altered mental status and weakness. Initial CT showed question early infarct in the cerebellar hemispheres. Due to azotemia renal consultation was requested and primary team requested to do CTA brain to rule out stroke. Apparently patient's daughter stated patient was inclining to do dialysis if needed. In the previous admission patient declined dialysis. Patient did get a CTA brain last night with contrast. Was negative for acute stroke. MRI brain showed a 7 mm right parietal stroke. Patient currently seen in telemetry. No family around. 03/26/2024 patient currently seen in telemetry. Very altered. Labs showed TSH 65.5, lipids normal, albumin 2.9, troponin 0.2, magnesium 2.1, phosphorus 9.2, calcium 7.9, BUN 90, creatinine 3.9, sodium 139, potassium 3.9, bicarbonate 24, hemoglobin 8.6. Patient was supposed to get dialysis-IR closed today due to holiday. Will initiate dialysis tomorrow. 03/27/2024 patient currently seen in telemetry. More alert and awake. Had a long conversation with patient regarding fluid overload, metabolic encephalopathy, acute renal failure and she agreed for dialysis. Patient consented. Had dialysis catheter placed by Dr. Grider and is on dialysis. Blood pressure 121/58, heart rate 61. Hemoglobin 8.6. Sodium 140, potassium 4.2, BUN 94, creatinine 4.2, GFR 11, calcium 8.1, phosphorus 10.4, LFTs normal, albumin 3, hep Review of Systems Review of Systems Narrative Review of Systems: Patient more alert and awake. Denies any chest pain or shortness of breath. Still feeling sleepy. Exam Vital Signs Temp Pulse Resp BP Pulse Ox O2 Del Method O2 Flow Rate 36.7 C 65 18 105/56 L 95 Room Air 1 03/27/24 09:38 03/27/24 08:00 03/27/24 09:38 03/27/24 09:38 03/27/24 09:38 03/27/24 09:38 03/27/24 08:00 Narrative Exam GENERAL APPEARANCE: Patient currently seen in dialysis NECK: Neck supple, no JVD or bruit CARDIOVASCULAR: Heart regular, no murmurs LUNGS/CHEST: Chest clear to auscultation. No rales, rhonchi, wheezing ABDOMEN: Soft, nontender, nondistended. No masses. Normal bowel sounds. EXTREMITIES: 2+ edema especially in the thigh and lower abdominal wall SKIN: Skin exam normal without any rashes. IJ catheter noted MUSCULOSKELETAL: In bed NEUROLOGICAL : Alert and awake Objective Labs 03/27/24 04:28 03/27/24 04:28 Labs: Laboratory Results - last 24 hr 03/27/24 04:28 WBC 4.2 RBC 2.58 L Hgb 8.6 L Hct 27.7 L MCV 107 H MCH 33.3 MCHC 31.0 RDW Std Deviation 60.4 H Plt Count 157 Neut % (Auto) 76 Lymph % (Auto) 17 [place] % (Auto) 6 Eos % (Auto) 0 Baso % (Auto) 0 Neut # (Auto) 3.2 Lymph # (Auto) 0.7 L [place] # (Auto) 0.3 Eos # (Auto) 0.0 Baso # (Auto) 0.0 Immature Gran # (Auto) 0.03 H Absolute Nucleated RBC 0.02 H Immature Gran % 1 H Nucleated RBC % 1 H PT 13.0 H INR 1.2 Sodium 140 Potassium 4.2 Chloride 102 Carbon Dioxide 24.8 Anion Gap 13 BUN 94 H Creatinine 4.2 H* Estim Creat Clear Calc Not Performed. eGFR 11 L* BUN/Creatinine Ratio 22 H Glucose 94 D Calculated Osmolality 308 H Calcium 7.3 L Corrected Calcium 8.1 L Phosphorus 10.4 H Magnesium 2.1 Total Bilirubin 0.2 L AST 11 ALT < 7 L Alkaline Phosphatase 127 H Total Protein 6.6 Albumin 3.0 L Globulin 3.6 H Albumin/Globulin Ratio 0.8 L Assessment & Plan Assessment and plan (1) Altered mental state: Status: Acute (2) Acute CVA (cerebrovascular accident): Status: Acute (3) End-stage renal disease (ESRD): Status: Chronic (4) Diabetes: Status: Chronic Additional Assessment & Plan Additional Plan: Betty Oliveira is a 68-year-old female patient with past medical history of CKD was previously on dialysis, nephrotic syndrome secondary to diabetic nephropathy, hypertension, HFrEF EF of 35 to 45% on October 2023, diabetes mellitus, hyperlipidemia, hypothyroidism, liver abscess status post drainage presented to the hospital with altered mental status and noted to be in acute renal failure. Well-known to me from previous admissions and CKD clinic. Patient has progressed to diabetic nephropathy and was supposed to initiate dialysis last month-patient declined. Apparently last night family requested dialysis and all aggressive measures. CODE STATUS full code. Was referred to the hospital from the adolescent specialist office Dr. Mcclendon when the patient was noticed to be fluid overloaded. Patient was admitted secondary to anasarca. # Acute renal failure secondary to progressive diabetic nephropathy superimposed on advanced CKD anasarca most likely multifactorial secondary to nephrotic syndrome, HFrEF, CKD #Nephrotic syndrome #CKD stage IV--leading towards ESRD # Altered mental status-probably related to small stroke versus metabolic encephalopathy. Decided to proceed with dialysis. Will plan for catheter placement and dialysis in a.m. Hepatitis, PPD ordered. Will give Epogen with dialysis. Neurology on the case. 03/27/[address] Grider. Patient consented for dialysis and catheter. Needs outpatient dialysis arrangements patient currently seen on dialysis. Tolerating dialysis without any problems. Hemodialysis for 2 hours, 2K, ultrafiltration 1 L, Epogen 6000, no heparin ordered. Plan of care discussed with the dialysis nurse. Please see dialysis flowsheet for further details. Next dialysis scheduled for tomorrow. Quality - progress note Quality Measures Quality Measures: VTE prophylaxis Reason for Continued Stay Reason for Continued Stay: further monitoring
[2024-03-27] MEDS: FUROSEMIDE INJ 10 MG/ML 4ML VIAL 40 MG IVP (17:24)
--- NOTE | 2024-03-27 21:34 | PD.VPROG1 ---
Telemedicine visit statement This visit was conducted with the use of phone was obtained on 03/27/24 at 2134. Documentation for date of: 03/27/24 Subjective Subjective Interval history: Patient is in telemetry. Her tremors and myoclonic jerks have significantly reduced, mental status is improving, close to baseline. She did have dialysis today. Virtual exam Vital Signs Temp Pulse Resp BP Pulse Ox O2 Del Method O2 Flow Rate 96.8 F 64 20 134/61 H 99 Nasal Cannula 1 03/27/24 20:00 03/27/24 20:00 03/27/24 20:00 03/27/24 20:00 03/27/24 20:00 03/27/24 20:00 03/27/24 20:00 Objective Labs 03/28/24 04:30 03/27/24 04:28 Labs: Laboratory Results - last 24 hr 03/27/24 03/27/24 04:28 13:48 WBC 4.2 RBC 2.58 L Hgb 8.6 L Hct 27.7 L MCV 107 H MCH 33.3 MCHC 31.0 RDW Std Deviation 60.4 H Plt Count 157 Neut % (Auto) 76 Lymph % (Auto) 17 [place] % (Auto) 6 Eos % (Auto) 0 Baso % (Auto) 0 Neut # (Auto) 3.2 Lymph # (Auto) 0.7 L [place] # (Auto) 0.3 Eos # (Auto) 0.0 Baso # (Auto) 0.0 Immature Gran # (Auto) 0.03 H Absolute Nucleated RBC 0.02 H Immature Gran % 1 H Nucleated RBC % 1 H PT 13.0 H INR 1.2 Sodium 140 Potassium 4.2 Chloride 102 Carbon Dioxide 24.8 Anion Gap 13 BUN 94 H Creatinine 4.2 H* Estim Creat Clear Calc Not Performed. eGFR 11 L* BUN/Creatinine Ratio 22 H Glucose 94 D Calculated Osmolality 308 H Calcium 7.3 L Corrected Calcium 8.1 L Phosphorus 10.4 H Magnesium 2.1 Total Bilirubin 0.2 L AST 11 ALT < 7 L Alkaline Phosphatase 127 H Total Protein 6.6 Albumin 3.0 L Globulin 3.6 H Albumin/Globulin Ratio 0.8 L Hep Bs Antigen Non Reactive Hep Bs Antibody NonReact(Not Immune) L Hep B Core IgM Ab Non Reactive Assessment & Plan Assessment (1) Altered mental state: Improving, back to baseline, answering questions appropriately. (2) Acute CVA (cerebrovascular accident): MRI brain showed tiny infarct in the right parietal lobe with a possible positive ADC map, I do not think it is causing any symptoms in her. I have lowered the dose of the gabapentin to 300 mg twice a day to see if the myoclonic jerks get better. Continue with aspirin and statin and keep the blood pressure and diabetes under control. (3) End-stage renal disease (ESRD): On dialysis (4) Diabetes: Checking fingerstick glucose and follow sliding scale insulin per protocol Goal is to keep the A1c under 7
[2024-03-27] MEDS: ATORVASTATIN CALCIUM 20 MG TABLET 40 MG PO (21:37)
[2024-03-28] VITALS (21 sets, daily range): BP systolic 112–161; BP diastolic 53–72; PULSE 57–71; RESP 12–20; TEMP 35.9–37; O2SAT 96–100; BMI 29.6; BMI 12.0
[2024-03-28] MEDS: ALBUTEROL/IPRATROPIUM (Duoneb) RT SOL 3 ML NEBU INH ×2 (02:30→06:58)
[2024-03-28] MEDS: FUROSEMIDE INJ 10 MG/ML 4ML VIAL 40 MG IVP (05:08)
[2024-03-28] MEDS: LEVOTHYROXINE INJ 100 mCg VIAL 75 MCG IV (05:09)
[2024-03-28] MEDS: HEPARIN SOD INJ 5000 UNIT/ML VIAL SC ×2 (05:09→21:14)
[2024-03-28 05:49] LABS: Basophils % (Auto) 0 % (0-2.5); Eosinophils # (Auto) 0.1 Thou/mm3 (0.0-0.5); Eosinophils % (Auto) 2 % (0-10); Hematocrit 27.3 % (36.0-46.0); Hemoglobin 8.4 g/dL (12.0-16.0); Immature Granulocytes % (Auto) 1 % (0-0); Immature Granulocytes Auto 0.03 Thou/mm3 (0.00-0.00); Lymphocytes # (Auto) 0.9 Thou/mm3 (1.0-4.8); Lymphocytes % (Auto) 18 % (10-50); Mean Corpuscular HGB Conc 30.8 g/dl (31.0-37.0); Mean Corpuscular Hemoglobin 32.8 pg (25.0-35.0); Mean Corpuscular Volume 107 fL (80-100); Monocytes # (Auto) 0.4 Thou/mm3 (0.0-0.8); Monocytes % (Auto) 7 % (0-12); Neutrophils # (Auto) 3.7 Thou/mm3 (1.8-7.7); Neutrophils % (Auto) 73 % (37-80); Nucleated Red Blood Cell % 0 /100 WBC (0); Platelet Count 145 Thou/mm3 (140-440); RDW Standard Deviation 61.8 fL (36.4-46.3); Red Blood Count 2.56 Miln/mm3 (4.00-5.20); White Blood Count 5.1 Thou/mm3 (3.6-11.0)
[2024-03-28 06:31] LABS: Alanine Aminotransferase < 7 U/L (10-49); Albumin/Globulin Ratio 0.9 (1.2-2.2); Alkaline Phosphatase 120 U/L (46-116); Anion Gap 12 (7-16); Aspartate Amino Transferase 12 U/L (0-34); BUN/Creatinine Ratio 21 Ratio (12-20); Bilirubin,Total 0.3 mg/dL (0.3-1.2); Blood Urea Nitrogen 72 mg/dL (9-23); Calcium 7.6 mg/dL (8.3-10.6); Calcium (Corrected) 8.4 mg/dL (8.5-10.1); Carbon Dioxide 26.4 mMol/L (20.0-31.0); Chloride 101 mMol/L (98-107); Creatinine (Component) 3.4 mg/dL (0.6-1.3); Free T4 (Free Thyroxine) 0.64 ng/dL (0.89-1.76); Globulin 3.5 gm/dL (2.3-3.5); Glucose 93 mg/dL (74-106); Magnesium 2.1 mg/dL (1.6-2.6); Osmolality,Calculated 298 (275-295); Potassium 3.9 mMol/L (3.4-5.1); Sodium 139 mMol/L (136-145); Total Protein 6.5 gm/dL (5.7-8.2); eGFR 14 See Note
[2024-03-28 06:51] LABS: Estimated Creatinine Clearance 13.5 mL/min (>60)
[2024-03-28] MEDS: SEVELAMER CARBONATE 800 MG TABLET PO ×3 (07:52→16:41)
[2024-03-28] MEDS: PANTOPRAZOLE INJ 40 MG VIAL IV (08:09)
[2024-03-28] MEDS: ASPIRIN EC 81 MG TABEC PO (08:09)
[2024-03-28] MEDS: GABAPENTIN 300 MG CAPSULE PO (08:09)
--- NOTE | 2024-03-28 08:39 | ESPR_ITS ---
<Statement entered by Patricia Cox MD - 03/28/24 10:56> I discussed with and supervised my co-resident involved in the care of this patient. I agree with the assessment and plan as documented above. Patient seen and examined at bedside. She is awake, alert. Had first session of HD today, second session planned for today. Plan for outpatient HD. Will continue levothyroxine, aspirin, statin, lasix. Patricia Cox MD PGY-3 Documentation for date of: 03/28/24 Subjective Subjective Interval history: Patient was seen at bedside this morning. Patient was AOx3 today and is doing a lot better, but she is still having some myoclonus jerks with significant lower extremity pain. Spoke with her neurologist today to stop gabapentin at this time. Patient did get her first dose of hemodialysis yesterday 03/28/2024. She tolerated this well. She will be going for another hemodialysis section today. Free T40.66 Today. Will continue with IV levothyroxine for now. No other complaints. Exam Vital Signs Temp Pulse Resp BP Pulse Ox O2 Del Method O2 Flow Rate 96.6 F L 58 L 16 118/62 100 Nasal Cannula 1 03/28/24 04:00 03/28/24 06:59 03/28/24 06:59 03/28/24 05:08 03/28/24 06:59 03/28/24 04:00 03/28/24 06:59 Narrative Exam General: Awake and alert, but in pain, A/O x 3 today. Eyes: ENRIQUE pupils were reactive to light, able to trace, vision intact Ears: No visible ear discharge, hearing intact Nose: No visible nasal discharge. Mouth/Throat: Dry mucous membranes, poor dentition, no redness, no lesions. Neck: Neck supple,no cervical lymphadenopathy. Lungs: Clear ENRIQUE, No accessory muscle use. Cardio: Normal S1/S2, regular rhythm, no murmurs, no JVD Abdomen: Soft, but distended, no palpable masses, peristalsis present, well- healed scar on the right side abdomen Extremities: Symmetrical, no significant deformities, trace peripheral edema, peripheral pulses presents, myoclonic jerks in ENRIQUE LE and tremors in ENRIQUE UE. Skin: No rashes, no lesions, warm to touch. Dialysis cath in L upper chest. Neuro: Strength ENRIQUE UE and LE 3/5, able to follow commands, A/O x3. Objective Labs 03/29/24 05:52 03/29/24 05:52 Labs: Laboratory Results - last 24 hr 03/27/24 03/28/24 13:48 04:30 WBC 5.1 RBC 2.56 L Hgb 8.4 L Hct 27.3 L MCV 107 H MCH 32.8 MCHC 30.8 L RDW Std Deviation 61.8 H Plt Count 145 Neut % (Auto) 73 Lymph % (Auto) 18 [place] % (Auto) 7 Eos % (Auto) 2 Baso % (Auto) 0 Neut # (Auto) 3.7 Lymph # (Auto) 0.9 L [place] # (Auto) 0.4 Eos # (Auto) 0.1 Baso # (Auto) 0.0 Immature Gran # (Auto) 0.03 H Absolute Nucleated RBC 0.00 Immature Gran % 1 H Nucleated RBC % 0 Sodium 139 Potassium 3.9 Chloride 101 Carbon Dioxide 26.4 Anion Gap 12 BUN 72 H Creatinine 3.4 H D Estim Creat Clear Calc 13.5 L eGFR 14 L* BUN/Creatinine Ratio 21 H Glucose 93 Calculated Osmolality 298 H Calcium 7.6 L Corrected Calcium 8.4 L Phosphorus 8.0 H Magnesium 2.1 Total Bilirubin 0.3 AST 12 ALT < 7 L Alkaline Phosphatase 120 H Total Protein 6.5 Albumin 3.0 L Globulin 3.5 Albumin/Globulin Ratio 0.9 L Free T4 0.64 L Hep Bs Antigen Non Reactive Hep Bs Antibody NonReact(Not Immune) L Hep B Core IgM Ab Non Reactive Quality Measures Quality Measures none Advance care planning discussed with:: patient Assessment & Plan Assessment Current Active Medications: Generic Name Dose Route Start Last Admin Trade Name Freq PRN Reason Stop Dose Admin Acetaminophen 650 mg 03/25/24 16:46 Acetaminophen Supp 650 Mg Supp PA 04/24/24 16:45 Q6HR PRN pain and Fever > 100.4 Albuterol/Ipratropium 3 ml 03/26/24 11:00 03/28/24 06:58 Albuterol/Ipratropium (Duoneb) Rt Katrin 3 Ml Nebu INH 04/25/24 10:59 3 ml Q4HRRT LUCI Administration Aspirin 81 mg 03/26/24 09:30 03/28/24 08:09 Aspirin Ec 81 Mg Tabec PO 04/25/24 09:29 81 mg QDAY LUCI Administration Atorvastatin Calcium 40 mg 03/26/24 21:00 03/27/24 21:37 Atorvastatin Calcium 20 Mg Tablet PO 04/25/24 20:59 40 mg HS LCUI Administration Dextrose 25 ml 03/25/24 16:46 03/26/24 05:26 Dextrose 50%-Water Inj 50 Ml Syringe IV 04/24/24 16:45 25 ml Q15MIN PRN Administration BG 50-70 responsive npo pt Dextrose 50 ml 03/25/24 16:46 Dextrose 50%-Water Inj 50 Ml Syringe IV 04/24/24 16:45 Q15MIN PRN BG <50 OR BG <70 & pt unresponsive Furosemide 40 mg 03/25/24 18:00 03/28/24 05:08 Furosemide Inj 10 Mg/Ml 4ml Vial IVP 04/24/24 17:59 40 mg BIDD LUCI Administration Glucagon 1 mg 03/25/24 16:46 Glucagon Inj 1 Mg Vial IM Q15MIN PRN BG <70, and no IV access Heparin Sodium (Porcine) 5,000 unit 03/26/24 22:00 03/28/24 05:09 Heparin Sod Inj 5000 Unit/Ml Vial SC 04/09/24 21:59 5,000 unit Q8HR LUCI Administration Heparin Sodium (Porcine) 3,500 unit 03/27/24 14:41 03/27/24 15:31 Heparin Sod Inj 1000 Unit/Ml Vial 10 Ml INDWELLCAT 04/10/24 14:40 3,500 unit PRN PRN Administration DIALYSIS Insulin Human Lispro 0 unit 03/26/24 17:00 03/28/24 07:26 Insulin Lispro (Admelog) 1 Unit/0.01 Ml Unit SC 04/25/24 16:59 Not Given ACHS LUCI Protocol Levothyroxine Sodium 75 mcg 03/26/24 09:00 03/28/24 05:09 Levothyroxine Inj 100 Mcg Vial IV 04/25/24 08:59 75 mcg ACBR LUCI Administration Ondansetron HCl 4 mg 03/25/24 16:46 Ondansetron Inj 2 Mg/Ml Inj 2 Ml IV 04/24/24 16:45 Q6H PRN NAUSEA OR VOMITING Protocol Pantoprazole Sodium 40 mg 03/26/24 09:00 03/28/24 08:09 Pantoprazole Inj 40 Mg Vial IV 04/25/24 08:59 40 mg QDAY LUCI Administration Sevelamer Carbonate 800 mg 03/26/24 12:00 03/28/24 07:52 Sevelamer Carbonate 800 Mg Tablet PO 04/25/24 11:59 800 mg TIDWM LUCI Administration Plan 68-year-old female with past medical history of CKD stage IV previously on hemodialysis (), DM2, HFpEF (50 to 55% on 02/2024), hypertension, hyperlipidemia, hypothyroidism, anemia of chronic disease, and liver abscess status post drainage was admitted to the hospital on 03/25/2024 due to acute encephalopathy likely secondary to uremia in the setting of renal failure versus acute ischemic stroke. #Acute encephalopathy #Acute ischemic stroke, R parietal #Uremia #IBRAHIMA on CKD ?Patient came in altered for the past 2 days with decreased communication with her family and not following instructions. ? Patient refused hemodialysis on the of last month as per daughter. ? DDx altered mental status secondary to uremia in the setting of renal failure versus acute ischemic stroke. ? GCS of 9 on assessment ? BUN 89 and creatinine 4.1 on admission, baseline is creatinine of 1.6-1.7 and BUN in the 40s ? Head CT showed early acute infarcts in both cerebellar hemispheres ?Chest CTA was unremarkable ?Stroke alert was not initiated in the ED - MRI showed acute infarct of R parietal lobe Plan: ? Aspirin 81 qday and atorvastatin 40 HS -Discontinued Gabapentin 300mg BID ? EEG read pending ? Neurochecks every 4 ?Continue HD as scheduled ? Seizure precautions ? Jacobo inserted ?Aspiration precautions - Referred to speech and physical therapy ? Teleneurology consulted, appreciate recommendations ? Neurology consulted, appreciate commendations - Nephrology Consulted, Appreciate recs #Acute decompensated heart failure exacerbation #HFpEF (50 to 55% on 02/2024) ?Patient had 1+ pitting edema initially ? BNP 611 ? Last echo on 02/2024 showed an EF of 50 to 55% ? Patient was recently seen in the ER on 03/20/2024 due to heart failure exacerbation Plan: ? Lasix 40 daily - echo pending ? Strict MERRY's ? Daily weights ? Fluid restrictions ? Will continue monitor - Likely Hemodialysis #NSTEMI, likely type II demand ischemia ? Troponins 0.399 and downtrended ? EKG did not show any ST changes ?Likely in the setting of possible CHF exacerbation and renal failure Plan: ? Will continue to monitor #Hypocalcemia ? Patient's calcium 8.4 corrected today Plan: ? Will continue to monitor #Anemia of chronic disease ? Patient hemoglobin 8.4 today and a baseline is around 8-9. ? On last admission vitamin B12 levels were normal, iron and ferritin were normal ? Most likely in the setting of chronic kidney disease and heart failure Plan: ? Will transfuse hemoglobin less than 7 ? Will continue to monitor #Hypoalbuminemia ?Patient's albumin 3 today Plan: ? Will monitor for now #DM2 ? A1c on 02/2024 was 7.8 Plan: ? Blood glucose every 6 hours ? ISS ? Hypoglycemia protocol ordered #Hypothyroidism #Myxedema coma? ? TSH 65.52 and free T4 0.66 ?Patient has been hypoglycemic and her heart rate has been in the 60s to high 50s as well as her altered mental status this raises high suspicion for myxedema coma as her TSH was extremely high with very low T4. Plan: ? Switched from IV levothyroxine 75 mcg to PO 88mcg. ?Will continue to monitor #Hx of hypertension #Hx of hyperlipidemia ? Blood pressure has been stable therefore we will hold off on antihypertensive medication for now as allowing permissive HTN ? Will continue atorvastatin Disposition: Patient continue HD, continue IV levothyroxine pending eeg and echo Diet: Renal/Carb cons/Cardiac/dysphagia 1 GI prophylaxis: protonix DVT prophylaxis: SCDs Code:Full code Case disclosed with Attending Dr. Salgado and My senior Dr. Cox PGY3. Domenico Ferro PGY1 Attending Provider Attestation/Addendum I reviewed labs, imaging, EKG, home medications and prior available records. Face to face evaluation was performed by me. I have personally examined the patient and discussed assessment and plan with the IM team. I reviewed the resident note and agree with the plan with exceptions as below. Acute encephalopathy, mental status improved Right parietal acute CVA History of CVA Uremia ESRD Hemodialysis status Uncontrolled hypothyroidism Chronic HFpEF EF 50 to 55% Her acute encephalopathy is likely multifactorial in the setting of uncontrolled hypothyroidism, uremia, and CVA Follow-up EEG Follow-up echocardiogram Continue IV levothyroxine. Repeat thyroid function tests: Showed improvement in free T4 Hemodialysis line by IR on 01/24. Started hemodialysis Nephrology consulted and following Stopped gabapentin per neurology recommendations given the myoclonus jerks Ordered hepatitis panel for the dialysis chair
--- NOTE | 2024-03-28 10:12 | ESPR_ITS ---
Documentation for date of: 03/28/24 Subjective Subjective Interval history: Ms. Oliveira is a 68-year-old lady with past medical history of CKD stage IV , IBRAHIMA due to significant anasarca previously on hemodialysis (-came off dialysis), DM2, HFpEF (50 to 55% on 02/2024), hypertension, hyperlipidemia, hypothyroidism, anemia, and liver abscess status post drainage was recently admitted to the hospital for anasarca and responded to Bumex drip and discharged back to [facility]. She was again admitted to the hospital yesterday with altered mental status. Patient was unresponsive and unable to walk. In the emergency department stroke alert was called due to her altered mental status and weakness. Initial CT showed question early infarct in the cerebellar hemispheres. Due to azotemia renal consultation was requested and primary team requested to do CTA brain to rule out stroke. Apparently patient's daughter stated patient was inclining to do dialysis if needed. In the previous admission patient declined dialysis. Patient did get a CTA brain last night with contrast. Was negative for acute stroke. MRI brain showed a 7 mm right parietal stroke. Patient currently seen in telemetry. No family around. 03/26/2024 patient currently seen in telemetry. Very altered. Labs showed TSH 65.5, lipids normal, albumin 2.9, troponin 0.2, magnesium 2.1, phosphorus 9.2, calcium 7.9, BUN 90, creatinine 3.9, sodium 139, potassium 3.9, bicarbonate 24, hemoglobin 8.6. Patient was supposed to get dialysis-IR closed today due to holiday. Will initiate dialysis tomorrow. 03/27/2024 patient currently seen in telemetry. More alert and awake. Had a long conversation with patient regarding fluid overload, metabolic encephalopathy, acute renal failure and she agreed for dialysis. Patient consented. Had dialysis catheter placed by Dr. Grider and is on dialysis. Blood pressure 121/58, heart rate 61. Hemoglobin 8.6. Sodium 140, potassium 4.2, BUN 94, creatinine 4.2, GFR 11, calcium 8.1, phosphorus 10.4, LFTs normal, albumin 3, 03/28/2024 patient currently seen on second dialysis session. More alert and awake. Back to baseline regarding mentation. Blood sugar 113. Blood pressure 130/66, heart rate 60. Hemoglobin 8.4, sodium 139, potassium 3.9, BUN 72, creatinine 3.4, GFR 14, calcium 8.4,, phosphorus 8.0, LFTs normal, albumin 3.0, hep panel negative. PPD pending. Outpatient dialysis arrangements pending. Review of Systems Review of Systems Narrative Review of Systems: Patient more alert and awake. Denies any chest pain or shortness of breath. Appetite acceptable. Exam Vital Signs Temp Pulse Resp BP Pulse Ox O2 Del Method O2 Flow Rate 35.9 C L 58 L 16 118/62 100 Nasal Cannula 1 03/28/24 04:00 03/28/24 06:59 03/28/24 06:59 03/28/24 05:08 03/28/24 06:59 03/28/24 04:00 03/28/24 06:59 Narrative Exam GENERAL APPEARANCE: Patient currently seen in dialysis NECK: Neck supple, no JVD or bruit CARDIOVASCULAR: Heart regular, no murmurs LUNGS/CHEST: Chest clear to auscultation. No rales, rhonchi, wheezing ABDOMEN: Soft, nontender, nondistended. No masses. Normal bowel sounds. EXTREMITIES: 2+ edema especially in the thigh and lower abdominal wall SKIN: Skin exam normal without any rashes. IJ catheter noted MUSCULOSKELETAL: In bed NEUROLOGICAL : Alert and awake Objective Labs 03/28/24 04:30 03/28/24 04:30 Labs: Laboratory Results - last 24 hr 03/27/24 03/28/24 13:48 04:30 WBC 5.1 RBC 2.56 L Hgb 8.4 L Hct 27.3 L MCV 107 H MCH 32.8 MCHC 30.8 L RDW Std Deviation 61.8 H Plt Count 145 Neut % (Auto) 73 Lymph % (Auto) 18 [place] % (Auto) 7 Eos % (Auto) 2 Baso % (Auto) 0 Neut # (Auto) 3.7 Lymph # (Auto) 0.9 L [place] # (Auto) 0.4 Eos # (Auto) 0.1 Baso # (Auto) 0.0 Immature Gran # (Auto) 0.03 H Absolute Nucleated RBC 0.00 Immature Gran % 1 H Nucleated RBC % 0 Sodium 139 Potassium 3.9 Chloride 101 Carbon Dioxide 26.4 Anion Gap 12 BUN 72 H Creatinine 3.4 H D Estim Creat Clear Calc 13.5 L eGFR 14 L* BUN/Creatinine Ratio 21 H Glucose 93 Calculated Osmolality 298 H Calcium 7.6 L Corrected Calcium 8.4 L Phosphorus 8.0 H Magnesium 2.1 Total Bilirubin 0.3 AST 12 ALT < 7 L Alkaline Phosphatase 120 H Total Protein 6.5 Albumin 3.0 L Globulin 3.5 Albumin/Globulin Ratio 0.9 L Free T4 0.64 L Hep Bs Antigen Non Reactive Hep Bs Antibody NonReact(Not Immune) L Hep B Core IgM Ab Non Reactive Assessment & Plan Additional Assessment & Plan Additional Plan: Betty Oliveira is a 68-year-old female patient with past medical history of CKD was previously on dialysis, nephrotic syndrome secondary to diabetic nephropathy, hypertension, HFrEF EF of 35 to 45% on October 2023, diabetes mellitus, hyperlipidemia, hypothyroidism, liver abscess status post drainage presented to the hospital with altered mental status and noted to be in acute renal failure. Well-known to me from previous admissions and CKD clinic. Patient has progressed to diabetic nephropathy and was supposed to initiate dialysis last month-patient declined. Apparently last night family requested dialysis and all aggressive measures. CODE STATUS full code. Was referred to the hospital from the herbarium curator office Dr. Mcclendon when the patient was noticed to be fluid overloaded. Patient was admitted secondary to anasarca. # Acute renal failure secondary to progressive diabetic nephropathy superimposed on advanced CKD anasarca most likely multifactorial secondary to nephrotic syndrome, HFrEF, CKD #Nephrotic syndrome #CKD stage IV--leading towards ESRD # Altered mental status-probably related to small stroke versus metabolic encephalopathy. Decided to proceed with dialysis. Will plan for catheter placement and dialysis in a.m. Hepatitis, PPD ordered. Will give Epogen with dialysis. Neurology on the case. 03/28/[address] Grider. Patient consented for dialysis and catheter. Needs outpatient dialysis arrangements patient currently seen on dialysis. Tolerating dialysis without any problems. Hemodialysis for 2.5 hours, 2K, ultrafiltration 2 L, Epogen 6000, no heparin ordered. Plan of care discussed with the dialysis nurse. Please see dialysis flowsheet for further details. Next dialysis scheduled for tomorrow. Quality - progress note Quality Measures Quality Measures: VTE prophylaxis Reason for Continued Stay Reason for Continued Stay: further monitoring
[2024-03-28] MEDS: HEPARIN SOD INJ 1000 UNIT/ML VIAL 10 ML 3500 UNIT INDWELLCAT (16:04)
--- NOTE | 2024-03-28 18:49 | PC.CC ---
Pt is open with [facility].
--- NOTE | 2024-03-28 18:51 | PC.CC ---
Pt is open with [facility].
--- NOTE | 2024-03-28 20:12 | PC.NURSE ---
MD Monroy notified that patient is complaining of bilateral leg pain. Her gabapentin got discontinued this morning per MD order. MD Monroy that we can try the tylenol for now and reassess if patient is still in pain.
[2024-03-28] MEDS: ATORVASTATIN CALCIUM 20 MG TABLET 40 MG PO (21:13)
[2024-03-28] MEDS: ACETAMINOPHEN 325 MG TABLET 650 MG PO (21:13)
--- NOTE | 2024-03-28 21:45 | ESPR_ITS ---
Documentation for date of: 03/28/24 Subjective Subjective Interval history: Patient was seen in telemetry today. She is intermittently confused, but able to answer questions. Exam - Neurology Vital Signs Temp Pulse Resp BP Pulse Ox O2 Del Method O2 Flow Rate 97.9 F 68 20 145/64 H 96 Nasal Cannula 1 03/28/24 20:00 03/28/24 20:00 03/28/24 20:00 03/28/24 20:00 03/28/24 20:00 03/28/24 20:00 03/28/24 20:00 Narrative Exam GENERAL APPEARANCE: Well hydrated, well-nourished in no acute distress. HEENT: Normocephalic, atraumatic, extraocular movements intact. Pupils: Equal reacting to light and accommodation NECK: Supple, no JVD or bruits. CARDIOVASULAR: Heart: S1, S2 heard, regular without S3-S4 or murmur no rubs or gallops. LUNGS/CHEST: Clear to auscultation bilaterally. No rails, rhonchi, or wheezing. Normal inspection. ABDOMEN: Soft, nontender, with normal bowel sounds. No pulsatile masses. No rebound, rigidity, or guarding. Normal inspection and palpation. EXTREMITIES: Normal inspection and palpation. No edema, clubbing or cyanosis. SKIN: Warm and dry without rashes. Normal inspection. MUSCULOSKELETAL: No cervical, thoracic, lumbar or midline bony tenderness. Normal inspection. NEURO: Alert, awake and oriented x2. Cranial nerves: II through XII grossly intact. Speech and language: Normal with no dysarthria or dysphasia. Motor system: Tone and bulk: Normal: Strength: moves all 4 extremities; No pronator drift noted. Deep tendon reflexes: 1+ bilaterally symmetrical. Plantar reflex: Downgoing bilaterally. Sensory system: Intact to pinprick sensation bilaterally. Coordination: Intact to [id number] and cbwt-[id number] test bilaterally. She has significant asterixis, intention tremors in both upper extremities. Gait: Cannot be tested. No signs of meningeal irritation noted. PSYCHIATRIC: Normal mood and affect. Objective Labs 03/29/24 05:52 03/29/24 05:52 Labs: Laboratory Results - last 24 hr 03/28/24 04:30 WBC 5.1 RBC 2.56 L Hgb 8.4 L Hct 27.3 L MCV 107 H MCH 32.8 MCHC 30.8 L RDW Std Deviation 61.8 H Plt Count 145 Neut % (Auto) 73 Lymph % (Auto) 18 [place] % (Auto) 7 Eos % (Auto) 2 Baso % (Auto) 0 Neut # (Auto) 3.7 Lymph # (Auto) 0.9 L [place] # (Auto) 0.4 Eos # (Auto) 0.1 Baso # (Auto) 0.0 Immature Gran # (Auto) 0.03 H Absolute Nucleated RBC 0.00 Immature Gran % 1 H Nucleated RBC % 0 Sodium 139 Potassium 3.9 Chloride 101 Carbon Dioxide 26.4 Anion Gap 12 BUN 72 H Creatinine 3.4 H D Estim Creat Clear Calc 13.5 L eGFR 14 L* BUN/Creatinine Ratio 21 H Glucose 93 Calculated Osmolality 298 H Calcium 7.6 L Corrected Calcium 8.4 L Phosphorus 8.0 H Magnesium 2.1 Total Bilirubin 0.3 AST 12 ALT < 7 L Alkaline Phosphatase 120 H Total Protein 6.5 Albumin 3.0 L Globulin 3.5 Albumin/Globulin Ratio 0.9 L Free T4 0.64 L Assessment & Plan Assessment and plan (1) Altered mental state: Status: Acute Assessment and plan: Improving, close to baseline, answering questions appropriately. (2) Acute CVA (cerebrovascular accident): Status: Acute Assessment and plan: MRI brain showed tiny infarct in the right parietal lobe with a possible positive ADC map, I do not think it is causing any symptoms in her. I have discontinued gabapentin to see if the myoclonic jerks get better. Continue with aspirin and statin and keep the blood pressure and diabetes under control. (3) End-stage renal disease (ESRD): Status: Chronic Assessment and plan: On dialysis (4) Diabetes: Status: Chronic Assessment and plan: Checking fingerstick glucose and follow sliding scale insulin per protocol
--- NOTE | 2024-03-28 23:55 | PC.NURSE ---
MD Monroy notified that patient's permcath started bleeding. messenger copy Brenda reinforced dressing. said to hold heparin 0600 dose, monitor bleeding, and to let him know if bleeding does not stop
[2024-03-29] VITALS (9 sets, daily range): BP systolic 125–146; BP diastolic 55–78; PULSE 60–74; RESP 14–22; TEMP 36.2–36.7; O2SAT 95–98; BMI 29.5
--- NOTE | 2024-03-29 03:09 | PC.NURSE ---
MD Barclay is notified that patient is complaining of severe leg pain and arm pain. said he will review her chart.
[2024-03-29] MEDS: HYDROmorphone INJ 2 MG/ML VIAL 0.5 MG IVP (03:22)
[2024-03-29] MEDS: LEVOTHYROXINE SODIUM 88 MCG TABLET PO (06:00)
[2024-03-29 06:09] LABS: Basophils % (Auto) 1 % (0-2.5); Eosinophils # (Auto) 0.2 Thou/mm3 (0.0-0.5); Eosinophils % (Auto) 4 % (0-10); Hematocrit 25.3 % (36.0-46.0); Immature Granulocytes % (Auto) 1 % (0-0); Immature Granulocytes Auto 0.03 Thou/mm3 (0.00-0.00); Lymphocytes # (Auto) 1.4 Thou/mm3 (1.0-4.8); Lymphocytes % (Auto) 24 % (10-50); Mean Corpuscular HGB Conc 31.6 g/dl (31.0-37.0); Mean Corpuscular Hemoglobin 32.5 pg (25.0-35.0); Mean Corpuscular Volume 103 fL (80-100); Monocytes # (Auto) 0.5 Thou/mm3 (0.0-0.8); Monocytes % (Auto) 9 % (0-12); Neutrophils # (Auto) 3.7 Thou/mm3 (1.8-7.7); Neutrophils % (Auto) 62 % (37-80); Nucleated Red Blood Cell # 0.02 Thou/mm3 (0.00-0.00); Nucleated Red Blood Cell % 0 /100 WBC (0); Platelet Count 136 Thou/mm3 (140-440); RDW Standard Deviation 57.8 fL (36.4-46.3); Red Blood Count 2.46 Miln/mm3 (4.00-5.20); White Blood Count 5.9 Thou/mm3 (3.6-11.0)
[2024-03-29 07:12] LABS: Alanine Aminotransferase < 7 U/L (10-49); Albumin, Serum 2.9 gm/dL (3.4-4.8); Albumin/Globulin Ratio 0.9 (1.2-2.2); Alkaline Phosphatase 113 U/L (46-116); Anion Gap 10 (7-16); Aspartate Amino Transferase 14 U/L (0-34); BUN/Creatinine Ratio 22 Ratio (12-20); Bilirubin,Total 0.4 mg/dL (0.3-1.2); Blood Urea Nitrogen 52 mg/dL (9-23); Calcium 7.6 mg/dL (8.3-10.6); Calcium (Corrected) 8.5 mg/dL (8.5-10.1); Carbon Dioxide 28.1 mMol/L (20.0-31.0); Chloride 102 mMol/L (98-107); Creatinine (Component) 2.4 mg/dL (0.6-1.3); Estimated Creatinine Clearance 19.1 mL/min (>60); Globulin 3.3 gm/dL (2.3-3.5); Glucose 73 mg/dL (74-106); Magnesium 1.9 mg/dL (1.6-2.6); Osmolality,Calculated 292 (275-295); Phosphorous 4.5 mg/dL (2.4-5.1); Potassium 3.8 mMol/L (3.4-5.1); Sodium 140 mMol/L (136-145); Total Protein 6.2 gm/dL (5.7-8.2); eGFR 22 See Note
[2024-03-29] MEDS: SEVELAMER CARBONATE 800 MG TABLET PO ×3 (07:51→17:22)
--- NOTE | 2024-03-29 08:53 | PC.SS ---
Addendum entered by Mariaa Presley 03/29/24 09:05: SS follow up note; SS was contacted by Hussein from [employer] and she reported they are able to accept patient and will be submitting authorization. SS contacted patient's daughter Cari and SS informed her that [facility] accepted patient. SS will stand by for further needs. Original Note: SS follow up note; SS contacted Jennifer from [employer] and she reported that she will check status on bed availability and will contact SS. SS will stand by for further needs.
[2024-03-29] MEDS: PANTOPRAZOLE INJ 40 MG VIAL IV (09:19)
--- NOTE | 2024-03-29 11:13 | ESPR_ITS ---
<Statement entered by Patricia Cox MD - 03/29/24 15:50> I discussed with and supervised my co-resident involved in the care of this patient. I agree with the assessment and plan as documented above. Patient seen at bedside. Complaining of right LE pain at rest and with movement. Will get XR of RLE to evaluate potential etiology of pain. Regarding patient's stroke, continuing statin but holding aspirin due to bleeding around catheter insertion site at this time. EEG showed diffuse slowing. Mentation significantly improved since admission. Patient to undergo third inpatient dialysis session. Outpatient HD chair pending. Patricia Cox MD PGY-3 Documentation for date of: 03/29/24 Subjective Subjective Interval history: Patient was seen at bedside this morning. Patient had bleeding from her catheter site overnight, but seems to have stopped at this time. Will hold patient's aspirin this morning giving that recent bleeding from the hemodialysis catheter. Patient today was a little bit more confused she was AO x 1 only to name, this could be due to to some pain medication that the patient got overnight yet she was still very alert and awake today and eating her breakfast. EEG was significant for encephalopathy pattern. No other complaints at this time. Still pending hemodialysis chair authorization and echo read. Started gabapentin 100mg TID as per neurology for pain. Exam Vital Signs Temp Pulse Resp BP Pulse Ox O2 Del Method O2 Flow Rate 97.5 F 63 15 125/66 96 Nasal Cannula 1 03/29/24 08:00 03/29/24 08:00 03/29/24 08:00 03/29/24 08:00 03/29/24 08:00 03/29/24 08:00 03/29/24 08:00 Narrative Exam General: Awake and alert, but in pain, A/O x 1 today. Eyes: ENRIQUE pupils were reactive to light, able to trace, vision intact Ears: No visible ear discharge, hearing intact Nose: No visible nasal discharge. Mouth/Throat: Dry mucous membranes, poor dentition, no redness, no lesions. Neck: Neck supple,no cervical lymphadenopathy. Lungs: Clear ENRIQUE, No accessory muscle use. Cardio: Normal S1/S2, regular rhythm, no murmurs, no JVD Abdomen: Soft, but distended, no palpable masses, peristalsis present, well- healed scar on the right side abdomen Extremities: Symmetrical, no significant deformities, trace peripheral edema, peripheral pulses presents, myoclonic jerks in ENRIQUE LE and tremors in ENRIQUE UE, not visualized today. Skin: No rashes, no lesions, warm to touch. Dialysis cath in L upper chest. Neuro: Strength ENRIQUE UE and LE 3/5, able to follow commands, A/O x1. Objective Labs 03/29/24 05:52 03/29/24 05:52 Labs: Laboratory Results - last 24 hr 03/29/24 05:52 WBC 5.9 RBC 2.46 L Hgb 8.0 L Hct 25.3 L MCV 103 H MCH 32.5 MCHC 31.6 RDW Std Deviation 57.8 H Plt Count 136 L Neut % (Auto) 62 Lymph % (Auto) 24 [place] % (Auto) 9 Eos % (Auto) 4 Baso % (Auto) 1 Neut # (Auto) 3.7 Lymph # (Auto) 1.4 [place] # (Auto) 0.5 Eos # (Auto) 0.2 Baso # (Auto) 0.0 Immature Gran # (Auto) 0.03 H Absolute Nucleated RBC 0.02 H Immature Gran % 1 H Nucleated RBC % 0 Sodium 140 Potassium 3.8 Chloride 102 Carbon Dioxide 28.1 Anion Gap 10 BUN 52 H Creatinine 2.4 H D Estim Creat Clear Calc 19.1 L eGFR 22 L BUN/Creatinine Ratio 22 H Glucose 73 L Calculated Osmolality 292 Calcium 7.6 L Corrected Calcium 8.5 Phosphorus 4.5 Magnesium 1.9 Total Bilirubin 0.4 AST 14 ALT < 7 L Alkaline Phosphatase 113 Total Protein 6.2 Albumin 2.9 L Globulin 3.3 Albumin/Globulin Ratio 0.9 L Quality Measures Quality Measures none Advance care planning discussed with:: patient Assessment & Plan Assessment Current Active Medications: Generic Name Dose Route Start Last Admin Trade Name Freq PRN Reason Stop Dose Admin Acetaminophen 650 mg 03/28/24 14:21 03/28/24 21:13 Acetaminophen 325 Mg Tablet PO 04/27/24 14:20 650 mg Q6HR PRN Administration pain and Fever >100.4 Albuterol/Ipratropium 3 ml 03/28/24 09:29 Albuterol/Ipratropium (Duoneb) Rt Katrin 3 Ml Nebu INH 04/25/24 10:59 Q4HRRT PRN SOB or wheezing Aspirin 81 mg 03/26/24 09:30 03/29/24 09:14 Aspirin Ec 81 Mg Tabec PO 04/25/24 09:29 Not Given QDAY LUCI Atorvastatin Calcium 40 mg 03/26/24 21:00 03/28/24 21:13 Atorvastatin Calcium 20 Mg Tablet PO 04/25/24 20:59 40 mg HS LUCI Administration Dextrose 25 ml 03/25/24 16:46 03/26/24 05:26 Dextrose 50%-Water Inj 50 Ml Syringe IV 04/24/24 16:45 25 ml Q15MIN PRN Administration BG 50-70 responsive npo pt Dextrose 50 ml 03/25/24 16:46 Dextrose 50%-Water Inj 50 Ml Syringe IV 04/24/24 16:45 Q15MIN PRN BG <50 OR BG <70 & pt unresponsive Furosemide 40 mg 03/29/24 09:00 03/29/24 09:14 Furosemide Inj 10 Mg/Ml 4ml Vial IVP 04/28/24 08:59 Not Given QDAY LUCI Glucagon 1 mg 03/25/24 16:46 Glucagon Inj 1 Mg Vial IM Q15MIN PRN BG <70, and no IV access Heparin Sodium (Porcine) 5,000 unit 03/26/24 22:00 03/29/24 05:12 Heparin Sod Inj 5000 Unit/Ml Vial SC 04/09/24 21:59 Not Given Q8HR LUCI Heparin Sodium (Porcine) 3,500 unit 03/27/24 14:41 03/28/24 16:04 Heparin Sod Inj 1000 Unit/Ml Vial 10 Ml INDWELLCAT 04/10/24 14:40 3,500 unit PRN PRN Administration DIALYSIS Insulin Human Lispro 0 unit 03/29/24 11:30 Insulin Lispro (Admelog) 1 Unit/0.01 Ml Unit SC 04/28/24 11:29 AC LUCI Protocol Levothyroxine Sodium 88 mcg 03/29/24 06:00 03/29/24 06:00 Levothyroxine Sodium 88 Mcg Tablet PO 04/28/24 05:59 88 mcg ACBR LUCI Administration Ondansetron HCl 4 mg 03/25/24 16:46 Ondansetron Inj 2 Mg/Ml Inj 2 Ml IV 04/24/24 16:45 Q6H PRN NAUSEA OR VOMITING Protocol Pantoprazole Sodium 40 mg 03/26/24 09:00 03/29/24 09:19 Pantoprazole Inj 40 Mg Vial IV 04/25/24 08:59 40 mg QDAY LUCI Administration Sevelamer Carbonate 800 mg 03/26/24 12:00 03/29/24 07:51 Sevelamer Carbonate 800 Mg Tablet PO 04/25/24 11:59 800 mg TIDWM LUCI Administration Plan 68-year-old female with past medical history of CKD stage IV previously on hemodialysis (), DM2, HFpEF (50 to 55% on 02/2024), hypertension, hyperlipidemia, hypothyroidism, anemia of chronic disease, and liver abscess status post drainage was admitted to the hospital on 03/25/2024 due to acute encephalopathy likely secondary to uremia in the setting of renal failure versus acute ischemic stroke. #Acute encephalopathy #Acute ischemic stroke, R parietal #Uremia #IBRAHIMA on CKD ?Patient came in altered for the past 2 days with decreased communication with her family and not following instructions. ? Patient refused hemodialysis on the of last month as per daughter. ? DDx altered mental status secondary to uremia in the setting of renal failure versus acute ischemic stroke. ? GCS of 9 on assessment ? BUN 89 and creatinine 4.1 on admission, baseline is creatinine of 1.6-1.7 and BUN in the 40s ? Head CT showed early acute infarcts in both cerebellar hemispheres ?Chest CTA was unremarkable ?Stroke alert was not initiated in the ED - MRI showed acute infarct of R parietal lobe ? EEG was significant for encephalopathy pattern Plan: ? Aspirin 81 qday, held today in setting of bleeding, and continue atorvastatin 40 HS -Started Gabapentin 100mg TID ? Neurochecks every 4 ?Continue HD as scheduled ? Seizure precautions ? Jacobo inserted ?Aspiration precautions - Referred to speech and physical therapy ? Teleneurology consulted, appreciate recommendations ? Neurology consulted, appreciate commendations - Nephrology Consulted, Appreciate recs #Acute decompensated heart failure exacerbation #HFpEF (50 to 55% on 02/2024) ?Patient had 1+ pitting edema initially ? BNP 611 ? Last echo on 02/2024 showed an EF of 50 to 55% ? Patient was recently seen in the ER on 03/20/2024 due to heart failure exacerbation Plan: ? Lasix 40 daily - echo pending ? Strict MERRY's ? Daily weights ? Fluid restrictions ? Will continue monitor - Likely Hemodialysis #NSTEMI, likely type II demand ischemia ? Troponins 0.399 and downtrended ? EKG did not show any ST changes ?Likely in the setting of possible CHF exacerbation and renal failure Plan: ? Will continue to monitor #Hypocalcemia ? Patient's calcium 8.5 corrected today Plan: ? Will continue to monitor #Anemia of chronic disease ? Patient hemoglobin 8.4 today and a baseline is around 8-9. ? On last admission vitamin B12 levels were normal, iron and ferritin were normal ? Most likely in the setting of chronic kidney disease and heart failure Plan: ? Will transfuse hemoglobin less than 7 ? Will continue to monitor #Hypoalbuminemia ?Patient's albumin 3 today Plan: ? Will monitor for now #DM2 ? A1c on 02/2024 was 7.8 Plan: ? Blood glucose checks AC ? ISS ? Hypoglycemia protocol ordered #Hypothyroidism #Myxedema coma? ? TSH 65.52 and free T4 0.64 ?Patient has been hypoglycemic and her heart rate has been in the 60s to high 50s as well as her altered mental status this raises high suspicion for myxedema coma as her TSH was extremely high with very low T4. Plan: ? Continue levothyroxine PO 88mcg. ?Will continue to monitor #Hx of hypertension #Hx of hyperlipidemia ? Blood pressure has been stable therefore we will hold off on antihypertensive medication for now as allowing permissive HTN ? Will continue atorvastatin Disposition: Patient continue HD, continue IV levothyroxine pending echo Diet: Renal/Carb cons/Cardiac/dysphagia 1 GI prophylaxis: protonix DVT prophylaxis: Heparin Sc Code:Full code Case disclosed with Attending Dr. Salgado and My senior Dr. Cox PGY3. Domenico Ferro PGY1 Attending Provider Attestation/Addendum I reviewed labs, imaging, EKG, home medications and prior available records. Face to face evaluation was performed by me. I have personally examined the patient and discussed assessment and plan with the IM team. I reviewed the resident note and agree with the plan with exceptions as below. Acute encephalopathy, mental status improved Right parietal acute CVA History of CVA Uremia ESRD Hemodialysis status Uncontrolled hypothyroidism Chronic HFpEF EF 50 to 55% Right foot pain Her acute encephalopathy is likely multifactorial in the setting of uncontrolled hypothyroidism, uremia, and CVA Follow-up EEG: Abnormal likely metabolic versus degenerative changes Follow-up echocardiogram Continue levothyroxine. Repeat thyroid function tests: Showed improvement in free T4 Hemodialysis line by IR on 01/24. Started hemodialysis Nephrology consulted and following: She is pending authorization for the dialysis chair Tuesday Stopped gabapentin per neurology recommendations given the myoclonus jerks Ordered hepatitis panel for the dialysis chair Ordered x-ray of the right foot
[2024-03-29] MEDS: ACETAMINOPHEN 325 MG TABLET 650 MG PO ×2 (11:55→22:57)
--- NOTE | 2024-03-29 11:55 | PC.SS ---
SS follow up note; MONROE contacted Fifi from [facility] to check status on auth. She reported patient was approved, however needed Flow sheets. SS sent requested Clinicals to Fifi via fax. SS will stand by for further needs.
[2024-03-29] MEDS: FUROSEMIDE INJ 10 MG/ML 4ML VIAL 40 MG IVP (11:58)
--- NOTE | 2024-03-29 13:32 | PD.NEPHPROG ---
Documentation for date of: 03/29/24 Subjective Subjective Interval history: Ms. Oliveira is a 68-year-old lady with past medical history of CKD stage IV , IBRAHIMA due to significant anasarca previously on hemodialysis (-came off dialysis), DM2, HFpEF (50 to 55% on 02/2024), hypertension, hyperlipidemia, hypothyroidism, anemia, and liver abscess status post drainage was recently admitted to the hospital for anasarca and responded to Bumex drip and discharged back to [facility]. She was again admitted to the hospital yesterday with altered mental status. Patient was unresponsive and unable to walk. In the emergency department stroke alert was called due to her altered mental status and weakness. Initial CT showed question early infarct in the cerebellar hemispheres. Due to azotemia renal consultation was requested and primary team requested to do CTA brain to rule out stroke. Apparently patient's daughter stated patient was inclining to do dialysis if needed. In the previous admission patient declined dialysis. Patient did get a CTA brain last night with contrast. Was negative for acute stroke. MRI brain showed a 7 mm right parietal stroke. Patient currently seen in telemetry. No family around. 03/26/2024 patient currently seen in telemetry. Very altered. Labs showed TSH 65.5, lipids normal, albumin 2.9, troponin 0.2, magnesium 2.1, phosphorus 9.2, calcium 7.9, BUN 90, creatinine 3.9, sodium 139, potassium 3.9, bicarbonate 24, hemoglobin 8.6. Patient was supposed to get dialysis-IR closed today due to holiday. Will initiate dialysis tomorrow. 03/27/2024 patient currently seen in telemetry. More alert and awake. Had a long conversation with patient regarding fluid overload, metabolic encephalopathy, acute renal failure and she agreed for dialysis. Patient consented. Had dialysis catheter placed by Dr. Grider and is on dialysis. Blood pressure 121/58, heart rate 61. Hemoglobin 8.6. Sodium 140, potassium 4.2, BUN 94, creatinine 4.2, GFR 11, calcium 8.1, phosphorus 10.4, LFTs normal, albumin 3, 03/29/2024 patient currently seen in telemetry. More alert and awake. Back to baseline regarding mentation. Blood sugar 113. Blood pressure 130/66, heart rate 60. Labs reviewed. Hep panel negative. PPD pending. Outpatient dialysis arrangements pending. Next dialysis scheduled for tomorrow. Review of Systems Review of Systems Narrative Review of Systems: Patient more alert and awake. Denies any chest pain or shortness of breath. Appetite acceptable. Exam Vital Signs Temp Pulse Resp BP Pulse Ox O2 Del Method O2 Flow Rate 36.4 C 60 15 141/67 H 96 Nasal Cannula 1 03/29/24 08:00 03/29/24 11:58 03/29/24 08:00 03/29/24 11:58 03/29/24 08:00 03/29/24 08:00 03/29/24 08:00 Narrative Exam GENERAL APPEARANCE: Patient currently seen in telemetry. Daughter at bedside NECK: Neck supple, no JVD or bruit CARDIOVASCULAR: Heart regular, no murmurs LUNGS/CHEST: Chest clear to auscultation. No rales, rhonchi, wheezing ABDOMEN: Soft, nontender, nondistended. No masses. Normal bowel sounds. EXTREMITIES: 2+ edema especially in the thigh and lower abdominal wall SKIN: Skin exam normal without any rashes. IJ catheter noted MUSCULOSKELETAL: In bed NEUROLOGICAL : Alert and awake Objective Labs 03/30/24 04:26 03/30/24 04:26 Labs: Laboratory Results - last 24 hr 03/29/24 05:52 WBC 5.9 RBC 2.46 L Hgb 8.0 L Hct 25.3 L MCV 103 H MCH 32.5 MCHC 31.6 RDW Std Deviation 57.8 H Plt Count 136 L Neut % (Auto) 62 Lymph % (Auto) 24 [place] % (Auto) 9 Eos % (Auto) 4 Baso % (Auto) 1 Neut # (Auto) 3.7 Lymph # (Auto) 1.4 [place] # (Auto) 0.5 Eos # (Auto) 0.2 Baso # (Auto) 0.0 Immature Gran # (Auto) 0.03 H Absolute Nucleated RBC 0.02 H Immature Gran % 1 H Nucleated RBC % 0 Sodium 140 Potassium 3.8 Chloride 102 Carbon Dioxide 28.1 Anion Gap 10 BUN 52 H Creatinine 2.4 H D Estim Creat Clear Calc 19.1 L eGFR 22 L BUN/Creatinine Ratio 22 H Glucose 73 L Calculated Osmolality 292 Calcium 7.6 L Corrected Calcium 8.5 Phosphorus 4.5 Magnesium 1.9 Total Bilirubin 0.4 AST 14 ALT < 7 L Alkaline Phosphatase 113 Total Protein 6.2 Albumin 2.9 L Globulin 3.3 Albumin/Globulin Ratio 0.9 L Assessment & Plan Additional Assessment & Plan Additional Plan: Betty Oliveira is a 68-year-old female patient with past medical history of CKD was previously on dialysis, nephrotic syndrome secondary to diabetic nephropathy, hypertension, HFrEF EF of 35 to 45% on October 2023, diabetes mellitus, hyperlipidemia, hypothyroidism, liver abscess status post drainage presented to the hospital with altered mental status and noted to be in acute renal failure. Well-known to me from previous admissions and CKD clinic. Patient has progressed to diabetic nephropathy and was supposed to initiate dialysis last month-patient declined. Apparently last night family requested dialysis and all aggressive measures. CODE STATUS full code. Was referred to the hospital from the convalescent sitter office Dr. Mcclendon when the patient was noticed to be fluid overloaded. Patient was admitted secondary to anasarca. # Acute renal failure secondary to progressive diabetic nephropathy superimposed on advanced CKD anasarca most likely multifactorial secondary to nephrotic syndrome, HFrEF, CKD #Nephrotic syndrome #CKD stage IV--leading towards ESRD # Altered mental status-probably related to small stroke versus metabolic encephalopathy. Decided to proceed with dialysis. Will plan for catheter placement and dialysis in a.m. Hepatitis, PPD ordered. Will give Epogen with dialysis. Neurology on the case. 03/29/[address] Grider. Patient consented for dialysis and catheter. Needs outpatient dialysis arrangements Patient so far received 2 dialysis sessions. Next dialysis scheduled for tomorrow. Postdialysis tomorrow can be discharged. Quality - progress note Quality Measures Quality Measures: VTE prophylaxis Reason for Continued Stay Reason for Continued Stay: further monitoring
--- NOTE | 2024-03-29 14:10 | XR_ITS ---
Examination: Foot, right, 3 views Technique: AP, oblique, lateral views foot, 3 views Date and time of exam: March 29, 2024 1415 hours INDICATIONS: Onset right-sided foot pain today FINDINGS: Severe osteopenia Soft tissue vascular calcification No acute fracture Small plantar posterior bony calcaneal spurs IMPRESSION: No acute fracture No kevyn cortical bone destruction
[2024-03-29] MEDS: HEPARIN SOD INJ 5000 UNIT/ML VIAL SC ×2 (15:54→21:20)
[2024-03-29] MEDS: GABAPENTIN 100 MG CAPSULE PO ×2 (15:54→21:15)
[2024-03-29] MEDS: ATORVASTATIN CALCIUM 20 MG TABLET 40 MG PO (21:15)
--- NOTE | 2024-03-29 22:20 | PD.VPROG1 ---
Telemedicine visit statement This visit was conducted with the use of interactive audio and video telecommunications system that permits real time communication between the patient and the provider. Patient's verbal consent for virtual visit was obtained on 03/29/24 at 2220. Documentation for date of: 03/29/24 Subjective Subjective Interval history: Patient is in telemetry. Her tremors and myoclonic jerks have significantly reduced, mental status is improving, close to baseline. She complains of pain in the extremities to the point of hurting to move into bed/ not able to, sit up or stand with the physical therapist Virtual exam Vital Signs Temp Pulse Resp BP Pulse Ox O2 Del Method O2 Flow Rate 97.6 F 66 14 131/55 H 98 Nasal Cannula 1 03/29/24 20:00 03/29/24 20:00 03/29/24 20:00 03/29/24 20:00 03/29/24 20:00 03/29/24 20:00 03/29/24 20:00 Objective Labs 03/29/24 05:52 03/29/24 05:52 Labs: Laboratory Results - last 24 hr 03/29/24 05:52 WBC 5.9 RBC 2.46 L Hgb 8.0 L Hct 25.3 L MCV 103 H MCH 32.5 MCHC 31.6 RDW Std Deviation 57.8 H Plt Count 136 L Neut % (Auto) 62 Lymph % (Auto) 24 [place] % (Auto) 9 Eos % (Auto) 4 Baso % (Auto) 1 Neut # (Auto) 3.7 Lymph # (Auto) 1.4 [place] # (Auto) 0.5 Eos # (Auto) 0.2 Baso # (Auto) 0.0 Immature Gran # (Auto) 0.03 H Absolute Nucleated RBC 0.02 H Immature Gran % 1 H Nucleated RBC % 0 Sodium 140 Potassium 3.8 Chloride 102 Carbon Dioxide 28.1 Anion Gap 10 BUN 52 H Creatinine 2.4 H D Estim Creat Clear Calc 19.1 L eGFR 22 L BUN/Creatinine Ratio 22 H Glucose 73 L Calculated Osmolality 292 Calcium 7.6 L Corrected Calcium 8.5 Phosphorus 4.5 Magnesium 1.9 Total Bilirubin 0.4 AST 14 ALT < 7 L Alkaline Phosphatase 113 Total Protein 6.2 Albumin 2.9 L Globulin 3.3 Albumin/Globulin Ratio 0.9 L Assessment & Plan Assessment (1) Altered mental state: Improving, back to baseline, answering questions appropriately. (2) Acute CVA (cerebrovascular accident): MRI brain showed tiny infarct in the right parietal lobe with a possible positive ADC map, I do not think it is causing any symptoms in her. Continue with aspirin and statin and keep the blood pressure and diabetes under control. (3) End-stage renal disease (ESRD): On dialysis (4) Diabetes: Checking fingerstick glucose and follow sliding scale insulin per protocol Goal is to keep the A1c under 7. Will add gabapentin 100 mg 3 times a day with close monitoring for myoclonic jerks
[2024-03-30] VITALS (19 sets, daily range): BP systolic 113–156; BP diastolic 59–79; PULSE 55–76; RESP 12–19; TEMP 36.5–36.8; O2SAT 96–100; BMI 29.6
[2024-03-30] MEDS: HYDROmorphone INJ 2 MG/ML VIAL 0.25 MG IVP ×2 (01:30→11:45)
[2024-03-30] MEDS: GABAPENTIN 100 MG CAPSULE PO ×3 (05:08→21:33)
[2024-03-30] MEDS: HEPARIN SOD INJ 5000 UNIT/ML VIAL SC ×3 (05:09→21:32)
[2024-03-30 05:25] LABS: Basophils % (Auto) 1 % (0-2.5); Eosinophils # (Auto) 0.2 Thou/mm3 (0.0-0.5); Eosinophils % (Auto) 3 % (0-10); Immature Granulocytes % (Auto) 1 % (0-0); Immature Granulocytes Auto 0.04 Thou/mm3 (0.00-0.00); Lymphocytes # (Auto) 1.6 Thou/mm3 (1.0-4.8); Lymphocytes % (Auto) 27 % (10-50); Mean Corpuscular HGB Conc 31.6 g/dl (31.0-37.0); Mean Corpuscular Hemoglobin 32.9 pg (25.0-35.0); Mean Corpuscular Volume 104 fL (80-100); Monocytes # (Auto) 0.6 Thou/mm3 (0.0-0.8); Monocytes % (Auto) 9 % (0-12); Neutrophils # (Auto) 3.5 Thou/mm3 (1.8-7.7); Neutrophils % (Auto) 59 % (37-80); Nucleated Red Blood Cell % 0 /100 WBC (0); Platelet Count 125 Thou/mm3 (140-440); RDW Standard Deviation 57.7 fL (36.4-46.3); White Blood Count 5.9 Thou/mm3 (3.6-11.0)
[2024-03-30] MEDS: LEVOTHYROXINE SODIUM 88 MCG TABLET PO (05:27)
[2024-03-30 05:47] LABS: Hemoglobin 7.9 g/dL (12.0-16.0)
[2024-03-30 06:16] LABS: Alanine Aminotransferase < 7 U/L (10-49); Albumin, Serum 2.8 gm/dL (3.4-4.8); Albumin/Globulin Ratio 0.8 (1.2-2.2); Alkaline Phosphatase 108 U/L (46-116); Anion Gap 8 (7-16); Aspartate Amino Transferase 13 U/L (0-34); BUN/Creatinine Ratio 23 Ratio (12-20); Bilirubin,Total 0.5 mg/dL (0.3-1.2); Blood Urea Nitrogen 52 mg/dL (9-23); Calcium 7.5 mg/dL (8.3-10.6); Calcium (Corrected) 8.5 mg/dL (8.5-10.1); Carbon Dioxide 29.8 mMol/L (20.0-31.0); Chloride 102 mMol/L (98-107); Creatinine (Component) 2.3 mg/dL (0.6-1.3); Globulin 3.4 gm/dL (2.3-3.5); Glucose 81 mg/dL (74-106); Magnesium 1.9 mg/dL (1.6-2.6); Osmolality,Calculated 292 (275-295); Phosphorous 4.2 mg/dL (2.4-5.1); Sodium 140 mMol/L (136-145); Total Protein 6.2 gm/dL (5.7-8.2); eGFR 23 See Note
--- NOTE | 2024-03-30 08:44 | PC.SS ---
Addendum entered by Mariaa Presley 03/30/24 12:07: SS follow up note; SS contacted Lorena from [employer] and she informed SS that patient's chair time is still pending. Original Note: SS follow up note; SS contacted [facility] and spoke to Lorena, she reported that patient's chair time is still pending and advised SS to call back at 10AM.
--- NOTE | 2024-03-30 09:08 | ESPR_ITS ---
Documentation for date of: 03/30/24 Subjective Subjective Interval history: Ms. Oliveira is a 68-year-old lady with past medical history of CKD stage IV , IBRAHIMA due to significant anasarca previously on hemodialysis (-came off dialysis), DM2, HFpEF (50 to 55% on 02/2024), hypertension, hyperlipidemia, hypothyroidism, anemia, and liver abscess status post drainage was recently admitted to the hospital for anasarca and responded to Bumex drip and discharged back to [facility]. She was again admitted to the hospital yesterday with altered mental status. Patient was unresponsive and unable to walk. In the emergency department stroke alert was called due to her altered mental status and weakness. Initial CT showed question early infarct in the cerebellar hemispheres. Due to azotemia renal consultation was requested and primary team requested to do CTA brain to rule out stroke. Apparently patient's daughter stated patient was inclining to do dialysis if needed. In the previous admission patient declined dialysis. Patient did get a CTA brain last night with contrast. Was negative for acute stroke. MRI brain showed a 7 mm right parietal stroke. Patient currently seen in telemetry. No family around. 03/26/2024 patient currently seen in telemetry. Very altered. Labs showed TSH 65.5, lipids normal, albumin 2.9, troponin 0.2, magnesium 2.1, phosphorus 9.2, calcium 7.9, BUN 90, creatinine 3.9, sodium 139, potassium 3.9, bicarbonate 24, hemoglobin 8.6. Patient was supposed to get dialysis-IR closed today due to holiday. Will initiate dialysis tomorrow. 03/27/2024 patient currently seen in telemetry. More alert and awake. Had a long conversation with patient regarding fluid overload, metabolic encephalopathy, acute renal failure and she agreed for dialysis. Patient consented. Had dialysis catheter placed by Dr. Grider and is on dialysis. Blood pressure 121/58, heart rate 61. Hemoglobin 8.6. Sodium 140, potassium 4.2, BUN 94, creatinine 4.2, GFR 11, calcium 8.1, phosphorus 10.4, LFTs normal, albumin 3, 03/28/2024 patient currently seen on second dialysis session. More alert and awake. Back to baseline regarding mentation. Blood sugar 113. Blood pressure 130/66, heart rate 60. Hemoglobin 8.4, sodium 139, potassium 3.9, BUN 72, creatinine 3.4, GFR 14, calcium 8.4,, phosphorus 8.0, LFTs normal, albumin 3.0, hep panel negative. PPD pending. Outpatient dialysis arrangements pending. 03/30/2024 patient currently seen on dialysis. Sleepy but arousable. Denies any chest pain, shortness of breath. Labs, medications reviewed. Review of Systems Review of Systems Narrative Review of Systems: Patient goes back to sleep easily. Denies any chest pain or shortness of breath. Appetite acceptable. Exam Vital Signs Temp Pulse Resp BP Pulse Ox O2 Del Method O2 Flow Rate 36.6 C 56 L 17 133/65 H 97 Nasal Cannula 1 03/30/24 07:37 03/30/24 09:02 03/30/24 07:37 03/30/24 09:02 03/30/24 07:37 03/30/24 04:00 03/30/24 04:00 Narrative Exam GENERAL APPEARANCE: Patient currently seen in dialysis NECK: Neck supple, no JVD or bruit CARDIOVASCULAR: Heart regular, no murmurs LUNGS/CHEST: Chest clear to auscultation. No rales, rhonchi, wheezing ABDOMEN: Soft, nontender, nondistended. No masses. Normal bowel sounds. EXTREMITIES: 2+ edema especially in the thigh and lower abdominal wall SKIN: Skin exam normal without any rashes. IJ catheter noted MUSCULOSKELETAL: In bed NEUROLOGICAL : Sleepy but arousable Objective Labs 03/30/24 04:26 03/30/24 04:26 Labs: Laboratory Results - last 24 hr 03/30/24 04:26 WBC 5.9 RBC 2.40 L Hgb 7.9 L Hct 25.0 L MCV 104 H MCH 32.9 MCHC 31.6 RDW Std Deviation 57.7 H Plt Count 125 L Neut % (Auto) 59 Lymph % (Auto) 27 [place] % (Auto) 9 Eos % (Auto) 3 Baso % (Auto) 1 Neut # (Auto) 3.5 Lymph # (Auto) 1.6 [place] # (Auto) 0.6 Eos # (Auto) 0.2 Baso # (Auto) 0.0 Immature Gran # (Auto) 0.04 H Absolute Nucleated RBC 0.00 Immature Gran % 1 H Nucleated RBC % 0 Sodium 140 Potassium 4.0 Chloride 102 Carbon Dioxide 29.8 Anion Gap 8 BUN 52 H Creatinine 2.3 H Estim Creat Clear Calc 20.0 L eGFR 23 L BUN/Creatinine Ratio 23 H Glucose 81 Calculated Osmolality 292 Calcium 7.5 L Corrected Calcium 8.5 Phosphorus 4.2 Magnesium 1.9 Total Bilirubin 0.5 AST 13 ALT < 7 L Alkaline Phosphatase 108 Total Protein 6.2 Albumin 2.8 L Globulin 3.4 Albumin/Globulin Ratio 0.8 L Assessment & Plan Assessment and plan (1) Altered mental state: Status: Acute (2) Acute CVA (cerebrovascular accident): Status: Acute (3) End-stage renal disease (ESRD): Status: Chronic (4) Diabetes: Status: Chronic Additional Assessment & Plan Additional Plan: Betty Oliveira is a 68-year-old female patient with past medical history of CKD was previously on dialysis, nephrotic syndrome secondary to diabetic nephropathy, hypertension, HFrEF EF of 35 to 45% on October 2023, diabetes mellitus, hyperlipidemia, hypothyroidism, liver abscess status post drainage presented to the hospital with altered mental status and noted to be in acute renal failure. Well-known to me from previous admissions and CKD clinic. Patient has progressed to diabetic nephropathy and was supposed to initiate dialysis last month-patient declined. Apparently last night family requested dialysis and all aggressive measures. CODE STATUS full code. Was referred to the hospital from the nuclear plant construction worker office Dr. Mcclendon when the patient was noticed to be fluid overloaded. Patient was admitted secondary to anasarca. # Acute renal failure secondary to progressive diabetic nephropathy superimposed on advanced CKD anasarca most likely multifactorial secondary to nephrotic syndrome, HFrEF, CKD #Nephrotic syndrome #CKD stage IV--leading towards ESRD # Altered mental status-probably related to small stroke versus metabolic encephalopathy. Decided to proceed with dialysis. Will plan for catheter placement and dialysis in a.m. Hepatitis, PPD ordered. Will give Epogen with dialysis. Neurology on the case. 03/30/[address] Grider. Patient consented for dialysis and catheter. patient currently seen on third dialysis. Tolerating dialysis without any problems. Hemodialysis for 2.5 hours, 2K, ultrafiltration 1-2 L, Epogen 6000, no heparin ordered. Plan of care discussed with the dialysis nurse. Please see dialysis flowsheet for further details. Next dialysis scheduled for Tuesday. Outpatient dialysis arranged. Quality - progress note Quality Measures Quality Measures: VTE prophylaxis Reason for Continued Stay Reason for Continued Stay: further monitoring
--- NOTE | 2024-03-30 11:01 | PD.RESDS ---
Planned Discharge Date 03/30/24 DS: Providers Provider Date of admission: 03/25/24 16:46 Primary care physician: Physician No Primary/Family Admitting Provider: Ramana Colon DO Attending Provider on Admission: Jack Salgado MD Consults: 03/25/24 16:50 Consult to Neurology / Tele-Neurology Stat Comment: Stroke and Acute encephalopathy Consulting Provider: [facility] 03/25/24 16:53 Consult to Nephrology Routine Comment: Consulting Provider: Lety Mcclendon Consult to Neurology / Tele-Neurology Routine Comment: Consulting Provider: Gerry Youngblood 03/25/24 17:35 Referral Physical Therapy Routine Comment: Physician Instructions: Referral Speech Therapy Routine Comment: 03/26/24 06:34 Referral Infection Control Routine Comment: Reason for Infection Control Referral: Readmitted within 30 days 03/27/24 15:29 PT [Referral Physical Therapy] Routine Comment: Physician Instructions: Attending Provider on DC: Jack Salgado MD Discharging Provider: Jack Salgado MD DS: Diagnosis Problem List Completed Was Problem List Reviewed/Reconciled?: Yes Hospital Course Hospital Course Hospital course: 68-year-old female with past medical history of CKD stage IV previously on hemodialysis (), DM2, HFpEF (50 to 55% on 02/2024), hypertension, hyperlipidemia, hypothyroidism, anemia of chronic disease, and liver abscess status post drainage was admitted to the hospital on 03/25/2024 due to acute encephalopathy likely secondary to uremia in the setting of renal failure versus acute ischemic stroke. Came in to the ED via EMS with altered mental status. Initially came in afebrile and mildly hypertensive. Initial labs were relevant for low hemoglobin (8.5), azotemia (BUN 89 and creatinine 4.1), hypocalcemia (7.5 corrected), troponinemia (0.399), elevated BNP (611), hypoalbuminemia (3.1), and UA was positive for leukocytes esterase. Initial imaging included chest x-ray which showed heart failure pattern and head CT which did not show suspicion for early acute infarcts in both cerebellar hemispheres. EKG on the chart was reviewed and did not show any ST changes. Additional imaging throughout the hospital stay included MRI that showed an acute infarct of right parietal lobe, echocardiogram showed EF of 55 to 60% with negative bubble study, and EEG was abnormal with encephalopathy pattern. Throughout her hospital stay the patient was placed on hemodialysis by tenant relations coordinator. The neurologist also saw the patient and stated to continue aspirin and atorvastatin at this time given her new CVA. Throughout the hospital stay patient's mental status did improve, but she was still having significant bilateral lower extremity pain which neurology stated that this with myoclonic jerks and discontinued the patient's gabapentin, but these improved and stated that we could start the patient back on gabapentin 100 mg 3 times daily which was most lower dosage than what the patient was initially in. Patient was also placed on IV levothyroxine and IV liothyronine due to her severe hypothyroidism before and was transition back to p.o. levothyroxine. Patient's acute cephalopathy was most likely multifactorial in the setting of severe hypothyroidism, CVA, and uremia. Patient's family decided that patient would go to a [facility] facility as physical therapy had recommended patient to go to a [facility] facility at this time. At the time of discharge patient was stable enough to be discharged to a [facility] facility. Discharge plan: Please follow-up with your primary care physician within 1 week after discharge. Please follow-up with your tenant relations coordinator and neurologist within 1 to 2 weeks after discharge. Please continue hemodialysis sections as scheduled. Please have your primary care physician repeat TSH and free T4 in around 2 to 4 weeks. We have changed your atorvastatin from 20 mg to 40 mg at bedtime and we have changed your gabapentin from 600 mg 3 times daily to 100 mg 3 times daily. We have held your carvedilol 3.125 mg for now given that your heart rate has been borderline in the 60s. We have stopped your acetazolamide, Augmentin, doxycycline, hydralazine, and Lokelma. Please come back to the ER if symptoms persist or worsen. Problem list: #Acute encephalopathy #Acute ischemic stroke, R parietal #Uremia #IBRAHIMA on CKD #Acute decompensated heart failure exacerbation #HFpEF (55-60% on 03/2024) #Severe Hypothyroidism #NSTEMI, likely type II demand ischemia #Anemia of chronic disease #Hypocalcemia #DM2 #Hypoalbuminemia #Hx of hypertension #Hx of hyperlipidemia Case disclosed with Attending Dr. Naomi Ferro PGY1 Status at Discharge Overall status at discharge: patient is progressing back to baseline Time Spent with Patient Time attestation: Total time spent providing and/or coordinating discharge services:>35 min Exam Vital Signs Temp Pulse Resp BP Pulse Ox O2 Del Method O2 Flow Rate 97.7 F 61 17 149/69 H 97 Nasal Cannula 1 03/30/24 09:50 03/30/24 10:11 03/30/24 09:50 03/30/24 10:11 03/30/24 07:37 03/30/24 04:00 03/30/24 04:00 Narrative Exam General: A/O x 3 today, resting in bed Eyes: ENRIQUE pupils were reactive to light, able to trace, vision intact Ears: No visible ear discharge, hearing intact Nose: No visible nasal discharge. Mouth/Throat: Dry mucous membranes, poor dentition, no redness, no lesions. Neck: Neck supple,no cervical lymphadenopathy. Lungs: Clear ENRIQUE, No accessory muscle use. Cardio: Normal S1/S2, regular rhythm, no murmurs, no JVD Abdomen: Soft, but distended, no palpable masses, peristalsis present, well-healed scar on the right side abdomen Extremities: Symmetrical, no significant deformities, trace peripheral edema, peripheral pulses presents, myoclonic jerks in ENRIQUE LE and tremors in ENRIQUE UE, not visualized today. Skin: No rashes, no lesions, warm to touch. Dialysis cath in L upper chest. Neuro: Strength ENRIQUE UE and LE 3/5, able to follow commands, A/O x3. Discharge Plan Plan Patient Disposition: Xfer Skilled [facility] (SNF) Patient condition on transfer: Stable Care Plan Goals: Please follow-up with your primary care physician within 1 week after discharge. Please follow-up with your tenant relations coordinator and neurologist within 1 to 2 weeks after discharge. Please continue hemodialysis sections as scheduled. Please have your primary care physician repeat TSH and free T4 in around 2 to 4 weeks. We have changed your atorvastatin from 20 mg to 40 mg at bedtime and we have changed your gabapentin from 600 mg 3 times daily to 100 mg 3 times daily. We have held your carvedilol 3.125 mg for now given that your heart rate has been borderline in the 60s. We have stopped your acetazolamide, Augmentin, doxycycline, hydralazine, and Lokelma. Please come back to the ER if symptoms persist or worsen. Prescriptions/Referrals Prescriptions/Med Rec: New gabapentin 100 mg capsule 100 mg PO TID 30 Days Qty: 90 0RF atorvastatin 40 mg tablet 40 mg PO HS 30 Days Qty: 30 0RF Continued valsartan 80 mg Tablet 80 mg PO QDAY 30 Days Qty: 30 0RF bumetanide 1 mg tablet 1 mg PO QDAY Qty: 30 0RF nifedipine 30 mg tablet extended release 30 mg PO QDAY Patient Comments: take 1 tablet by mouth once daily hydrocodone-acetaminophen 5-325 mg tablet 1 tab PO Q8H PRN (Reason: pain) Patient Comments: TAKE 1 TABLET BY MOUTH EVERY 8 HOURS NEEDED FOR PAIN. MAX DAILY DOSE: 3 TABLETS pantoprazole [Protonix] 40 mg tablet,delayed release (DR/EC) 40 mg PO QDAY escitalopram oxalate 20 mg tablet 20 mg PO QDAY Patient Comments: take 1 tablet by mouth once daily hydroxyzine HCl 25 mg tablet 25 mg PO QDAY PRN (Reason: anxiety) Patient Comments: take 1 tablet by mouth once daily if needed for anxiety levothyroxine 100 mcg tablet 100 mcg PO QDAY Patient Comments: take 1 tablet by mouth once daily aspirin [Ecotrin Low Strength] 81 mg tablet,delayed release (DR/EC) 81 mg PO QDAY ipratropium-albuterol 0.5 mg-3 mg(2.5 mg base)/3 mL Solution For Nebulization 3 ml INHALATION Q4H PRN (Reason: Shortness Of Breath Or Wheezing) nitroglycerin 0.4 mg Tablet, Sublingual 0.4 mg buccal [id number] PRN (Reason: Chest Pain) Nephro-Hema 0.8 mg Tablet 1 tab PO QDAY acetaminophen 500 mg Tablet 500 mg PO Q6H PRN (Reason: Pain (Scale Score 1-3)) lorazepam [Ativan] 0.5 mg Tablet 0.5 mg PO Q6HR PRN (Reason: Anxiety) Januvia 50 mg tablet 50 mg PO QDAY Qty: 30 0RF Held carvedilol 3.125 mg tablet 3.125 mg PO BID Hold Instructions: Resume on 04/06/24. hold as your heart rate is borderline, follow-up with PCP to restart. Patient Comments: take 1 tablet by mouth twice a day MUST ADMINISTER WITH A MEAL/FOOD Discontinued gabapentin [Neurontin] 600 MG tablet 600 mg PO TID Qty: 0 atorvastatin 20 mg Tablet 20 mg PO HS 30 Days Qty: 30 0RF hydralazine 25 mg Tablet 50 mg PO TID 30 Days Qty: 180 0RF Lokelma 10 gram Powder In Packet 10 g PO QDAY Januvia 50 mg tablet 50 mg PO QDAY acetazolamide 250 mg tablet 250 mg PO QDAY doxycycline hyclate 100 mg capsule 100 mg PO BID Qty: 14 0RF amoxicillin-pot clavulanate 875-125 mg tablet 1 tab PO Q12H Qty: 14 0RF acetazolamide 250 mg tablet 250 mg PO QDAY Qty: 30 0RF gabapentin 600 mg tablet 600 mg PO TID Qty: 60 0RF Lokelma 10 gram powder in packet 10 g PO QDAY Qty: 30 0RF ipratropium-albuterol 0.5 mg-3 mg(2.5 mg base)/3 mL solution for nebulization 3 ml inhalation Q4H PRN (Reason: shortness of breath) Qty: 90 0RF lorazepam [Ativan] 0.5 mg tablet 0.5 mg PO QDAY PRN (Reason: anxiety) Qty: 20 0RF Referrals: No Primary/Family,Physician [Primary Care Provider] - Patient/Caregiver Discharge Instructions Other Discharge Activity Instructions:: Please follow-up with your primary care physician within 1 week after discharge. Please follow-up with your tenant relations coordinator and neurologist within 1 to 2 weeks after discharge. Please continue hemodialysis sections as scheduled. Please have your primary care physician repeat TSH and free T4 in around 2 to 4 weeks. We have changed your atorvastatin from 20 mg to 40 mg at bedtime and we have changed your gabapentin from 600 mg 3 times daily to 100 mg 3 times daily. We have held your carvedilol 3.125 mg for now given that your heart rate has been borderline in the 60s. We have stopped your acetazolamide, Augmentin, doxycycline, hydralazine, and Lokelma. Please come back to the ER if symptoms persist or worsen. Education Materials: CKD Dc, Discharge Instructions for Stroke Print Language: South African Stand Alone Forms: [facility]a Award Info., Patient Portal Info Letter Attestestation Attestation I reviewed labs, imaging, EKG, home medications and prior available records. Face to face evaluation was performed by me. I have personally examined the patient and discussed assessment and plan with the IM team. I reviewed the resident note and agree with the plan with exceptions as below. Acute encephalopathy, mental status improved Right parietal acute CVA History of CVA Uremia ESRD Hemodialysis status Uncontrolled hypothyroidism Chronic HFpEF EF 50 to 55% Right foot pain Her acute encephalopathy is likely multifactorial in the setting of uncontrolled hypothyroidism, uremia, and CVA Follow-up EEG: Abnormal likely metabolic versus degenerative changes Follow-up echocardiogram Continue levothyroxine. Repeat thyroid function tests: Showed improvement in free T4. Will discharge on levothyroxine home dose. Repeat thyroid function tests in 4 weeks Hemodialysis line by IR on 01/24. Started hemodialysis. Continue hemodialysis as outpatient Outpatient follow-up with nephrology Started gabapentin for the foot pain Ordered hepatitis panel for the dialysis chair Ordered x-ray of the right foot: Showed no acute fracture Continue valsartan and nifedipine for the blood pressure Time spent is 40 minutes. More than 50% of the time was spent on patient education and coordination of care.
[2024-03-30] MEDS: PANTOPRAZOLE INJ 40 MG VIAL IV (11:29)
[2024-03-30] MEDS: SEVELAMER CARBONATE 800 MG TABLET PO ×2 (11:29→17:46)
[2024-03-30] MEDS: ASPIRIN EC 81 MG TABEC PO (11:29)
[2024-03-30] MEDS: EPOETIN ALFA-EPBX INJ 10,000 UNIT/ML VIAL (NON-ESRD) 10000 UNIT SC (11:40)
[2024-03-30] MEDS: VALSARTAN 80 MG TABLET PO (11:42)
--- NOTE | 2024-03-30 14:21 | ESPR_ITS ---
Documentation for date of: 03/30/24 Subjective Subjective Interval history: Patient was seen at bedside this morning. No overnight events. Patient is doing a lot better today and is AO x 3. From a medical standpoint patient is okay to be discharged, but we are still pending hemodialysis chair time at this time. Spoke with daughter no other complaints at this time. Exam Vital Signs Temp Pulse Resp BP Pulse Ox O2 Del Method O2 Flow Rate 97.7 F 60 16 156/79 H 99 Nasal Cannula 3 03/30/24 12:00 03/30/24 12:00 03/30/24 12:00 03/30/24 12:00 03/30/24 12:00 03/30/24 12:00 03/30/24 12:00 Narrative Exam General: A/O x 3 today, resting in bed Eyes: ENRIQUE pupils were reactive to light, able to trace, vision intact Ears: No visible ear discharge, hearing intact Nose: No visible nasal discharge. Mouth/Throat: Dry mucous membranes, poor dentition, no redness, no lesions. Neck: Neck supple,no cervical lymphadenopathy. Lungs: Clear ENRIQUE, No accessory muscle use. Cardio: Normal S1/S2, regular rhythm, no murmurs, no JVD Abdomen: Soft, but distended, no palpable masses, peristalsis present, well- healed scar on the right side abdomen Extremities: Symmetrical, no significant deformities, trace peripheral edema, peripheral pulses presents, myoclonic jerks in ENRIQUE LE and tremors in ENRIQUE UE, not visualized today. Skin: No rashes, no lesions, warm to touch. Dialysis cath in L upper chest. Neuro: Strength ENRIQUE UE and LE 3/5, able to follow commands, A/O x3. Objective Labs 03/30/24 04:26 03/30/24 04:26 Labs: Laboratory Results - last 24 hr 03/30/24 04:26 WBC 5.9 RBC 2.40 L Hgb 7.9 L Hct 25.0 L MCV 104 H MCH 32.9 MCHC 31.6 RDW Std Deviation 57.7 H Plt Count 125 L Neut % (Auto) 59 Lymph % (Auto) 27 [place] % (Auto) 9 Eos % (Auto) 3 Baso % (Auto) 1 Neut # (Auto) 3.5 Lymph # (Auto) 1.6 [place] # (Auto) 0.6 Eos # (Auto) 0.2 Baso # (Auto) 0.0 Immature Gran # (Auto) 0.04 H Absolute Nucleated RBC 0.00 Immature Gran % 1 H Nucleated RBC % 0 Sodium 140 Potassium 4.0 Chloride 102 Carbon Dioxide 29.8 Anion Gap 8 BUN 52 H Creatinine 2.3 H Estim Creat Clear Calc 20.0 L eGFR 23 L BUN/Creatinine Ratio 23 H Glucose 81 Calculated Osmolality 292 Calcium 7.5 L Corrected Calcium 8.5 Phosphorus 4.2 Magnesium 1.9 Total Bilirubin 0.5 AST 13 ALT < 7 L Alkaline Phosphatase 108 Total Protein 6.2 Albumin 2.8 L Globulin 3.4 Albumin/Globulin Ratio 0.8 L Quality Measures Quality Measures none Advance care planning discussed with:: patient Assessment & Plan Assessment Current Active Medications: Generic Name Dose Route Start Last Admin Trade Name Freq PRN Reason Stop Dose Admin Acetaminophen 650 mg 03/28/24 14:21 03/29/24 22:57 Acetaminophen 325 Mg Tablet PO 04/27/24 14:20 650 mg Q6HR PRN Administration pain and Fever >100.4 Albuterol/Ipratropium 3 ml 03/28/24 09:29 Albuterol/Ipratropium (Duoneb) Rt Katrin 3 Ml Nebu INH 04/25/24 10:59 Q4HRRT PRN SOB or wheezing Aspirin 81 mg 03/26/24 09:30 03/30/24 11:29 Aspirin Ec 81 Mg Tabec PO 04/25/24 09:29 81 mg QDAY LUCI Administration Atorvastatin Calcium 40 mg 03/26/24 21:00 03/29/24 21:15 Atorvastatin Calcium 20 Mg Tablet PO 04/25/24 20:59 40 mg HS LUCI Administration Baclofen 10 mg 03/30/24 21:00 Baclofen 10 Mg Tablet PO 04/29/24 20:59 BID LUCI Dextrose 25 ml 03/25/24 16:46 03/26/24 05:26 Dextrose 50%-Water Inj 50 Ml Syringe IV 04/24/24 16:45 25 ml Q15MIN PRN Administration BG 50-70 responsive npo pt Dextrose 50 ml 03/25/24 16:46 Dextrose 50%-Water Inj 50 Ml Syringe IV 04/24/24 16:45 Q15MIN PRN BG <50 OR BG <70 & pt unresponsive Furosemide 40 mg 03/29/24 09:00 03/30/24 08:36 Furosemide Inj 10 Mg/Ml 4ml Vial IVP 04/28/24 08:59 Not Given QDAY LUCI Gabapentin 100 mg 03/29/24 15:45 03/30/24 05:08 Gabapentin 100 Mg Capsule PO 04/28/24 15:44 100 mg TID LUCI Administration Glucagon 1 mg 03/25/24 16:46 Glucagon Inj 1 Mg Vial IM Q15MIN PRN BG <70, and no IV access Heparin Sodium (Porcine) 5,000 unit 03/26/24 22:00 03/30/24 05:09 Heparin Sod Inj 5000 Unit/Ml Vial SC 04/09/24 21:59 5,000 unit Q8HR LUCI Administration Heparin Sodium (Porcine) 3,500 unit 03/27/24 14:41 03/28/24 16:04 Heparin Sod Inj 1000 Unit/Ml Vial 10 Ml INDWELLCAT 04/10/24 14:40 3,500 unit PRN PRN Administration DIALYSIS Insulin Human Lispro 0 unit 03/29/24 11:30 03/30/24 11:21 Insulin Lispro (Admelog) 1 Unit/0.01 Ml Unit SC 04/28/24 11:29 Not Given AC LUCI Protocol Levothyroxine Sodium 88 mcg 03/29/24 06:00 03/30/24 05:27 Levothyroxine Sodium 88 Mcg Tablet PO 04/28/24 05:59 88 mcg ACBR LUCI Administration Ondansetron HCl 4 mg 03/25/24 16:46 Ondansetron Inj 2 Mg/Ml Inj 2 Ml IV 04/24/24 16:45 Q6H PRN NAUSEA OR VOMITING Protocol Pantoprazole Sodium 40 mg 03/26/24 09:00 03/30/24 11:29 Pantoprazole Inj 40 Mg Vial IV 04/25/24 08:59 40 mg QDAY LUCI Administration Sevelamer Carbonate 800 mg 03/26/24 12:00 03/30/24 11:29 Sevelamer Carbonate 800 Mg Tablet PO 04/25/24 11:59 800 mg TIDWM LUCI Administration Valsartan 80 mg 03/30/24 09:00 03/30/24 11:42 Valsartan 80 Mg Tablet PO 04/29/24 08:59 80 mg QDAY LUCI Administration Plan 68-year-old female with past medical history of CKD stage IV previously on hemodialysis (), DM2, HFpEF (50 to 55% on 02/2024), hypertension, hyperlipidemia, hypothyroidism, anemia of chronic disease, and liver abscess status post drainage was admitted to the hospital on 03/25/2024 due to acute encephalopathy likely secondary to uremia in the setting of renal failure versus acute ischemic stroke. #Acute encephalopathy #Acute ischemic stroke, R parietal #Uremia #IBRAHIMA on CKD ?Patient came in altered for the past 2 days with decreased communication with her family and not following instructions. ? Patient refused hemodialysis on the of last month as per daughter. ? DDx altered mental status secondary to uremia in the setting of renal failure versus acute ischemic stroke. ? GCS of 9 on assessment ? BUN 89 and creatinine 4.1 on admission, baseline is creatinine of 1.6-1.7 and BUN in the 40s ? Head CT showed early acute infarcts in both cerebellar hemispheres ?Chest CTA was unremarkable ?Stroke alert was not initiated in the ED - MRI showed acute infarct of R parietal lobe ? EEG was significant for encephalopathy pattern Plan: ? Aspirin 81 qday, held today in setting of bleeding, and continue atorvastatin 40 HS -Continue Gabapentin 100mg TID ? Neurochecks every 4 ?Continue HD as scheduled ? Seizure precautions ? Jacobo inserted ?Aspiration precautions - Referred to speech and physical therapy ? Teleneurology consulted, appreciate recommendations ? Neurology consulted, appreciate commendations - Nephrology Consulted, Appreciate recs #Acute decompensated heart failure exacerbation #HFpEF (55-60% on 03/2024) ?Patient had 1+ pitting edema initially ? BNP 611 ? Last echo on 02/2024 showed an EF of 50 to 55% ? Patient was recently seen in the ER on 03/20/2024 due to heart failure exacerbation - echo showed EF 55-60% Plan: ? Lasix 40 daily ? Strict MERRY's ? Daily weights ? Fluid restrictions ? Will continue monitor - Likely Hemodialysis #NSTEMI, likely type II demand ischemia ? Troponins 0.399 and downtrended ? EKG did not show any ST changes ?Likely in the setting of possible CHF exacerbation and renal failure Plan: ? Will continue to monitor #Hypocalcemia ? Patient's calcium 8.5 corrected today Plan: ? Will continue to monitor #Anemia of chronic disease ? Patient hemoglobin 7.9 today and a baseline is around 8-9. ? On last admission vitamin B12 levels were normal, iron and ferritin were normal ? Most likely in the setting of chronic kidney disease and heart failure Plan: ? Will transfuse hemoglobin less than 7 ? Will continue to monitor #Hypoalbuminemia ?Patient's albumin 2.8 today Plan: ? Will monitor for now #DM2 ? A1c on 02/2024 was 7.8 Plan: ? Blood glucose checks AC ? ISS ? Hypoglycemia protocol ordered #Severe Hypothyroidism ? TSH 65.52 and free T4 0.64 ?Patient initially was hypoglycemic and her heart rate has been in the 60s to high 50s as well as her altered mental status this raises high suspicion for myxedema coma as her TSH was extremely high with very low T4. Plan: ? Continue levothyroxine PO 88mcg. ?Will continue to monitor #Hx of hypertension #Hx of hyperlipidemia ? Blood pressure has been stable therefore we will hold off on antihypertensive medication for now as allowing permissive HTN ? Will continue atorvastatin Disposition: Patient pending HD chair time Diet: Renal/Carb cons/Cardiac/dysphagia 1 GI prophylaxis: protonix DVT prophylaxis: Heparin Sc Code:Full code Case disclosed with Attending Dr. Naomi Ferro PGY1 Attending Provider Attestation/Addendum I reviewed labs, imaging, EKG, home medications and prior available records. Face to face evaluation was performed by me. I have personally examined the patient and discussed assessment and plan with the IM team. I reviewed the resident note and agree with the plan with exceptions as below. Acute encephalopathy, mental status improved Right parietal acute CVA History of CVA Uremia ESRD Hemodialysis status Uncontrolled hypothyroidism Chronic HFpEF EF 50 to 55% Right foot pain Her acute encephalopathy is likely multifactorial in the setting of uncontrolled hypothyroidism, uremia, and CVA Follow-up EEG: Abnormal likely metabolic versus degenerative changes Follow-up echocardiogram Continue levothyroxine. Repeat thyroid function tests: Showed improvement in free T4. Will discharge on levothyroxine home dose. Repeat thyroid function tests in 4 weeks Hemodialysis line by IR on 01/24. Started hemodialysis. Continue hemodialysis as outpatient. Pending authorization for hemodialysis chair Outpatient follow-up with nephrology Started gabapentin for the foot pain Ordered hepatitis panel for the dialysis chair Ordered x-ray of the right foot: Showed no acute fracture Continue valsartan and nifedipine for the blood pressure
--- NOTE | 2024-03-30 14:32 | PC.SS ---
SS follow up note; SS followed up with [facility] and followed up with Lorena and she reported she would contact SS within 15min. SS will update Dr. Stallworth.
--- NOTE | 2024-03-30 15:31 | PC.SS ---
SS follow up note; Lorena calles [facility] in [place] contacted SS and informed SS that chair time has not been established and they would contact SS when Chair time is available. SS updated Dr. Stallworth and Hussein from [employer].
[2024-03-30] MEDS: ATORVASTATIN CALCIUM 20 MG TABLET 40 MG PO (20:19)
[2024-03-30] MEDS: ACETAMINOPHEN 325 MG TABLET 650 MG PO (20:20)
[2024-03-30] MEDS: BACLOFEN 10 MG TABLET PO (20:20)
--- NOTE | 2024-03-30 23:49 | PD.NEUROPROG ---
Documentation for date of: 03/30/24 Subjective Subjective Interval history: Patient was seen in telemetry today. She is alert, awake, oriented x3, and is able to answer questions. c/O pain all over especially in the LE. Exam - Neurology Vital Signs Temp Pulse Resp BP Pulse Ox O2 Del Method O2 Flow Rate 98.3 F 61 12 143/61 H 100 Nasal Cannula 3 03/30/24 20:00 03/30/24 20:00 03/30/24 20:00 03/30/24 20:00 03/30/24 20:00 03/30/24 20:00 03/30/24 20:00 Narrative Exam GENERAL APPEARANCE: Well hydrated, well-nourished in no acute distress. HEENT: Normocephalic, atraumatic, extraocular movements intact. Pupils: Equal reacting to light and accommodation NECK: Supple, no JVD or bruits. CARDIOVASULAR: Heart: S1, S2 heard, regular without S3-S4 or murmur no rubs or gallops. LUNGS/CHEST: Clear to auscultation bilaterally. No rails, rhonchi, or wheezing. Normal inspection. ABDOMEN: Soft, nontender, with normal bowel sounds. No pulsatile masses. No rebound, rigidity, or guarding. Normal inspection and palpation. EXTREMITIES: Normal inspection and palpation. No edema, clubbing or cyanosis. SKIN: Warm and dry without rashes. Normal inspection. MUSCULOSKELETAL: No cervical, thoracic, lumbar or midline bony tenderness. Normal inspection. NEURO: Alert, awake and oriented x3. Cranial nerves: II through XII grossly intact. Speech and language: Normal with no dysarthria or dysphasia. Motor system: Tone and bulk: Normal: Strength: moves all 4 extremities; No pronator drift noted. Deep tendon reflexes: 1+ bilaterally symmetrical. Plantar reflex: Downgoing bilaterally. Sensory system: Intact to pinprick sensation bilaterally. Coordination: Intact to [id number] and agyc-hjwp-tmfv test bilaterally. She has no more asterixis/myocolnus/ tremors in both upper extremities. Gait: Cannot be tested. No signs of meningeal irritation noted. PSYCHIATRIC: Normal mood and affect. intermittently in tears from pain Objective Labs 03/30/24 04:26 03/30/24 04:26 Labs: Laboratory Results - last 24 hr 02/21/25 04:26 WBC 5.9 RBC 2.40 L Hgb 7.9 L Hct 25.0 L MCV 104 H MCH 32.9 MCHC 31.6 RDW Std Deviation 57.7 H Plt Count 125 L Neut % (Auto) 59 Lymph % (Auto) 27 [place] % (Auto) 9 Eos % (Auto) 3 Baso % (Auto) 1 Neut # (Auto) 3.5 Lymph # (Auto) 1.6 [place] # (Auto) 0.6 Eos # (Auto) 0.2 Baso # (Auto) 0.0 Immature Gran # (Auto) 0.04 H Absolute Nucleated RBC 0.00 Immature Gran % 1 H Nucleated RBC % 0 Sodium 140 Potassium 4.0 Chloride 102 Carbon Dioxide 29.8 Anion Gap 8 BUN 52 H Creatinine 2.3 H Estim Creat Clear Calc 20.0 L eGFR 23 L BUN/Creatinine Ratio 23 H Glucose 81 Calculated Osmolality 292 Calcium 7.5 L Corrected Calcium 8.5 Phosphorus 4.2 Magnesium 1.9 Total Bilirubin 0.5 AST 13 ALT < 7 L Alkaline Phosphatase 108 Total Protein 6.2 Albumin 2.8 L Globulin 3.4 Albumin/Globulin Ratio 0.8 L Assessment & Plan Assessment and plan (1) Altered mental state: Status: Acute Assessment and plan: Improving, close to baseline, answering questions appropriately. (2) Acute CVA (cerebrovascular accident): Status: Acute Assessment and plan: MRI brain showed tiny infarct in the right parietal lobe with a possible positive ADC map, I do not think it is causing any symptoms in her. I have added Baclofen 10 mg bid along with gabapentin 100 mg tid to help with neuropathic pain without causing involuntary movements. Continue with aspirin and statin and keep the blood pressure and diabetes under control. (3) End-stage renal disease (ESRD): Status: Chronic Assessment and plan: On dialysis (4) Diabetes: Status: Chronic Assessment and plan: Checking fingerstick glucose and follow sliding scale insulin per protocol
[2024-03-31] VITALS (9 sets, daily range): BP systolic 141–170; BP diastolic 64–95; PULSE 58–93; RESP 13–21; TEMP 36.6–36.9; O2SAT 93–100; BMI 29.7
[2024-03-31] MEDS: ACETAMINOPHEN 325 MG TABLET 650 MG PO (04:31)
[2024-03-31] MEDS: LEVOTHYROXINE SODIUM 88 MCG TABLET PO (05:26)
[2024-03-31] MEDS: GABAPENTIN 100 MG CAPSULE PO ×2 (05:26→21:36)
[2024-03-31] MEDS: VALSARTAN 80 MG TABLET PO (08:26)
[2024-03-31] MEDS: HEPARIN SOD INJ 5000 UNIT/ML VIAL SC ×2 (08:28→20:34)
[2024-03-31] MEDS: ASPIRIN EC 81 MG TABEC PO (08:29)
[2024-03-31] MEDS: BACLOFEN 10 MG TABLET PO ×2 (08:29→20:33)
[2024-03-31] MEDS: SEVELAMER CARBONATE 800 MG TABLET PO ×2 (08:29→17:53)
[2024-03-31] MEDS: PANTOPRAZOLE INJ 40 MG VIAL IV (08:30)
[2024-03-31] MEDS: FUROSEMIDE INJ 10 MG/ML 4ML VIAL 40 MG IVP (08:31)
--- NOTE | 2024-03-31 09:35 | PD.NEPHPROG ---
Documentation for date of: 03/31/24 Subjective Subjective Interval history: Ms. Oliveira is a 68-year-old lady with past medical history of CKD stage IV , IBRAHIMA due to significant anasarca previously on hemodialysis (-came off dialysis), DM2, HFpEF (50 to 55% on 02/2024), hypertension, hyperlipidemia, hypothyroidism, anemia, and liver abscess status post drainage was recently admitted to the hospital for anasarca and responded to Bumex drip and discharged back to [facility]. She was again admitted to the hospital yesterday with altered mental status. Patient was unresponsive and unable to walk. In the emergency department stroke alert was called due to her altered mental status and weakness. Initial CT showed question early infarct in the cerebellar hemispheres. Due to azotemia renal consultation was requested and primary team requested to do CTA brain to rule out stroke. Apparently patient's daughter stated patient was inclining to do dialysis if needed. In the previous admission patient declined dialysis. Patient did get a CTA brain last night with contrast. Was negative for acute stroke. MRI brain showed a 7 mm right parietal stroke. Patient currently seen in telemetry. No family around. 03/26/2024 patient currently seen in telemetry. Very altered. Labs showed TSH 65.5, lipids normal, albumin 2.9, troponin 0.2, magnesium 2.1, phosphorus 9.2, calcium 7.9, BUN 90, creatinine 3.9, sodium 139, potassium 3.9, bicarbonate 24, hemoglobin 8.6. Patient was supposed to get dialysis-IR closed today due to holiday. Will initiate dialysis tomorrow. 03/27/2024 patient currently seen in telemetry. More alert and awake. Had a long conversation with patient regarding fluid overload, metabolic encephalopathy, acute renal failure and she agreed for dialysis. Patient consented. Had dialysis catheter placed by Dr. Grider and is on dialysis. Blood pressure 121/58, heart rate 61. Hemoglobin 8.6. Sodium 140, potassium 4.2, BUN 94, creatinine 4.2, GFR 11, calcium 8.1, phosphorus 10.4, LFTs normal, albumin 3, 03/28/2024 patient currently seen on second dialysis session. More alert and awake. Back to baseline regarding mentation. Blood sugar 113. Blood pressure 130/66, heart rate 60. Hemoglobin 8.4, sodium 139, potassium 3.9, BUN 72, creatinine 3.4, GFR 14, calcium 8.4,, phosphorus 8.0, LFTs normal, albumin 3.0, hep panel negative. PPD pending. Outpatient dialysis arrangements pending. 03/31/2024 patient currently seen in telemetry. Denies any chest pain, shortness of breath. Labs, medications reviewed. next hd tuesday Review of Systems Review of Systems Narrative Review of Systems: Patient goes back to sleep easily. Denies any chest pain or shortness of breath. Appetite acceptable. Exam Vital Signs Temp Pulse Resp BP Pulse Ox O2 Del Method O2 Flow Rate 36.7 C 93 16 149/80 H 93 L Room Air 3 03/31/24 08:00 03/31/24 08:31 03/31/24 08:00 03/31/24 08:31 03/31/24 08:00 03/31/24 08:00 03/31/24 04:00 Narrative Exam GENERAL APPEARANCE: Patient currently seen in telemetry NECK: Neck supple, no JVD or bruit CARDIOVASCULAR: Heart regular, no murmurs LUNGS/CHEST: Chest clear to auscultation. No rales, rhonchi, wheezing ABDOMEN: Soft, nontender, nondistended. No masses. Normal bowel sounds. EXTREMITIES: 2+ edema especially in the thigh and lower abdominal wall SKIN: Skin exam normal without any rashes. IJ catheter noted MUSCULOSKELETAL: In bed NEUROLOGICAL : Sleepy but arousable Objective Labs 04/01/24 05:52 04/01/24 07:47 Assessment & Plan Assessment and plan (1) Altered mental state: Status: Acute (2) Acute CVA (cerebrovascular accident): Status: Acute (3) End-stage renal disease (ESRD): Status: Chronic (4) Diabetes: Status: Chronic Additional Assessment & Plan Additional Plan: Betty Oliveira is a 68-year-old female patient with past medical history of CKD was previously on dialysis, nephrotic syndrome secondary to diabetic nephropathy, hypertension, HFrEF EF of 35 to 45% on October 2023, diabetes mellitus, hyperlipidemia, hypothyroidism, liver abscess status post drainage presented to the hospital with altered mental status and noted to be in acute renal failure. Well-known to me from previous admissions and CKD clinic. Patient has progressed to diabetic nephropathy and was supposed to initiate dialysis last month-patient declined. Apparently last night family requested dialysis and all aggressive measures. CODE STATUS full code. Was referred to the hospital from the survey chief office Dr. Mcclendon when the patient was noticed to be fluid overloaded. Patient was admitted secondary to anasarca. # Acute renal failure secondary to progressive diabetic nephropathy superimposed on advanced CKD anasarca most likely multifactorial secondary to nephrotic syndrome, HFrEF, CKD #Nephrotic syndrome #CKD stage IV--leading towards ESRD # Altered mental status-probably related to small stroke versus metabolic encephalopathy. Decided to proceed with dialysis. Will plan for catheter placement and dialysis in a.m. Hepatitis, PPD ordered. Will give Epogen with dialysis. Neurology on the case. Next dialysis scheduled for Tuesday. Outpatient dialysis arranged.
[2024-03-31 09:44] LABS: Basophils % (Auto) 0 % (0-2.5); Eosinophils # (Auto) 0.2 Thou/mm3 (0.0-0.5); Eosinophils % (Auto) 4 % (0-10); Hematocrit 26.2 % (36.0-46.0); Immature Granulocytes % (Auto) 1 % (0-0); Immature Granulocytes Auto 0.03 Thou/mm3 (0.00-0.00); Lymphocytes # (Auto) 1.2 Thou/mm3 (1.0-4.8); Lymphocytes % (Auto) 24 % (10-50); Mean Corpuscular HGB Conc 30.5 g/dl (31.0-37.0); Mean Corpuscular Volume 105 fL (80-100); Monocytes # (Auto) 0.5 Thou/mm3 (0.0-0.8); Monocytes % (Auto) 10 % (0-12); Neutrophils # (Auto) 3.2 Thou/mm3 (1.8-7.7); Neutrophils % (Auto) 62 % (37-80); Nucleated Red Blood Cell % 0 /100 WBC (0); Platelet Count 130 Thou/mm3 (140-440); RDW Standard Deviation 56.5 fL (36.4-46.3); White Blood Count 5.2 Thou/mm3 (3.6-11.0)
[2024-03-31 10:06] LABS: Anion Gap 7 (7-16); BUN/Creatinine Ratio 19 Ratio (12-20); Blood Urea Nitrogen 31 mg/dL (9-23); Calcium 7.8 mg/dL (8.3-10.6); Carbon Dioxide 30.9 mMol/L (20.0-31.0); Chloride 101 mMol/L (98-107); Creatinine (Component) 1.6 mg/dL (0.6-1.3); Estimated Creatinine Clearance 28.8 mL/min (>60); Glucose 82 mg/dL (74-106); Magnesium 1.9 mg/dL (1.6-2.6); Osmolality,Calculated 283 (275-295); Phosphorous 2.9 mg/dL (2.4-5.1); Potassium 3.7 mMol/L (3.4-5.1); Sodium 139 mMol/L (136-145); eGFR 35 See Note
--- NOTE | 2024-03-31 10:21 | ESPR_ITS ---
<Statement entered by Margarito Negron MD - 04/07/24 07:41> I reviewed above note and agree with findings and plans. I have also personally examined the patient with medicine team and went over assessment and plan with medical team including internal combustion engine subassembler and resident physician. Documentation for date of: 03/31/24 Subjective Subjective Interval history: Patient seen at bedside. She is awake, sitting up right, eating breakfast. Continues to complain of right-side leg pain upon touch and movement. Able to move leg. Patient states she has not walked for 4-5 days. Remains on 3L NC. Exam Vital Signs Temp Pulse Resp BP Pulse Ox O2 Del Method O2 Flow Rate 98.1 F 93 16 149/80 H 93 L Room Air 3 03/31/24 08:00 03/31/24 08:31 03/31/24 08:00 03/31/24 08:31 03/31/24 08:00 03/31/24 08:00 03/31/24 04:00 Narrative Exam Constitutional: Elderly female, Lao-speaking, awake, alert HEENT: NCAT. Vision grossly intact. Mucous membranes moist. Respiratory: CTAB bilaterally. Cardiac: RRR. Abdomen: Soft, non-distended. MSK: No B/L LE edema. RLE pain with movement. Skin: Warm, dry, intact. Dialysis line in place Neuro: Motor and sensation grossly intact. No myoclonic jerks noted. Objective Labs 03/31/24 09:06 03/31/24 09:06 Labs: Laboratory Results - last 24 hr 03/31/24 09:06 WBC 5.2 RBC 2.50 L Hgb 8.0 L Hct 26.2 L MCV 105 H MCH 32.0 MCHC 30.5 L RDW Std Deviation 56.5 H Plt Count 130 L Neut % (Auto) 62 Lymph % (Auto) 24 [place] % (Auto) 10 Eos % (Auto) 4 Baso % (Auto) 0 Neut # (Auto) 3.2 Lymph # (Auto) 1.2 [place] # (Auto) 0.5 Eos # (Auto) 0.2 Baso # (Auto) 0.0 Immature Gran # (Auto) 0.03 H Absolute Nucleated RBC 0.00 Immature Gran % 1 H Nucleated RBC % 0 Sodium 139 Potassium 3.7 Chloride 101 Carbon Dioxide 30.9 Anion Gap 7 BUN 31 H Creatinine 1.6 H D Estim Creat Clear Calc 28.8 L eGFR 35 L BUN/Creatinine Ratio 19 Glucose 82 Calculated Osmolality 283 Calcium 7.8 L Phosphorus 2.9 Magnesium 1.9 Quality Measures Quality Measures none Advance care planning discussed with:: other Assessment & Plan Assessment Current Active Medications: Generic Name Dose Route Start Last Admin Trade Name Freq PRN Reason Stop Dose Admin Acetaminophen 650 mg 03/28/24 14:21 03/31/24 04:31 Acetaminophen 325 Mg Tablet PO 04/27/24 14:20 650 mg Q6HR PRN Administration pain and Fever >100.4 Albuterol/Ipratropium 3 ml 03/28/24 09:29 Albuterol/Ipratropium (Duoneb) Rt Katrin 3 Ml Nebu INH 04/25/24 10:59 Q4HRRT PRN SOB or wheezing Aspirin 81 mg 03/26/24 09:30 03/31/24 08:29 Aspirin Ec 81 Mg Tabec PO 04/25/24 09:29 81 mg QDAY LUCI Administration Atorvastatin Calcium 40 mg 03/26/24 21:00 03/30/24 20:19 Atorvastatin Calcium 20 Mg Tablet PO 04/25/24 20:59 40 mg HS LUCI Administration Baclofen 10 mg 03/30/24 21:00 03/31/24 08:29 Baclofen 10 Mg Tablet PO 04/29/24 20:59 10 mg BID LUCI Administration Dextrose 25 ml 03/25/24 16:46 03/26/24 05:26 Dextrose 50%-Water Inj 50 Ml Syringe IV 04/24/24 16:45 25 ml Q15MIN PRN Administration BG 50-70 responsive npo pt Dextrose 50 ml 03/25/24 16:46 Dextrose 50%-Water Inj 50 Ml Syringe IV 04/24/24 16:45 Q15MIN PRN BG <50 OR BG <70 & pt unresponsive Furosemide 40 mg 03/29/24 09:00 03/31/24 08:31 Furosemide Inj 10 Mg/Ml 4ml Vial IVP 04/28/24 08:59 40 mg QDAY LUCI Administration Gabapentin 100 mg 03/29/24 15:45 03/31/24 05:26 Gabapentin 100 Mg Capsule PO 04/28/24 15:44 100 mg TID LUCI Administration Glucagon 1 mg 03/25/24 16:46 Glucagon Inj 1 Mg Vial IM Q15MIN PRN BG <70, and no IV access Heparin Sodium (Porcine) 3,500 unit 03/27/24 14:41 03/28/24 16:04 Heparin Sod Inj 1000 Unit/Ml Vial 10 Ml INDWELLCAT 04/10/24 14:40 3,500 unit PRN PRN Administration DIALYSIS Heparin Sodium (Porcine) 5,000 unit 03/31/24 09:00 03/31/24 08:28 Heparin Sod Inj 5000 Unit/Ml Vial SC 04/14/24 08:59 5,000 unit Q12HR LUCI Administration Insulin Human Lispro 0 unit 03/29/24 11:30 03/31/24 08:09 Insulin Lispro (Admelog) 1 Unit/0.01 Ml Unit SC 04/28/24 11:29 Not Given AC LUCI Protocol Levothyroxine Sodium 88 mcg 03/29/24 06:00 03/31/24 05:26 Levothyroxine Sodium 88 Mcg Tablet PO 04/28/24 05:59 88 mcg ACBR LUCI Administration Ondansetron HCl 4 mg 03/25/24 16:46 Ondansetron Inj 2 Mg/Ml Inj 2 Ml IV 04/24/24 16:45 Q6H PRN NAUSEA OR VOMITING Protocol Pantoprazole Sodium 40 mg 03/26/24 09:00 03/31/24 08:30 Pantoprazole Inj 40 Mg Vial IV 04/25/24 08:59 40 mg QDAY LUCI Administration Sevelamer Carbonate 800 mg 03/26/24 12:00 03/31/24 08:29 Sevelamer Carbonate 800 Mg Tablet PO 04/25/24 11:59 800 mg TIDWM LUCI Administration Valsartan 80 mg 03/30/24 09:00 03/31/24 08:26 Valsartan 80 Mg Tablet PO 04/29/24 08:59 80 mg QDAY LUCI Administration Plan 68-year-old female with past medical history of CKD stage IV previously on hemodialysis (-2023), DM2, HFpEF (50 to 55% on 02/2024), hypertension, hyperlipidemia, hypothyroidism, anemia of chronic disease, and liver abscess status post drainage was admitted to the hospital on 03/25/2024 due to acute encephalopathy likely secondary to uremia in the setting of renal failure versus acute ischemic stroke. #IBRAHIMA on CKD5, now on HD Nephrology following. Patient completed 3 inpatient HD. Hepatitis, Hep B, TB screening completed. - Continue routine HD - Pending insurance authorization for outpatient chair - Sevelamer TID #Acute ischemic stroke, R parietal - Head CT showed early acute infarcts in both cerebellar hemispheres - Stroke alert was not initiated in the ED - MRI showed acute infarct of R parietal lobe Plan - ASA, statin - Neurology following #RLE pain Secondary to uremia versus diabetic neuropathy XR RLE no acute fracture Plan: - Neurology following - Gabapentin 100 TId - Baclofen 10mg BID - Pain management with Tyelonel #Severe Hypothyroidism - TSH 65.52 and free T4 0.64 - Patient initially was hypoglycemic and her heart rate has been in the 60s to high 50s as well as her altered mental status this raises high suspicion for myxedema coma as her TSH was extremely high with very low T4. Plan: ? Continue levothyroxine PO 88mcg - Follow up outpatient TSH, T4 in 6 weks #HFpEF (55-60% on 03/2024) ? Lasix 40 daily ? Strict MERRY's ? Daily weights ? Fluid restrictions #DM2, A1c 7.8 (02/2024) ? Blood glucose checks AC ? ISS ? Hypoglycemia protocol ordered #Hx of hypertension #Hx of hyperlipidemia - Continue statin - continue valsartan #Anemia of chronic disease versus anemia in CKD, stable #Acute metabolic encephalopathy due to uremia, resolved #Acute decompensated heart failure exacerbation, resolved #Troponinemia, resolved #Electrolyte imbalances, resolved Health Maintenance Disposition: Patient pending HD chair time Diet: Renal/Carb cons/Cardiac/dysphagia 1 GI prophylaxis: pepcid DVT prophylaxis: Heparin Sc Code:Full code I have reviewed and discussed the patient's care with my attending, Dr. Jamil Cox MD PGY-3
[2024-03-31] MEDS: ATORVASTATIN CALCIUM 20 MG TABLET 40 MG PO (20:34)
--- NOTE | 2024-03-31 22:33 | PD.VPROG1 ---
Telemedicine visit statement This visit was conducted with the use of phone was obtained on 03/31/24 Documentation for date of: 03/31/24 Subjective Subjective Interval history: Patient is in telemetry. Her tremors and myoclonic jerks have resolved, mental status is back to baseline. She complains of pain in the extremities to the point of hurting to move into bed/ not able to, sit up or stand with the physical therapist, but improving with GP and Baclofen. Virtual exam Vital Signs Temp Pulse Resp BP Pulse Ox O2 Del Method O2 Flow Rate 97.9 F 61 15 170/74 H 100 Nasal Cannula 3.5 03/31/24 20:00 03/31/24 20:00 03/31/24 20:00 03/31/24 20:00 03/31/24 20:00 03/31/24 20:00 03/31/24 20:00 Objective Labs 03/31/24 09:06 03/31/24 09:06 Labs: Laboratory Results - last 24 hr 03/31/24 09:06 WBC 5.2 RBC 2.50 L Hgb 8.0 L Hct 26.2 L MCV 105 H MCH 32.0 MCHC 30.5 L RDW Std Deviation 56.5 H Plt Count 130 L Neut % (Auto) 62 Lymph % (Auto) 24 [place] % (Auto) 10 Eos % (Auto) 4 Baso % (Auto) 0 Neut # (Auto) 3.2 Lymph # (Auto) 1.2 [place] # (Auto) 0.5 Eos # (Auto) 0.2 Baso # (Auto) 0.0 Immature Gran # (Auto) 0.03 H Absolute Nucleated RBC 0.00 Immature Gran % 1 H Nucleated RBC % 0 Sodium 139 Potassium 3.7 Chloride 101 Carbon Dioxide 30.9 Anion Gap 7 BUN 31 H Creatinine 1.6 H D Estim Creat Clear Calc 28.8 L eGFR 35 L BUN/Creatinine Ratio 19 Glucose 82 Calculated Osmolality 283 Calcium 7.8 L Phosphorus 2.9 Magnesium 1.9 Assessment & Plan Assessment (1) Altered mental state: resolved, back to baseline, answering questions appropriately. (2) Acute CVA (cerebrovascular accident): MRI brain showed tiny infarct in the right parietal lobe with a possible positive ADC map, I do not think it is causing any symptoms in her. Continue with Baclofen 10 mg bid and gabapentin 100 mg tid to help with neuropathic pain without causing involuntary movements. Continue with aspirin and statin and keep the blood pressure and diabetes under control. (3) End-stage renal disease (ESRD): On hemodialysis (4) Diabetes: Checking fingerstick glucose and follow sliding scale insulin per protocol
[2024-04-01] VITALS (10 sets, daily range): BP systolic 137–175; BP diastolic 63–87; PULSE 60–83; RESP 13–20; TEMP 36.4–37; O2SAT 92–100; BMI 26.5
[2024-04-01] MEDS: GABAPENTIN 100 MG CAPSULE PO ×2 (05:18→21:30)
[2024-04-01] MEDS: LEVOTHYROXINE SODIUM 88 MCG TABLET PO (05:18)
[2024-04-01 06:28] LABS: Basophils % (Auto) 0 % (0-2.5); Eosinophils # (Auto) 0.1 Thou/mm3 (0.0-0.5); Eosinophils % (Auto) 2 % (0-10); Hematocrit 27.5 % (36.0-46.0); Immature Granulocytes % (Auto) 0 % (0-0); Immature Granulocytes Auto 0.02 Thou/mm3 (0.00-0.00); Lymphocytes % (Auto) 18 % (10-50); Mean Corpuscular Hemoglobin 33.3 pg (25.0-35.0); Mean Corpuscular Volume 104 fL (80-100); Monocytes # (Auto) 0.4 Thou/mm3 (0.0-0.8); Monocytes % (Auto) 6 % (0-12); Neutrophils # (Auto) 4.2 Thou/mm3 (1.8-7.7); Neutrophils % (Auto) 73 % (37-80); Nucleated Red Blood Cell % 0 /100 WBC (0); Platelet Count 166 Thou/mm3 (140-440); RDW Standard Deviation 57.1 fL (36.4-46.3); Red Blood Count 2.64 Miln/mm3 (4.00-5.20); White Blood Count 5.7 Thou/mm3 (3.6-11.0)
[2024-04-01 06:31] LABS: Hemoglobin 8.8 g/dL (12.0-16.0)
[2024-04-01] MEDS: HEPARIN SOD INJ 5000 UNIT/ML VIAL SC ×2 (08:42→20:20)
[2024-04-01] MEDS: SEVELAMER CARBONATE 800 MG TABLET PO ×2 (08:43→17:05)
[2024-04-01] MEDS: VALSARTAN 80 MG TABLET PO (08:43)
[2024-04-01] MEDS: FUROSEMIDE INJ 10 MG/ML 4ML VIAL 40 MG IVP (08:43)
[2024-04-01] MEDS: BACLOFEN 10 MG TABLET PO ×2 (08:44→20:20)
[2024-04-01] MEDS: ASPIRIN EC 81 MG TABEC PO (08:44)
[2024-04-01] MEDS: FAMOTIDINE 20 MG TABLET PO (08:45)
[2024-04-01 08:50] LABS: Anion Gap 7 (7-16); BUN/Creatinine Ratio 19 Ratio (12-20); Blood Urea Nitrogen 28 mg/dL (9-23); Calcium 8.1 mg/dL (8.3-10.6); Carbon Dioxide 32.1 mMol/L (20.0-31.0); Chloride 102 mMol/L (98-107); Creatinine (Component) 1.5 mg/dL (0.6-1.3); Glucose 75 mg/dL (74-106); Magnesium 1.8 mg/dL (1.6-2.6); Osmolality,Calculated 285 (275-295); Potassium 3.8 mMol/L (3.4-5.1); Sodium 141 mMol/L (136-145); eGFR 38 See Note
[2024-04-01] MEDS: LACTULOSE SYRUP 20 GM/30 ML UDC PO (10:46)
[2024-04-01] MEDS: amLODIPine BESYLATE 5 MG TABLET 10 MG PO (10:46)
--- NOTE | 2024-04-01 11:00 | CHAP ---
Patient was visited by the Spiritual Care Volunteer from whom they received communion. (Volunteer was in the hospital from c 10:00-11:00)
--- NOTE | 2024-04-01 12:41 | ESPR_ITS ---
<Statement entered by Margarito Negron MD - 04/07/24 07:44> I reviewed above note and agree with findings and plans. I have also personally examined the patient with medicine team and went over assessment and plan with medical team including winter intern and resident physician. Documentation for date of: 04/01/24 Subjective Subjective Interval history: Patient was seen at bedside this morning. No overnight events. Patient was sentimental this morning given that she was going to a [facility] facility and thought she was going to a care home center, but I explained to her that this was a rehabilitation center where she will get physical therapy which she needs at this time and that it could be temporarily. Still pending hemodialysis chair time before patient can be discharged, expect possible discharge in the next 24 to 48 hours. Exam Vital Signs Temp Pulse Resp BP Pulse Ox O2 Del Method O2 Flow Rate 97.6 F 71 18 167/69 H 97 Nasal Cannula 3.5 04/01/24 08:00 04/01/24 12:00 04/01/24 08:00 04/01/24 10:46 04/01/24 08:00 04/01/24 08:00 04/01/24 08:00 Narrative Exam General: A/O x 3, sentimental Eyes: ENRIQUE pupils were reactive to light, able to trace, vision intact Ears: No visible ear discharge, hearing intact Nose: No visible nasal discharge. Mouth/Throat: Moist mucous membranes, poor dentition, no redness, no lesions. Neck: Neck supple,no cervical lymphadenopathy. Lungs: Clear ENRIQUE, No accessory muscle use. Cardio: Normal S1/S2, regular rhythm, no murmurs, no JVD Abdomen: Soft, but distended, no palpable masses, peristalsis present, well- healed scar on the right side abdomen Extremities: Symmetrical, no significant deformities, trace peripheral edema, peripheral pulses presents, myoclonic jerks in ENRIQUE LE and tremors in ENRIQUE UE, not visualized Skin: No rashes, no lesions, warm to touch. Dialysis cath in L upper chest. Neuro: Strength ENRIQUE UE and LE 4/5, able to follow commands, A/O x3. Objective Labs 04/01/24 05:52 04/01/24 07:47 Labs: Laboratory Results - last 24 hr 04/01/24 04/01/24 05:52 07:47 WBC 5.7 RBC 2.64 L Hgb 8.8 L Hct 27.5 L MCV 104 H MCH 33.3 MCHC 32.0 RDW Std Deviation 57.1 H Plt Count 166 D Neut % (Auto) 73 Lymph % (Auto) 18 [facility] % (Auto) 6 Eos % (Auto) 2 Baso % (Auto) 0 Neut # (Auto) 4.2 Lymph # (Auto) 1.0 [facility] # (Auto) 0.4 Eos # (Auto) 0.1 Baso # (Auto) 0.0 Immature Gran # (Auto) 0.02 H Absolute Nucleated RBC 0.00 Immature Gran % 0 Nucleated RBC % 0 Sodium 141 Potassium 3.8 Chloride 102 Carbon Dioxide 32.1 H Anion Gap 7 BUN 28 H Creatinine 1.5 H Estim Creat Clear Calc 29.0 L eGFR 38 L BUN/Creatinine Ratio 19 Glucose 75 Calculated Osmolality 285 Calcium 8.1 L Phosphorus 3.0 Magnesium 1.8 Quality Measures Quality Measures none Advance care planning discussed with:: patient and child Assessment & Plan Assessment Current Active Medications: Generic Name Dose Route Start Last Admin Trade Name Freq PRN Reason Stop Dose Admin Acetaminophen 650 mg 03/28/24 14:21 03/31/24 04:31 Acetaminophen 325 Mg Tablet PO 04/27/24 14:20 650 mg Q6HR PRN Administration pain and Fever >100.4 Albuterol/Ipratropium 3 ml 03/28/24 09:29 Albuterol/Ipratropium (Duoneb) Rt Katrin 3 Ml Nebu INH 04/25/24 10:59 Q4HRRT PRN SOB or wheezing Amlodipine Besylate 10 mg 04/01/24 10:15 04/01/24 10:46 Amlodipine Besylate 5 Mg Tablet PO 05/01/24 10:14 10 mg QDAY LUCI Administration Aspirin 81 mg 03/26/24 09:30 04/01/24 08:44 Aspirin Ec 81 Mg Tabec PO 04/25/24 09:29 81 mg QDAY LUCI Administration Atorvastatin Calcium 40 mg 03/26/24 21:00 03/31/24 20:34 Atorvastatin Calcium 20 Mg Tablet PO 04/25/24 20:59 40 mg HS LUCI Administration Baclofen 10 mg 03/30/24 21:00 04/01/24 08:44 Baclofen 10 Mg Tablet PO 04/29/24 20:59 10 mg BID LUCI Administration Dextrose 25 ml 03/25/24 16:46 03/26/24 05:26 Dextrose 50%-Water Inj 50 Ml Syringe IV 04/24/24 16:45 25 ml Q15MIN PRN Administration BG 50-70 responsive npo pt Dextrose 50 ml 03/25/24 16:46 Dextrose 50%-Water Inj 50 Ml Syringe IV 04/24/24 16:45 Q15MIN PRN BG <50 OR BG <70 & pt unresponsive Famotidine 20 mg 04/01/24 09:00 04/01/24 08:45 Famotidine 20 Mg Tablet PO 05/01/24 08:59 20 mg QOD LUCI Administration Furosemide 40 mg 03/29/24 09:00 04/01/24 08:43 Furosemide Inj 10 Mg/Ml 4ml Vial IVP 04/28/24 08:59 40 mg QDAY LUCI Administration Gabapentin 100 mg 03/29/24 15:45 04/01/24 05:18 Gabapentin 100 Mg Capsule PO 04/28/24 15:44 100 mg TID LUCI Administration Glucagon 1 mg 03/25/24 16:46 Glucagon Inj 1 Mg Vial IM Q15MIN PRN BG <70, and no IV access Heparin Sodium (Porcine) 3,500 unit 03/27/24 14:41 03/28/24 16:04 Heparin Sod Inj 1000 Unit/Ml Vial 10 Ml INDWELLCAT 04/10/24 14:40 3,500 unit PRN PRN Administration DIALYSIS Heparin Sodium (Porcine) 5,000 unit 03/31/24 09:00 04/01/24 08:42 Heparin Sod Inj 5000 Unit/Ml Vial SC 04/14/24 08:59 5,000 unit Q12HR LUCI Administration Insulin Human Lispro 0 unit 03/29/24 11:30 04/01/24 11:39 Insulin Lispro (Admelog) 1 Unit/0.01 Ml Unit SC 04/28/24 11:29 Not Given AC LUCI Protocol Levothyroxine Sodium 88 mcg 03/29/24 06:00 04/01/24 05:18 Levothyroxine Sodium 88 Mcg Tablet PO 04/28/24 05:59 88 mcg ACBR LUCI Administration Ondansetron HCl 4 mg 03/25/24 16:46 Ondansetron Inj 2 Mg/Ml Inj 2 Ml IV 04/24/24 16:45 Q6H PRN NAUSEA OR VOMITING Protocol Sevelamer Carbonate 800 mg 03/26/24 12:00 04/01/24 08:43 Sevelamer Carbonate 800 Mg Tablet PO 04/25/24 11:59 800 mg TIDWM LUCI Administration Valsartan 80 mg 03/30/24 09:00 04/01/24 08:43 Valsartan 80 Mg Tablet PO 04/29/24 08:59 80 mg QDAY LUCI Administration Plan 68-year-old female with past medical history of CKD stage IV previously on hemodialysis (), DM2, HFpEF (50 to 55% on 02/2024), hypertension, hyperlipidemia, hypothyroidism, anemia of chronic disease, and liver abscess status post drainage was admitted to the hospital on 03/25/2024 due to acute encephalopathy likely secondary to uremia in the setting of renal failure versus acute ischemic stroke. #Acute encephalopathy multifactorial #Acute ischemic stroke, R parietal #Uremia, resolved #IBRAHIMA on CKD, now on HD ?Patient came in altered for the past 2 days with decreased communication with her family and not following instructions. ? Patient refused hemodialysis on the of last month as per daughter. ? DDx altered mental status secondary to uremia in the setting of renal failure versus acute ischemic stroke. ? GCS of 9 on assessment ? BUN 89 and creatinine 4.1 on admission, baseline is creatinine of 1.6-1.7 and BUN in the 40s ? Head CT showed early acute infarcts in both cerebellar hemispheres ?Chest CTA was unremarkable ?Stroke alert was not initiated in the ED - MRI showed acute infarct of R parietal lobe ? EEG was significant for encephalopathy pattern Plan: ? Aspirin 81 qday and atorvastatin 40 HS -Continue Gabapentin 100mg TID and baclofen ?Continue HD as scheduled ? Seizure precautions ? Jacobo inserted ?Aspiration precautions - Referred to speech and physical therapy ? Teleneurology consulted, appreciate recommendations ? Neurology consulted, appreciate commendations - Nephrology Consulted, Appreciate recs #Acute decompensated heart failure exacerbation #HFpEF (55-60% on 03/2024) ?Patient had 1+ pitting edema initially ? BNP 611 ? Last echo on 02/2024 showed an EF of 50 to 55% ? Patient was recently seen in the ER on 03/20/2024 due to heart failure exacerbation - echo showed EF 55-60% Plan: ? Lasix 40 daily ? Strict MERRY's ? Daily weights ? Fluid restrictions ? Will continue monitor - Likely Hemodialysis #NSTEMI, likely type II demand ischemia ? Troponins 0.399 and downtrended ? EKG did not show any ST changes ?Likely in the setting of possible CHF exacerbation and renal failure Plan: ? Will continue to monitor #Anemia of chronic disease ? Patient hemoglobin 7.9 today and a baseline is around 8-9. ? On last admission vitamin B12 levels were normal, iron and ferritin were normal ? Most likely in the setting of chronic kidney disease and heart failure Plan: ? Will transfuse hemoglobin less than 7 ? Will continue to monitor #DM2 ? A1c on 02/2024 was 7.8 Plan: ? Blood glucose checks AC ? ISS ? Hypoglycemia protocol ordered #Severe Hypothyroidism ? TSH 65.52 and free T4 0.64 ?Patient initially was hypoglycemic and her heart rate has been in the 60s to high 50s as well as her altered mental status this raises high suspicion for myxedema coma as her TSH was extremely high with very low T4. Plan: ? Continue levothyroxine PO 88mcg. ?Will continue to monitor #Hx of hypertension #Hx of hyperlipidemia ? Cotninue Valsartan 80mg -Added amlodipine 10mg qday ? Will continue atorvastatin #Hypoalbuminemia, stable #Hypocalcemia, stable Disposition: Patient pending HD chair time Diet: Renal/Carb cons/Cardiac/dysphagia 1 GI prophylaxis: protonix DVT prophylaxis: Heparin Sc Code:Full code Case disclosed with Attending Dr. Jamil Ferro PGY1
[2024-04-01] MEDS: INSULIN LISPRO (AdmeLOG) 1 UNIT/0.01 ML UNIT SC (17:04)
--- NOTE | 2024-04-01 19:43 | PD.NEPHPROG ---
Documentation for date of: 04/01/24 Subjective Subjective Interval history: Ms. Oliveira is a 68-year-old lady with past medical history of CKD stage IV , IBRAHIMA due to significant anasarca previously on hemodialysis (-came off dialysis), DM2, HFpEF (50 to 55% on 02/2024), hypertension, hyperlipidemia, hypothyroidism, anemia, and liver abscess status post drainage was recently admitted to the hospital for anasarca and responded to Bumex drip and discharged back to [facility]. She was again admitted to the hospital yesterday with altered mental status. Patient was unresponsive and unable to walk. In the emergency department stroke alert was called due to her altered mental status and weakness. Initial CT showed question early infarct in the cerebellar hemispheres. Due to azotemia renal consultation was requested and primary team requested to do CTA brain to rule out stroke. Apparently patient's daughter stated patient was inclining to do dialysis if needed. In the previous admission patient declined dialysis. Patient did get a CTA brain last night with contrast. Was negative for acute stroke. MRI brain showed a 7 mm right parietal stroke. Patient currently seen in telemetry. No family around. 03/26/2024 patient currently seen in telemetry. Very altered. Labs showed TSH 65.5, lipids normal, albumin 2.9, troponin 0.2, magnesium 2.1, phosphorus 9.2, calcium 7.9, BUN 90, creatinine 3.9, sodium 139, potassium 3.9, bicarbonate 24, hemoglobin 8.6. Patient was supposed to get dialysis-IR closed today due to holiday. Will initiate dialysis tomorrow. 03/27/2024 patient currently seen in telemetry. More alert and awake. Had a long conversation with patient regarding fluid overload, metabolic encephalopathy, acute renal failure and she agreed for dialysis. Patient consented. Had dialysis catheter placed by Dr. Grider and is on dialysis. Blood pressure 121/58, heart rate 61. Hemoglobin 8.6. Sodium 140, potassium 4.2, BUN 94, creatinine 4.2, GFR 11, calcium 8.1, phosphorus 10.4, LFTs normal, albumin 3, 03/28/2024 patient currently seen on second dialysis session. More alert and awake. Back to baseline regarding mentation. Blood sugar 113. Blood pressure 130/66, heart rate 60. Hemoglobin 8.4, sodium 139, potassium 3.9, BUN 72, creatinine 3.4, GFR 14, calcium 8.4,, phosphorus 8.0, LFTs normal, albumin 3.0, hep panel negative. PPD pending. Outpatient dialysis arrangements pending. 04/01/2024 patient currently seen in telemetry. Patient more alert and awake. Hemoglobin 8.8. BUN 28, creatinine 1.5 denies any chest pain, shortness of breath. Labs, medications reviewed. next hd tuesday-patient needs only twice weekly dialysis until euvolemic. Review of Systems Review of Systems Narrative Review of Systems: Patient more alert and awake. Edema better. Denies any chest pain or shortness of breath. Appetite acceptable. Exam Vital Signs Temp Pulse Resp BP Pulse Ox O2 Del Method O2 Flow Rate 36.8 C 67 14 137/69 H 97 Nasal Cannula 4 04/01/24 16:00 04/01/24 16:00 04/01/24 16:00 04/01/24 16:00 04/01/24 16:00 04/01/24 16:00 04/01/24 16:00 Narrative Exam GENERAL APPEARANCE: Patient currently seen in telemetry NECK: Neck supple, no JVD or bruit CARDIOVASCULAR: Heart regular, no murmurs LUNGS/CHEST: Chest clear to auscultation. No rales, rhonchi, wheezing ABDOMEN: Soft, nontender, nondistended. No masses. Normal bowel sounds. EXTREMITIES: 2+ edema especially in the thigh and lower abdominal wall SKIN: Skin exam normal without any rashes. IJ catheter noted MUSCULOSKELETAL: In bed NEUROLOGICAL :Patient more alert and awake Objective Labs 04/01/24 05:52 04/01/24 07:47 Labs: Laboratory Results - last 24 hr 04/01/24 04/01/24 05:52 07:47 WBC 5.7 RBC 2.64 L Hgb 8.8 L Hct 27.5 L MCV 104 H MCH 33.3 MCHC 32.0 RDW Std Deviation 57.1 H Plt Count 166 D Neut % (Auto) 73 Lymph % (Auto) 18 [place] % (Auto) 6 Eos % (Auto) 2 Baso % (Auto) 0 Neut # (Auto) 4.2 Lymph # (Auto) 1.0 [place] # (Auto) 0.4 Eos # (Auto) 0.1 Baso # (Auto) 0.0 Immature Gran # (Auto) 0.02 H Absolute Nucleated RBC 0.00 Immature Gran % 0 Nucleated RBC % 0 Sodium 141 Potassium 3.8 Chloride 102 Carbon Dioxide 32.1 H Anion Gap 7 BUN 28 H Creatinine 1.5 H Estim Creat Clear Calc 29.0 L eGFR 38 L BUN/Creatinine Ratio 19 Glucose 75 Calculated Osmolality 285 Calcium 8.1 L Phosphorus 3.0 Magnesium 1.8 Assessment & Plan Assessment and plan (1) Altered mental state: Status: Acute (2) Acute CVA (cerebrovascular accident): Status: Acute (3) End-stage renal disease (ESRD): Status: Chronic (4) Diabetes: Status: Chronic Additional Assessment & Plan Additional Plan: Betty Oliveira is a 68-year-old female patient with past medical history of CKD was previously on dialysis, nephrotic syndrome secondary to diabetic nephropathy, hypertension, HFrEF EF of 35 to 45% on October 2023, diabetes mellitus, hyperlipidemia, hypothyroidism, liver abscess status post drainage presented to the hospital with altered mental status and noted to be in acute renal failure. Well-known to me from previous admissions and CKD clinic. Patient has progressed to diabetic nephropathy and was supposed to initiate dialysis last month-patient declined. Apparently last night family requested dialysis and all aggressive measures. CODE STATUS full code. Was referred to the hospital from the watch crystal grinder office Dr. Mcclendon when the patient was noticed to be fluid overloaded. Patient was admitted secondary to anasarca. # Acute renal failure secondary to progressive diabetic nephropathy superimposed on advanced CKD anasarca most likely multifactorial secondary to nephrotic syndrome, HFrEF, CKD #Nephrotic syndrome #CKD stage IV--leading towards ESRD # Altered mental status-probably related to small stroke versus metabolic encephalopathy. Due to significant anasarca decided to proceed with dialysis. Patient so far received 4 dialysis treatments. Outpatient dialysis twice weekly arranged. Creatinine today seems to be much we will continue with dialysis until she is euvolemic and will decide to come off dialysis as an outpatient. Will give Epogen with dialysis. Neurology on the case mental status seems to be-stable Next dialysis scheduled for Tuesday. Outpatient dialysis arranged.
[2024-04-01] MEDS: ATORVASTATIN CALCIUM 20 MG TABLET 40 MG PO (20:20)
--- NOTE | 2024-04-01 23:01 | PD.VPROG1 ---
Telemedicine visit statement This visit was conducted with the use of interactive audio and video telecommunications system that permits real time communication between the patient and the provider. Patient's verbal consent for virtual visit was obtained on 04/01/24 at 2301. Documentation for date of: 04/01/24 Subjective Subjective Interval history: Patient is in telemetry. Her tremors and myoclonic jerks have resolved, mental status is back to baseline. She complains of some pain in the extremities, but improving with GP and Baclofen. Virtual exam Vital Signs Temp Pulse Resp BP Pulse Ox O2 Del Method O2 Flow Rate 98.6 F 70 15 141/63 H 99 Nasal Cannula 4 04/01/24 20:00 04/01/24 20:00 04/01/24 20:00 04/01/24 20:00 04/01/24 20:00 04/01/24 20:00 04/01/24 20:00 Objective Labs 04/01/24 05:52 04/01/24 07:47 Labs: Laboratory Results - last 24 hr 04/01/24 04/01/24 05:52 07:47 WBC 5.7 RBC 2.64 L Hgb 8.8 L Hct 27.5 L MCV 104 H MCH 33.3 MCHC 32.0 RDW Std Deviation 57.1 H Plt Count 166 D Neut % (Auto) 73 Lymph % (Auto) 18 [place] % (Auto) 6 Eos % (Auto) 2 Baso % (Auto) 0 Neut # (Auto) 4.2 Lymph # (Auto) 1.0 [place] # (Auto) 0.4 Eos # (Auto) 0.1 Baso # (Auto) 0.0 Immature Gran # (Auto) 0.02 H Absolute Nucleated RBC 0.00 Immature Gran % 0 Nucleated RBC % 0 Sodium 141 Potassium 3.8 Chloride 102 Carbon Dioxide 32.1 H Anion Gap 7 BUN 28 H Creatinine 1.5 H Estim Creat Clear Calc 29.0 L eGFR 38 L BUN/Creatinine Ratio 19 Glucose 75 Calculated Osmolality 285 Calcium 8.1 L Phosphorus 3.0 Magnesium 1.8 Assessment & Plan Assessment (1) Altered mental state: resolved, back to baseline, answering questions appropriately. (2) Acute CVA (cerebrovascular accident): MRI brain showed tiny infarct in the right parietal lobe with a possible positive ADC map, I do not think it is causing any symptoms in her. Continue with Baclofen 10 mg bid and gabapentin 100 mg tid to help with neuropathic pain without causing involuntary movements. Continue with aspirin and statin and keep the blood pressure and diabetes under control. (3) End-stage renal disease (ESRD): On hemodialysis (4) Diabetes: Checking fingerstick glucose and follow sliding scale insulin per protocol
[2024-04-02] VITALS (21 sets, daily range): BP systolic 131–162; BP diastolic 64–94; PULSE 57–88; RESP 13–19; TEMP 36.1–36.8; O2SAT 94–100; BMI 25.8
[2024-04-02] MEDS: GABAPENTIN 100 MG CAPSULE PO ×2 (05:15→15:00)
[2024-04-02] MEDS: LEVOTHYROXINE SODIUM 88 MCG TABLET PO (05:15)
[2024-04-02 06:09] LABS: Basophils % (Auto) 1 % (0-2.5); Eosinophils # (Auto) 0.2 Thou/mm3 (0.0-0.5); Eosinophils % (Auto) 3 % (0-10); Hematocrit 27.8 % (36.0-46.0); Hemoglobin 8.9 g/dL (12.0-16.0); Immature Granulocytes % (Auto) 0 % (0-0); Immature Granulocytes Auto 0.03 Thou/mm3 (0.00-0.00); Lymphocytes # (Auto) 1.3 Thou/mm3 (1.0-4.8); Lymphocytes % (Auto) 19 % (10-50); Mean Corpuscular Hemoglobin 32.8 pg (25.0-35.0); Mean Corpuscular Volume 103 fL (80-100); Monocytes # (Auto) 0.5 Thou/mm3 (0.0-0.8); Monocytes % (Auto) 8 % (0-12); Neutrophils # (Auto) 4.8 Thou/mm3 (1.8-7.7); Neutrophils % (Auto) 70 % (37-80); Nucleated Red Blood Cell % 0 /100 WBC (0); Platelet Count 145 Thou/mm3 (140-440); RDW Standard Deviation 57.8 fL (36.4-46.3); Red Blood Count 2.71 Miln/mm3 (4.00-5.20); White Blood Count 6.8 Thou/mm3 (3.6-11.0)
[2024-04-02 06:35] LABS: Anion Gap 7 (7-16); BUN/Creatinine Ratio 20 Ratio (12-20); Blood Urea Nitrogen 28 mg/dL (9-23); Calcium 7.8 mg/dL (8.3-10.6); Carbon Dioxide 32.3 mMol/L (20.0-31.0); Chloride 103 mMol/L (98-107); Creatinine (Component) 1.4 mg/dL (0.6-1.3); Estimated Creatinine Clearance 30.6 mL/min (>60); Glucose 152 mg/dL (74-106); Magnesium 1.8 mg/dL (1.6-2.6); Osmolality,Calculated 291 (275-295); Phosphorous 2.4 mg/dL (2.4-5.1); Potassium 3.7 mMol/L (3.4-5.1); Sodium 142 mMol/L (136-145); eGFR 41 See Note
[2024-04-02 06:55] LABS: Hepatitis B Core Ab,Total* NONREACTIVE; Hepatitis Be Antibody* NONREACTIVE; Hepatitis Be Antigen* NONREACTIVE
[2024-04-02] MEDS: ACETAMINOPHEN 325 MG TABLET 650 MG PO (08:29)
--- NOTE | 2024-04-02 09:03 | PC.SS ---
Addendum entered by Mariaa Presley 04/02/24 14:11: SS follow up note; SS set up transportation with [facility] for 1630. SS updated Damone from [employer] and will also update patient's nurse, Tiffany and patient's daughter. Addendum entered by Mariaa Presley 04/02/24 13:40: SS follow up note; SS contacted patient's daughter Cari and infomred her that patient will be discharging today, SS provided chair time. SS was contacted by [facility] and informed SS to contact [facility] to arrange Transportation. Addendum entered by Mariaa Presley 04/02/24 12:49: SS follow up note; SS spoke to Eleazar from [employer] [facility] with chair time schedule for , , Saturdays at 5:45PM. Patient must arrive 30 Min early the first day which is tomorrow at 5:15PM. SS set up transportation with [employer] [facility], Reference # [id number]. SS also set up first transportation from [employer] to Dialysis for tomorrow through [facility], Reference # [id number]. Original Note: SS follow up note; SS contacted [employer] in [place] and [place]i reported chair time is not established at the time and would contact SS when Chair time is available.
[2024-04-02] MEDS: HEPARIN SOD INJ 1000 UNIT/ML VIAL 10 ML 3500 UNIT INDWELLCAT (10:41)
--- NOTE | 2024-04-02 10:49 | ESDS_ITS ---
<Statement entered by Margarito Negron MD - 04/07/24 07:45> I reviewed above note and agree with findings and plans. I have also personally examined the patient with medicine team and went over assessment and plan with medical team including epidemiology intern and resident physician. Planned Discharge Date 04/02/24 DS: Providers Provider Date of admission: 03/25/24 16:46 Primary care physician: Physician No Primary/Family Admitting Provider: Ramana Colon DO Attending Provider on Admission: Margarito Negron MD Consults: 03/25/24 16:50 Consult to Neurology / Tele-Neurology Stat Comment: Stroke and Acute encephalopathy Consulting Provider: [facility] 03/25/24 16:53 Consult to Nephrology Routine Comment: Consulting Provider: Lety Mcclendon Consult to Neurology / Tele-Neurology Routine Comment: Consulting Provider: Gerry Youngblood 03/25/24 17:35 Referral Physical Therapy Routine Comment: Physician Instructions: Referral Speech Therapy Routine Comment: 03/26/24 06:34 Referral Infection Control Routine Comment: Reason for Infection Control Referral: Readmitted within 30 days 03/27/24 15:29 PT [Referral Physical Therapy] Routine Comment: Physician Instructions: Attending Provider on DC: Margarito Negron MD Discharging Provider: Margarito Negron MD DS: Diagnosis Problem List Completed Was Problem List Reviewed/Reconciled?: Yes Hospital Course Hospital Course Hospital course: 68-year-old female with past medical history of CKD stage IV previously on hemodialysis (), DM2, HFpEF (50 to 55% on 02/2024), hypertension, hyperlipidemia, hypothyroidism, anemia of chronic disease, and liver abscess status post drainage was admitted to the hospital on 03/25/2024 due to acute encephalopathy likely secondary to uremia in the setting of renal failure versus acute ischemic stroke. Came in to the ED via EMS with altered mental status. Initially came in afebrile and mildly hypertensive. Initial labs were relevant for low hemoglobin (8.5), azotemia (BUN 89 and creatinine 4.1), hypocalcemia (7.5 corrected), troponinemia (0.399), elevated BNP (611), hypoalbuminemia (3.1), and UA was positive for leukocytes esterase. Initial imaging included chest x-ray which showed heart failure pattern and head CT which did not show suspicion for early acute infarcts in both cerebellar hemispheres. EKG on the chart was reviewed and did not show any ST changes. Additional imaging throughout the hospital stay included MRI that showed an acute infarct of right parietal lobe, echocardiogram showed EF of 55 to 60% with negative bubble study, and EEG was abnormal with encephalopathy pattern. Throughout her hospital stay the patient was placed on hemodialysis by lokie engineer. The neurologist also saw the patient and stated to continue aspirin and atorvastatin at this time given her new CVA. Throughout the hospital stay patient's mental status did improve, but she was still having significant bilateral lower extremity pain which neurology stated that this with myoclonic jerks and discontinued the patient's gabapentin, but these improved and stated that we could start the patient back on gabapentin 100 mg 3 times daily which was most lower dosage than what the patient was initially in. Patient was also placed on IV levothyroxine and IV liothyronine due to her severe hypothyroidism before and was transition back to p.o. levothyroxine. Patient's acute cephalopathy was most likely multifactorial in the setting of severe hypothyroidism, CVA, and uremia. Patient's family decided that patient would go to a [facility] facility as physical therapy had recommended patient to go to a [facility] facility at this time. Patient's hospital stay was delayed given that hemodialysis chair s chedule was not available when patient was medically cleared to be discharged. At the time of discharge patient was stable enough to be discharged to a [facility] facility. Discharge plan: Please follow-up with your primary care physician within 1 week after discharge. Please follow-up with your lokie engineer and neurologist within 1 to 2 weeks after discharge. Please continue hemodialysis sections as scheduled. Please have your primary care physician repeat TSH and free T4 in around 2 to 4 weeks. We have changed your atorvastatin from 20 mg to 40 mg at bedtime and we have changed your gabapentin from 600 mg 3 times daily to 100 mg 3 times daily. We have held your carvedilol 3.125 mg for now given that your heart rate has been borderline in the 60s. We have stopped your acetazolamide, Augmentin, doxycycline, hydralazine, and Lokelma. Please come back to the ER if symptoms persist or worsen. Problem list: #Acute encephalopathy #Acute ischemic stroke, R parietal #Uremia #IBRAHIMA on CKD #Acute decompensated heart failure exacerbation #HFpEF (55-60% on 03/2024) #Severe Hypothyroidism #NSTEMI, likely type II demand ischemia #Anemia of chronic disease #Hypocalcemia #DM2 #Hypoalbuminemia #Hx of hypertension #Hx of hyperlipidemia Case disclosed with Attending Dr. Negron and my senior Dr. Cox. Domenico Ferro PGY1 Status at Discharge Overall status at discharge: patient is progressing back to baseline Time Spent with Patient Time attestation: Total time spent providing and/or coordinating discharge services:>35 min Exam Vital Signs Temp Pulse Resp BP Pulse Ox O2 Del Method O2 Flow Rate 98.4 F 58 L 18 154/70 H 97 Nasal Cannula 1 04/02/24 10:38 04/02/24 10:45 04/02/24 10:38 04/02/24 10:45 04/02/24 10:38 04/02/24 08:00 04/02/24 10:38 Narrative Exam General: A/O x 3, no acute distress Eyes: ENRIQUE pupils were reactive to light, able to trace, vision intact Ears: No visible ear discharge, hearing intact Nose: No visible nasal discharge. Mouth/Throat: Moist mucous membranes, poor dentition, no redness, no lesions. Neck: Neck supple,no cervical lymphadenopathy. Lungs: Clear ENRIQUE, No accessory muscle use. Cardio: Normal S1/S2, regular rhythm, no murmurs, no JVD Abdomen: Soft, but distended, no palpable masses, peristalsis present, well- healed scar on the right side abdomen Extremities: Symmetrical, no significant deformities, trace peripheral edema, peripheral pulses presents, myoclonic jerks in ENRIQUE LE and tremors in ENRIQUE UE, not visualized Skin: No rashes, no lesions, warm to touch. Dialysis cath in L upper chest. Neuro: Strength ENRIQUE UE and LE 4/5, able to follow commands, A/O x3. Discharge Plan Plan Patient Disposition: Xfer Skilled Nsg Fac (SNF) Patient condition on transfer: Stable Care Plan Goals: Please follow-up with your primary care physician within 1 week after discharge. Please follow-up with your lokie engineer and neurologist within 1 to 2 weeks after discharge. Please continue hemodialysis sections as scheduled. Please have your primary care physician repeat TSH and free T4 in around 2 to 4 weeks. We have changed your atorvastatin from 20 mg to 40 mg at bedtime and we have changed your gabapentin from 600 mg 3 times daily to 100 mg 3 times daily. We have held your carvedilol 3.125 mg for now given that your heart rate has been borderline in the 60s. We have stopped your acetazolamide, Augmentin, doxycycline, hydralazine, and Lokelma. Please come back to the ER if symptoms persist or worsen. Prescriptions/Referrals Prescriptions/Med Rec: New gabapentin 100 mg capsule 100 mg PO TID 30 Days Qty: 90 0RF atorvastatin 40 mg tablet 40 mg PO HS 30 Days Qty: 30 0RF Continued valsartan 80 mg Tablet 80 mg PO QDAY 30 Days Qty: 30 0RF bumetanide 1 mg tablet 1 mg PO QDAY Qty: 30 0RF nifedipine 30 mg tablet extended release 30 mg PO QDAY Patient Comments: take 1 tablet by mouth once daily hydrocodone-acetaminophen 5-325 mg tablet 1 tab PO Q8H PRN (Reason: pain) Patient Comments: TAKE 1 TABLET BY MOUTH EVERY 8 HOURS NEEDED FOR PAIN. MAX DAILY DOSE: 3 TABLETS pantoprazole [Protonix] 40 mg tablet,delayed release (DR/EC) 40 mg PO QDAY escitalopram oxalate 20 mg tablet 20 mg PO QDAY Patient Comments: take 1 tablet by mouth once daily hydroxyzine HCl 25 mg tablet 25 mg PO QDAY PRN (Reason: anxiety) Patient Comments: take 1 tablet by mouth once daily if needed for anxiety levothyroxine 100 mcg tablet 100 mcg PO QDAY Patient Comments: take 1 tablet by mouth once daily aspirin [Ecotrin Low Strength] 81 mg tablet,delayed release (DR/EC) 81 mg PO QDAY ipratropium-albuterol 0.5 mg-3 mg(2.5 mg base)/3 mL Solution For Nebulization 3 ml INHALATION Q4H PRN (Reason: Shortness Of Breath Or Wheezing) nitroglycerin 0.4 mg Tablet, Sublingual 0.4 mg buccal [id number] PRN (Reason: Chest Pain) Nephro-Hema 0.8 mg Tablet 1 tab PO QDAY acetaminophen 500 mg Tablet 500 mg PO Q6H PRN (Reason: Pain (Scale Score 1-3)) lorazepam [Ativan] 0.5 mg Tablet 0.5 mg PO Q6HR PRN (Reason: Anxiety) Januvia 50 mg tablet 50 mg PO QDAY Qty: 30 0RF Held carvedilol 3.125 mg tablet 3.125 mg PO BID Hold Instructions: Resume on 04/06/24. hold as your heart rate is borderline, follow-up with PCP to restart. Patient Comments: take 1 tablet by mouth twice a day MUST ADMINISTER WITH A MEAL/FOOD Discontinued gabapentin [Neurontin] 600 MG tablet 600 mg PO TID Qty: 0 atorvastatin 20 mg Tablet 20 mg PO HS 30 Days Qty: 30 0RF hydralazine 25 mg Tablet 50 mg PO TID 30 Days Qty: 180 0RF Lokelma 10 gram Powder In Packet 10 g PO QDAY Januvia 50 mg tablet 50 mg PO QDAY acetazolamide 250 mg tablet 250 mg PO QDAY doxycycline hyclate 100 mg capsule 100 mg PO BID Qty: 14 0RF amoxicillin-pot clavulanate 875-125 mg tablet 1 tab PO Q12H Qty: 14 0RF acetazolamide 250 mg tablet 250 mg PO QDAY Qty: 30 0RF gabapentin 600 mg tablet 600 mg PO TID Qty: 60 0RF Lokelma 10 gram powder in packet 10 g PO QDAY Qty: 30 0RF ipratropium-albuterol 0.5 mg-3 mg(2.5 mg base)/3 mL solution for nebulization 3 ml inhalation Q4H PRN (Reason: shortness of breath) Qty: 90 0RF lorazepam [Ativan] 0.5 mg tablet 0.5 mg PO QDAY PRN (Reason: anxiety) Qty: 20 0RF Referrals: No Primary/Family,Physician [Primary Care Provider] - Patient/Caregiver Discharge Instructions Other Discharge Activity Instructions:: Please follow-up with your primary care physician within 1 week after discharge. Please follow-up with your lokie engineer and neurologist within 1 to 2 weeks after discharge. Please continue hemodialysis sections as scheduled. Please have your primary care physician repeat TSH and free T4 in around 2 to 4 weeks. We have changed your atorvastatin from 20 mg to 40 mg at bedtime and we have changed your gabapentin from 600 mg 3 times daily to 100 mg 3 times daily. We have held your carvedilol 3.125 mg for now given that your heart rate has been borderline in the 60s. We have stopped your acetazolamide, Augmentin, doxycycline, hydralazine, and Lokelma. Please come back to the ER if symptoms persist or worsen. Education Materials: CKD Dc, Discharge Instructions for Stroke Print Language: Hong Konger Stand Alone Forms: Louisa Award Info., Patient Portal Info Letter Discharge Order Discharge Orders: Discharge (Routine); Ordered 04/02/24 Ordered By: Patricia Cox Quality Discharge Quality Measures VTE prophylaxis
[2024-04-02] MEDS: Magnesium Sulfate 2 GM Ivpb 2 GM/50 ML BAG IV (12:34)
[2024-04-02] MEDS: ASPIRIN EC 81 MG TABEC PO (12:35)
[2024-04-02] MEDS: HEPARIN SOD INJ 5000 UNIT/ML VIAL SC (12:35)
[2024-04-02] MEDS: BACLOFEN 10 MG TABLET PO (12:35)
[2024-04-02] MEDS: SEVELAMER CARBONATE 800 MG TABLET PO (12:35)
[2024-04-02] MEDS: VALSARTAN 80 MG TABLET PO (12:37)
[2024-04-02] MEDS: amLODIPine BESYLATE 5 MG TABLET 10 MG PO (12:37)
[2024-04-02] MEDS: FUROSEMIDE INJ 10 MG/ML 4ML VIAL 40 MG IVP (12:38)
--- NOTE | 2024-04-02 13:22 | ESPR_ITS ---
Documentation for date of: 04/02/24 Subjective Subjective Interval history: Ms. Oliveira is a 68-year-old lady with past medical history of CKD stage IV , IBRAHIMA due to significant anasarca previously on hemodialysis (-came off dialysis), DM2, HFpEF (50 to 55% on 02/2024), hypertension, hyperlipidemia, hypothyroidism, anemia, and liver abscess status post drainage was recently admitted to the hospital for anasarca and responded to Bumex drip and discharged back to [facility]. She was again admitted to the hospital yesterday with altered mental status. Patient was unresponsive and unable to walk. In the emergency department stroke alert was called due to her altered mental status and weakness. Initial CT showed question early infarct in the cerebellar hemispheres. Due to azotemia renal consultation was requested and primary team requested to do CTA brain to rule out stroke. Apparently patient's daughter stated patient was inclining to do dialysis if needed. In the previous admission patient declined dialysis. Patient did get a CTA brain last night with contrast. Was negative for acute stroke. MRI brain showed a 7 mm right parietal stroke. Patient currently seen in telemetry. No family around. 03/26/2024 patient currently seen in telemetry. Very altered. Labs showed TSH 65.5, lipids normal, albumin 2.9, troponin 0.2, magnesium 2.1, phosphorus 9.2, calcium 7.9, BUN 90, creatinine 3.9, sodium 139, potassium 3.9, bicarbonate 24, hemoglobin 8.6. Patient was supposed to get dialysis-IR closed today due to holiday. Will initiate dialysis tomorrow. 03/27/2024 patient currently seen in telemetry. More alert and awake. Had a long conversation with patient regarding fluid overload, metabolic encephalopathy, acute renal failure and she agreed for dialysis. Patient consented. Had dialysis catheter placed by Dr. Grider and is on dialysis. Blood pressure 121/58, heart rate 61. Hemoglobin 8.6. Sodium 140, potassium 4.2, BUN 94, creatinine 4.2, GFR 11, calcium 8.1, phosphorus 10.4, LFTs normal, albumin 3, 03/28/2024 patient currently seen on second dialysis session. More alert and awake. Back to baseline regarding mentation. Blood sugar 113. Blood pressure 130/66, heart rate 60. Hemoglobin 8.4, sodium 139, potassium 3.9, BUN 72, creatinine 3.4, GFR 14, calcium 8.4,, phosphorus 8.0, LFTs normal, albumin 3.0, hep panel negative. PPD pending. Outpatient dialysis arrangements pending. 04/01/2024 patient currently seen in telemetry. Patient more alert and awake. Hemoglobin 8.8. BUN 28, creatinine 1.5 denies any chest pain, shortness of breath. Labs, medications reviewed. next hd tuesday-patient needs only twice weekly dialysis until euvolemic. 04/02/2024 patient currently seen on dialysis. Tolerating dialysis without any problems. Hemodialysis for 3 hours, 2K, ultrafiltration 2-3 L, Epogen 6000, no heparin ordered. Plan of care discussed with the dialysis nurse. Please see dialysis flowsheet for further details. Outpatient dialysis arranged. Patient will be discharged postdialysis. Review of Systems Review of Systems Narrative Review of Systems: Patient more alert and awake. Edema better. Denies any chest pain or shortness of breath. Appetite acceptable. Exam Vital Signs Temp Pulse Resp BP Pulse Ox O2 Del Method O2 Flow Rate 36.1 C 60 18 158/75 H 98 Nasal Cannula 1 04/02/24 12:00 04/02/24 12:38 04/02/24 12:00 04/02/24 12:38 04/02/24 12:00 04/02/24 12:00 04/02/24 12:00 Narrative Exam GENERAL APPEARANCE: Patient currently seen in telemetry NECK: Neck supple, no JVD or bruit CARDIOVASCULAR: Heart regular, no murmurs LUNGS/CHEST: Chest clear to auscultation. No rales, rhonchi, wheezing ABDOMEN: Soft, nontender, nondistended. No masses. Normal bowel sounds. EXTREMITIES: 2+ edema especially in the thigh and lower abdominal wall SKIN: Skin exam normal without any rashes. IJ catheter noted MUSCULOSKELETAL: In bed NEUROLOGICAL :Patient more alert and awake Objective Labs 04/02/24 05:23 04/02/24 05:23 Labs: Laboratory Results - last 24 hr 03/27/24 04/02/24 13:48 05:23 WBC 6.8 RBC 2.71 L Hgb 8.9 L Hct 27.8 L MCV 103 H MCH 32.8 MCHC 32.0 RDW Std Deviation 57.8 H Plt Count 145 Neut % (Auto) 70 Lymph % (Auto) 19 [place] % (Auto) 8 Eos % (Auto) 3 Baso % (Auto) 1 Neut # (Auto) 4.8 Lymph # (Auto) 1.3 [place] # (Auto) 0.5 Eos # (Auto) 0.2 Baso # (Auto) 0.0 Immature Gran # (Auto) 0.03 H Absolute Nucleated RBC 0.00 Immature Gran % 0 Nucleated RBC % 0 Sodium 142 Potassium 3.7 Chloride 103 Carbon Dioxide 32.3 H Anion Gap 7 BUN 28 H Creatinine 1.4 H Estim Creat Clear Calc 30.6 L eGFR 41 L BUN/Creatinine Ratio 20 Glucose 152 H D Calculated Osmolality 291 Calcium 7.8 L Phosphorus 2.4 Magnesium 1.8 Hep B Core Total Ab NONREACTIVE Hepatitis Be Antibody NONREACTIVE Hepatitis Be Antigen NONREACTIVE Assessment & Plan Assessment and plan (1) Altered mental state: Status: Acute (2) Acute CVA (cerebrovascular accident): Status: Acute (3) End-stage renal disease (ESRD): Status: Chronic (4) Diabetes: Status: Chronic Additional Assessment & Plan Additional Plan: Betty Oliveira is a 68-year-old female patient with past medical history of CKD was previously on dialysis, nephrotic syndrome secondary to diabetic nephropathy, hypertension, HFrEF EF of 35 to 45% on October 2023, diabetes mellitus, hyperlipidemia, hypothyroidism, liver abscess status post drainage presented to the hospital with altered mental status and noted to be in acute renal failure. Well-known to me from previous admissions and CKD clinic. Patient has progressed to diabetic nephropathy and was supposed to initiate dialysis last month-patient declined. Apparently last night family requested dialysis and all aggressive measures. CODE STATUS full code. Was referred to the hospital from the lan/wan engineer office Dr. Mcclendon when the patient was noticed to be fluid overloaded. Patient was admitted secondary to anasarca. # Acute renal failure secondary to progressive diabetic nephropathy superimposed on advanced CKD anasarca most likely multifactorial secondary to nephrotic syndrome, HFrEF, CKD #Nephrotic syndrome #CKD stage IV--leading towards ESRD # Altered mental status-probably related to small stroke versus metabolic encephalopathy. Due to significant anasarca decided to proceed with dialysis. Patient so far received 4 dialysis treatments. Outpatient dialysis twice weekly arranged. Creatinine today seems to be much we will continue with dialysis until she is euvolemic and will decide to come off dialysis as an outpatient. Will give Epogen with dialysis. Neurology on the case mental status seems to be-stable Patient currently seen on dialysis. Tolerating dialysis without any problems. Hemodialysis for 3 hours, 2K, ultrafiltration 2-3 L, Epogen 6000, no heparin ordered. Plan of care discussed with the dialysis nurse. Please see dialysis flowsheet for further details. Outpatient dialysis arranged. Quality - progress note Quality Measures Quality Measures: VTE prophylaxis Reason for Continued Stay Reason for Continued Stay: further monitoring
--- NOTE | 2024-04-02 13:54 | PD.RESPRO ---
Documentation for date of: 04/02/24 Subjective Subjective Interval history: Patient seen and examined in telemetry. Patient just returned from dialysis. Patient's tremors and myoclonic jerks have resolved. Patient's mentation is at baseline reaffirmed with daughter at bedside. Question daughter about patient's mobility she did state that she has difficulty with mobility at home. Exam Vital Signs Temp Pulse Resp BP Pulse Ox O2 Del Method O2 Flow Rate 96.9 F 60 18 158/75 H 98 Nasal Cannula 1 04/02/24 12:00 04/02/24 12:38 04/02/24 12:00 04/02/24 12:38 04/02/24 12:00 04/02/24 12:00 04/02/24 12:00 Narrative Exam Constitutional: AOx3, able to speak full sentences HEENT: NC/AT, PERRLA, oral mucosa moist, neck supple CVS: RRR, S1-S2 present, no murmurs RESP: CTAB GI: non distended, non tender to palpation, NBS MSK: full ROM, no peripheral edema, peripheral pulses present Skin: warm and dry, no rashes NEURO:? ? MENTAL STATUS:?AAOx3 ? LANG/SPEECH: Fluent, intact naming, repetition & comprehension ? CRANIAL NERVES: ? II: Pupils equal and reactive, no RAPD,?normal visual field and fundus ? III, IV, : EOM intact, no gaze preference or deviation ? V: normal ? VII: no facial asymmetry ? VIII: normal hearing to speech ? MOTOR: 5/5 in both upper and lower extremities ? REFLEXES: 2/4 throughout,?bilateral flexor plantars ? SENSORY: Normal to touch, temperature & pin prick in all extremiteis ? COORD: Normal finger to nose and heel to colunga, no tremor, no dysmetria Objective Labs 04/02/24 05:23 04/02/24 05:23 Labs: Laboratory Results - last 24 hr 03/27/24 04/02/24 13:48 05:23 WBC 6.8 RBC 2.71 L Hgb 8.9 L Hct 27.8 L MCV 103 H MCH 32.8 MCHC 32.0 RDW Std Deviation 57.8 H Plt Count 145 Neut % (Auto) 70 Lymph % (Auto) 19 Bledsoe % (Auto) 8 Eos % (Auto) 3 Baso % (Auto) 1 Neut # (Auto) 4.8 Lymph # (Auto) 1.3 Bledsoe # (Auto) 0.5 Eos # (Auto) 0.2 Baso # (Auto) 0.0 Immature Gran # (Auto) 0.03 H Absolute Nucleated RBC 0.00 Immature Gran % 0 Nucleated RBC % 0 Sodium 142 Potassium 3.7 Chloride 103 Carbon Dioxide 32.3 H Anion Gap 7 BUN 28 H Creatinine 1.4 H Estim Creat Clear Calc 30.6 L eGFR 41 L BUN/Creatinine Ratio 20 Glucose 152 H D Calculated Osmolality 291 Calcium 7.8 L Phosphorus 2.4 Magnesium 1.8 Hep B Core Total Ab NONREACTIVE Hepatitis Be Antibody NONREACTIVE Hepatitis Be Antigen NONREACTIVE Quality Measures Quality Measures VTE prophylaxis Advance care planning discussed with:: child Assessment & Plan Assessment Current Active Medications: Generic Name Dose Route Start Last Admin Trade Name Freq PRN Reason Stop Dose Admin Acetaminophen 650 mg 03/28/24 14:21 04/02/24 08:29 Acetaminophen 325 Mg Tablet PO 04/27/24 14:20 650 mg Q6HR PRN Administration pain and Fever >100.4 Albuterol/Ipratropium 3 ml 03/28/24 09:29 Albuterol/Ipratropium (Duoneb) Rt Katrin 3 Ml Nebu INH 04/25/24 10:59 Q4HRRT PRN SOB or wheezing Amlodipine Besylate 10 mg 04/01/24 10:15 04/02/24 12:37 Amlodipine Besylate 5 Mg Tablet PO 05/01/24 10:14 10 mg QDAY LUCI Administration Aspirin 81 mg 03/26/24 09:30 04/02/24 12:35 Aspirin Ec 81 Mg Tabec PO 04/25/24 09:29 81 mg QDAY LUCI Administration Atorvastatin Calcium 40 mg 03/26/24 21:00 04/01/24 20:20 Atorvastatin Calcium 20 Mg Tablet PO 04/25/24 20:59 40 mg HS LUCI Administration Baclofen 10 mg 03/30/24 21:00 04/02/24 12:35 Baclofen 10 Mg Tablet PO 04/29/24 20:59 10 mg BID LUCI Administration Dextrose 25 ml 03/25/24 16:46 03/26/24 05:26 Dextrose 50%-Water Inj 50 Ml Syringe IV 04/24/24 16:45 25 ml Q15MIN PRN Administration BG 50-70 responsive npo pt Dextrose 50 ml 03/25/24 16:46 Dextrose 50%-Water Inj 50 Ml Syringe IV 04/24/24 16:45 Q15MIN PRN BG <50 OR BG <70 & pt unresponsive Famotidine 20 mg 04/01/24 09:00 04/01/24 08:45 Famotidine 20 Mg Tablet PO 05/01/24 08:59 20 mg QOD LUCI Administration Furosemide 40 mg 03/29/24 09:00 04/02/24 12:38 Furosemide Inj 10 Mg/Ml 4ml Vial IVP 04/28/24 08:59 40 mg QDAY LUCI Administration Gabapentin 100 mg 03/29/24 15:45 04/02/24 05:15 Gabapentin 100 Mg Capsule PO 04/28/24 15:44 100 mg TID LUCI Administration Glucagon 1 mg 03/25/24 16:46 Glucagon Inj 1 Mg Vial IM Q15MIN PRN BG <70, and no IV access Heparin Sodium (Porcine) 3,500 unit 03/27/24 14:41 04/02/24 10:41 Heparin Sod Inj 1000 Unit/Ml Vial 10 Ml INDWELLCAT 04/10/24 14:40 3,500 unit PRN PRN Administration DIALYSIS Heparin Sodium (Porcine) 5,000 unit 03/31/24 09:00 04/02/24 12:35 Heparin Sod Inj 5000 Unit/Ml Vial SC 04/14/24 08:59 5,000 unit Q12HR LUCI Administration Insulin Human Lispro 0 unit 03/29/24 11:30 04/02/24 11:45 Insulin Lispro (Admelog) 1 Unit/0.01 Ml Unit SC 04/28/24 11:29 Not Given AC [facility] Protocol Levothyroxine Sodium 88 mcg 03/29/24 06:00 04/02/24 05:15 Levothyroxine Sodium 88 Mcg Tablet PO 04/28/24 05:59 88 mcg ACBR LUCI Administration Ondansetron HCl 4 mg 03/25/24 16:46 Ondansetron Inj 2 Mg/Ml Inj 2 Ml IV 04/24/24 16:45 Q6H PRN NAUSEA OR VOMITING Protocol Sevelamer Carbonate 800 mg 03/26/24 12:00 04/02/24 12:35 Sevelamer Carbonate 800 Mg Tablet PO 04/25/24 11:59 800 mg TIDWM LUCI Administration Valsartan 80 mg 03/30/24 09:00 04/02/24 12:37 Valsartan 80 Mg Tablet PO 04/29/24 08:59 80 mg QDAY LUCI Administration Plan (1) Altered mental state: resolved, back to baseline, answering questions appropriately. (2) Acute CVA (cerebrovascular accident): MRI brain showed tiny infarct in the right parietal lobe with a possible positive ADC map, I do not think it is causing any symptoms in her. Continue with Baclofen 10 mg bid and gabapentin 100 mg tid to help with neuropathic pain without causing involuntary movements. Continue with aspirin and statin and keep the blood pressure and diabetes under control. (3) End-stage renal disease (ESRD): On hemodialysis (4) Diabetes: Checking fingerstick glucose and follow sliding scale insulin per protocol Attending Provider Attestation/Addendum I personally have seen and examined the patient with the resident at the bedside and I agree with the residents findings assessment and plan of care. Patient is stable from neurology standpoint for discharge. Follow-up in 2 weeks
--- NOTE | 2024-04-02 18:56 | PC.CC ---
Spoke to Dr. Lala who states he will tell his attending to place home health order
== END 2024-04-02 16:52 | disposition skilled nursing facility (03) | DRG 45 ==
LOC: SERX 17:46 → SERHOLD 18:07 → S2NX 19:58
PROVIDERS: Internal Medicine; Registered Nurse General Practice; Student in an Organized Health Care Education/Training Program; Admitting Provider Student in an Organized Health Care Education/Training Program; Emergency Provider Emergency Medicine; Visit Provider Internal Medicine
DX: I63.02 Cerebral infarction due to thrombosis of basilar artery (principal); G93.41 Metabolic encephalopathy; E03.9 Hypothyroidism, unspecified; E78.5 Hyperlipidemia, unspecified; N18.6 End stage renal disease; E83.51 Hypocalcemia; E11.22 Type 2 diabetes mellitus with diabetic chronic kidney disease; N17.9 Acute kidney failure, unspecified; I21.A1 Myocardial infarction type 2; D63.1 Anemia in chronic kidney disease; I50.42 Chronic combined systolic (congestive) and diastolic (congestive) heart failure; E88.09 Other disorders of plasma-protein metabolism, not elsewhere classified; I13.2 Hypertensive heart and chronic kidney disease with heart failure and with stage 5 chronic kidney disease, or end stage renal disease; K75.0 Abscess of liver; R29.714 NIHSS score 14; G25.3 Myoclonus; T82.838A Hemorrhage due to vascular prosthetic devices, implants and grafts, initial encounter; Y84.1 Kidney dialysis as the cause of abnormal reaction of the patient, or of later complication, without mention of misadventure at the time of the procedure; F10.10 Alcohol abuse, uncomplicated; R26.2 Difficulty in walking, not elsewhere classified; M54.9 Dorsalgia, unspecified; Z79.890 Hormone replacement therapy; Z79.899 Other long term (current) drug therapy; Z86.73 Personal history of transient ischemic attack (TIA), and cerebral infarction without residual deficits; Z74.09 Other reduced mobility; Z91.158 Patient's noncompliance with renal dialysis for other reason
CPT/HCPCS: 36415; 70450; 70496; 70498; 70544; 71045; 73630; 76937; 77001; 80048; 80053; 80061; 80074; 80307; 81001; 82140; 82803; 83615; 83735; 83880; 84100; 84156; 84300; 84439; 84443; 84484; 84540; 85025; 85610; 85730; 86580; 86704; 86705; 86706; 86707; 87081; 87340; 87350; 92526; 92610; 93005; 93306; 94640; 95816; 96374; 97161; 99285; A4649; A9270; C1894; J0612; J1642; J1643; J1720; J1815; J1940; J2470; J3010; J3475; J3490; J7050; Q5106; Q9967; Z7610

== ENCOUNTER 2024-04-12 05:57 | Inpatient (IN) | payer MEDICAID, SELFPAY ==
[2024-04-12] VITALS (24 sets, daily range): BP systolic 152–204; BP diastolic 76–98; PULSE 66–78; RESP 18–29; TEMP 36.6–37; O2SAT 85–98; BMI 23.0
--- NOTE | 2024-04-12 06:05 | EKG_ITS ---
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
--- NOTE | 2024-04-12 06:16 | PC.NURSE ---
PT BROUGHT TO ER FROM [facility] FOR C/O SOB BY AMBULANCE, DIALYSIS NURSE INFORMED EMS THJAT PT O2 SATS IS LOW EVEN WHEN SHE WAS ON O2., PT IS FROM [facility],, DIALYSIS NOT DONE, NO C/O PAIN, NO N/V. EMS PROVIDED 02 TO PT.
--- NOTE | 2024-04-12 06:20 | XR_ITS ---
Examination: CT brain head without contrast. 2-D sagittal coronal reconstructions Date and time of exam:April 12, 2024 0828 hours CTDI: vol (mGy):49.8 DLP: (mGycm):1006 Technique: Multiple CT axial sections of the brain have been obtained, 5 mm slice thickness. Contrast has not been administered. 2-D sagittal, coronal reconstructions have been obtained Low dose protocols were performed. One or more of the following dose reduction techniques were used; automated exposure control, adjustment of the mA and/or KV according to patient size, use of iterative reconstruction technique. Findings: No significant ventricular enlargement. Intra-axial or extra-axial hemorrhage density is not seen. No mass effect or midline shift Basal cisterns are not remarkable. Fourth ventricle is midline. Cranial vault intact. Impression: Negative for acute hemorrhage, mass effect or midline shift
--- NOTE | 2024-04-12 06:20 | XR_ITS ---
Examination: AP chest single view Technique one AP portable upright chest single view Exam date and time: 2024 at 0711 hours Comparison March 25, 2024 Indications: Chest pain today FINDINGS: Moderate CHF Mild enlargement cardiac contour Prominent vascular congestion with perihilar edema Layered pleural fluid Left internal jugular dialysis catheter tips SVC satisfactory position IMPRESSION: Moderate CHF
--- NOTE | 2024-04-12 06:23 | PD.EDSOB ---
ED SOB =RME/HPI General Chief Complaint: Shortness of Breath/Dyspnea Stated Complaint: SOB Time Seen by Provider: 04/12/24 06:12 Arrival date/time: 04/12/24 05:57 RME / HPI RME / HPI Narrative: Patient comes in by ambulance after going to dialysis this morning and found to be hypoxic. They never started her dialysis called EMS and she was brought here. She was hypoxic at the scene in the 80s and on room air. There is no fever there is no cough she had some nausea with without vomiting or diarrhea. The chart reveals Dr Mcclendon is her academic records specialist. Patient states she has never had shortness of breath like this before. Related Data Home Medications ?Medication ?Instructions ?Recorded ?Confirmed acetaminophen 500 mg tablet 500 mg PO Q6H PRN Pain (Scale 02/09/24 02/09/24 Score 1-3) ipratropium 0.5 mg-albuterol 3 mg 3 ml inhalation Q4H PRN Shortness 02/09/24 02/09/24 (2.5 mg base)/3 mL nebulization Of Breath Or Wheezing soln lorazepam 0.5 mg tablet (Ativan) 0.5 mg PO Q6HR PRN Anxiety 02/09/24 02/09/24 nitroglycerin 0.4 mg sublingual 0.4 mg buccal [id number] PRN Chest 02/09/24 02/09/24 tablet Pain vitamin B complex-vitamin C-folic 1 tab PO QDAY 02/09/24 02/09/24 acid 0.8 mg tablet (Nephro-Hema) aspirin 81 mg tablet,delayed 81 mg PO QDAY 03/26/24 03/26/24 release (Ecotrin Low Strength) carvedilol 3.125 mg tablet 3.125 mg PO BID 03/26/24 03/26/24 Held on 03/30/24. Instructions: Resume on 04/06/24. hold as your heart rate is borderline, follow-up with PCP to restart. escitalopram oxalate 20 mg tablet 20 mg PO QDAY 03/26/24 03/26/24 hydrocodone 5 mg-acetaminophen 325 1 tab PO Q8H PRN pain 03/26/24 03/26/24 mg tablet hydroxyzine HCl 25 mg tablet 25 mg PO QDAY PRN anxiety 03/26/24 03/26/24 levothyroxine 100 mcg tablet 100 mcg PO QDAY 03/26/24 03/26/24 nifedipine 30 mg tablet,extended 30 mg PO QDAY 03/26/24 03/26/24 release pantoprazole 40 mg tablet,delayed 40 mg PO QDAY 03/26/24 03/26/24 release (Protonix) Previous Rx's ?Medication ?Instructions ?Recorded bumetanide 1 mg tablet 1 mg PO QDAY #30 tabs 03/03/24 sitagliptin phosphate 50 mg tablet 50 mg PO QDAY #30 tabs 03/20/24 (Januvia) atorvastatin 40 mg tablet 40 mg PO HS 30 days #30 tabs 03/30/24 gabapentin 100 mg capsule 100 mg PO TID 30 days #90 caps 03/30/24 Allergies Allergy/AdvReac Type Severity Reaction Status Date / Time No Known Allergies Allergy Verified 02/29/24 15:43 Review of Systems Review of Systems Systems Reviewed: All systems reviewed, normal except as documented Narrative Review of Systems: Constitutional: DENIES; Fevers Eyes: DENIES; Loss of vision Head/Ear/Nose: DENIES; Loss of hearing Throat: DENIES; Dysphagia Cardiovascular: DENIES; Chest pain, dyspnea or syncope Respiratory: +Shortness of breath Gastrointestinal: +nausea. DENIES; Rectal bleeding or melena. Genitourinary: DENIES; Dysuria (painful or difficult urination) Musculoskeletal: DENIES; Arthralgia (pain in a joint),; Skin: DENIES; Rash Neurological: DENIES; Loss of function or movement Psychiatric: DENIES; recent major life stressor, emotional problem, illicit drug use or abuse Endocrinology: DENIES; Weight change Hematologic/Lymphatic: DENIES; Abnormal bruising Allergic/Immunologic: DENIES; Urticaria (hives) Past Medical History Past Medical History CARDIAC: Positive Hypercholesterolemia, Congestive Heart Failure, Edema and Hypertension GENITOURINARY: Positive Genitourinary Disorders and Renal Disease MUSCULOSKELETAL: Positive Musculoskeletal Disorders ENDOCRINE: Positive Endocrine Disorders, Diabetes Mellitus Type 2 and Hypothyroidism PSYCHO/SOCIAL: Positive Anxiety Family History FAMILY HISTORY: Positive Family Respiratory Disorders and Family Cancer Surgical History SURGICAL: Positive Abdominal Surgery and Tubal Ligation Social History SMOKING STATUS: Never smoker ED Exam Narrative Physical exam: Physical Exam: General: The vital signs were reviewed. Systolic blood pressures are in the 210 range. Patient is visibly tachypneic on arrival with facemask oxygen on with O2 sats now in the 96 on the patient is non-toxic, in no apparent distress and appears healthy with a patent airway, no respiratory distress and has no apparent circulatory problems. Head & Scalp: Normocephalic, atraumatic. Face: Appears normal and is without lesions, deformity. Ears: Left external pinna appears normal. Right external pinna appears normal. Eyes: The sclera is anicteric. No obvious photophobia. The Left and Right Orbit/Lid/Conjunctiva appears normal without swelling, discoloration or injection. Nose: The nose is without deformity, discharge or tenderness; Throat: Appears normal. The mucous membranes are pink and moist without exudates, redness or mass seen. The tongue appears normal. Neck: The neck is supple and no apparent mass or adenopathy. Chest: The chest wall is normal in size and symmetry and has no chest wall tenderness or crepitus. The patient displays normal ventilator effort without retractions, accessory muscle use and has adequate air movement bilaterally with no wheezes and no rales. Cardiovascular: Regular rate and rhythm; No murmurs, rubs, or gallops; Gastrointestinal: The abdomen appears normal. No obvious hernias or mass. The abdomen is soft and benign, non-distended, with no pain, no guarding and no rebound tenderness. Bowel sounds are present and normal sounding. No CVA tenderness. Genitourinary: Back/Spine: Normal inspection patient was rolled there is no wounds or sores on the back or legs. Extremities/Musculoskeletal/lymphatic: The bilateral upper and lower extremities are warm. There is no evidence of arterial insufficiency. There is no evidence of venous insufficiency/edema. The patient spontaneously moves bilateral upper and lower extremities with no pain and no limitation of movement. There is no apparent, injury or trauma. Skin: The skin is warm, dry and intact. No rashes. No petechia. No purpura. No abnormal bruising. The color is appropriate with no cyanosis. Mental status/Psychiatric: Mental status is appropriate for age. The patient has no apparent delusions, visual hallucinations, no apparent audible hallucinations. The patient has no apparent suicidal thoughts/ideation and no apparent homicidal thoughts/ideation. Neurological: The patient is awake, alert, interactive, cordial, cooperative and is oriented to name and situation. The patient follows commands and answers historical question with no impairment. There is no visual disturbance apparent. The pupils are equal and reactive bilaterally with normal eye movements and no diplopia The bilateral upper and lower extremities have normal strength, normal range of motion and normal functioning. The gait, station and balance a were not tested due to acuity. Course Quality Measures none Orders Category Date Time Status Bedside Blood Glucose NOW Care 04/12/24 06:20 Completed EKG (ED ONLY) *Do not use* NOW Care 04/12/24 06:05 Completed IV [Insert IV] NOW Care 04/12/24 06:[address] head/brain wo con Stat Exams 04/12/24 06:20 Completed EKG (ED Only) Stat Exams 04/12/24 06:05 Ordered XR chest 1V portable Stat Exams 04/12/24 06:20 Completed XR hip RT 1V Stat Exams 04/12/24 07:50 Completed XR pelvis 1-2V Stat Exams 04/12/24 07:55 Completed Alcohol, Blood Medical Stat Lab 04/12/24 06:20 Completed B-Type Natriuretic Peptide Stat Lab 04/12/24 06:20 Completed Blood Culture (Lab) Stat Lab 04/12/24 06:20 Received CBC Stat Lab 04/12/24 06:20 Completed Comprehensive Metabolic Panel Stat Lab 04/12/24 06:20 Completed Drug Screen,Urine Stat Lab 04/12/24 06:20 Ordered Lactate (Lactic Acid) Stat Lab 04/12/24 06:20 Completed Procalcitonin Stat Lab 04/12/24 06:20 Completed Prothrombin Time with INR Stat Lab 04/12/24 06:20 Completed Troponin I Stat Lab 04/12/24 06:20 Completed Type and Screen Stat Lab 04/12/24 06:35 Completed Urinalysis Stat Lab 04/12/24 06:20 Ordered Urinalysis, C/S if Indicated Stat Lab 04/12/24 06:20 Ordered Venous Blood Gas Stat Lab 04/12/24 06:20 Completed Morphine Inj Med 04/12/24 07:34 Discontinued 2 mg IVP X1 ONE Nitroglycerin Oint 2% [Nitro-paste Oint 2%] Med 04/12/24 06:21 Discontinued 2 inch TOP X1 ONE Ondansetron Inj [Zofran Inj] Med 04/12/24 07:35 Discontinued 4 mg IV X1 ONE hydrALAZINE INJ [Apresoline Inj] Med 04/12/24 06:21 Discontinued 20 mg IV X1 ONE Vital Signs Vital signs: Vital Signs Temperature 98.0 F 04/12/24 05:59 Pulse Rate 73 04/12/24 05:59 Respiratory Rate 22 H 04/12/24 05:59 Blood Pressure 204/94 H 04/12/24 05:59 Pulse Oximetry (%) 92 L 04/12/24 05:59 Oxygen Delivery Method Nasal Cannula 04/12/24 05:59 Oxygen Flow Rate 6 04/12/24 05:59 Pulse ox is 92% on 6L nasal cannula which is low. Shortness of Breath / Dyspnea MDM Narrative MDM Narrative:: End-stage renal failure patient arrives hypoxic short of breath and quite hypertensive who did not get her dialysis today. Will work her up for shortness of breath and certainly fluid overload and hypertensive urgency emergency secondary to fluid overload are high on the list. Medical workup reveals a chest x-ray with obvious fluid overload/congestive heart failure. BNP is awfully quite elevated consistent with this. Workup for her hypoxemia and lethargy shows alcohol I will be negative procalcitonin is negative. BNP was 1950. Troponin was negative bilirubins and transaminases are essentially negative. BUN 19 creatinine 1.5. Notes she did not get any dialysis today. Potassium is 4.5. Venous blood gas pH is 736. pCO2 is 52 slightly elevated. White count was 7.[address] Mcclendon the patient's academic records specialist was called and she agrees the patient should get dialysis in the hospital and the hospitalist resident Dr. Youngblood was contacted and they will be admitting. Note this patient had hypertensive emergency as initial blood pressure was 204/94 and the blood pressure came down to 170 after 2 inches of Nitropaste and 20 mg of hydralazine. Because of this to be a critical care patient. Twelve-lead EKG was done by myself which reveals there is no ST elevation TX seen. Chest x-ray revealed by myself shows increased fluid overload big heart cannot exclude pneumonia. Also nurse approached me about 45 minutes after the patient was here says she was complaining of right leg pain stated that the leg starting since the fabrication department supervisor transfer her onto the [facility]. Note when I was in there she had no complaints of pain and the patient was already transferred onto the bed. Nonetheless we x-rayed her pelvis and her hip and there is no obvious fracture or dislocation. Examination of the leg shows the femur and knee to be intact there is no swelling deformity that is apparent despite the pain she rotates her hip with full range of motion. Dr Mcclendon was informed of this. Patient data External records reviewed:: [facility] previous records (I reviewed admission from 03/25/24-03/28/24) and EMS form Clinical information provided by:: patient and EMS Social determinants that could affect healthcare access:: none Patient has the following chronic illnesses:: HFpEF 60-65% (03/2024), hypertension, diabetes, ESRD on HD, hyperlipidemia, liver abscess s/p drainage How is presenting disease/condition affected by chronic disease/condition?: exacerbated by Evaluation data The following diagnostics were reviewed and interpreted by me:: lab results, radiology exam(s) and EKG tracing(s) Lab and/or radiology exams considered but not ordered:: none Interpretation Summary: rdering Physician: Lyndon Ralph MD Date of Service: 04/12/24 Procedure(s): CT head/brain wo [facility] Accession Number(s): [id number] cc: Lyndon Ralph MD; Cm Brown MD; Lety Mcclendon MD~ Examination: CT brain head without contrast. 2-D sagittal coronal reconstructions Date and time of exam:April 12, 2024 0828 hours CTDI: vol (mGy):49.8 DLP: (mGycm):1006 Technique: Multiple CT axial sections of the brain have been obtained, 5 mm slice thickness. Contrast has not been administered. 2-D sagittal, coronal reconstructions have been obtained Low dose protocols were performed. One or more of the following dose reduction techniques were used; automated exposure control, adjustment of the mA and/or KV according to patient size, use of iterative reconstruction technique. Findings: No significant ventricular enlargement. Intra-axial or extra-axial hemorrhage density is not seen. No mass effect or midline shift Basal cisterns are not remarkable. Fourth ventricle is midline. Cranial vault intact. Impression: Negative for acute hemorrhage, mass effect or midline shift Dictated By: Cm Brown MD Signed By: <Electronically signed by Cm Brown MD in OV> 04/12/24 1012 Ordering Physician: Lyndon Ralph MD Date of Service: 04/12/24 Procedure(s): XR chest 1V portable Accession Number(s): [id number] cc: Lyndon Ralph MD; Cm Brown MD; Lety Mcclendon MD~ Examination: AP chest single view Technique one AP portable upright chest single view Exam date and time: 2024 at 0711 hours Comparison March 25, 2024 Indications: Chest pain today FINDINGS: Moderate CHF Mild enlargement cardiac contour Prominent vascular congestion with perihilar edema Layered pleural fluid Left internal jugular dialysis catheter tips SVC satisfactory position IMPRESSION: Moderate CHF Dictated By: Cm Brown MD Signed By: <Electronically signed by Cm Brown MD in OV> 04/12/24 1020 Ordering Physician: Lyndon Ralph MD Date of Service: 04/12/24 Procedure(s): XR hip RT 1V Accession Number(s): [id number] cc: Lyndon Ralph MD; Cm Brown MD; Lety Mcclendon MD~ Examination: Lateral right hip single view TECHNIQUE: Lateral right hip single view Exam date and time: April 12, 2024 0833 hours INDICATIONS: Onset right hip pain today FINDINGS: Severe osteopenia No hip fracture or dislocation Minimal right hip osteoarthritis IMPRESSION: Minimal right hip osteoarthritis Dictated By: Cm Brown MD Signed By: <Electronically signed by Cm Brown MD in OV> 04/12/24 1022 Ordering Physician: Lyndon Ralph MD Date of Service: 04/12/24 Procedure(s): XR pelvis 1-2V Accession Number(s): [id number] cc: Lyndon Ralph MD; Cm Brown MD; Lety Mcclendon MD~ Examination: AP pelvis single view TECHNIQUE: A supine portable pelvis single view Exam date and time: April 12, 2024 0843 hours INDICATIONS: Onset right hip pain today. FINDINGS: Severe osteopenia No acute right hip fracture Left hip bones of the pelvis intact IMPRESSION: No hip or pelvic fracture No symptoms persist, recommend follow-up coned AP lateral right hip films Dictated By: Cm Brown MD Signed By: <Electronically signed by Cm Brown MD in OV> 04/12/24 1021 Medications / Prescriptions Medications or Prescriptions considered but not ordered:: none Medication administrations:: Medication Administration History Discontinued Medications Hydralazine HCl (Hydralazine Inj 20 Mg/Ml Vial) 20 mg IV X1 ONE Stop: 04/12/24 06:22 Last Admin: 04/12/24 06:31 Dose: 20 mg Documented By: CVL Morphine Sulfate (Morphine Sulf Inj 10 Mg/Ml Vial) 2 mg IVP X1 ONE Stop: 04/12/24 07:35 Last Admin: 04/12/24 07:43 Dose: 2 mg Documented By: DB Nitroglycerin (Nitroglycerin Oint 2% 1 Inch Packet) 2 inch TOP X1 ONE Stop: 04/12/24 06:22 Last Admin: 04/12/24 06:27 Dose: 2 inch Documented By: CVL Ondansetron HCl (Ondansetron Inj 2 Mg/Ml Inj 2 Ml) 4 mg IV X1 ONE; Protocol Stop: 04/12/24 07:36 Last Admin: 04/12/24 07:42 Dose: 4 mg Documented By: DB see above Consultations Consultation(s) initiated? (list below): Yes Consultation #1 (Physician, Specialty, Details): Dr Mcclendon at 1045 hrs. will be consulting Consultation #2 (Physician, Specialty, Details): Hospitalist Dr. Youngblood resident was called at 1048 and will be admitting. Diagnosis Shortness of Breath Differential Diagnosis: acute exacerbation of chronic obstructive airways disease, congestive heart failure, community acquired pneumonia and asthma with exacerbation Most likely diagnosis given after review of the tests above:: See MDM above Admission Indicated Admission indicated?: indicated Admission Request Was there a request for admission?: Yes Admission Attestation Admission request attestation: Discussed case with [] from Hospitalist service regarding admission. Discussed patients ED course, exam findings, labs, and radiology results. The Hospitalist [agrees,declines] to accept the patient for admission. Disposition Plan Disposition Plan: Admit Critical Care Time Critical Care Time Critical Care Time: Yes Total Critical Care Time (min.): 45 Attestation: The high probability of sudden, clinically significant deterioration in the patient's condition required the highest level of my preparedness to intervene urgently. The services I provided to this patient were to treat and/or prevent clinically significant deterioration. Services included the following: chart data review, reviewing nursing notes and/or old charts, documentation time, domestic travel consultant collaboration regarding findings and treatment options, medication orders and management, direct patient care, vital sign assessments and ordering, interpreting and reviewing diagnostic studies and lab tests. Aggregate critical care time includes only time during which I was engaged in work directly related to the patient's care, as described above, whether at bedside or elsewhere in the Emergency Department. It did not include time spent performing other reported procedures or the services of residents, students, nurses or physician assistants. Discharge Plan Plan Patient Disposition: Admit Acute Care w/in Hospital Prescriptions/Referrals Prescriptions/Med Rec: No Action bumetanide 1 mg tablet 1 mg PO QDAY Qty: 30 0RF nifedipine 30 mg tablet extended release 30 mg PO QDAY Patient Comments: take 1 tablet by mouth once daily carvedilol 3.125 mg tablet 3.125 mg PO BID Patient Comments: take 1 tablet by mouth twice a day MUST ADMINISTER WITH A MEAL/FOOD hydrocodone-acetaminophen 5-325 mg tablet 1 tab PO Q8H PRN (Reason: pain) Patient Comments: TAKE 1 TABLET BY MOUTH EVERY 8 HOURS NEEDED FOR PAIN. MAX DAILY DOSE: 3 TABLETS pantoprazole [Protonix] 40 mg tablet,delayed release (DR/EC) 40 mg PO QDAY escitalopram oxalate 20 mg tablet 20 mg PO QDAY Patient Comments: take 1 tablet by mouth once daily hydroxyzine HCl 25 mg tablet 25 mg PO QDAY PRN (Reason: anxiety) Patient Comments: take 1 tablet by mouth once daily if needed for anxiety levothyroxine 100 mcg tablet 100 mcg PO QDAY Patient Comments: take 1 tablet by mouth once daily aspirin [Ecotrin Low Strength] 81 mg tablet,delayed release (DR/EC) 81 mg PO QDAY gabapentin 100 mg capsule 100 mg PO TID 30 Days Qty: 90 0RF atorvastatin 40 mg tablet 40 mg PO HS 30 Days Qty: 30 0RF ipratropium-albuterol 0.5 mg-3 mg(2.5 mg base)/3 mL Solution For Nebulization 3 ml INHALATION Q4H PRN (Reason: Shortness Of Breath Or Wheezing) nitroglycerin 0.4 mg Tablet, Sublingual 0.4 mg buccal [id number] PRN (Reason: Chest Pain) Nephro-Hema 0.8 mg Tablet 1 tab PO QDAY acetaminophen 500 mg Tablet 500 mg PO Q6H PRN (Reason: Pain (Scale Score 1-3)) lorazepam [Ativan] 0.5 mg Tablet 0.5 mg PO Q6HR PRN (Reason: Anxiety) Januvia 50 mg tablet 50 mg PO QDAY Qty: 30 0RF Referrals: Lety Mcclendon MD [Primary Care Provider] - In 1 week Problem List Clinical Impression: Shortness of breath, Hypoxemia, Fluid overload, End stage renal failure on dialysis, Leg pain, right Patient/Caregiver Discharge Instructions Print Language: French Stand Alone Forms: [facility] Award Info., Patient Portal Info Letter
[2024-04-12] MEDS: NITROGLYCERIN OINT 2% 1 INCH PACKET 2 INCH TOP (06:27)
[2024-04-12] MEDS: hydrALAZINE INJ 20 MG/ML VIAL IV (06:31)
[2024-04-12 06:55] LABS: Base Excess, Venous 3 (-3-3); Lactate (Lactic Acid) 1.2 mMol/L (0.4-2.0); O2 Saturation, Venous 83 % (96-97); PCO2, Venous 52 mmHg (36-56); PO2, Venous 48 mmHg (15-58); pH, Venous 7.36 (7.33-7.66)
[2024-04-12 07:00] LABS: Basophils % (Auto) 1 % (0-2.5); Eosinophils # (Auto) 0.3 Thou/mm3 (0.0-0.5); Eosinophils % (Auto) 4 % (0-10); Hematocrit 32.9 % (36.0-46.0); Hemoglobin 10.5 g/dL (12.0-16.0); Immature Granulocytes % (Auto) 1 % (0-0); Immature Granulocytes Auto 0.04 Thou/mm3 (0.00-0.00); Lymphocytes # (Auto) 1.5 Thou/mm3 (1.0-4.8); Lymphocytes % (Auto) 19 % (10-50); Mean Corpuscular HGB Conc 31.9 g/dl (31.0-37.0); Mean Corpuscular Hemoglobin 32.4 pg (25.0-35.0); Mean Corpuscular Volume 102 fL (80-100); Monocytes # (Auto) 0.4 Thou/mm3 (0.0-0.8); Monocytes % (Auto) 5 % (0-12); Neutrophils # (Auto) 5.6 Thou/mm3 (1.8-7.7); Neutrophils % (Auto) 72 % (37-80); Nucleated Red Blood Cell % 0 /100 WBC (0); Platelet Count 176 Thou/mm3 (140-440); RDW Standard Deviation 57.5 fL (36.4-46.3); Red Blood Count 3.24 Miln/mm3 (4.00-5.20); White Blood Count 7.8 Thou/mm3 (3.6-11.0)
[2024-04-12 07:25] LABS: INR 1.1 (0.9-1.3); Prothrombin Time 11.5 Seconds (9.0-12.2)
[2024-04-12 07:28] LABS: B-Type Natriuretic Peptide 1950 pg/mL (0-100)
[2024-04-12 07:41] LABS: Alanine Aminotransferase 7 U/L (10-49); Albumin, Serum 3.7 gm/dL (3.4-4.8); Albumin/Globulin Ratio 0.9 (1.2-2.2); Alcohol, Blood Medical < 3.0 mg/dL (0-10.0); Alkaline Phosphatase 150 U/L (46-116); Anion Gap 6 (7-16); Aspartate Amino Transferase 14 U/L (0-34); BUN/Creatinine Ratio 13 Ratio (12-20); Bilirubin,Total 0.7 mg/dL (0.3-1.2); Blood Urea Nitrogen 19 mg/dL (9-23); Calcium 8.5 mg/dL (8.3-10.6); Calcium (Corrected) 8.7 mg/dL (8.5-10.1); Carbon Dioxide 27.7 mMol/L (20.0-31.0); Chloride 105 mMol/L (98-107); Creatinine (Component) 1.5 mg/dL (0.6-1.3); Estimated Creatinine Clearance 30.1 mL/min (>60); Globulin 4.2 gm/dL (2.3-3.5); Glucose 151 mg/dL (74-106); Osmolality,Calculated 282 (275-295); Potassium 4.5 mMol/L (3.4-5.1); Procalcitonin 0.23 ng/ml (0.0-0.49); Sodium 139 mMol/L (136-145); Total Protein 7.9 gm/dL (5.7-8.2); eGFR 38 See Note
[2024-04-12] MEDS: ONDANSETRON INJ 2 MG/ML INJ 2 ML 4 MG IV (07:42)
[2024-04-12] MEDS: MORPHINE SULF INJ 10 MG/ML VIAL 2 MG IVP (07:43)
--- NOTE | 2024-04-12 07:50 | XR_ITS ---
Examination: Lateral right hip single view TECHNIQUE: Lateral right hip single view Exam date and time: April 12, 2024 0833 hours INDICATIONS: Onset right hip pain today FINDINGS: Severe osteopenia No hip fracture or dislocation Minimal right hip osteoarthritis IMPRESSION: Minimal right hip osteoarthritis
--- NOTE | 2024-04-12 07:55 | XR_ITS ---
Examination: AP pelvis single view TECHNIQUE: A supine portable pelvis single view Exam date and time: April 12, 2024 0843 hours INDICATIONS: Onset right hip pain today. FINDINGS: Severe osteopenia No acute right hip fracture Left hip bones of the pelvis intact IMPRESSION: No hip or pelvic fracture No symptoms persist, recommend follow-up coned AP lateral right hip films
--- NOTE | 2024-04-12 11:30 | ESHP_ITS ---
<Statement entered by Sloane Singh MD - 04/12/24 17:01> I discussed with and supervised the sports internship physician who took care of this patient. I personally saw and examined the patient and discussed the assessment and plan with the entire medicine team, including my attending Dr. Patino, I agree with the assessment and plan as documented below Patient seen and examined at bedside today. Labs and imaging reviewed. 68-year-old woman with past medical history of hypertension, HFpEF, hyperlipidemia, diabetes mellitus type 2, hypothyroidism, home oxygen who came to the ED from dialysis center due to hypoxia and shortness of breath. Patient stated that she was in the dialysis center for her dialysis session when she started to present shortness of breath as well as hypoxia for which was sent to the ER for further evaluation. On admission at the ED patient was found hypertensive BP 204/94, tachypneic and saturating 92% of Selexid oxygen per oxy mask. Labs showed hemoglobin 10.5, creatinine 1.5 BUN 19 BNP 1950, Pro-Josue was negative, EKG no acute ST changes or T wave abnormalities. Chest x-ray showed significant bilateral pulmonary vascular congestion. Nephrology was consulted to resume patient dialysis schedule and patient was admitted for further treatment and management of acute hypoxic respiratory failure most likely secondary to fluid overload most likely due to pulmonary edema in the setting of hypertensive emergency. Sloane Singh MD PGY-3 Disclaimer: Despite multiple revisions, due to the dictation software being used, the document bellow may not be free of grammatical errors including phonetic/typographic errors. However, this does not deter from our commitment to providing health care in the patient's best interest in mind. Documentation for date of: 04/12/24 HPI History of Present Illness Chief complaint: Shortness of breath History of present illness: 68-year-old female with past medical history of hypertension, heart failure with preserved ejection fraction, diabetes, hyperlipidemia, hypothyroidism, on 2 L of home oxygen, status post liver abscess drainage 1 presented to the ED due to shortness of breath. Patient went to her dialysis center was found to be desaturating and having shortness of breath patient had increased her oxygen from 2 L to 4 L however continued to have shortness of breath. Patient was recently restarted on hemodialysis about 1 month ago. Patient was not able to start her dialysis session and was sent to the hospital. Denies fever, shortness of breath, pedal edema, burning micturition, abdominal pain, nausea, vomiting, diarrhea. Admitted for urgent hemodialysis. ED course: Vitals on arrival BP 204/94, HR 73, RR 22/min, saturating 92% with 6 L oxygen, Labs significant for WBC 7.8, Hb 10.5, sodium 139, potassium 4.5, creatinine 1.5, BUN 19, glucose 151, BNP 1950, troponin 0.040, procalcitonin 0.23. EKG showed normal sinus rhythm. Chest x-ray showed significant bilateral pulmonary vascular congestion. Head CT is negative for hemorrhage, mass effect, midline shift. Hip and pelvis x-ray did not show any fracture. In the ED, patient was given nitroglycerin patch, hydralazine and morphine. PMHx: As above SxHx: Liver abscess drainage Social Hx: Denies smoking, denies alcohol use, denies illicit substances including THC, FHx: Unknown Review of Systems Review of Systems Narrative Review of Systems: Narrative ROS GENERAL: Denies fevers/chills or diaphoresis. HEENT: Denies headache or visual/hearing changes. Denies nasal discharge. NEURO: Denies unusual weakness or difficulty speaking. CARDIO: Denies chest pain or palpitations. PULM: + SOB, coughing, bilateral crackles GI: Denies abdominal pain, N/V/C/D/reflux/gas, bright red blood per rectum or melena. Reports having BMs. URO: Denies burning/itching/pain/urinary changes. MSK/EXT/SKIN: Denies joint/skeletal/muscle pain, issues/changes in upper or lower extremities, itchiness, or superficial pain. PSYCH: Cooperative, pleasant mood & affect. The rest of the review of systems is otherwise negative. Exam Vital Signs Temp Pulse Resp BP Pulse Ox O2 Del Method O2 Flow Rate 97.8 F 74 20 163/82 H 92 L Nasal Cannula 5 04/12/24 11:04 04/12/24 11:04/12/24 11:04 04/12/24 11:04 04/12/24 11:04 04/12/24 11:04 04/12/24 11:04 Narrative Exam Physical Exam GENERAL: NAD, AAOx3 HEENT: Moist mucosa. Eyes open, symmetrical, & clear, left-sided hemodialysis catheter CARDIO: Heart RRR, no obvious murmurs PULM: No noted coughing/dyspnea, bilateral crackles GI: Abdomen soft, nondistended, no pain on palpation. BSx4 SKIN/MSK/EXT: No wounds/rashes/edema/amputations, no pain on palpation. Pedal pulses present B/L NEURO: AAOx3, no focal neuro deficits, able to move all 4 extremities Results: Labs 04/13/24 04:21 04/13/24 04:21 Labs: Short CBC 04/12/24 Range/Units 06:20 WBC 7.8 (3.6-11.0) Thou/mm3 Hgb 10.5 L (12.0-16.0) g/dL Hct 32.9 L (36.0-46.0) % Plt Count 176 D (140-440) Thou/mm3 BMP 04/12/24 06:20 Sodium 139 Potassium 4.5 Chloride 105 Carbon Dioxide 27.7 BUN 19 Creatinine 1.5 H Glucose 151 H Calcium 8.5 Cardiac Enzymes 04/12/24 Range/Units 06:20 Troponin I 0.040 (0.0-0.045) ng/mL Liver Function 04/12/24 Range/Units 06:20 Total Bilirubin 0.7 (0.3-1.2) mg/dL AST 14 (0-34) U/L ALT 7 L (10-49) U/L Alkaline Phosphatase 150 H (46-116) U/L Albumin 3.7 (3.4-4.8) gm/dL ABG Interpretation ABG results: 04/12/24 06:20 VBG pH 7.36 VBG pCO2 52 VBG pO2 48 VBG Base Excess 3 Quality Measures Quality Measures none Advance care planning discussed with:: patient Medications Home Medications and Allergies Home Medications ?Medication ?Instructions ?Recorded ?Confirmed ?Type lorazepam 0.5 mg tablet (Ativan) 0.5 mg PO Q6HR PRN An xiety 02/09/24 04/12/24 History carvedilol 3.125 mg tablet 3.125 mg PO BID 03/26/24 History Held on 03/30/24. Instructions: Resume on 04/06/24. hold as your heart rate is borderline, follow-up with PCP to restart. hydroxyzine HCl 25 mg tablet 25 mg PO QDAY PRN anxiety 03/26/24 04/12/24 History levothyroxine 100 mcg tablet 100 mcg PO QDAY 03/26/24 04/12/24 History nifedipine 30 mg tablet,extended 30 mg PO QDAY 5 04/12/24 History release pantoprazole 40 mg tablet,delayed 40 mg PO QDAY 04/12/24 History release (Protonix) acetazolamide 250 mg tablet 250 mg PO DAILY 04/12/24 0 04/12/24 History sodium zirconium cyclosilicate 10 10 g PO DAILY 04/12/24 History gram oral powder packet (Lokelma) atorvastatin 20 mg tablet 20 mg PO HS 04/13/24 5 History atorvastatin 40 mg tablet 40 mg PO QDAY 04/13/2404/13 History bumetanide 1 mg tablet 1 mg PO QDAY 04/13/24 History gabapentin 600 mg tablet 600 mg PO TID 04/13/2404/13 History hydralazine 25 mg tablet 25 mg PO TID 04/13/24 History ipratropium 0.5 mg-albuterol 3 mg 3 ml inhalation Q4H 04/13/24 04/13/24 History (2.5 mg base)/3 mL nebulization soln valsartan 80 mg tablet 80 mg PO QDAY 04/13/2404/13 History Allergies Allergy/AdvReac Type Severity Reaction Status Date / Time No Known Allergies Allergy Verified 02/29/24 15:43 Visit Medications Acetaminophen (Acetaminophen 325 Mg Tablet) 650 mg PO Q6H PRN PRN Reason: Fever >101.5 Stop: 05/12/24 11:23 Acetaminophen (Acetaminophen 325 Mg Tablet) 650 mg PO Q6H PRN PRN Reason: PAIN SCALE 1-3 (mild Stop: 05/12/24 11:23 Heparin Sodium (Porcine) (Heparin Sod Inj 5000 Unit/Ml Vial) 5,000 unit SC Q8HR LUCI Stop: 04/26/24 13:59 Ondansetron HCl (Ondansetron Inj 2 Mg/Ml Inj 2 Ml) 4 mg IV Q6H PRN; Protocol PRN Reason: NAUSEA OR VOMITING Stop: 05/12/24 11:23 Pantoprazole Sodium (Pantoprazole 40 Mg Tablet) 40 mg PO QDAY LUCI Stop: 05/13/24 08:59 Sennosides (Senna Tablet) 1 tab PO QDAY PRN; Protocol PRN Reason: constipation Stop: 05/12/24 11:23 Discontinued Medications Hydralazine HCl (Hydralazine Inj 20 Mg/Ml Vial) 20 mg IV X1 ONE Stop: 04/12/24 06:22 Last Admin: 04/12/24 06:31 Dose: 20 mg Morphine Sulfate (Morphine Sulf Inj 10 Mg/Ml Vial) 2 mg IVP X1 ONE Stop: 04/12/24 07:35 Last Admin: 04/12/24 07:43 Dose: 2 mg Nitroglycerin (Nitroglycerin Oint 2% 1 Inch Packet) 2 inch TOP X1 ONE Stop: 04/12/24 06:22 Last Admin: 04/12/24 06:27 Dose: 2 inch Ondansetron HCl (Ondansetron Inj 2 Mg/Ml Inj 2 Ml) 4 mg IV X1 ONE; Protocol Stop: 04/12/24 07:36 Last Admin: 04/12/24 07:42 Dose: 4 mg Assessment & Plan Plan 68-year-old female with past medical history of hypertension, heart failure with preserved ejection fraction, diabetes, hyperlipidemia, hypothyroidism, on 2 L of home oxygen presented to the ED due to shortness of breath. Patient went to her dialysis center was found to be desaturating and having shortness of breath patient had increased her oxygen from 2 L to 4 L however continued to have shortness of breath. Patient was not able to start her dialysis session and was sent to the hospital. Denies fever, shortness of breath, pedal edema, burning micturition, abdominal pain, nausea, vomitings, diarrhea. #Acute hypoxic respiratory failure secondary to #Acute decompensated heart failure [EF 55-60%] Presented to the dialysis center with shortness of breath, at home she uses 2 L of home oxygen Had increased oxygen to 4 L with no improvement Was not able to start her dialysis session and was brought to the ER On physical exam peripheral extremity seems to be dry however on auscultation bilateral crackles heard Chest x-ray shows severe pulmonary vascular congestion Last echo showed EF 55-60% ? Hemodialysis session today with ultrafiltration ? Bumex 1 mg daily resume starting tomorrow ? Daily weights ? Strict I's and O's ? Fluid restriction 2 L #Hypertensive emergency-improving #History of hypertension At home takes nifedipine 30 mg daily, valsartan 80 mg daily, ? Resume home meds starting tomorrow ? Blood pressure corrected more than 25% in 24 hours ? Resumed home blood pressure meds starting tomorrow #CKD stage IV Patient previously was on dialysis for only 2 months and was discontinued, however 1 month ago was started on hemodialysis again On physical exam bilateral crackles noted, peripheral extremities with dry Current creatinine 1.5 ? Hemodialysis session today with ultrafiltration ? Avoid nephrotoxic meds ? Renally dose medications ? Nephrology Dr. Mcclendon consulted, appreciate recommendations #Diabetes mellitus A1c from 08.11 ? SSI ? Hypoglycemia protocol #History of HFpEF On chart review patient uses Bumex 1 mg daily ? Resumed starting tomorrow #Hyperlipidemia ? Atorvastatin 40 mg resumed as taken at home #Hypothyroidism ? Levothyroxine 100 mcg resumed as taken at home #History of cerebrovascular accident ? Resumed aspirin 81 mg Case discussed with my senior Dr. Singh PGY-[address] Carey Felipe MD PGY-1 Disposition: Telemetry Fluids: None Feeding: Renal Thrombo prophylaxis: Heparin Gastric Ulcer prophylaxis: Pantoprazole CODE STATUS: Full code Attending Provider Attestation/Addendum IMarely, DO, attest that I was physically present for the tariq portions of the service and evaluated the patient with the resident and I reviewed and discussed the case with the resident and agree with the resident's findings and plans of care as documented above Patient is a 68-year-old female with medical history of atrial disease on hemodialysis, hypertension, diabetes type 2, hyperlipidemia, and chronic respiratory failure on 2 L home O2 who was brought to ED from dialysis center due to hypoxia. Patient states that she had been experiencing shortness of breath since last night worse with laying flat. On chest x-ray in the ED, patient is noted to have bilateral vascular congestion. She is also noted to have uncontrolled hypertension with systolic in the 200s. Recent echocardiogram was done last month showing elevated right heart pressures of 45 mmHg. Patient states that she takes Bumex at home and is able to urinate. BNP was also noted to be elevated at 1950. Will admit patient to telemetry for hypertensive urgency and. Consult nephro for dialysis. Blood pressure treated to goal at this time with gradual reduction of 25% in first several hours, will restart home medications in a.m.
--- NOTE | 2024-04-12 12:25 | PC.NURSE ---
high arterial pressure, so lines reversed.
--- NOTE | 2024-04-12 13:39 | PD.RESCONSUL ---
HPI Data of Consult Consult date: 04/12/24 Requesting Physician: Marely Patino DO Admitting Provider: Marely Patino DO Attending Provider: Marely Patino DO Primary Care Provider: Lety Mcclendon MD Consult Narrative Reason for consult: IBRAHIMA For hemodialysis History of present illness: Patient is American-speaking and a poor historian A 68-year-old female with past medical history of CKD stage IV previously on hemodialysis (came off since ), restarted on HD, again in 03/2024, DM2, HFpEF (55 - 60% on 03/2024), hypertension, hyperlipidemia, hypothyroidism, anemia of chronic disease, liver abscess status post drainage, recurrent hospital admissions for anasarca, recent hospital admission in 03/2024 for CVA brought to the hospital with chief complaints of shortness of breath while she is in dialysis center. Patient endorsed that she is having 3 dialysis sessions per week, also notes that she is using 2 L of oxygen in the care home. She went to her regular dialysis session and while transferring her to the dialysis, patient stated that she sustained a fall and hit her leg. Since then complaining of severe pain in right hip. Even before starting the dialysis, patient developed severe shortness of breath and despite being on oxygen, saturations were low for which patient was referred to the hospital. Denies fever, shortness of breath, pedal edema, burning micturition, abdominal pain, nausea, vomitings, diarrhea. ED Course: -Initial vitals were 204/94 mmHg, pulse rate 73 bpm, respiratory rate 22/min, temperature 98 ?F, SpO2 92% with 6 L oxygen -Labs significant for WBC 7.8, Hb 10.5, sodium 139, potassium 4.5, creatinine 1.5, BUN 19, glucose 151, BNP 1950, troponin 0.040, procalcitonin 0.23 -EKG showed normal sinus rhythm. Chest x-ray showed significant bilateral pulmonary vascular congestion. Head CT is negative for hemorrhage. Hip and pelvis x-ray did not show any fracture -In the ED, patient was given nitroglycerin patch, hydralazine and morphine. 04/12/2024 Patient will be undergoing HD for 2.4 hours with 2 L ultrafiltration goal. cc:: cc: Marely Patino DO Review of Systems Review of Systems Narrative Review of Systems: Constitutional: No Weight Change, No Fever, No Chills, No Night Sweats, No Fatigue, No Malaise ENT/Mouth: No Hearing Changes, No Ear Pain, No Nasal Congestion, No Sinus Pain, No Hoarseness, No sore throat, No Rhinorrhea, No Swallowing Difficulty Eyes: No Eye Pain, No Swelling, No Redness, No Foreign Body, No Discharge, No Vision Changes Cardiovascular: No Chest Pain, SOB, No PND, No Dyspnea on Exertion, No Orthopnea, No Edema, No Palpitations Respiratory: No Cough, No Sputum, No Wheezing, Dyspnea Gastrointestinal: No Nausea, No Vomiting, No Diarrhea, No Constipation, No Pain, No Heartburn, No Anorexia, No Dysphagia, No Hematochezia, No Melena, No Flatulence, No Jaundice Genitourinary: No Dysuria, No Urinary Frequency, No Hematuria, No Urinary Incontinence, No Urgency, No Flank Pain, No Urinary Flow Changes, No Hesitancy Musculoskeletal: No Arthralgias, No Myalgias, No Joint Swelling, No Joint Stiffness, No Back Pain, No Neck Pain, injury to the right hip Skin: No Skin Lesions, No Pruritis Neuro: No Weakness, No Numbness, No Paresthesias, No Loss of Consciousness, No Syncope, No Dizziness, No Headache, No Coordination Changes, fall on the right hip Exam Vital Signs Temp Pulse Resp BP Pulse Ox O2 Del Method O2 Flow Rate 98.0 F 71 20 157/82 H 91 L Nasal Cannula 3 04/12/24 12:11 04/12/24 13:30 04/12/24 12:11 04/12/24 13:30 04/12/24 12:11 04/12/24 11:51 04/12/24 12:11 Narrative Exam General: Awake. Dehydrated HEENT: Normocephalic, atraumatic, mucous membranes dry. Heart: Regular rate and rhythm, no murmurs. Lungs: Clear to auscultation with no wheezing or crackles. Abdomen: Soft, nondistended, nontender, positive bowel sounds. ?No guarding or rebound tenderness. Neurologic: Alert and oriented x3, no gross neurological deficit, and patient able to move all 4 extremities. Extremities: No edema. Mild tenderness in right lower extremity in the thigh, but is able to flex the hip. Skin: No rash or ecchymoses. Results Labs 04/12/24 06:20 04/12/24 06:20 Labs: Short CBC 04/12/24 Range/Units 06:20 WBC 7.8 (3.6-11.0) Thou/mm3 Hgb 10.5 L (12.0-16.0) g/dL Hct 32.9 L (36.0-46.0) % Plt Count 176 D (140-440) Thou/mm3 BMP 04/12/24 06:20 Sodium 139 Potassium 4.5 Chloride 105 Carbon Dioxide 27.7 BUN 19 Creatinine 1.5 H Glucose 151 H Calcium 8.5 Cardiac Enzymes 04/12/24 Range/Units 06:20 Troponin I 0.040 (0.0-0.045) ng/mL Liver Function 04/12/24 Range/Units 06:20 Total Bilirubin 0.7 (0.3-1.2) mg/dL AST 14 (0-34) U/L ALT 7 L (10-49) U/L Alkaline Phosphatase 150 H (46-116) U/L Albumin 3.7 (3.4-4.8) gm/dL ABG Interpretation ABG results: 04/12/24 06:20 VBG pH 7.36 VBG pCO2 52 VBG pO2 48 VBG Base Excess 3 Quality Measures Quality Measures none Advance care planning discussed with:: patient Medications Home Medications and Allergies Home Medications ?Medication ?Instructions ?Recorded ?Confirmed ?Type lorazepam 0.5 mg tablet (Ativan) 0.5 mg PO Q6HR PRN Anxiety 02/09/24 04/12/24 History carvedilol 3.125 mg tablet 3.125 mg PO BID 03/26/24 04/12/24 History Held on 03/30/24. Instructions: Resume on 04/06/24. hold as your heart rate is borderline, follow-up with PCP to restart. escitalopram oxalate 20 mg tablet 20 mg PO QDAY 03/26/24 04/12/24 History hydroxyzine HCl 25 mg tablet 25 mg PO QDAY PRN anxiety 03/26/24 04/12/24 History levothyroxine 100 mcg tablet 100 mcg PO QDAY 03/26/24 04/12/24 History nifedipine 30 mg tablet,extended 30 mg PO QDAY 03/26/24 04/12/24 History release pantoprazole 40 mg tablet,delayed 40 mg PO QDAY 03/26/24 04/12/24 History release (Protonix) acetazolamide 250 mg tablet 250 mg PO DAILY 04/12/24 04/12/24 History sodium zirconium cyclosilicate 10 10 g PO DAILY 04/12/24 04/12/24 History gram oral powder packet (Lokelma) Allergies Allergy/AdvReac Type Severity Reaction Status Date / Time No Known Allergies Allergy Verified 02/29/24 15:43 Visit Medications Acetaminophen (Acetaminophen 325 Mg Tablet) 650 mg PO Q6H PRN PRN Reason: Fever >101.5 Stop: 05/12/24 11:23 Acetaminophen (Acetaminophen 325 Mg Tablet) 650 mg PO Q6H PRN PRN Reason: PAIN SCALE 1-3 (mild Stop: 05/12/24 11:23 Dextrose (Dextrose 50%-Water Inj 50 Ml Syringe) 25 ml IV Q15MIN PRN PRN Reason: BG 50-70 responsive npo pt Stop: 05/12/24 11:34 Dextrose (Dextrose 50%-Water Inj 50 Ml Syringe) 50 ml IV Q15MIN PRN PRN Reason: BG <50 OR BG <70 & pt unresponsive Stop: 05/12/24 11:34 Glucagon (Glucagon Inj 1 Mg Vial) 1 mg IM Q15MIN PRN PRN Reason: BG <70, and no IV access Heparin Sodium (Porcine) (Heparin Sod Inj 5000 Unit/Ml Vial) 5,000 unit SC Q8HR LUCI Stop: 04/26/24 13:59 Insulin Human Lispro (Insulin Lispro (Admelog) 1 Unit/0.01 Ml Unit) 0 unit SC AC LUCI; Protocol Stop: 05/12/24 16:59 Ondansetron HCl (Ondansetron Inj 2 Mg/Ml Inj 2 Ml) 4 mg IV Q6H PRN; Protocol PRN Reason: NAUSEA OR VOMITING Stop: 05/12/24 11:23 Pantoprazole Sodium (Pantoprazole 40 Mg Tablet) 40 mg PO QDAY LUCI Stop: 05/13/24 08:59 Sennosides (Senna Tablet) 1 tab PO QDAY PRN; Protocol PRN Reason: constipation Stop: 05/12/24 11:23 Discontinued Medications Epoetin Vamsi (Epoetin Vamsi-Epbx Inj 10,000 Unit/Ml Vial (Non-Esrd)) 10,000 unit SC X1 ONE Stop: 04/12/24 11:33 Hydralazine HCl (Hydralazine Inj 20 Mg/Ml Vial) 20 mg IV X1 ONE Stop: 04/12/24 06:22 Last Admin: 04/12/24 06:31 Dose: 20 mg Morphine Sulfate (Morphine Sulf Inj 10 Mg/Ml Vial) 2 mg IVP X1 ONE Stop: 04/12/24 07:35 Last Admin: 04/12/24 07:43 Dose: 2 mg Nitroglycerin (Nitroglycerin Oint 2% 1 Inch Packet) 2 inch TOP X1 ONE Stop: 04/12/24 06:22 Last Admin: 04/12/24 06:27 Dose: 2 inch Ondansetron HCl (Ondansetron Inj 2 Mg/Ml Inj 2 Ml) 4 mg IV X1 ONE; Protocol Stop: 04/12/24 07:36 Last Admin: 04/12/24 07:42 Dose: 4 mg Assessment & Plan Plan A 68-year-old female with past medical history of CKD stage IV previously on hemodialysis (came off since ), restarted on HD, again in 03/2024, DM2, HFpEF (55 - 60% on 03/2024), hypertension, hyperlipidemia, hypothyroidism, anemia of chronic disease, liver abscess status post drainage, recurrent hospital admissions for anasarca, recent hospital admission in 03/2024 for CVA brought to the hospital with chief complaints of shortness of breath while she is in dialysis center. # Hypertensive emergency # CKD stage IV, off HD since 06/2023, restarted on 03/2024--secondary to cardiorenal syndrome -Presented to the hospital with complaints of shortness of breath noticed on the dialysis center -Patient had low oxygen saturations despite 15 L oxygen for which she was referred to the hospital -Endorsed that she is getting 3 dialysis sessions per week, -On physical examination, patient does not appear to be fluid overloaded -Vitals at the time of admission showed blood pressure 204/94 mmHg, SpO2 92% with 6 L oxygen -Patient endorsed that she is using 2 L oxygen in the care home -Labs showed Hb 10.5, BUN 19, creatinine 1.5 -Chest x-ray showed bilateral moderate to severe pulmonary vascular congestion Plan -HD session for 2.5 hours with 2000 ultrafiltration goal -Avoid nephrotoxic medications and renally dose medications -Recommended strict control of blood pressures -Recommended strict control of blood sugars. # History of hypertension -Patient does not remember the name of the medications -Medication reconciliation -Resume her blood pressure medications # Microcytic normochromic anemia -Likely nutritional and anemia of chronic kidney disease -Iron and ferritin stores are within normal limits in 02/2024 -Erythropoietin injections during HD # Diabetes mellitus # HFpEF # Hyperlipidemia # Hypothyroidism # History of CVA -Rest of the medical conditions to be treated as per primary team Thank you for allowing us to involved in the care of the patient Patient plan of care was discussed with the attending physician, Dr. Danelle Hollis, PGY1 Attending Provider Attestation/Addendum Patient seen and examined with resident physician Dr. Oscar. Note reviewed, agree with findings and recommendations. Patient admitted with significant hypoxic respiratory failure and CHF exacerbation. Patient currently seen on dialysis. Tolerating dialysis without any problems. Hemodialysis for 3 hours, sequential ultrafiltration-2 L Epogen 6000, no heparin ordered. Plan of care discussed with the dialysis nurse. Please see dialysis flowsheet for further details. Thank you Marely for allowing me to participate in the care of Ms. Oliveira
[2024-04-12] MEDS: ACETAMINOPHEN 325 MG TABLET 650 MG PO (13:49)
--- NOTE | 2024-04-12 13:52 | PC.NURSE ---
Pt c/o DAVIS 09/16, acetaminophen 650 mg PO given.
--- NOTE | 2024-04-12 14:50 | PC.NURSE ---
Report received from Clark FATIMA in ED. Pt. came in from dialysis center with SOB, 15 L OM at admission now on 2 l NC satting 97%. Pt. in dialysis now.
[2024-04-12] MEDS: HEPARIN SOD INJ 1000 UNIT/ML VIAL 10 ML 3500 UNIT INDWELLCAT (15:20)
[2024-04-12] MEDS: HEPARIN SOD INJ 5000 UNIT/ML VIAL SC ×2 (15:50→21:10)
[2024-04-12] MEDS: EPOETIN ALFA-EPBX INJ 10,000 UNIT/ML VIAL (NON-ESRD) 10000 UNIT SC (15:50)
--- NOTE | 2024-04-12 18:29 | PC.NURSE ---
wasiq covering for team C aware pt. complaining of pain to right leg, pt. complained of this pain on admit, scans were done with no issues found. aware pt. is tearful and reports pain 11/16. states I will review the chart and enter something.
[2024-04-12] MEDS: oxyCODONE/APAP 5/325 TABLET 1 TAB PO (18:40)
[2024-04-12] MEDS: ATORVASTATIN CALCIUM 20 MG TABLET 40 MG PO (20:36)
[2024-04-13] VITALS (8 sets, daily range): BP systolic 140–184; BP diastolic 66–87; PULSE 63–78; RESP 14–34; TEMP 36.2–37; O2SAT 92–100
[2024-04-13] MEDS: LEVOTHYROXINE SODIUM 100 MCG TABLET PO (05:40)
[2024-04-13] MEDS: HEPARIN SOD INJ 5000 UNIT/ML VIAL SC ×2 (05:40→13:43)
[2024-04-13 05:47] LABS: Basophils % (Auto) 1 % (0-2.5); Eosinophils # (Auto) 0.3 Thou/mm3 (0.0-0.5); Eosinophils % (Auto) 5 % (0-10); Hematocrit 29.1 % (36.0-46.0); Hemoglobin 9.3 g/dL (12.0-16.0); Immature Granulocytes % (Auto) 0 % (0-0); Immature Granulocytes Auto 0.01 Thou/mm3 (0.00-0.00); Lymphocytes # (Auto) 1.4 Thou/mm3 (1.0-4.8); Lymphocytes % (Auto) 24 % (10-50); Mean Corpuscular Hemoglobin 32.4 pg (25.0-35.0); Mean Corpuscular Volume 101 fL (80-100); Monocytes # (Auto) 0.4 Thou/mm3 (0.0-0.8); Monocytes % (Auto) 6 % (0-12); Neutrophils # (Auto) 3.8 Thou/mm3 (1.8-7.7); Neutrophils % (Auto) 64 % (37-80); Nucleated Red Blood Cell % 0 /100 WBC (0); Platelet Count 171 Thou/mm3 (140-440); RDW Standard Deviation 56.6 fL (36.4-46.3); Red Blood Count 2.87 Miln/mm3 (4.00-5.20); White Blood Count 5.9 Thou/mm3 (3.6-11.0)
[2024-04-13 06:06] LABS: Alanine Aminotransferase < 7 U/L (10-49); Albumin, Serum 3.3 gm/dL (3.4-4.8); Albumin/Globulin Ratio 0.9 (1.2-2.2); Alkaline Phosphatase 132 U/L (46-116); Anion Gap 7 (7-16); Aspartate Amino Transferase 18 U/L (0-34); BUN/Creatinine Ratio 10 Ratio (12-20); Bilirubin,Total 0.8 mg/dL (0.3-1.2); Blood Urea Nitrogen 12 mg/dL (9-23); Calcium 8.7 mg/dL (8.3-10.6); Calcium (Corrected) 9.3 mg/dL (8.5-10.1); Carbon Dioxide 29.5 mMol/L (20.0-31.0); Chloride 106 mMol/L (98-107); Creatinine (Component) 1.2 mg/dL (0.6-1.3); Estimated Creatinine Clearance 37.6 mL/min (>60); Globulin 3.7 gm/dL (2.3-3.5); Glucose 75 mg/dL (74-106); Magnesium 1.7 mg/dL (1.6-2.6); Osmolality,Calculated 281 (275-295); Phosphorous 3.7 mg/dL (2.4-5.1); Potassium 4.4 mMol/L (3.4-5.1); Sodium 142 mMol/L (136-145); eGFR 50 See Note
[2024-04-13] MEDS: oxyCODONE/APAP 5/325 TABLET 1 TAB PO (06:08)
[2024-04-13 06:15] LABS: Glucose Estimated Average 114 mg/dL (80-131); Hemoglobin A1C 5.6 % Hgb (4.8-6.0)
[2024-04-13] MEDS: VALSARTAN 40 MG TABLET 80 MG PO (08:06)
[2024-04-13] MEDS: ONDANSETRON INJ 2 MG/ML INJ 2 ML 4 MG IV (08:06)
[2024-04-13] MEDS: ASPIRIN EC 81 MG TABEC PO (08:06)
[2024-04-13] MEDS: PANTOPRAZOLE 40 MG TABLET PO (08:07)
[2024-04-13] MEDS: BUMETANIDE 0.5 MG TABLET 1 MG PO (08:07)
[2024-04-13] MEDS: NIFEdipine XL 30 MG TABCR PO (08:07)
--- NOTE | 2024-04-13 09:42 | ESPR_ITS ---
Documentation for date of: 04/13/24 Subjective Subjective Interval history: Patient was seen and examined at the bedside No acute overnight events. Denies any other complaints. Stated that her shortness of breath subsided. Making adequate amount of urine Vitals are stable and SpO2 is 98% with 2 L oxygen Patient tolerated dialysis well yesterday and will continue her sessions as per her routine schedule Patient can be discharged from nephrology perspective Exam Vital Signs Temp Pulse Resp BP Pulse Ox O2 Del Method O2 Flow Rate 98.4 F 78 14 184/87 H 98 Nasal Cannula 2 04/13/24 08:00 04/13/24 08:07 04/13/24 08:00 04/13/24 08:07 04/13/24 08:00 04/13/24 08:00 04/13/24 08:00 Narrative Exam General: Awake. frang lady HEENT: Normocephalic, atraumatic, mucous membranes dry Heart: Regular rate and rhythm, no murmurs. Lungs: bilateral fine inspiratory crackles heard Abdomen: Soft, nondistended, nontender, positive bowel sounds. ?No guarding or rebound tenderness. Neurologic: Alert and oriented x3, no gross neurological deficit, and patient able to move all 4 extremities. Extremities: No edema. Skin: No rash . eechymotic patches on right arm Objective Labs 04/13/24 04:21 04/13/24 04:21 Labs: Laboratory Results - last 24 hr 04/12/24 04/13/24 06:35 04:21 WBC 5.9 RBC 2.87 L Hgb 9.3 L Hct 29.1 L MCV 101 H MCH 32.4 MCHC 32.0 RDW Std Deviation 56.6 H Plt Count 171 Neut % (Auto) 64 Lymph % (Auto) 24 Hand % (Auto) 6 Eos % (Auto) 5 Baso % (Auto) 1 Neut # (Auto) 3.8 Lymph # (Auto) 1.4 Hand # (Auto) 0.4 Eos # (Auto) 0.3 Baso # (Auto) 0.0 Immature Gran # (Auto) 0.01 H Absolute Nucleated RBC 0.00 Immature Gran % 0 Nucleated RBC % 0 Sodium 142 Potassium 4.4 Chloride 106 Carbon Dioxide 29.5 Anion Gap 7 BUN 12 Creatinine 1.2 Estim Creat Clear Calc 37.6 L eGFR 50 L BUN/Creatinine Ratio 10 L Glucose [address] Glu mg/dL 114 Hemoglobin A1c 5.6 Calculated Osmolality 281 Calcium 8.7 Corrected Calcium 9.3 Phosphorus 3.7 Magnesium 1.7 Total Bilirubin 0.8 AST 18 ALT < 7 L Alkaline Phosphatase 132 H Total Protein 7.0 Albumin 3.3 L Globulin 3.7 H Albumin/Globulin Ratio 0.9 L Blood Type O Positive Antibody Screen NEGATIVE ABG Interpretation ABG results: 04/12/24 06:20 VBG pH 7.36 VBG pCO2 52 VBG pO2 48 VBG Base Excess 3 Quality Measures Quality Measures none Advance care planning discussed with:: patient Assessment & Plan Assessment Current Active Medications: Generic Name Dose Route Start Last Admin Trade Name Freq PRN Reason Stop Dose Admin Acetaminophen 650 mg 04/12/24 11:24 04/12/24 13:49 Acetaminophen 325 Mg Tablet PO 05/12/24 11:23 650 mg Q6H PRN Administration Fever >101.5 Acetaminophen 650 mg 04/12/24 11:24 Acetaminophen 325 Mg Tablet PO 05/12/24 11:23 Q6H PRN PAIN SCALE 1-3 (mild Aspirin 81 mg 04/13/24 09:00 04/13/24 08:06 Aspirin Ec 81 Mg Tabec PO 05/13/24 08:59 81 mg QDAY LUCI Administration Atorvastatin Calcium 40 mg 04/12/24 21:00 04/12/24 20:36 Atorvastatin Calcium 20 Mg Tablet PO 05/12/24 20:59 40 mg HS LUCI Administration Bumetanide 1 mg 04/13/24 09:00 04/13/24 08:07 Bumetanide 0.5 Mg Tablet PO 05/13/24 08:59 1 mg QDAY LUCI Administration Dextrose 25 ml 04/12/24 11:35 Dextrose 50%-Water Inj 50 Ml Syringe IV 05/12/24 11:34 Q15MIN PRN BG 50-70 responsive npo pt Dextrose 50 ml 04/12/24 11:35 Dextrose 50%-Water Inj 50 Ml Syringe IV 05/12/24 11:34 Q15MIN PRN BG <50 OR BG <70 & pt unresponsive Glucagon 1 mg 04/12/24 11:35 Glucagon Inj 1 Mg Vial IM Q15MIN PRN BG <70, and no IV access Heparin Sodium (Porcine) 5,000 unit 04/12/24 14:00 04/13/24 05:40 Heparin Sod Inj 5000 Unit/Ml Vial SC 04/26/24 13:59 5,000 unit Q8HR LUCI Administration Heparin Sodium (Porcine) 3,500 unit 04/12/24 13:46 04/12/24 15:20 Heparin Sod Inj 1000 Unit/Ml Vial 10 Ml INDWELLCAT 04/26/24 13:45 3,500 unit X1 PRN Administration DIALYSIS Insulin Human Lispro 0 unit 04/12/24 17:00 04/13/24 08:08 Insulin Lispro (Admelog) 1 Unit/0.01 Ml Unit SC 05/12/24 16:59 Not Given AC LUCI Protocol Levothyroxine Sodium 100 mcg 04/13/24 06:00 04/13/24 05:40 Levothyroxine Sodium 100 Mcg Tablet PO 05/13/24 05:59 100 mcg ACBR LUCI Administration Nifedipine 30 mg 04/13/24 09:00 04/13/24 08:07 Nifedipine Xl 30 Mg Tabcr PO 05/13/24 08:59 30 mg QDAY LUCI Administration Ondansetron HCl 4 mg 04/12/24 11:24 04/13/24 08:06 Ondansetron Inj 2 Mg/Ml Inj 2 Ml IV 05/12/24 11:23 4 mg Q6H PRN Administration NAUSEA OR VOMITING Protocol Pantoprazole Sodium 40 mg 04/13/24 09:00 04/13/24 08:07 Pantoprazole 40 Mg Tablet PO 05/13/24 08:59 40 mg QDAY LUCI Administration Sennosides 1 tab 04/12/24 11:24 Senna Tablet PO 05/12/24 11:23 QDAY PRN constipation Protocol Valsartan 80 mg 04/13/24 09:00 04/13/24 08:06 Valsartan 40 Mg Tablet PO 05/13/24 08:59 80 mg QDAY LUCI Administration Plan A 68-year-old female with past medical history of CKD stage IV previously on hemodialysis (came off since ), restarted on HD, again in 03/2024, DM2, HFpEF (55 - 60% on 03/2024), hypertension, hyperlipidemia, hypothyroidism, anemia of chronic disease, liver abscess status post drainage, recurrent hospital admissions for anasarca, recent hospital admission in 03/2024 for CVA brought to the hospital with chief complaints of shortness of breath while she is in dialysis center. # Hypertensive emergency # CKD stage IV, off HD since 06/2023, restarted on 03/2024--secondary to cardiorenal syndrome -Presented to the hospital with complaints of shortness of breath noticed on the dialysis center -Patient had low oxygen saturations despite 15 L oxygen for which she was referred to the hospital -Endorsed that she is getting 3 dialysis sessions per week, //TUE -On physical examination, patient does not appear to be fluid overloaded -Vitals at the time of admission showed blood pressure 204/94 mmHg, SpO2 92% with 6 L oxygen -Patient endorsed that she is using 2 L oxygen in the senior living -Labs showed Hb 10.5, BUN 19, creatinine 1.5 >3/7, BUN12, Creat 1.2 -Chest x-ray showed bilateral moderate to severe pulmonary vascular congestion Plan -Received HD session yesterday -Avoid nephrotoxic medications and renally dose medications -Recommended strict control of blood pressures -Recommended strict control of blood sugars. # History of hypertension -Patient does not remember the name of the medications -Medication reconciliation -Resume her blood pressure medications # Microcytic normochromic anemia -Likely nutritional and anemia of chronic kidney disease -Iron and ferritin stores are within normal limits in 02/2024 -Erythropoietin injections during HD # Diabetes mellitus # HFpEF # Hyperlipidemia # Hypothyroidism # History of CVA -Rest of the medical conditions to be treated as per primary team Thank you for allowing us to involved in the care of the patient Patient plan of care was discussed with the attending physician, Dr. Danelle Hollis, PGY1 Attending Provider Attestation/Addendum Patient seen and examined with resident physician Dr. Oscar. Note reviewed, agree with findings and recommendations. Patient did receive dialysis yesterday. She has cardiorenal syndrome. Creatinine improved. Suspect renal recovery-will decrease dialysis to twice weekly.
[2024-04-13] MEDS: LACTULOSE SYRUP 20 GM/30 ML UDC 10 GM PO (11:10)
[2024-04-13] MEDS: GABAPENTIN 100 MG CAPSULE PO (11:11)
[2024-04-13] MEDS: ACETAMINOPHEN 325 MG TABLET 650 MG PO ×2 (11:33→17:28)
--- NOTE | 2024-04-13 11:36 | PC.SS ---
Betty Oliveira is a 68-year-old female admitted to Tele for SOB. SS conducted over the phone contact with pt dtr Cari Palm [phone]. Cari confirmed all demographic information Pt is currently residing at [facility] and they wish for her to return. Cari also identifies herself as the pt medical decision maker and her sister Marni Oliveira as a secondary [phone]. Pt is a max assist and requires assistance. Pt PCP is Dr. Mcclendon. SS will remain available for any additional needs.
--- NOTE | 2024-04-13 14:25 | PC.PT ---
Patient will be going back to SNF. No need for authorization to go back as per SW. Will cancel PT evaluation.
--- NOTE | 2024-04-13 14:53 | PC.SS ---
Plan to DC back to [facility], no PT needed. SS set up transport via [facility] #[id number], pending release to [place]. Packet prepared in office.
--- NOTE | 2024-04-13 15:00 | PC.SS ---
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
--- NOTE | 2024-04-13 15:16 | ESDS_ITS ---
<Statement entered by Marely Patnio DO - 04/14/24 07:31> I, Marely Patino DO, attest that I was physically present for the tariq portions of the service and evaluated the patient with the resident and I reviewed and discussed the case with the resident and agree with the resident's findings and plans of care as documented above <Statement entered by Sloane Singh MD - 04/13/24 17:07> I discussed with and supervised the applications intern physician who took care of this patient. I personally saw and examined the patient and discussed the assessment and plan with the entire medicine team, including my attending Dr. Patino, I agree with the assessment and plan as documented below Patient seen and examined at bedside today. Labs and imaging reviewed. All questions were answered recommendation were given to come at the ED at any time if she is not feeling well, patient will be discharged to SNF and continue home medications and hemodialysis per schedule. Sloane Singh MD PGY-3 Disclaimer: Despite multiple revisions, due to the dictation software being used, the document bellow may not be free of grammatical errors including phonetic/typographic errors. However, this does not deter from our commitment to providing health care in the patient's best interest in mind. Planned Discharge Date 04/13/24 DS: Providers Provider Date of admission: 04/12/24 12:06 Primary care physician: Lety Mcclendon MD Admitting Provider: Marely Patino DO Attending Provider on Admission: Marely Patino DO Consults: 04/12/24 13:45 Consult to Nephrology Stat Comment: Consulting Provider: Lety Mcclendon 04/12/24 18:26 Referral Wound Care Routine Comment: JOJO Attending Provider on DC: Marely Patino DO Discharging Provider: Ralph Felipe MD Anticipated date of discharge: 04/13/24 DS: Diagnosis Problem List Completed Was Problem List Reviewed/Reconciled?: Yes Hospital Course Hospital Course Hospital course: 68-year-old female with past medical history of hypertension, heart failure with preserved ejection fraction, diabetes, hyperlipidemia, hypothyroidism, on 2 L of home oxygen, status post liver abscess drainage 1 presented to the ED due to shortness of breath. Patient went to her dialysis center was found to be desaturating and having shortness of breath patient had increased her oxygen from 2 L to 4 L however continued to have shortness of breath. Patient was recently restarted on hemodialysis about 1 month ago. Patient was not able to start her dialysis session and was sent to the hospital. Admitted for urgent hemodialysis. During hospital stay patient had hemodialysis with ultrafiltration as recommended by warrant clerk Dr. Mcclendon. Patient came with hypertensive emergency was managed with IV medications as well as resuming patient's home blood pressure medications. Diabetes was managed with insulin sliding scale hypoglycemia protocol. Patient history of CVA as aspirin was resumed as taken at home. Patient has hypothyroidism levothyroxine was resumed this taken at home. Patient has history of heart failure with preserved ejection fraction for which diuretics were resumed as taken at home. At this time patient is medically stable for discharge. Follow-up with primary care physician within 1 week of discharge. Follow-up with warrant clerk Dr. Mcclendon within 2 weeks of discharge. Please continue your hemodialysis as scheduled. No changes have been made to your medications please take all your medications as prescribed. Should any symptoms recur or worsen patient is instructed to return to the ED Problem list: #Acute hypoxic respiratory failure secondary to #Hypertensive emergency-resolved # Hypertension #CKD stage IV #Diabetes mellitus #History of HFpEF #Hyperlipidemia #Hypothyroidism #History of cerebrovascular accident Case discussed with my senior Dr. Singh PGY-[address] Carey Felipe MD PGY-1 Status at Discharge Functional status at discharge: independent ambulation Overall status at discharge: patient is back to baseline Time Spent with Patient Time attestation: Total time spent providing and/or coordinating discharge services: Time spent: Greater than 30 minutes Exam Vital Signs Temp Pulse Resp BP Pulse Ox O2 Del Method O2 Flow Rate 98.3 F 70 34 H 174/81 H 98 Nasal Cannula 2 04/13/24 12:00 04/13/24 12:00 04/13/24 12:00 04/13/24 12:00 04/13/24 12:00 04/13/24 12:04/13/24 12:00 Narrative Exam Physical Exam GENERAL: NAD, AAOx3 HEENT: Moist mucosa. Eyes open, symmetrical, & clear, left-sided hemodialysis catheter CARDIO: Heart RRR, no obvious murmurs PULM: No noted coughing/dyspnea CTA B/L, no R/W/R GI: Abdomen soft, nondistended, no pain on palpation. BSx4 SKIN/MSK/EXT: No wounds/rashes/edema/amputations, no pain on palpation. Pedal pulses present B/L NEURO: AAOx3, no focal neuro deficits, able to move all 4 extremities Discharge Plan Plan Patient Disposition: Xfer Skilled [facility]sg Fac (SNF) Patient condition on transfer: Stable Care Plan Goals: Follow-up with primary care physician within 1 week of discharge Follow-up with warrant clerk Dr. Mcclendon within 2 weeks of discharge. Please continue your hemodialysis as scheduled. No changes have been made to your medications please take all your medications as prescribed. Should any symptoms recur or worsen patient is instructed to return to the ED Prescriptions/Referrals Prescriptions/Med Rec: Continued nifedipine 30 mg tablet extended release 30 mg PO QDAY Patient Comments: take 1 tablet by mouth once daily carvedilol 3.125 mg tablet 3.125 mg PO BID Patient Comments: take 1 tablet by mouth twice a day MUST ADMINISTER WITH A MEAL/FOOD pantoprazole [Protonix] 40 mg tablet,delayed release (DR/EC) 40 mg PO QDAY hydroxyzine HCl 25 mg tablet 25 mg PO QDAY PRN (Reason: anxiety) Patient Comments: take 1 tablet by mouth once daily if needed for anxiety levothyroxine 100 mcg tablet 100 mcg PO QDAY Patient Comments: take 1 tablet by mouth once daily gabapentin 100 mg capsule 100 mg PO TID 30 Days Qty: 90 0RF acetazolamide 250 mg tablet 250 mg PO DAILY Patient Comments: TAKE 1 TABLET BY MOUTH EVERY DAY Lokelma 10 gram powder in packet 10 g PO DAILY Patient Comments: MIX 10 GRAMS DIRECTED AND DRINK BY MOUTH DAILY atorvastatin 40 mg tablet 40 mg PO QDAY valsartan 80 mg tablet 80 mg PO QDAY Patient Comments: TAKE 1 TABLET BY MOUTH EVERY DAY gabapentin 600 mg tablet 600 mg PO TID Patient Comments: TAKE 1 TABLET BY MOUTH THREE TIMES A DAY ipratropium-albuterol 0.5 mg-3 mg(2.5 mg base)/3 mL solution for nebulization 3 ml INHALATION Q4H Patient Comments: 3 ML INHALED EVERY 4 HOURS NEEDED FOR SHORTNESS OF BREATH atorvastatin 20 mg tablet 20 mg PO HS Patient Comments: TAKE 1 TABLET BY MOUTH EVERYDAY AT BEDTIME bumetanide 1 mg tablet 1 mg PO QDAY Patient Comments: TAKE 1 TABLET BY MOUTH EVERY DAY hydralazine 25 mg tablet 25 mg PO TID Patient Comments: TAKE 2 TABLETS BY MOUTH 3 TIMES A DAY FOR 30 DAYS lorazepam [Ativan] 0.5 mg Tablet 0.5 mg PO Q6HR PRN (Reason: Anxiety) Januvia 50 mg tablet 50 mg PO QDAY Qty: 30 0RF Referrals: Lety Mcclendon MD [Primary Care Provider] - Patient/Caregiver Discharge Instructions Print Language: Hungarian Stand Alone Forms: [facility] Award Info., Patient Portal Info Letter Discharge Order Discharge Orders: Discharge (Routine); Ordered 04/13/24 Ordered By: Ralph Felipe Quality Discharge Quality Measures VTE prophylaxis
== END 2024-04-13 17:44 | disposition skilled nursing facility (03) | DRG 199 ==
LOC: SERX 11:19 → SERHOLD 12:07 → S2NX 15:08
PROVIDERS: Student in an Organized Health Care Education/Training Program; Admitting Provider Internal Medicine; Emergency Provider Emergency Medicine; PCP Internal Medicine; Visit Provider Internal Medicine
DX: I16.1 Hypertensive emergency (principal); I50.31 Acute diastolic (congestive) heart failure; J96.21 Acute and chronic respiratory failure with hypoxia; I13.2 Hypertensive heart and chronic kidney disease with heart failure and with stage 5 chronic kidney disease, or end stage renal disease; E03.9 Hypothyroidism, unspecified; N18.6 End stage renal disease; E78.5 Hyperlipidemia, unspecified; D63.1 Anemia in chronic kidney disease; M25.551 Pain in right hip; E11.22 Type 2 diabetes mellitus with diabetic chronic kidney disease; D50.9 Iron deficiency anemia, unspecified; Z79.899 Other long term (current) drug therapy; Z79.890 Hormone replacement therapy; Z86.73 Personal history of transient ischemic attack (TIA), and cerebral infarction without residual deficits; Z99.81 Dependence on supplemental oxygen; Z99.2 Dependence on renal dialysis; W19.XXXA Unspecified fall, initial encounter
CPT/HCPCS: 36415; 70450; 71045; 72170; 73501; 80053; 80307; 80320; 81001; 82803; 83036; 83605; 83735; 83880; 84100; 84145; 84484; 85025; 85610; 86850; 86900; 86901; 87040; 87081; 87400; 87811; J0360; J1643; J2270; J2405; Q5106; A9270; G0480